=== PATIENT | male | born 1965 | race Hispanic/Latino ===

== ENCOUNTER 2021-05-07 22:29 | Inpatient (IN) | payer OTHER ==
[~2021-05-07] VITALS: Ht 165.1 cm; Wt 88.2 kg
[~2021-05-07 22:29] MED LIST: CELEXA40 MG PO; GEODON80 MG PO; PRAZOSIN HCL2 MG PO; PROMETHAZINE HC25 M1 PO; TRAZODONE HCL150 MG PO
--- NOTE | 2021-05-08 04:30 | NUR ---
PT ARRIVED TO ROOM 129 AT 0400 VIA STRETCHER. PT AMBULATED TO BATHROOM, VOIDED 350ML DILUTE YELLOW URINE AND THEN AMBULATED TO BED. PT IS ALERT/ORIENTED, DENIES PAIN. LUNGS DIM THROUGHOUT, APPEARS DYSPNEIC WITH ACTIVITY, DENIES CHEST PAIN. HR IRREGULAR, A.FIB RATE IN 100-120'S. BOWEL TONES ACTIVE, DENIES NAUSEA. SKIN GROSSLY INTACT WITHOUT EDEMA. IV INTACT, PATENT AND SALINE LOCKED. PT DENIES NEEDS AT THIS TIME, CALL LIGHT WITHIN REACH.
--- NOTE | 2021-05-08 05:37 | NUR ---
PT UP TO SIDE OF BED WITH SBA TO VOID. NOW BACK IN BED. SANDWICH BOX PROVIDED PER REQUEST.
--- NOTE | 2021-05-08 06:56 | NUR ---
PT UP TO SIDE OF BED WITH SBA, VOIDED 475ML YELLOW URINE. HR UP TO 140'S WITH ACTIVITY. PT BACK IN BED, DENIES FURTHER NEEDS.
--- NOTE | 2021-05-08 08:45 | NUR ---
PT ASSESSMENT COMPLETED AT THIS TIME. PT SHORT OF BREATH AT REST. HEART RATE 120S WITH EATING BREAKFAST. CRACKLES AUSCULTATED IN BILATERAL LUNG BASES. SPO2 = 96% ON 2 L NC. PT STATES HE FEELS DIAPHORETIC AND SHAKY. DISCUSSED PLAN OF CARE FOR THE DAY. ALL QUESTIONS ANSWERED. CALL LIGHT WITHIN REACH. WILL CONTINUE TO MONITOR.
--- NOTE | 2021-05-08 09:47 | NUR ---
1PA UP TO BR FOR BM AND ORAL CARE. PATIENT TOLERATED WELL. LINEN CHANGED. CALL LIGHT AND PERSONAL ITEMS IN EASY REACH
--- NOTE | 2021-05-08 10:53 | NUR ---
MED REC COMPLETED BY PHARMACY
--- NOTE | 2021-05-08 11:27 | EKG ---
[facility] [address] [facility] [place] [address] Signed Atrial fibrillation with rapid ventricular response Anterior infarct , age undetermined Abnormal ECG When compared with ECG of 28-JAN-2016 17:31, Atrial fibrillation has replaced Sinus rhythm Vent. rate has increased BY 68 BPM Anterior infarct is now present Nonspecific T wave abnormality now evident in Anterolateral leads Confirmed by ASHLEY BOTELLO MD ([id number]) on 05/08/2021 11:27:30 AM Electronically Signed By: ASHLEY BOTELLO MD 05/08/21 1127 PATIENT NAME: DAVID SANTORO Electrocardiogram DATE OF : 65 PHYSICIAN: ASHLEY BOTELLO MD REPORT #: [id number] REPORT IS CONFIDENTIAL AND NOT TO BE RELEASED WITHOUT AUTHORIZATION
--- NOTE | 2021-05-08 13:22 | NUR ---
PATIENT STATES HE STOOD TO USE URINAL, BECAME LIGHT HEADED AND SAT BACK DOWN IN BED "I THINK I'M GETTING TOO MUCH OXYGEN OR SOMETHING". RN NOTIFIED.
--- NOTE | 2021-05-08 14:45 | NUR ---
Update from Cecy MONSON. Pt in for exacerbation of CHF, new onset Afib. hr remains uncomtrolled in 130s. Pt positive for meth. Pt denies meth use. Will see pt tomorrow and check if he is interested in assist from [facility] for meth use.
--- NOTE | 2021-05-08 14:46 | NUR ---
Certified Heart Failure Nurse Notes: Diagnosis:heart failure and atrial fibrillation Ticket Collector-NA PCP:does not currently have one Echocardiogram results pending. Admit Pro-BNP: [id number] Social support system:lives with Weight monitoring: No scale present in home.States he can obtain one. Education given on how to weigh daily/ when to notify PCP Patient did recognize that his abdomen has been unusually swollen. Symptom management: Addressed monitoring and reporting changes in weight or symptoms utilizing Zones form Diet: Usual meals - Dines out most days per week. Eats ramen and cup of soup at home. He, nor his spouse, cooks at home. Usual physical activity: Not discussed at this initial visit Medication routine: Has been counseled on minimizing/avoiding use of NSAIDs Tobacco: No Advanced directive: Not discussed at this initial visit Recommendations prior to discharge: Establish an appointment with a PCP within 7-10 days of discharge. Document ambulation oxygen saturations prior to discharge Absence of orthostatic hypotension. Discharge weight less than admit weight. Discharge BNP less than admit (as per [facility] Heart Failure DC Bundle) Barriers to self-care include: New diagnosis knowledge deficit. Fatigue. Imbalanced current home nutrition. Follow-up plans: Patient agrees to receive a follow up call from this service. Patient would be welcome for complimentary outpatient heart failure education. Teaching materials given today: [facility] Heart Failure bundle folder-[facility] My Action Plan Living Well with Heart Failure book, Daily weight and symptom monitoring log, Zones magnet, [facility] contact information Low Sodium Shopping list. Lower sodium dining list. Use of psices. Given 7 day pill reminder box for home use.
--- NOTE | 2021-05-08 15:15 | NUR ---
PT DIAPHORETIC AGAIN, DENIES PAIN AND SHORTNESS OF BREATH AT THIS TIME. PROVIDED PT EDUCATION ABOUT FLUID RESTRICTION, ALL QUESTIONS ANSWERED. CALL LIGHT WITHIN REACH. WILL CONTINUE TO MONITOR.
--- NOTE | 2021-05-08 16:41 | NUR ---
RT IN ROOM GIVING BREATHING TX
--- NOTE | 2021-05-08 18:26 | NUR ---
Report received from CCU IONA Sam, pt tatyana will transfer to [facility] floor via bed.
--- NOTE | 2021-05-08 18:43 | NUR ---
Pt arrives to [facility] floor via bed from CCU, VSS on RA, pt denies any needs at this time, resting safely in bed w/ call light in reach.
--- NOTE | 2021-05-08 19:50 | NUR ---
PT RESTING IN BED SLEEPING, ALERT TO STAFF IN ROOM. HE HAS NO REQUESTS AT THIS TIME, NO DISTRESS NOTED WHILE ROUNDING IN ROOM.
--- NOTE | 2021-05-08 21:07 | NUR ---
PT JUST BACK TO BED AFTER UP TO BATHROOM, HEART RATE UP TO 121 BPM, PER TELEMETRY UNIT. V/S STABLE, PT WITHIN RANGE OF FLUID RESTRICTION. HE IS ALERT ADN ORIENTED. HE REPORT NO PAIN OR NAUSEA, NOTED TO HAVE INCREASE RESPIRATORY DEMAND, TO 25 BPM, RECOVER WITH REST QUICKLY.
--- NOTE | 2021-05-08 22:48 | NUR ---
BED ALARM SOUNDED. PT SAT UP IN BED TO USE URINAL. HE DENIES FURTHER NEEDS AT THIS TIME. CALL LIGHT IS CLOSE.
--- NOTE | 2021-05-08 23:28 | NUR ---
CALLED THE NURSES STATION TO REQUEST AN UPDATE ON PT HEART RATE. UPDATE GIVEN.
--- NOTE | 2021-05-08 23:45 | NUR ---
PT SLEEPING, ALERT TO RN IN PT ROOM. HE ASKED ABOUT A LUNCH BOX NOTED TO BE ON BEDSIDE TABLE. PT SAT UP TO EAT. NO OTHER CONCERNS OR REQUESTS AT THIS TIME. PT PROVIDED WATER FOR HIS MEAL. HE 150ML REMAINING UNTIL 0600 PER HIS FLUID RESTRICTION ORDER.
--- NOTE | 2021-05-09 05:18 | NUR ---
PT HAS SLEPT INTERMITTENLY, HE HAS CONTINUOUSLY REQUESTED FOOD/SNACKS AND MORE WATER, HE IS NOW MAXED OUT UNTIL BREAKFAST, THIS HAS BEEN EXPLAINED, EDUCATION PROVIDED. HE HAS REPORTED NO PAIN OVER SHIFT, NO NAUSEA. HIS HEART RATE HAS REMAINED UNDER 100 BPM AT REST, UP TO 120'S BPM WHEN ACTIVE. HE IS STANDBY ASSIST TO USE URINAL. V/S STABLE ON ROOM AIR, REMAINS IN AFIB PER TELEMETRY.
--- NOTE | 2021-05-09 06:18 | NUR ---
PT UP TO BATHROOM, STANDYBY ASSIST, AMBUALTES WELL WITH STEADY GAIT. PT HAVING BM.
--- NOTE | 2021-05-09 07:30 | NUR ---
Shift report recieved from IONA Ascencio, pt resting safely in bed w/ call light in reach, no needs at this time.
--- NOTE | 2021-05-09 08:42 | NUR ---
UPDATED WHITE BOARD. IONA GREEN IN ROOM. PROVIDED PT WITH WARM WASHCLOTH. PT WAS AGREEABLE TO CHAIR. PREPARED PT'S CHAIR. PT SBA TO CHAIR. CALL LIGHT WITHIN REACH, NO FURTHER NEEDS AT THIS TIME.
--- NOTE | 2021-05-09 10:00 | NUR ---
Pt sitting up in chair w/ call light in reach, eating breakfast. Morning assesment complete and scheduled meds given per provider order. Pt asking for decaf coffee instead as he does not drink caffine, cup of decaf coffee and ice water given pt notified that was his fluids for the morning until lunch time due to fluid restriction. Pt denies any other needs at this time
--- NOTE | 2021-05-09 11:20 | NUR ---
Spoke with pt and he lives in [place] with his in an apartment. 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 He does not use any DME. He does admit to Meth use, but states he is stop- ing for good as he believes this is what is causing his heart issues. He does agree to speak with [facility] and I notified them. Pt is [employer] but does not have benefits from [employer]. He will need a pcp. He has been going to [facility] urgent care. He denies other needs.
--- NOTE | 2021-05-09 12:30 | NUR ---
PT ALERT, ORIENTED AND WATCHING TV. PT SEEMS WELL VERSED IN THAI, HAD LIVELY DISCUSSION. PT DEALING APPROPRIATELY WITH CHANGE IN HEALTH, STRUGGLING WITH [facility]. GAVE BLESSING, WILL FOLLOW
--- NOTE | 2021-05-09 13:29 | NUR ---
UPON ENTERING THE ROOM, THIS WIRE PULLER FOUND PT LEANING OVER ROOM SINK WITH CUP IF THEY WERE GOING TO FILL IT. SOON PT SAW THIS WIRE PULLER, THEY HASTILY SET THIER CUP DOWN AND JUMPED BACK IN BED. IONA BREWSTER AND IONA GREEN NOTIFIED, CALL LIGHT WITHIN REACH NO FURTHER NEEDS AT THIS TIME.
--- NOTE | 2021-05-09 14:30 | NUR ---
Pt ambulated hallway ind, 2 full laps, pt resting in bed safely now w/ call light in reach, no needs at this time
--- NOTE | 2021-05-09 15:43 | NUR ---
PREPPED PT'S SHOWER. PT SBA TO SHOWER. PLACED TELE IN PLASTIC BAG. PT INDEPENDENT IN SHOWER. LINENS CHANGED, MARYBETHWHICH BROUGHT PER PT REQUEST. BR TIDIED AND CLEANED. CALL LIGHT WITHIN REACH, NO FURTHER NEEDS AT THIS POINT
--- NOTE | 2021-05-09 18:00 | NUR ---
PT SITTING UP IN BED W/ CALL LIGHT IN REACH, PT GIVEN ICE WATER UPON REQUEST, PT DENIES ANY FURTHER NEEDS AT THIS TIME
--- NOTE | 2021-05-09 20:04 | NUR ---
BEDSIDE REPORT.. PT HAS BEEN UP AND AMBULATORY, HE HAS BEEN WITNESSED FILLING CUP AT SINK TODAY BY STAFF. EDUCATION HAS BEEN GIVEN THROUGHOUT SHIFT FOR CHF, PT CONTINUES TO NEED REINFORCEMENT, ON ASSESSMENT NORMA MONSON SAID HE RESPONDED THOUGH HE HAD NOT BEEN EDUCATED PRIOR, HIGH RISK FOR CARE PLAN FOLLOW THROUGH AT DISCHARGE, CHF MANAGEMENT AT HOME.
--- NOTE | 2021-05-09 20:15 | NUR ---
FIXED TELE LEADS AND PT REQUESTED SORBET. HE DENIES FURTHER NEEDS AT THIS TIME. CALL LIGHT IS CLOSE.
--- NOTE | 2021-05-09 21:45 | NUR ---
PT SLEEPING, ALERT TO STAFF IN ROOM TO COMPLETE ASSESSMENT AND HS MED PASS, V/S STABLE. PT REQUESTS ANOTHER ICE CREAM CUP, EDUCATIONS PROVIDED IN REGARDS TO FLUID RESTRICTION AND CHF
--- NOTE | 2021-05-09 22:41 | NUR ---
NOTIFIED BY CCU RN OF PATIENT HAVING 7 BEATS OF VTACH PER TELEMETRY. VINCENT RN INTO PT ROOM, HE SAID HE FELT FINE, HE SAID HE HAD BEEN MOVING AROUND IN BED
--- NOTE | 2021-05-09 23:35 | NUR ---
PT RESTING IN BED, TALKING ON CELL PHONE, NO DISTRESS NOTED. HEART RATE 89 BPM PER TELEMETRY.
--- NOTE | 2021-05-10 00:50 | NUR ---
PT CALLED NURSES STATION TO REQUEST A LUNCH BOX, THIS RN CALLED AND REQUESTED FROM [employer] FOR LUNCH BOX.
--- NOTE | 2021-05-10 03:33 | NUR ---
PT UP TO USE URINAL, HR 105 BPM PER TELEMETRY AT THIS TIME.
--- NOTE | 2021-05-10 04:27 | NUR ---
PT REQUEST MORE SNACKS, HE HAS HAD LUNCH BOX TONIGHT, HE IS NOW MAXED OUT ON HIS FLUID RESTRICTION. EDUCATION PROVIDED.
--- NOTE | 2021-05-10 05:41 | NUR ---
PT HAS NOT SLEPT OVER MOST OF SHIFT, HE HAS MAXED OUT HIS FLUID RESTRICTION, HE HAS REQUESTED FOOD FREQUENTLY HAS BEEN GIVEN LUNCH BOX WELL SNACKS FROM NUTRITION ROOM. HE HAS BEEN COOPERATIVE WITH CARE. EDUCATION ON CHF AND FLUID RESTRICITON WELL MANAGING CHF AT HOME GIVEN OVER SHIFT. PT IS NOT ABLE TO TEACH BACK, HE MAY NOT BE RETAINING OR EXCEPTING THE SEVERITY OF HIS CONDITION. CONTINUE TO RE-ENFORCE, HIGH RISK FOR POOR MANAGEMENT OF CHF AT HOME. CASE MANAGEMENT SET UP PCP WITH [facility] TO FOLLOW UP.
--- NOTE | 2021-05-10 07:30 | NUR ---
Shift report received from IONA Ascencio, pt resting in bed safely w/ call light in reach, pt denies any needs at this time
--- NOTE | 2021-05-10 10:00 | NUR ---
Pt sitting up on side of bed w/ call light in reach, pt walked a total of 7 laps ind in hallway, HR 110-120 per Tele, provider notified, additional medication ordered. Morning assesment complete and scheduled meds given per provider order. Pt denies any other needs at this time, eager to discharge home
--- NOTE | 2021-05-10 12:22 | NUR ---
BLOOD PRESSURE TAKEN AND THEN PATIENT UP TO AMBULATE IN HALLWAY. PATIENT AMBULATED 2 LAPS UPON RN REQUEST TO WATCH HEART RATE. PATIENT NOW BACK TO SITTING UP IN BED. CALL LIGHT IN REACH. NO FURTHER NEEDS AT THIS TIME.
--- NOTE | 2021-05-10 12:22 | NUR ---
Pt ambulated in hallway again 2 full laps, HR 90-115, provider notified, no new orders at this time. Pt denies and SOB, CP, or needs at this time
[2021-05-10] MEDS ORDERED: ASPIRIN EC325 MG PO (13:39)
[2021-05-10] MEDS ORDERED: SPIRONOLACTONE25 MG PO (13:39)
[2021-05-10] MEDS ORDERED: TORSEMIDE10 MG PO (13:39)
[2021-05-10] MEDS ORDERED: METOPROLOL SUCC50 MG PO (13:39)
[2021-05-10] MEDS ORDERED: LISINOPRIL2.5 MG PO (13:39)
--- NOTE | 2021-05-10 14:45 | NUR ---
WRITTEN AND VERBAL DISCHARGE INSTRUCTIONS/EDUCATION GIVEN TO PT, ALL QUESTIONS AND CONCERNS ANSWERED. PT TAKEN VIA W/C BY JODY CHIANG TO FRONT LOBBY, WHERE PT'S WAS WAITING W/ CAR TO TRANSPORT PT HOME. VSS ON RA
== END 2021-05-10 15:05 | disposition home or self-care (01) | DRG 291 ==
LOC: ED 22:29 → CCU 05-08 04:24 → MS 05-08 10:59
PROVIDERS: ADMIT Internal Medicine; ATTEND Internal Medicine
DX: I11.0 Hypertensive heart disease with heart failure (principal); I50.23 Acute on chronic systolic (congestive) heart failure; J96.01 Acute respiratory failure with hypoxia; I47.2 Ventricular tachycardia; Z20.822 Contact with and (suspected) exposure to COVID-19; I42.8 Other cardiomyopathies; F15.10 Other stimulant abuse, uncomplicated; I48.0 Paroxysmal atrial fibrillation; I34.0 Nonrheumatic mitral (valve) insufficiency; K76.81 Hepatopulmonary syndrome; F20.9 Schizophrenia, unspecified; F32.A Depression, unspecified; F17.210 Nicotine dependence, cigarettes, uncomplicated; Z88.0 Allergy status to penicillin; Z88.8 Allergy status to other drugs, medicaments and biological substances
CPT/HCPCS: 71045; 76705; 80053; 83690; 83735; 83880; 84484; 85025; 93306; 94760; 96374; 96375; 99285-25; C9803; G0378; J1650; J1940; U0003

== ENCOUNTER 2021-07-05 06:54 | Emergency (ER) | payer OTHER ==
[~2021-07-05] VITALS: Ht 165.1 cm; Wt 88.0 kg
[~2021-07-05 06:54] MED LIST changes: +ASPIRIN EC325 MG PO; +LISINOPRIL2.5 MG PO; +METOPROLOL SUCC50 MG PO; +SPIRONOLACTONE25 MG PO; +TORSEMIDE10 MG PO
--- OUTSIDE RECORDS SUMMARY | 2021-07-05 07:04 | XMS ---
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 E.D. VISIT COUNT (12 MO.) 2 [facility] [place] TOTAL 2 NOTE: Visits indicate total known visits. ED/UCC VISIT TRACKING (12 MO.) 07/05/2021 06:54 [facility] [place] TYPE: Emergency COMPLAINT: - PAINFUL FEET 05/07/2021 22:29 [facility] [place] TYPE: Emergency COMPLAINT: - SOB, COUGH INPATIENT VISIT TRACKING (12 MO.) 05/08/2021 10:59 [facility] [place] TYPE: Medical Surgical COMPLAINT: - CHF EXAC DIAGNOSES: - Paroxysmal atrial fibrillation - Hypertensive heart disease with heart failure - Acute on chronic systolic (congestive) heart failure - Hepatopulmonary syndrome - Paroxysmal atrial fibrillation - Other cardiomyopathies - Acute respiratory failure with hypoxia - Allergy status to penicillin - Ventricular tachycardia - Acute respiratory failure with hypoxia - Other stimulant abuse, uncomplicated - Allergy status to penicillin - Nicotine dependence, cigarettes, uncomplicated - Other stimulant abuse, uncomplicated - Allergy status to other drugs, medicaments and biological substances - Acute on chronic systolic (congestive) heart failure - Schizophrenia, unspecified - Hypertensive heart disease with heart failure - Ventricular tachycardia - DEPRESSION, UNSPECIFIED - Allergy status to other drugs, medicaments and biological substances - Nicotine dependence, cigarettes, uncomplicated - Nonrheumatic mitral (valve) insufficiency - Other cardiomyopathies - Schizophrenia, unspecified - Heart failure, unspecified - DEPRESSION, UNSPECIFIED - Hepatopulmonary syndrome - Nonrheumatic mitral (valve) insufficiency [email or web address]
[2021-07-05] MEDS ORDERED: ATORVASTATIN CA20 MG PO (07:09)
[2021-07-05] MEDS ORDERED: METOPROLOL SUCC25 MG PO (07:10)
== END 2021-07-05 09:24 | disposition home or self-care (01) ==
LOC: ED 06:54
DX: M19.072 Primary osteoarthritis, left ankle and foot (principal); M19.071 Primary osteoarthritis, right ankle and foot; F17.200 Nicotine dependence, unspecified, uncomplicated; Z88.0 Allergy status to penicillin; Z88.8 Allergy status to other drugs, medicaments and biological substances; Z88.6 Allergy status to analgesic agent; Z79.899 Other long term (current) drug therapy; Z79.82 Long term (current) use of aspirin
CPT/HCPCS: 73630; 99283-25; A9270

== ENCOUNTER 2021-09-18 17:04 | Emergency (ER) | payer OTHER ==
[~2021-09-18] VITALS: Ht 165.1 cm; Wt 95.6 kg
[~2021-09-18 17:04] MED LIST changes: +ATORVASTATIN CA20 MG PO; +METOPROLOL SUCC25 MG PO
== END 2021-09-18 19:54 | disposition home or self-care (01) ==
LOC: ED 17:04
DX: M54.6 Pain in thoracic spine (principal); M54.50 Low back pain, unspecified; F19.10 Other psychoactive substance abuse, uncomplicated; F17.200 Nicotine dependence, unspecified, uncomplicated; Z88.0 Allergy status to penicillin; Z91.09 Other allergy status, other than to drugs and biological substances; Z79.899 Other long term (current) drug therapy; Z79.82 Long term (current) use of aspirin; Z88.8 Allergy status to other drugs, medicaments and biological substances
CPT/HCPCS: 36415; 80048; 85025; 85651; 86140; 96374; 99283-25; A9270; J1885

== ENCOUNTER 2021-10-27 10:22 | Emergency (ER) | payer OTHER ==
[~2021-10-27] VITALS: Ht 165.1 cm; Wt 95.6 kg
[2021-10-27] MEDS ORDERED: DOXYCYCLINE HY100 MG PO (13:21)
== END 2021-10-27 14:40 | disposition home or self-care (01) ==
LOC: ED 10:22
DX: L03.316 Cellulitis of umbilicus (principal); F15.10 Other stimulant abuse, uncomplicated; I50.9 Heart failure, unspecified; F17.200 Nicotine dependence, unspecified, uncomplicated; Z88.0 Allergy status to penicillin; Z88.6 Allergy status to analgesic agent; Z91.048 Other nonmedicinal substance allergy status; Z79.899 Other long term (current) drug therapy
CPT/HCPCS: 36415; 74177; 80053; 81001; 83605; 85025; 87040; 87070; 96375; 99284-25; J0696; J2405; Q9967

== ENCOUNTER 2022-03-10 13:23 | Emergency (ER) | payer OTHER ==
[~2022-03-10] VITALS: Ht 165.1 cm; Wt 86.0 kg
[~2022-03-10 13:23] MED LIST changes: +DOXYCYCLINE HY100 MG PO
[2022-03-10] MEDS ORDERED: K-TAB ER20 MEQ PO (17:13)
[2022-03-10] MEDS ORDERED: TORSEMIDE10 MG PO (17:13)
--- NOTE | 2022-03-10 21:32 | EKG ---
[facility] [address] [facility] [place] [address] Signed Atrial fibrillation with rapid ventricular response with premature ventricular or aberrantly conducted complexes Left axis deviation Anterior infarct (cited on or before 07-MAY-2021) Prolonged QT Abnormal ECG When compared with ECG of 07-MAY-2021 22:54, T wave amplitude has increased in Anterior leads Confirmed by Mona Hoffman MD () on 03/10/2022 9:32:30 PM Electronically Signed By: MNOA HOFFMAN MD 03/10/222131 PATIENT NAME: DAVID SANTORO Electrocardiogram DATE OF : 65 PHYSICIAN: MONA HOFFMAN MD REPORT #: [id number] REPORT IS CONFIDENTIAL AND NOT TO BE RELEASED WITHOUT AUTHORIZATION
--- NOTE | 2022-03-10 21:35 | EKG ---
[facility] [address] [facility] [place] [address] Signed Atrial fibrillation with rapid ventricular response with premature ventricular or aberrantly conducted complexes Left axis deviation Incomplete right bundle branch block Anterior infarct (cited on or before 07-MAY-2021) Abnormal ECG When compared with ECG of 10-MAR-2022 13:48, (Unconfirmed) No significant change was found Confirmed by Mona Hoffman MD () on 03/10/2022 9:35:07 PM Electronically Signed By: MONA HOFFMAN MD 03/10/222134 PATIENT NAME: DAVID SANTORO Electrocardiogram DATE OF : 65 PHYSICIAN: MONA HOFFMAN MD REPORT #: [id number] REPORT IS CONFIDENTIAL AND NOT TO BE RELEASED WITHOUT AUTHORIZATION
== END 2022-03-10 17:54 | disposition home or self-care (01) ==
LOC: ED 13:23
DX: I50.9 Heart failure, unspecified (principal); F17.200 Nicotine dependence, unspecified, uncomplicated; Z88.0 Allergy status to penicillin; Z88.6 Allergy status to analgesic agent; Z91.041 Radiographic dye allergy status; Z79.899 Other long term (current) drug therapy; Z79.82 Long term (current) use of aspirin
CPT/HCPCS: 36415; 74022; 80053; 82375; 82803; 83880; 84484; 85025; 93005; 93010; 96374; 96375; 99285-25; J1940

== ENCOUNTER 2022-04-04 17:27 | Emergency (ER) | payer OTHER ==
[~2022-04-04] VITALS: Ht 165.1 cm; Wt 86.0 kg
[~2022-04-04 17:27] MED LIST changes: +K-TAB ER20 MEQ PO
--- OUTSIDE RECORDS SUMMARY | 2022-04-04 17:34 | XMS ---
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 Security E Commerce Director Events No recent Security Events currently on file CRITERIA MET - [facility] - 2 Visits in 30 Days [facility] PHONE: [phone] CECI URIOSTEGUI Nurse Practitioner: Family Current PHONE: [phone] Bella has no Care Guidelines for this patient. EKatelynn VISIT COUNT (12 MO.) [address] [place] [address] TOTAL 6 NOTE: Visits indicate total known visits. ED/UCC VISIT TRACKING (12 MO.) 04/04/2022 17:[address] [facility] [place] TYPE: Emergency COMPLAINT: - LEG AND FEET SWELLING 03/10/2022 13:[address] [facility] [place] TYPE: Emergency COMPLAINT: - POISONING DIAGNOSES: - Shortness of breath - Allergy status to analgesic agent - Heart failure, unspecified - Other chcf (current) drug therapy - Nicotine dependence, unspecified, uncomplicated - Radiographic dye allergy status - exterminator termite (current) use of aspirin - Allergy status to penicillin 10/27/2021 10:23 [facility] [place] TYPE: Emergency COMPLAINT: - ABD PAIN DIAGNOSES: - Other extermination inspector (current) drug therapy - Cellulitis of umbilicus - Heart failure, unspecified - Allergy status to analgesic agent - Other nonmedicinal substance allergy status - Nicotine dependence, unspecified, uncomplicated - Other stimulant abuse, uncomplicated - Allergy status to penicillin 09/18/2021 17:04 [facility] [place] TYPE: Emergency COMPLAINT: - NECK PAIN DIAGNOSES: - Allergy status to penicillin - Other psychoactive substance abuse, uncomplicated - Other allergy status, other than to drugs and biological substances - Other chcf (current) drug therapy - Low back pain, unspecified - exterminator termite (current) use of aspirin - Allergy status to other drugs, medicaments and biological substances - Nicotine dependence, unspecified, uncomplicated - Allergy status to narcotic agent - Pain in thoracic spine 07/05/2021 06:54 [facility] [place] TYPE: Emergency COMPLAINT: - PAINFUL FEET DIAGNOSES: - Allergy status to analgesic agent - Primary osteoarthritis, right ankle and foot - Other extermination inspector (current) drug therapy - Pain in right foot - Allergy status to other drugs, medicaments and biological substances - Nicotine dependence, unspecified, uncomplicated - Primary osteoarthritis, left ankle and foot - Allergy status to penicillin - assisted (current) use of aspirin 05/07/2021 22:29 [facility] [place] TYPE: Emergency COMPLAINT: - SOB, COUGH INPATIENT VISIT TRACKING (12 MO.) 05/08/2021 10:59 [facility] [place] TYPE: Medical Surgical COMPLAINT: - CHF EXAC DIAGNOSES: - Ventricular tachycardia - Acute on chronic systolic (congestive) heart failure - Contact with and (suspected) exposure to COVID-19 - Allergy status to penicillin - Allergy status to other drugs, medicaments and biological substances - Paroxysmal atrial fibrillation - Hepatopulmonary syndrome - Other stimulant abuse, uncomplicated - Nicotine dependence, cigarettes, uncomplicated - Acute respiratory failure with hypoxia - Acute on chronic systolic (congestive) heart failure - Paroxysmal atrial fibrillation - Other cardiomyopathies - Ventricular tachycardia - Hypertensive heart disease with heart failure - Hypertensive heart disease with heart failure - Heart failure, unspecified - Other stimulant abuse, uncomplicated - DEPRESSION, UNSPECIFIED - Hepatopulmonary syndrome - DEPRESSION, UNSPECIFIED - Nicotine dependence, cigarettes, uncomplicated - Depression, unspecified - Other cardiomyopathies - Nonrheumatic mitral (valve) insufficiency - Allergy status to other drugs, medicaments and biological substances - Nonrheumatic mitral (valve) insufficiency - Allergy status to penicillin - Schizophrenia, unspecified - Schizophrenia, unspecified - Acute respiratory failure with hypoxia [id number]
[2022-04-04] MEDS ORDERED: ELIQUIS5 MG PO (17:46)
[2022-04-05] MEDS ORDERED: COLCHICINE0.6 M1 PO (05:45)
[2022-04-05] MEDS ORDERED: BACTRIM DS TAB1 EACH PO (05:45)
--- NOTE | 2022-04-06 21:51 | EKG ---
[facility] [address] [facility] [place] [address] Signed Atrial fibrillation with rapid ventricular response Nonspecific ST and T wave abnormality Abnormal ECG When compared with ECG of 10-MAR-2022 14:21, Incomplete right bundle branch block is no longer present Confirmed by Mona Hoffman MD () on 04/06/2022 9:51:19 PM Electronically Signed By: MONA HOFFMAN MD 04/06/222150 PATIENT NAME: SANTORODAVID ALICIA Electrocardiogram DATE OF : 65 PHYSICIAN: MONA HOFFMAN MD REPORT #: [id number] REPORT IS CONFIDENTIAL AND NOT TO BE RELEASED WITHOUT AUTHORIZATION
== END 2022-04-05 06:08 | disposition home or self-care (01) ==
LOC: ED 17:27
PROC: 0S9D3ZZ Drainage of Left Knee Joint, Percutaneous Approach (ICD-10-PCS; principal; 2022-04-04)
DX: I50.9 Heart failure, unspecified (principal); N39.0 Urinary tract infection, site not specified; E79.0 Hyperuricemia without signs of inflammatory arthritis and tophaceous disease; M25.462 Effusion, left knee; F17.200 Nicotine dependence, unspecified, uncomplicated; Z20.822 Contact with and (suspected) exposure to COVID-19; Z88.0 Allergy status to penicillin; Z88.6 Allergy status to analgesic agent; Z91.02 Food additives allergy status; Z79.899 Other long term (current) drug therapy; Z79.01 Long term (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
CPT/HCPCS: 20610; 36415; 71045; 73560; 80053; 81001; 83735; 83880; 84484; 84550; 85025; 85379; 85610; 86140; 87502; 89051; 89060; 99284-25; A9270; J1940; J2270; U0003

== ENCOUNTER 2022-07-19 21:25 | Emergency (ER) | payer OTHER ==
[~2022-07-19] VITALS: Ht 165.1 cm; Wt 86.0 kg
[~2022-07-19 21:25] MED LIST changes: +BACTRIM DS TAB1 EACH PO; +COLCHICINE0.6 M1 PO; +ELIQUIS5 MG PO
[2022-07-19] MEDS ORDERED: TORSEMIDE10 MG PO (22:52)
[2022-07-19] MEDS ORDERED: SPIRONOLACTONE25 MG PO (22:52)
--- NOTE | 2022-07-21 14:02 | EKG ---
[facility] [address] [facility] [place] [address] Signed Atrial fibrillation with rapid ventricular response Left axis deviation Incomplete right bundle branch block Possible Anterior infarct , age undetermined Abnormal ECG When compared with ECG of 04-APR-2022 20:25, No significant change was found Confirmed by ASHLEY BOTELLO MD ([id number]) on 07/21/2022 2:02:34 PM Electronically Signed By: ASHLEY BOTELLO MD 07/21/22 1402 PATIENT NAME: DAVID SANTORO Electrocardiogram DATE OF : 65 PHYSICIAN: ASHLEY BOTELLO MD REPORT #: [id number] REPORT IS CONFIDENTIAL AND NOT TO BE RELEASED WITHOUT AUTHORIZATION
== END 2022-07-19 23:12 | disposition home or self-care (01) ==
LOC: ED 21:25
DX: I50.9 Heart failure, unspecified (principal); Z91.199 Patient's noncompliance with other medical treatment and regimen due to unspecified reason; F20.9 Schizophrenia, unspecified; F17.200 Nicotine dependence, unspecified, uncomplicated; Z88.0 Allergy status to penicillin; Z88.8 Allergy status to other drugs, medicaments and biological substances; Z91.02 Food additives allergy status; Z79.899 Other long term (current) drug therapy
CPT/HCPCS: 36415; 71045; 80053; 83735; 83880; 84484; 85025; 93005; 93010; 99285-25

== ENCOUNTER 2022-10-30 12:50 | Emergency (ER) | payer OTHER ==
[~2022-10-30] VITALS: Ht 165.1 cm; Wt 96.3 kg
--- OUTSIDE RECORDS SUMMARY | ~2022-10-30 | XMS | Continuity of Care Document ---
Demographics + + + | Address | [address] | | | [place] [address] | + + + | Preferred Language | Unknown | + + + | Marital Status | Polygamous | + + + | Jew Affiliation | Unknown | + + + | Race | Unknown | + + + | Ethnic Group | or | + + + Author + + + | Author | [facility] | + + + | Organization | [facility] | + + + | Address | [address] | | | [place] [address] | + + + | Phone | | + + + Care Team Providers + + + + | Care Treasury Manager Name | Role | Phone | + [...] + | (no date) | Mild | [place] [facility] | (no reaction) | (no severity) [...] + | (no date) | PEN[place]ILLINS | [place] | (no reaction) | (no severity) [...] | (no date) | Other (See | [facility] | (no reaction) | [...] + | (no date) | Ibuprofen | [facility] | (no reaction) | (no severity) [...] + + + | 2015-10-03 00:00 | [id number] 200 actuat | [facility] | | [...] + + + | 2015-10-03 00:00 | [id number] 200 actuat | [facility] | | [...] the Insane | + + + + Procedures No information. Results/Labs +--------+--------+ +---------+--------+---------+ | test | date | facility | value | unit | notes | +--------+--------+ +---------+--------+---------+ + + | Result panel 1 | + + + + + +------+ + + | | 2021-05-07 | [facility] | 56 | (missing) | (missing) | | (unavailable | 22:55 [facility] | | | | + + + +------+ + + + + | Result panel 2 | + + + + + +-------+---------+ + | | 2021-05-07 | [facility] | 2.0 | mg/dL | (missing) | | (unavailable | 22:55 | [facility] | | | | + + + +-------+---------+ + + + | Result panel 3 [...] (missing) | | (unavailable | 13:48 | [facility] | | | | | [...] | | 2022-04-04 | [facility] | 12- | (missing) | (missing) | | (unavailable | 20:10:08 | [facility] | | | | | ) | [...] | | 2022-04-05 | [facility] | [address].25 | (missing) | (missing) | | (unavailable [...] 200 | + + + + + +--------+ + + | | 2022-07-19 | [facility] | 10.9 | (missing) | (missing) | | (unavailable | 21:52:07 | [facility] | | | | + + + +--------+ + + + + | Result panel 201 | + + + + + +--------+ + + | | 2022-07-19 | [facility] | 71.1 | (missing) | (missing) | | (unavailable | 21:52:07 | [facility] | | | | + + + +--------+ + + + + | Result panel 202 | + + + + + +--------+ + + | | 2022-07-19 | [facility] | 16.0 | (missing) | (missing) | | (unavailable | 21:52:07 | [facility] | | | | + + + +--------+ + + + + | Result panel 203 | + + + + + +--------+ + + | | 2022-07-19 | [facility] | 11.6 | (missing) | (missing) | | (unavailable | 21:52:07 [facility] | | | | + + + +--------+ + + + + | Result panel 204 | + + + + + +-------+ + + | | 2022-07-19 | [facility] | 0.3 | (missing) | (missing) | | (unavailable | 21:52:07 | [facility] | | | | + + + +-------+ + + + + | Result panel 205 | + + + + + +-------+ + + | | 2022-07-19 | [facility] | 1.0 | (missing) | (missing) | | (unavailable | 21:52:07 | [facility] | | | | + + + +-------+ + + + + | Result panel 206 [...] 207 | + + + + + +------+---------+ + | | 2022-07-19 | [facility] | 25 | mg/dL | (missing) | | (unavailable | 21:52:07 | [facility] | | | | + + + +------+---------+ + + + | Result panel 208 | + + + + + +--------+---------+ + | | 2022-07-19 | [facility] | 1.19 | mg/dL | (missing) | | (unavailable | 21:52:07 | [facility] | | | | + + + +--------+---------+ + + + | Result panel 209 | + + + + + +------+ + + | | 2022-07-19 | [facility] | 71 | (missing) | (missing) | | (unavailable | 21:52:07 | [facility] | | | | + + + +------+ + + + + | Result panel 210 | + + + + + +---------+ + + | | 2022-07-19 | [facility] | 21.00 | (missing) | (missing) | | (unavailable | 21:52:07 [facility] | | | | + + + +---------+ + + + + | Result panel 211 | + + + + + +--------+ [...] 214 | + + + + + +------+ + + | | 2022-07-19 | [facility] | 99 | (missing) | (missing) | | (unavailable | 21:52:07 | [facility] | | | | + + + +------+ + + + + | Result panel 215 | + + + + + +------+ [...] 217 | + + + + + +-------+---------+ + | | 2022-07-19 | [facility] | 8.7 | mg/dL | (missing) | | (unavailable | 21:52:07 | [facility] | | | | + + + +-------+---------+ + + + | Result panel 218 | + + + + + +-------+---------+ + | | 2022-07-19 | [facility] | 1.6 | mg/dL | (missing) | | (unavailable | :52:07 | [facility] | | | | + + + +-------+---------+ + + + | Result panel 219 | + + + + + +-------+ + + | | 2022-07-19 | [facility] | 7.6 | (missing) | (missing) | | (unavailable | 21:52:07 | [facility] | | | | + + + +-------+ + + + + | Result panel 220 | + + + + + +-------+ + + | | 2022-07-19 | [facility] | 3.2 | (missing) | (missing) | | (unavailable | 21:52:07 | [facility] | | | | + + + +-------+ + + + + | Result panel 221 | + + + + + +-------+ [...] 225 | + + + + + +-------+ + + | | 2022-07-19 | [facility] | 330 | (missing) | (missing) | | (unavailable | 21:52:07 | [facility] | | | | + + + +-------+ + + + + | Result panel 226 | + + + + + +-------+ + + | | 2022-07-19 | [facility] | 263 | (missing) | (missing) | | (unavailable | 21:52:07 [facility] | | | | + + + +-------+ + + + + | Result panel 227 | + + + + + +-------+ + + | | 2022-07-19 | [facility] | 207 | (missing) | (missing) | | (unavailable | 21:52:07 [facility] | | | | + + + +-------+ + + + + | Result panel 228 | + + + + + +--------+ + + | | 2022-07-19 | [facility] | 19.8 | (missing) | (missing) | | (unavailable | 21:52:07 [facility] | | | | + + + +--------+ + + + + | Result panel 229 | + + + + + +--------+ + + | | 2022-07-19 | [facility] | 42.6 | (missing) | (missing) | | (unavailable | 21:52:07 [facility] | | | | + + + +--------+ + + + + | Result panel 230 | + + + + + +--------+ + + | | 2022-07-19 | [facility] | 94.7 | (missing) | (missing) | | (unavailable | 21:52:07 [facility] | | | | + + + +--------+ + + + + | Result panel 231 | + + + + + +--------+ + + | | 2022-07-19 | [facility] | 31.3 | (missing) | (missing) | | (unavailable | 21:52:07 [facility] | | | | + + + +--------+ + + + + | Result panel 232 | + + + + + +--------+ + + | | 2022-07-19 | [facility] | 33.1 | (missing) | (missing) | | (unavailable | 21:52:07 [facility] | | | | + + + +--------+ + + + + | Result panel 233 | + + + + + +--------+ + + | | 2022-07-19 | [facility] | 15.8 | (missing) | (missing) | | (unavailable | 21:52:07 [facility] | | | | + + + +--------+ + + + + | Result panel 234 | + + + + + +-------+ [...] + | 2019-11-09 00:00 | Ex-smoker | [facility] | | | | [facility] | + + + + | 2021-09-26 00:00 | Current smoker | [facility] | | | | [...] 189.56 | lb | + + + +---------+"
--- OUTSIDE RECORDS SUMMARY | ~2022-10-30 | XMS | Continuity of Care Document ---
Demographics + + + | Address | [address] | | | [place] [address] | + + + | Preferred Language | Unknown | + + + | Marital Status | Polygamous | + + + | Buddhism Affiliation | Unknown | + + + | Race | Unknown | + + + | Ethnic Group | or | + + + Author + + + | Author | [facility] | + + + | Organization | [facility] | + + + | Address | [address] | | | [place] [address] | + + + | Phone | | + + + Care Team Providers + + + + | Care Player Development Manager Name | Role | Phone | [...] + | (no date) | Mild | [place] | (no reaction) | (no severity) [...] + | (no date) | [place] | [place] | (no reaction) | (no severity) [...] + | (no date) | Ibuprofen | [facility] | (no reaction) | (no severity) | | | | [facility] | | | + + + + + + Encounters No information. Functional Status No information. Immunizations No information. Medications + + + + | date | description | facility | + + + + | 2022-04-05 00:00 | APIXABAN | [facility] | + + + + | 2022-07-19 00:00 | APIXABAN | [facility] | + + + + | 2022-03-10 00:00 | POTASSIUM CHLORIDE | [facility] | + + + + | 2022-03-10 00:00 | POTASSIUM CHLORIDE | [facility] | + + + + | 2022-04-05 00:00 | COLCHICINE | [facility] | + + + + | 2021-10-27 00:00 | DOXYCYCLINE HYCLATE | [facility] | + + + + | 2021-05-10 00:00 | TORSEMIDE | [facility] | + + + + | 2021-05-10 00:00 | TORSEMIDE | [facility] | + + + + | 2022-03-10 00:00 | TORSEMIDE | [facility] | + + + + | 2022-03-10 00:00 | TORSEMIDE | [facility] | + + + + | 2022-07-19 00:00 | TORSEMIDE | [facility] | + + + + | 2021-05-10 00:00 | ASPIRIN | [facility] | + + + + | 2021-05-10 00:00 | ASPIRIN | [facility] | + + + + | 2015-10-03 00:00 | [id number] 200 actuat | [facility] | | | albuterol 0.09 mg/actuat | [facility] | | | metered dose inhaler | | + + + + | 2021-10-30 00:00 | CITALOPRAM HYDROBROMIDE | [facility] | + + + + | 2022-03-10 00:00 | CITALOPRAM HYDROBROMIDE | [facility] | + + + + | 2022-04-05 00:00 | CITALOPRAM HYDROBROMIDE | [facility] | + + + + | 2022-07-19 00:00 | CITALOPRAM HYDROBROMIDE | [facility] | + + + + | 2021-10-30 00:00 | ZIPRASIDONE HCL | [facility] | + + + + | 2022-03-10 00:00 | ZIPRASIDONE HCL | [facility] | + + + + | 2022-04-05 00:00 | ZIPRASIDONE HCL | [facility] | + + + + | 2022-07-19 00:00 | ZIPRASIDONE HCL | [facility] | + + + + | 2019-11-09 00:00 | azithromycin 250 mg oral | [facility] | | | tablet | [facility] | + + + + | 2021-05-10 00:00 | LISINOPRIL | [facility] | + + + + | 2021-05-10 00:00 | LISINOPRIL | [facility] | + + + + | 2021-05-10 00:00 | LISINOPRIL | [facility] | + + + + | 2021-10-30 00:00 | PRAZOSIN HCL | [facility] | + + + + | 2022-03-10 00:00 | PRAZOSIN HCL | [facility] | + + + + | 2022-04-05 00:00 | PRAZOSIN HCL | [facility] | + + + + | 2022-07-19 00:00 | PRAZOSIN HCL | [facility] | + + + + | 2021-05-10 00:00 | SPIRONOLACTONE | [facility] | + + + + | 2021-05-10 00:00 | SPIRONOLACTONE | [facility] | + + + + | 2021-05-10 00:00 | SPIRONOLACTONE | [facility] | + + + + | 2022-07-19 00:00 | SPIRONOLACTONE | [facility] | + + + + | 2021-10-30 00:00 | ATORVASTATIN CALCIUM | [facility] | + + + + | 2022-03-10 00:00 | ATORVASTATIN CALCIUM | [facility] | + + + + | 2022-04-05 00:00 | ATORVASTATIN CALCIUM | [facility] | + + + + | 2022-07-19 00:00 | ATORVASTATIN CALCIUM | [facility] | + + + + | 2015-10-03 00:00 | [id number] 200 actuat | [facility] | | | albuterol 0.09 mg/actuat | [facility] | | | metered dose inhaler | | | | [proventil] | | + + + + | 2022-04-05 00:00 | | [facility] | | | SULFAMETHOXAZOLE/TRIMETHOPR | | | | IM DS | | + + + + | 2021-10-30 00:00 | TRAZODONE HCL | [facility] | + + + + | 2022-03-10 00:00 | TRAZODONE HCL | [facility] | + + + + | 2022-04-05 00:00 | TRAZODONE HCL | [facility] | + + + + | 2022-07-19 00:00 | TRAZODONE HCL | [facility] | + + + + | 2021-10-30 00:00 | METOPROLOL SUCCINATE | [facility] | + + + + | 2022-03-10 00:00 | METOPROLOL SUCCINATE | [facility] | + + + + | 2022-04-05 00:00 | METOPROLOL SUCCINATE | [facility] | + + + + | 2022-07-19 00:00 | METOPROLOL SUCCINATE | [facility] | + + + + | [...] 00:00 | Delirium due to general | [facility] | | | medical condition | | + + + + | 2014-10-28 00:00 | Delirium due to general | [facility] | | | medical condition | | + + + + | 2014-10-28 00:00 | Delirium due to general | [facility] | | | medical condition | | + + + + | 2014-10-28 00:00 | Altered level of | [facility] | | | consciousness | | + + + + | 2014-10-28 00:00 | Altered level of | [facility] | | | consciousness | | + + + + | 2014-10-28 00:00 | Altered level of | [facility] | | | consciousness | | + + + + | 2018-06-26 00:00 | Encounter for medical | [facility] | | | screening examination | | + + + + | 2018-06-26 00:00 | Encounter for medical | [facility] | | | screening examination | | + + + + | 2018-06-26 00:00 | Encounter for medical | [facility] | | | screening examination | | + + + + | 2021-05-08 00:00 | Atrial fibrillation with | [facility] | | | rapid ventricular response | | + + + + | 2021-05-08 00:00 | Atrial fibrillation with | [facility] | | | rapid ventricular response | | + + + + | 2021-05-08 00:00 | Atrial fibrillation with | [facility] | | | rapid ventricular response | | + + + + | 2021-05-08 00:00 | Acute on chronic | [facility] | | | congestive heart failure | | + + + + | 2021-05-08 00:00 | Acute on chronic | [facility] | | | congestive heart failure | | + + + + | 2021-05-08 00:00 | Acute on chronic | [facility] | | | congestive heart failure [...] + | 2021-07-05 00:00 | Arthritis | [facility] | + + + + | 2021-07-05 00:00 | Arthritis | [facility] | + + + + | 2021-07-05 00:00 | Arthritis | [facility] | + + + + | 2021-09-18 00:00 | Intravenous drug user | [facility] | + + + + | 2021-09-18 00:00 | Intravenous drug user | [facility] | + + + + | 2021-09-18 00:00 | Intravenous drug user | [facility] | + + + + | 2021-09-18 00:00 | Back pain | [facility] | + + + + | 2021-09-18 00:00 | Back pain | [facility] | + + + + | 2021-09-18 00:00 | Back pain | [facility] | + + + + | [...] | 2021-10-27 00:00 | Methamphetamine abuse | [facility] | + + + + | 2021-10-27 00:00 | Methamphetamine abuse | [facility] | + + + + | 2021-10-27 00:00 | Methamphetamine abuse | [facility] | + + + + | 2021-10-27 00:00 | Cellulitis of | [facility] | | | periumbilical region | | + + + + | 2021-10-27 00:00 | Cellulitis of | [facility] | | | periumbilical region | | + + + + | 2021-10-27 00:00 | Cellulitis of | [facility] | | | periumbilical region | | + + + + | 2022-03-10 00:00 | Congestive heart failure | [facility] | + + + + | 2022-03-10 00:00 | Congestive heart failure | [facility] | + + + + | 2022-04-05 00:00 | Hyperuricemia | [facility] | + + + + | 2022-04-05 00:00 | Urinary tract infection | [facility] | + + + + Procedures No [...] | | 2022-04-05 | [facility] | [address] | (missing) | (missing) | | (unavailable [...]
--- OUTSIDE RECORDS SUMMARY | 2022-10-30 12:58 | XMS ---
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 Care History Medical/Surgical 08/03/2022 [facility] This patient has no showed/cancelled all 5 appointments with PCP this year, 2022. E.D. VISIT COUNT (12 MO.) [address] [facility] TOTAL 4 NOTE: Visits indicate total known visits. ED/UCC VISIT TRACKING (12 MO.) 10/30/2022 12:51 [facility] [place] TYPE: Emergency COMPLAINT: - TURNING YELLOW IN COLOR 07/19/2022 21:26 [facility] [place] TYPE: Emergency COMPLAINT: - CP DIAGNOSES: - Allergy status to other drugs, medicaments and biological substances - Allergy status to penicillin - Chest pain, unspecified - Food additives allergy status - Heart failure, unspecified - Nicotine dependence, unspecified, uncomplicated - Other detention (current) drug therapy - Patient's noncompliance with other medical treatment and regimen due to unspecified reason - Schizophrenia, unspecified 04/04/2022 17:28 [facility] [place] TYPE: Emergency COMPLAINT: - LEG AND FEET SWELLING DIAGNOSES: - Allergy status to analgesic agent - Allergy status to penicillin - Contact with and (suspected) exposure to COVID-19 - Effusion, left knee - Food additives allergy status - Heart failure, unspecified - Hyperuricemia without signs of inflammatory arthritis and tophaceous disease - FPC (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 - Nicotine dependence, unspecified, uncomplicated - Other extermination supervisor (current) drug therapy - Shortness of breath - Urinary tract infection, site not specified 03/10/2022 13:25 [facility] [place] TYPE: Emergency COMPLAINT: - POISONING DIAGNOSES: - Allergy status to analgesic agent - Allergy status to penicillin - Heart failure, unspecified - FPC (current) use of aspirin - Nicotine dependence, unspecified, uncomplicated - Other extermination supervisor (current) drug therapy - Radiographic dye allergy status - Shortness of breath INPATIENT VISIT TRACKING (12 MO.) No inpatient visits to display in this time frame [id number]
[2022-10-30] MEDS ORDERED: ALDACTONE25 MG PO (15:48)
[2022-10-30] MEDS ORDERED: METOPROLOL SUCC25 MG PO (15:48)
[2022-10-30] MEDS ORDERED: ELIQUIS5 MG PO (15:48)
[2022-10-30] MEDS ORDERED: TORSEMIDE10 MG PO (15:48)
[2022-10-30 16:07] VITALS: BP 131/75
== END 2022-10-30 16:08 | disposition home or self-care (01) ==
LOC: ED 12:50
DX: I48.91 Unspecified atrial fibrillation (principal); I50.9 Heart failure, unspecified; R17 Unspecified jaundice; K40.90 Unilateral inguinal hernia, without obstruction or gangrene, not specified as recurrent; F17.200 Nicotine dependence, unspecified, uncomplicated; Z79.899 Other long term (current) drug therapy; Z79.01 Long term (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; Z88.0 Allergy status to penicillin; Z88.6 Allergy status to analgesic agent; Z91.048 Other nonmedicinal substance allergy status
CPT/HCPCS: 36415; 71045; 80053; 83880; 85025; 85060; J1940

== ENCOUNTER 2022-11-08 21:10 | Inpatient (IN) | payer OTHER ==
[~2022-11-08] VITALS: Ht 165.1 cm; Wt 93.1 kg
--- OUTSIDE RECORDS SUMMARY | ~2022-11-08 | XMS | Continuity of Care Document ---
Demographics + + + | Address | [address] | | | [place] [address] | + + + | Preferred Language | Unknown | + + + | Marital Status | Polygamous | + + + | Sikhism Affiliation | Unknown | + + + | Race | Unknown | + + + | Ethnic Group | or | + + + Author + + + | Author | [facility] | + + + | Organization | [facility] | + + + | Address | [address] | | | [place] [address] | + + + | Phone | | + + + Care Team Providers + + + + | Care Tank Tender Name | Role | Phone | + + + + Unavailable | Unavailable | + + + + Unavailable | Unavailable | + + + + Unavailable | Unavailable | + + + + Unavailable | Unavailable | + + + + Unavailable | Unavailable | + + + + Unavailable | Unavailable | + + + + Allergies and Intolerances + + + + + + | date | description | facility | reaction | severity | + + + + + + | (no date) | Mild | [facility] | (no reaction) | (no severity) | | | [facility] | | | + + + + + + | (no date) | Mild | [facility] | (no reaction) | (no severity) | | | | [facility] | | [facility] | | | + + + + + + | (no date) | Rash | [facility] | (no reaction) | (no severity) | | | | [facility] | | | + + + + + + | (no date) | PENICILLINS | [facility] | (no reaction) | (no severity) | | | | [facility] | | [facility] | | | + + + + + + | (no date) | Ibuprofen | [facility] | (no reaction) | (no severity) | | | | [facility] | | | + + + + + + | (no date) | Ibuprofen | [facility] | (no reaction) | (no severity) | | | | [facility] | | | + + + + + + | (no date) | ibuprofen | [facility] | (no reaction) | (no severity) | | | | [facility] | | | + + + + + + | (no date) | Red dye | [facility] | (no reaction) | (no severity) | | | | [facility] | | | + + + + + + | (no date) | Penicillin | [facility] | (no reaction) | (no severity) | | | | [facility] | | | + + + + + + | (no date) | Penicillin | [facility] | (no reaction) | (no severity) | | | | [facility] | | | + + + + + + | (no date) | Penicillins | [facility] | (no reaction) | (no severity) | + + + + + + | (no date) | ibuprofen | [facility] | (no reaction) | (no severity) | + + + + + + | (no date) | red dye | [facility] | (no reaction) | (no severity) | + + + + + + | (no date) | Red dye | [facility] | (no reaction) | (no severity) | | | | [facility] | | | + + + + + + | (no date) | Penicillin | [facility] | (no reaction) | (no severity) | | | | [facility] | | | + + + + + + | (no date) | Other (See | [facility] | (no reaction) | (no severity) | | | Comments) | [facility] | [facility] | | | + + + + + + | (no date) | Penicillin | [facility] | (no reaction) | (no severity) | | | | [facility] | | | + + + + + + | (no date) | Ibuprofen | [facility] | (no reaction) | (no severity) | | | | [facility] | | | + + + + + + Encounters No information. Functional Status No information. Immunizations No information. Medications + + + + | date | description | facility | + + + + | 2022-04-05 00:00 | APIXABAN | [facility] | + + + + | 2022-07-19 00:00 | APIXABAN | [facility] | + + + + | 2022-10-30 00:00 | APIXABAN | [facility] | + + + + | 2022-11-07 00:00 | APIXABAN | [facility] | + + + + | 2022-03-10 00:00 | POTASSIUM CHLORIDE | [facility] | + + + + | 2022-03-10 00:00 | POTASSIUM CHLORIDE | [facility] | + + + + | 2022-03-10 00:00 | POTASSIUM CHLORIDE | [facility] | + + + + | 2022-04-05 00:00 | COLCHICINE | [facility] | + + + + | 2022-04-05 00:00 | COLCHICINE | [facility] | + + + + | 2021-10-27 00:00 | DOXYCYCLINE HYCLATE | [facility] | + + + + | 2021-05-10 00:00 | TORSEMIDE | [facility] | + + + + | 2021-05-10 00:00 | TORSEMIDE | [facility] | + + + + | 2022-03-10 00:00 | TORSEMIDE | [facility] | + + + + | 2022-03-10 00:00 | TORSEMIDE | [facility] | + + + + | 2022-03-10 00:00 | TORSEMIDE | [facility] | + + + + | 2022-07-19 00:00 | TORSEMIDE | [facility] | + + + + | 2022-07-19 00:00 | TORSEMIDE | [facility] | + + + + | 2022-10-30 00:00 | TORSEMIDE | [facility] | + + + + | 2021-05-10 00:00 | ASPIRIN | [facility] | + + + + | 2021-05-10 00:00 | ASPIRIN | [facility] | + + + + | 2022-11-07 00:00 | FUROSEMIDE | [facility] | + + + + | 2022-10-30 00:00 | SPIRONOLACTONE | [facility] | + + + + | 2015-10-03 00:00 | [id number] 200 actuat | [facility] | | | albuterol 0.09 mg/actuat | [facility] | | | metered dose inhaler | | + + + + | 2021-10-30 00:00 | CITALOPRAM HYDROBROMIDE | [facility] | + + + + | 2022-03-10 00:00 | CITALOPRAM HYDROBROMIDE | [facility] | + + + + | 2022-04-05 00:00 | CITALOPRAM HYDROBROMIDE | [facility] | + + + + | 2022-07-19 00:00 | CITALOPRAM HYDROBROMIDE | [facility] | + + + + | 2022-10-30 00:00 | CITALOPRAM HYDROBROMIDE | [facility] | + + + + | 2022-11-07 00:00 | CITALOPRAM HYDROBROMIDE | [facility] | + + + + | 2021-10-30 00:00 | ZIPRASIDONE HCL | [facility] | + + + + | 2022-03-10 00:00 | ZIPRASIDONE HCL | [facility] | + + + + | 2022-04-05 00:00 | ZIPRASIDONE HCL | [facility] | + + + + | 2022-07-19 00:00 | ZIPRASIDONE HCL | [facility] | + + + + | 2022-10-30 00:00 | ZIPRASIDONE HCL | [facility] | + + + + | 2022-11-07 00:00 | ZIPRASIDONE HCL | [facility] | + + + + | 2019-11-09 00:00 | azithromycin 250 mg oral | [facility] | | | tablet | [facility] | + + + + | 2021-05-10 00:00 | LISINOPRIL | [facility] | + + + + | 2021-05-10 00:00 | LISINOPRIL | [facility] | + + + + | 2021-05-10 00:00 | LISINOPRIL | [facility] | + + + + | 2021-05-10 00:00 | LISINOPRIL | [facility] | + + + + | 2021-10-30 00:00 | PRAZOSIN HCL | [facility] | + + + + | 2022-03-10 00:00 | PRAZOSIN HCL | [facility] | + + + + | 2022-04-05 00:00 | PRAZOSIN HCL | [facility] | + + + + | 2022-07-19 00:00 | PRAZOSIN HCL | [facility] | + + + + | 2022-10-30 00:00 | PRAZOSIN HCL | [facility] | + + + + | 2022-11-07 00:00 | PRAZOSIN HCL | [facility] | + + + + | 2021-05-10 00:00 | SPIRONOLACTONE | [facility] | + + + + | 2021-05-10 00:00 | SPIRONOLACTONE | [facility] | + + + + | 2021-05-10 00:00 | SPIRONOLACTONE | [facility] | + + + + | 2021-05-10 00:00 | SPIRONOLACTONE | [facility] | + + + + | 2022-07-19 00:00 | SPIRONOLACTONE | [facility] | + + + + | 2022-07-19 00:00 | SPIRONOLACTONE | [facility] | + + + + | 2021-10-30 00:00 | ATORVASTATIN CALCIUM | [facility] | + + + + | 2022-03-10 00:00 | ATORVASTATIN CALCIUM | [facility] | + + + + | 2022-04-05 00:00 | ATORVASTATIN CALCIUM | [facility] | + + + + | 2022-07-19 00:00 | ATORVASTATIN CALCIUM | [facility] | + + + + | 2022-10-30 00:00 | ATORVASTATIN CALCIUM | [facility] | + + + + | 2022-11-07 00:00 | ATORVASTATIN CALCIUM | [facility] | + + + + | 2015-10-03 00:00 | [id number] 200 actuat | [facility] | | | albuterol 0.09 mg/actuat | [facility] | | | metered dose inhaler | | | | [proventil] | | + + + + | 2022-04-05 00:00 | | [facility] | | | SULFAMETHOXAZOLE/TRIMETHOPR | | | | IM DS | | + + + + | 2022-04-05 00:00 | | [facility] | | | SULFAMETHOXAZOLE/TRIMETHOPR | | | | IM DS | | + + + + | 2021-10-30 00:00 | TRAZODONE HCL | [facility] | + + + + | 2022-03-10 00:00 | TRAZODONE HCL | [facility] | + + + + | 2022-04-05 00:00 | TRAZODONE HCL | [facility] | + + + + | 2022-07-19 00:00 | TRAZODONE HCL | [facility] | + + + + | 2022-10-30 00:00 | TRAZODONE HCL | [facility] | + + + + | 2022-11-07 00:00 | TRAZODONE HCL | [facility] | + + + + | 2021-10-30 00:00 | METOPROLOL SUCCINATE | [facility] | + + + + | 2022-03-10 00:00 | METOPROLOL SUCCINATE | [facility] | + + + + | 2022-04-05 00:00 | METOPROLOL SUCCINATE | [facility] | + + + + | 2022-07-19 00:00 | METOPROLOL SUCCINATE | [facility] | + + + + | 2022-10-30 00:00 | METOPROLOL SUCCINATE | [facility] | + + + + | 2022-11-07 00:00 | METOPROLOL SUCCINATE | [facility] | + + + + | 2015-10-03 00:00 | codeine phosphate 10 mg / | [facility] | | | guaifenesin 100 mg in 5 ml | [facility] | | | oral solution | | + + + + Problems + + + + | date | description | facility | + + + + | 2014-10-28 00:00 | Delirium due to general | [facility] | | | medical condition | | + + + + | 2014-10-28 00:00 | Delirium due to general | [facility] | | | medical condition | | + + + + | 2014-10-28 00:00 | Delirium due to general | [facility] | | | medical condition | | + + + + | 2014-10-28 00:00 | Delirium due to general | [facility] | | | medical condition | | + + + + | 2014-10-28 00:00 | Altered level of | [facility] | | | consciousness | | + + + + | 2014-10-28 00:00 | Altered level of | [facility] | | | consciousness | | + + + + | 2014-10-28 00:00 | Altered level of | [facility] | | | consciousness | | + + + + | 2014-10-28 00:00 | Altered level of | [facility] | | | consciousness | | + + + + | 2018-06-26 00:00 | Encounter for medical | [facility] | | | screening examination | | + + + + | 2018-06-26 00:00 | Encounter for medical | [facility] | | | screening examination | | + + + + | 2018-06-26 00:00 | Encounter for medical | [facility] | | | screening examination | | + + + + | 2018-06-26 00:00 | Encounter for medical | [facility] | | | screening examination | | + + + + | 2021-05-08 00:00 | Atrial fibrillation with | [facility] | | | rapid ventricular response | | + + + + | 2021-05-08 00:00 | Atrial fibrillation with | [facility] | | | rapid ventricular response | | + + + + | 2021-05-08 00:00 | Atrial fibrillation with | [facility] | | | rapid ventricular response | | + + + + | 2021-05-08 00:00 | Atrial fibrillation with | [facility] | | | rapid ventricular response | | + + + + | 2021-05-08 00:00 | Acute on chronic | [facility] | | | congestive heart failure | | + + + + | 2021-05-08 00:00 | Acute on chronic | [facility] | | | congestive heart failure | | + + + + | 2021-05-08 00:00 | Acute on chronic | [facility] | | | congestive heart failure | | + + + + | 2021-05-08 00:00 | Acute on chronic | [facility] | | | congestive heart failure | | + + + + | 2021-07-01 00:00 | patient encounter status | [facility] | | | (finding) | [facility] | + + + + | 2021-07-01 00:00 | Encounter for screening | [facility] | | | for malignant neoplasm of | [facility] | | | colon | | + + + + | 2021-07-05 00:00 | Arthritis | [facility] | + + + + | 2021-07-05 00:00 | Arthritis | [facility] | + + + + | 2021-07-05 00:00 | Arthritis | [facility] | + + + + | 2021-07-05 00:00 | Arthritis | [facility] | + + + + | 2021-08-27 13:55 | GENERALIZED ABDOMINAL PAIN | [facility] | | | | | + + + + | 2021-08-27 13:55 | ABNORMAL FINDINGS ON DX | [facility] | | | IMAGING OF LIVER AND BILIA | | + + + + | 2021-09-18 00:00 | Intravenous drug user | [facility] | + + + + | 2021-09-18 00:00 | Intravenous drug user | [facility] | + + + + | 2021-09-18 00:00 | Intravenous drug user | [facility] | + + + + | 2021-09-18 00:00 | Intravenous drug user | [facility] | + + + + | 2021-09-18 00:00 | Back pain | [facility] | + + + + | 2021-09-18 00:00 | Back pain | [facility] | + + + + | 2021-09-18 00:00 | Back pain | [facility] | + + + + | 2021-09-18 00:00 | Back pain | [facility] | + + + + | 2021-09-18 17:04 | Nicotine dependence, | [facility] | | | unspecified, uncomplicated [facility] | + + + + | 2021-09-18 17:04 | Other psychoactive | [facility] | | | substance abuse, | [facility] | | | uncomplicated | | + + + + | 2021-09-18 17:04 | Low back pain, unspecified | [facility] | | | [facility] | + + + + | 2021-09-18 17:04 | Pain in thoracic spine | [facility] | | | [facility] | + + + + | 2021-09-18 17:04 | Allergy status to | [facility] | | | penicillin | [facility] | + + + + | 2021-09-18 17:04 | Allergy status to narcotic | [facility] | | | agent | [facility] | + + + + | 2021-09-18 17:04 | Other allergy status, | [facility] | | | other than to drugs and | [facility] | | | biological substances | | + + + + | 2021-10-27 00:00 | Methamphetamine abuse | [facility] | + + + + | 2021-10-27 00:00 | Methamphetamine abuse | [facility] | + + + + | 2021-10-27 00:00 | Methamphetamine abuse | [facility] | + + + + | 2021-10-27 00:00 | Methamphetamine abuse | [facility] | + + + + | 2021-10-27 00:00 | Cellulitis of | [facility] | | | periumbilical region | | + + + + | 2021-10-27 00:00 | Cellulitis of | [facility] | | | periumbilical region | | + + + + | 2021-10-27 00:00 | Cellulitis of | [facility] | | | periumbilical region | | + + + + | 2021-10-27 00:00 | Cellulitis of | [facility] | | | periumbilical region | | + + + + | 2022-03-10 00:00 | Congestive heart failure | [facility] | + + + + | 2022-03-10 00:00 | Congestive heart failure | [facility] | + + + + | 2022-03-10 00:00 | Congestive heart failure | [facility] | + + + + | 2022-04-05 00:00 | Hyperuricemia | [facility] | + + + + | 2022-04-05 00:00 | Hyperuricemia | [facility] | + + + + | 2022-04-05 00:00 | Urinary tract infection | [facility] | + + + + | 2022-04-05 00:00 | Urinary tract infection | [facility] | + + + + | 2022-07-19 21:26 | NICOTINE DEPENDENCE, | [facility] | | | UNSPECIFIED, UNCOMPLICATED | | + + + + | 2022-07-19 21:26 | SCHIZOPHRENIA, UNSPECIFIED | [facility] | | | | | + + + + | 2022-07-19 21:26 | HEART FAILURE, UNSPECIFIED | [facility] | | | | | + + + + | 2022-07-19 21:26 | CHEST PAIN, UNSPECIFIED | [facility] | + + + + | 2022-07-19 21:26 | OTHER REPORTING SPECIALIST (CURRENT) | [facility] | | | DRUG THERAPY | | + + + + | 2022-07-19 21:26 | ALLERGY STATUS TO | [facility] | | | [facility] | | + + + + | 2022-07-19 21:26 | ALLERGY STATUS TO OTH | [facility] | | | DRUG/MEDS/BIOL SUBST STATUS | | | | | | + + + + | 2022-07-19 21:26 | FOOD ADDITIVES ALLERGY | [facility] | | | STATUS | | + + + + | 2022-07-19 21:26 | PT NONCOMPL WITH OTHER MED | [facility] | | | TRTMT AND REGIMEN D/T U | | + + + + | 2022-09-10 08:00 | HEART FAILURE, UNSPECIFIED | [facility] | | | | | + + + + | 2022-10-30 00:00 | Inguinal hernia | [facility] | + + + + | 2022-10-30 00:00 | Jaundice | [facility] | + + + + | 2022-10-30 12:51 | NICOTINE DEPENDENCE, | [facility] | | | UNSPECIFIED, UNCOMPLICATED | | + + + + | 2022-10-30 12:51 | UNSPECIFIED ATRIAL | [facility] | | | FIBRILLATION | | + + + + | 2022-10-30 12:51 | HEART FAILURE, UNSPECIFIED | [facility] | | | | | + + + + | 2022-10-30 12:51 | UNIL INGUINAL HERNIA, W/O | [facility] | | | OBST OR GANGR, NOT SPCF | | + + + + | 2022-10-30 12:51 | Unspecified jaundice | [facility] | + + + + | 2022-10-30 12:51 | REPORTING SPECIALIST (CURRENT) USE OF | [facility] | | | ANTICOAGULANTS | | + + + + | 2022-10-30 12:51 | OTHER REPORTING SPECIALIST (CURRENT) | [facility] | | | DRUG THERAPY | | + + + + | 2022-10-30 12:51 | ALLERGY STATUS TO | [facility] | | | [facility]ILL[facility] | | + + + + | 2022-10-30 12:51 | ALLERGY STATUS TO | [facility] | | | ANALGESIC AGENT STATUS | | + + + + | 2022-10-30 12:51 | OTHER NONMEDICINAL | [facility] | | | SUBSTANCE ALLERGY STATUS | | + + + + Procedures No information. Results/Labs +--------+--------+ +---------+--------+---------+ | test | date | facility | value | unit | notes | +--------+--------+ +---------+--------+---------+ + + | Result panel 1 | + + + + + +-------+---------+ + | | 2021-05-07 | [facility] | 2.0 | mg/dL | (missing) | | (unavailable | 22:55 | [facility] | | | | + + + +-------+---------+ + + + | Result panel 2 | + + + + + +------+ + + | | 2021-05-07 | [facility] | 56 | (missing) | (missing) | | (unavailable | 22:55 | [facility] | | | | + + + +------+ + + + + | Result panel 3 | + + + + + + + + + | | 2021-05-07 | [facility] | NEGATIVE | (missing) | (missing) | | (unavailable | 23:30 | [facility] | | | | + + + + + + + + + | Result panel 4 | + + + + + + + + + | | 2021-05-07 | [facility] | NEGATIVE | (missing) | (missing) | | (unavailable | 23:30 | [facility] | | | | + + + + + + + + + | Result panel 5 | + + + + + + + + + | | 2021-05-07 | [facility] | NEGATIVE | (missing) | (missing) | | (unavailable | 23:30 | [facility] | | | | + + + + + + + + + | Result panel 6 | + + + + + +--------+ + + | | 2021-05-08 | [facility] | 22.4 | (missing) | (missing) | | (unavailable | 01:13 | [facility] | | | | + + + +--------+ + + + + | Result panel 7 | + + + + + +------+ + + | | 2021-09-18 | [facility] | 21 | (missing) | (missing) | | (unavailable | 18:00 | [facility] | | | | + + + +------+ + + + + | Result panel 8 | + + + + + +-------+---------+ + | | 2021-09-18 | [facility] | 2.5 | mg/dL | (missing) | | (unavailable | 18:00 | [facility] | | | | + + + +-------+---------+ + + + | Result panel 9 | + + + + + + + + + | | 2021-10-08 | [facility] | NEGATIVE | (missing) | (missing) | | (unavailable | 08:25 | [facility] | | | | + + + + + + + + + | Result panel 10 | + + + + + +-------+ + + | | 2021-10-27 | [facility] | 7.5 | (missing) | (missing) | | (unavailable | 11:16 | [facility] | | | | + + + +-------+ + + + + | Result panel 11 | + + + + + +--------+ + + | | 2021-10-27 | [facility] | 4.66 | (missing) | (missing) | | (unavailable | 11:16 | [facility] | | | | + + + +--------+ + + + + | Result panel 12 | + + + + + +--------+ + + | | 2021-10-27 | [facility] | 13.8 | (missing) | (missing) | | (unavailable | 11:16 | [facility] | | | | + + + +--------+ + + + + | Result panel 13 | + + + + + +--------+ + + | | 2021-10-27 | [facility] | 42.3 | (missing) | (missing) | | (unavailable | 11:16 | [facility] | | | | + + + +--------+ + + + + | Result panel 14 | + + + + + +--------+ + + | | 2021-10-27 | [facility] | 90.8 | (missing) | (missing) | | (unavailable | 11:16 | [facility] | | | | + + + +--------+ + + + + | Result panel 15 | + + + + + +--------+ + + | | 2021-10-27 | [facility] | 29.6 | (missing) | (missing) | | (unavailable | 11:16 | [facility] | | | | + + + +--------+ + + + + | Result panel 16 | + + + + + +--------+ + + | | 2021-10-27 | [facility] | 32.6 | (missing) | (missing) | | (unavailable | 11:16 | [facility] | | | | + + + +--------+ + + + + | Result panel 17 | + + + + + +--------+ + + | | 2021-10-27 | [facility] | 15.8 | (missing) | (missing) | | (unavailable | 11:16 | [facility] | | | | + + + +--------+ + + + + | Result panel 18 | + + + + + +-------+ + + | | 2021-10-27 | [facility] | 257 | (missing) | (missing) | | (unavailable | 11:16 | [facility] | | | | + + + +-------+ + + + + | Result panel 19 | + + + + + +--------+ + + | | 2021-10-27 | [facility] | 59.6 | (missing) | (missing) | | (unavailable | 11:16 | [facility] | | | | + + + +--------+ + + + + | Result panel 20 | + + + + + +--------+ + + | | 2021-10-27 | [facility] | 21.0 | (missing) | (missing) | | (unavailable | 11:16 | [facility] | | | | + + + +--------+ + + + + | Result panel 21 | + + + + + +--------+ + + | | 2021-10-27 | [facility] | 16.6 | (missing) | (missing) | | (unavailable | 11:16 | [facility] | | | | + + + +--------+ + + + + | Result panel 22 | + + + + + +-------+ + + | | 2021-10-27 | [facility] | 1.6 | (missing) | (missing) | | (unavailable | 11:16 | [facility] | | | | + + + +-------+ + + + + | Result panel 23 | + + + + + +-------+ + + | | 2021-10-27 | [facility] | 1.2 | (missing) | (missing) | | (unavailable | 11:16 | [facility] | | | | + + + +-------+ + + + + | Result panel 24 | + + + + + +------+---------+ + | | 2021-10-27 | [facility] | 98 | mg/dL | (missing) | | (unavailable | 11:16 | [facility] | | | | + + + +------+---------+ + + + | Result panel 25 | + + + + + +------+---------+ + | | 2021-10-27 | [facility] | 33 | mg/dL | (missing) | | (unavailable | 11:16 | [facility] | | | | + + + +------+---------+ + + + | Result panel 26 | + + + + + +--------+---------+ + | | 2021-10-27 | [facility] | 1.42 | mg/dL | (missing) | | (unavailable | 11:16 | [facility] | | | | + + + +--------+---------+ + + + | Result panel 27 | + + + + + +------+ + + | | 2021-10-27 | [facility] | 58 | (missing) | (missing) | | (unavailable | 11:16 | [facility] | | | | + + + +------+ + + + + | Result panel 28 | + + + + + +---------+ + + | | 2021-10-27 | [facility] | 23.23 | (missing) | (missing) | | (unavailable | 11:16 | [facility] | | | | + + + +---------+ + + + + | Result panel 29 | + + + + + +-------+ + + | | 2021-10-27 | [facility] | 135 | (missing) | (missing) | | (unavailable | 11:16 | [facility] | | | | + + + +-------+ + + + + | Result panel 30 | + + + + + +-------+ + + | | 2021-10-27 | [facility] | 4.7 | (missing) | (missing) | | (unavailable | 11:16 | [facility] | | | | + + + +-------+ + + + + | Result panel 31 | + + + + + +-------+ + + | | 2021-10-27 | [facility] | 100 | (missing) | (missing) | | (unavailable | 11:16 | [facility] | | | | + + + +-------+ + + + + | Result panel 32 | + + + + + +------+ + + | | 2021-10-27 | [facility] | 28 | (missing) | (missing) | | (unavailable | 11:16 | [facility] | | | | + + + +------+ + + + + | Result panel 33 | + + + + + +--------+ + + | | 2021-10-27 | [facility] | 11.7 | (missing) | (missing) | | (unavailable | 11:16 | [facility] | | | | + + + +--------+ + + + + | Result panel 34 | + + + + + +-------+---------+ + | | 2021-10-27 | [facility] | 8.2 | mg/dL | (missing) | | (unavailable | 11:16 | [facility] | | | | + + + +-------+---------+ + + + | Result panel 35 | + + + + + +-------+ + + | | 2021-10-27 | [facility] | 7.4 | (missing) | (missing) | | (unavailable | 11:16 | [facility] | | | | + + + +-------+ + + + + | Result panel 36 | + + + + + +-------+ + + | | 2021-10-27 | [facility] | 2.9 | (missing) | (missing) | | (unavailable | 11:16 | [facility] | | | | + + + +-------+ + + + + | Result panel 37 | + + + + + +-------+ + + | | 2021-10-27 | [facility] | 4.5 | (missing) | (missing) | | (unavailable | 11:16 | [facility] | | | | + + + +-------+ + + + + | Result panel 38 | + + + + + +--------+ + + | | 2021-10-27 | [facility] | 0.64 | (missing) | (missing) | | (unavailable | 11:16 | [facility] | | | | + + + +--------+ + + + + | Result panel 39 | + + + + + +-------+ + + | | 2021-10-27 | [facility] | 1.7 | (missing) | (missing) | | (unavailable | 11:16 | [facility] | | | | + + + +-------+ + + + + | Result panel 40 | + + + + + +------+ + + | | 2021-10-27 | [facility] | 58 | (missing) | (missing) | | (unavailable | 11:16 | [facility] | | | | + + + +------+ + + + + | Result panel 41 | + + + + + +------+ + + | | 2021-10-27 | [facility] | 60 | (missing) | (missing) | | (unavailable | 11:16 | [facility] | | | | + + + +------+ + + + + | Result panel 42 | + + + + + +-------+ + + | | 2021-10-27 | [facility] | 194 | (missing) | (missing) | | (unavailable | 11:16 | [facility] | | | | + + + +-------+ + + + + | Result panel 43 | + + + + + + + + + | | 2021-10-27 | [facility] | YELLOW | (missing) | (missing) | | (unavailable | 11:31 | [facility] | | | | + + + + + + + + + | Result panel 44 | + + + + + +---------+ + + | | 2021-10-27 | [facility] | CLEAR | (missing) | (missing) | | (unavailable | 11:31 | [facility] | | | | + + + +---------+ + + + + | Result panel 45 | + + + + + + + + + | | 2021-10-27 | [facility] | NEGATIVE | (missing) | (missing) | | (unavailable | 11:31 | [facility] | | | | + + + + + + + + + | Result panel 46 | + + + + + + + + + | | 2021-10-27 | [facility] | NEGATIVE | (missing) | (missing) | | (unavailable | 11:31 | [facility] | | | | + + + + + + + + + | Result panel 47 | + + + + + + + + + | | 2021-10-27 | [facility] | NEGATIVE | (missing) | (missing) | | (unavailable | 11:31 | [facility] | | | | + + + + + + + + + | Result panel 48 | + + + + + +---------+ + + | | 2021-10-27 | [facility] | 1.015 | (missing) | (missing) | | (unavailable | 11:31 | [facility] | | | | + + + +---------+ + + + + | Result panel 49 | + + + + + + + + + | | 2021-10-27 | [facility] | NEGATIVE | (missing) | (missing) | | (unavailable | 11:31 | [facility] | | | | + + + + + + + + + | Result panel 50 | + + + + + +-------+ + + | | 2021-10-27 | [facility] | 6.0 | (missing) | (missing) | | (unavailable | 11:31 | [facility] | | | | + + + +-------+ + + + + | Result panel 51 | + + + + + + + + + | | 2021-10-27 | [facility] | NEGATIVE | (missing) | (missing) | | (unavailable | 11:31 | [facility] | | | | + + + + + + + + + | Result panel 52 | + + + + + +-------+ + + | | 2021-10-27 | [facility] | 2.0 | (missing) | (missing) | | (unavailable | 11:31 | [facility] | | | | + + + +-------+ + + + + | Result panel 53 | + + + + + + + + + | | 2021-10-27 | [facility] | NEGATIVE | (missing) | (missing) | | (unavailable | 11:31 | [facility] | | | | + + + + + + + + + | Result panel 54 | + + + + + + + + + | | 2021-10-27 | [facility] | NEGATIVE | (missing) | (missing) | | (unavailable | 11:31 | [facility] | | | | + + + + + + + + + | Result panel 55 | + + + + + + + + + | | 2021-10-27 | [facility] | NEGATIVE | (missing) | (missing) | | (unavailable | 11:31 | [facility] | | | | + + + + + + + + + | Result panel 56 | + + + + + + + + + | | 2021-10-27 | [facility] | POSITIVE | (missing) | (missing) | | (unavailable | 11:31 | [facility] | | | | + + + + + + + + + | Result panel 57 | + + + + + + + + + | | 2021-10-27 | [facility] | NEGATIVE | (missing) | (missing) | | (unavailable | 11:31 | [facility] | | | | + + + + + + + + + | Result panel 58 | + + + + + + + + + | | 2021-10-27 | [facility] | NEGATIVE | (missing) | (missing) | | (unavailable | 11:31 | [facility] | | | | + + + + + + + + + | Result panel 59 | + + + + + + + + + | | 2021-10-27 | [facility] | NEGATIVE | (missing) | (missing) | | (unavailable | 11:31 | [facility] | | | | + + + + + + + + + | Result panel 60 | + + + + + + + + + | | 2021-10-27 | [facility] | NEGATIVE | (missing) | (missing) | | (unavailable | 11:31 | [facility] | | | | + + + + + + + + + | Result panel 61 | + + + + + + + + + | | 2021-10-27 | [facility] | NEGATIVE | (missing) | (missing) | | (unavailable | 11:31 | [facility] | | | | + + + + + + + + + | Result panel 62 | + + + + + + + + + | | 2021-10-27 | [facility] | NEGATIVE | (missing) | (missing) | | (unavailable | 11:31 | [facility] | | | | + + + + + + + + + | Result panel 63 | + + + + + + + + + | | 2021-10-27 | [facility] | NEGATIVE | (missing) | (missing) | | (unavailable | 11:31 | [facility] | | | | + + + + + + + + + | Result panel 64 | + + + + + + + + + | | 2021-10-27 | [facility] | POSITIVE | (missing) | (missing) | | (unavailable | 11:31 | [facility] | | | | + + + + + + + + + | Result panel 65 | + + + + + + + + + | | 2021-10-27 | [facility] | NEGATIVE | (missing) | (missing) | | (unavailable | 11:31 | [facility] | | | | + + + + + + + + + | Result panel 66 | + + + + + + + + + | | 2021-10-27 | [facility] | NEGATIVE | (missing) | (missing) | | (unavailable | 11:31 | [facility] | | | | + + + + + + + + + | Result panel 67 | + + + + + + + + + | | 2021-10-27 | [facility] | NEGATIVE | (missing) | (missing) | | (unavailable | 11:31 | [facility] | | | | + + + + + + + + + | Result panel 68 | + + + + + +-------+ + + | | 2021-10-27 | [facility] | 1.0 | (missing) | (missing) | | (unavailable | 11:40 | [facility] | | | | + + + +-------+ + + + + | Result panel 69 | + + + + + +---------+ + + | | 2022-03-10 | [facility] | 7.336 | (missing) | (missing) | | (unavailable | 13:40 | [facility] | | | | + + + +---------+ + + + + | Result panel 70 | + + + + + +---------+ + + | | 2022-03-10 | [facility] | 7.336 | (missing) | (missing) | | (unavailable | 13:40:08 | [facility] | | | | + + + +---------+ + + + + | Result panel 71 | + + + + + +-------+ + + | | 2022-03-10 | [facility] | 7.4 | (missing) | (missing) | | (unavailable | 13:48 | [facility] | | | | + + + +-------+ + + + + | Result panel 72 | + + + + + +--------+ + + | | 2022-03-10 | [facility] | 5.10 | (missing) | (missing) | | (unavailable | 13:48 | [facility] | | | | + + + +--------+ + + + + | Result panel 73 | + + + + + +--------+ + + | | 2022-03-10 | [facility] | 14.7 | (missing) | (missing) | | (unavailable | 13:48 | [facility] | | | | + + + +--------+ + + + + | Result panel 74 | + + + + + +--------+ + + | | 2022-03-10 | [facility] | 46.3 | (missing) | (missing) | | (unavailable | 13:48 | [facility] | | | | + + + +--------+ + + + + | Result panel 75 | + + + + + +--------+ + + | | 2022-03-10 | [facility] | 90.8 | (missing) | (missing) | | (unavailable | 13:48 | [facility] | | | | + + + +--------+ + + + + | Result panel 76 | + + + + + +--------+ + + | | 2022-03-10 | [facility] | 28.8 | (missing) | (missing) | | (unavailable | 13:48 | [facility] | | | | + + + +--------+ + + + + | Result panel 77 | + + + + + +--------+ + + | | 2022-03-10 | [facility] | 31.7 | (missing) | (missing) | | (unavailable | 13:48 | [facility] | | | | + + + +--------+ + + + + | Result panel 78 | + + + + + +--------+ + + | | 2022-03-10 | [facility] | 18.6 | (missing) | (missing) | | (unavailable | 13:48 | [facility] | | | | + + + +--------+ + + + + | Result panel 79 | + + + + + +-------+ + + | | 2022-03-10 | [facility] | 288 | (missing) | (missing) | | (unavailable | 13:48 | [facility] | | | | + + + +-------+ + + + + | Result panel 80 | + + + + + +--------+ + + | | 2022-03-10 | [facility] | 65.2 | (missing) | (missing) | | (unavailable | 13:48 | [facility] | | | | + + + +--------+ + + + + | Result panel 81 | + + + + + +--------+ + + | | 2022-03-10 | [facility] | 17.9 | (missing) | (missing) | | (unavailable | 13:48 | [facility] | | | | + + + +--------+ + + + + | Result panel 82 | + + + + + +--------+ + + | | 2022-03-10 | [facility] | 14.6 | (missing) | (missing) | | (unavailable | 13:48 | [facility] | | | | + + + +--------+ + + + + | Result panel 83 | + + + + + +-------+ + + | | 2022-03-10 | [facility] | 0.4 | (missing) | (missing) | | (unavailable | 13:48 | [facility] | | | | + + + +-------+ + + + + | Result panel 84 | + + + + + +-------+ + + | | 2022-03-10 | [facility] | 1.9 | (missing) | (missing) | | (unavailable | 13:48 | [facility] | | | | + + + +-------+ + + + + | Result panel 85 | + + + + + +-------+---------+ + | | 2022-03-10 | [facility] | 130 | mg/dL | (missing) | | (unavailable | 13:48 | [facility] | | | | + + + +-------+---------+ + + + | Result panel 86 | + + + + + +------+---------+ + | | 2022-03-10 | [facility] | 30 | mg/dL | (missing) | | (unavailable | 13:48 | [facility] | | | | + + + +------+---------+ + + + | Result panel 87 | + + + + + +--------+---------+ + | | 2022-03-10 | [facility] | 1.13 | mg/dL | (missing) | | (unavailable | 13:48 | [facility] | | | | + + + +--------+---------+ + + + | Result panel 88 | + + + + + +------+ + + | | 2022-03-10 | [facility] | 76 | (missing) | (missing) | | (unavailable | 13:48 | [facility] | | | | + + + +------+ + + + + | Result panel 89 | + + + + + +---------+ + + | | 2022-03-10 | [facility] | 26.54 | (missing) | (missing) | | (unavailable | 13:48 | [facility] | | | | + + + +---------+ + + + + | Result panel 90 | + + + + + +-------+ + + | | 2022-03-10 | [facility] | 130 | (missing) | (missing) | | (unavailable | 13:48 | [facility] | | | | + + + +-------+ + + + + | Result panel 91 | + + + + + +-------+ + + | | 2022-03-10 | [facility] | 5.0 | (missing) | (missing) | | (unavailable | 13:48 | [facility] | | | | + + + +-------+ + + + + | Result panel 92 | + + + + + +------+ + + | | 2022-03-10 | [facility] | 97 | (missing) | (missing) | | (unavailable | 13:48 | [facility] | | | | + + + +------+ + + + + | Result panel 93 | + + + + + +------+ + + | | 2022-03-10 | [facility] | 26 | (missing) | (missing) | | (unavailable | 13:48 | [facility] | | | | + + + +------+ + + + + | Result panel 94 | + + + + + +--------+ + + | | 2022-03-10 | [facility] | 12.0 | (missing) | (missing) | | (unavailable | 13:48 | [facility] | | | | + + + +--------+ + + + + | Result panel 95 | + + + + + +-------+---------+ + | | 2022-03-10 | [facility] | 8.9 | mg/dL | (missing) | | (unavailable | 13:48 | [facility] | | | | + + + +-------+---------+ + + + | Result panel 96 | + + + + + +-------+ + + | | 2022-03-10 | [facility] | 7.7 | (missing) | (missing) | | (unavailable | 13:48 | [facility] | | | | + + + +-------+ + + + + | Result panel 97 | + + + + + +-------+ + + | | 2022-03-10 | [facility] | 3.0 | (missing) | (missing) | | (unavailable | 13:48 | [facility] | | | | + + + +-------+ + + + + | Result panel 98 | + + + + + +-------+ + + | | 2022-03-10 | [facility] | 4.7 | (missing) | (missing) | | (unavailable | 13:48 | [facility] | | | | + + + +-------+ + + + + | Result panel 99 | + + + + + +--------+ + + | | 2022-03-10 | [facility] | 0.64 | (missing) | (missing) | | (unavailable | 13:48 | [facility] | | | | + + + +--------+ + + + + | Result panel 100 | + + + + + +-------+ + + | | 2022-03-10 | [facility] | 3.7 | (missing) | (missing) | | (unavailable | 13:48 | [facility] | | | | + + + +-------+ + + + + | Result panel 101 | + + + + + +------+ + + | | 2022-03-10 | [facility] | 55 | (missing) | (missing) | | (unavailable | 13:48 | [facility] | | | | + + + +------+ + + + + | Result panel 102 | + + + + + +------+ + + | | 2022-03-10 | [facility] | 60 | (missing) | (missing) | | (unavailable | 13:48 | [facility] | | | | + + + +------+ + + + + | Result panel 103 | + + + + + +-------+ + + | | 2022-03-10 | [facility] | 187 | (missing) | (missing) | | (unavailable | 13:48 | [facility] | | | | + + + +-------+ + + + + | Result panel 104 | + + + + + +--------+ + + | | 2022-03-10 | [facility] | 21.4 | (missing) | (missing) | | (unavailable | 13:48 | [facility] | | | | + + + +--------+ + + + + | Result panel 105 | + + + + + + + + + | | 2022-03-10 | [facility] | NEGATIVE | (missing) | (missing) | | (unavailable | 15:05 | [facility] | | | | + + + + + + + + + | Result panel 106 | + + + + + + + + + | | 2022-03-10 | [facility] | NEGATIVE | (missing) | (missing) | | (unavailable | 15:05 | [facility] | | | | + + + + + + + + + | Result panel 107 | + + + + + + + + + | | 2022-03-10 | [facility] | NEGATIVE | (missing) | (missing) | | (unavailable | 15:05 | [facility] | | | | + + + + + + + + + | Result panel 108 | + + + + + + + + + | | 2022-03-10 | [facility] | NEGATIVE | (missing) | (missing) | | (unavailable | 15:05 | [facility] | | | | + + + + + + + + + | Result panel 109 | + + + + + + + + + | | 2022-03-10 | [facility] | NEGATIVE | (missing) | (missing) | | (unavailable | 15:05 | [facility] | | | | + + + + + + + + + | Result panel 110 | + + + + + + + + + | | 2022-03-10 | [facility] | NEGATIVE | (missing) | (missing) | | (unavailable | 15:05 | [facility] | | | | + + + + + + + + + | Result panel 111 | + + + + + + + + + | | 2022-03-10 | [facility] | NEGATIVE | (missing) | (missing) | | (unavailable | 15:05 | [facility] | | | | + + + + + + + + + | Result panel 112 | + + + + + + + + + | | 2022-03-10 | [facility] | NEGATIVE | (missing) | (missing) | | (unavailable | 15:05 | [facility] | | | | + + + + + + + + + | Result panel 113 | + + + + + + + + + | | 2022-03-10 | [facility] | NEGATIVE | (missing) | (missing) | | (unavailable | 15:05 | [facility] | | | | + + + + + + + + + | Result panel 114 | + + + + + + + + + | | 2022-03-10 | [facility] | NEGATIVE | (missing) | (missing) | | (unavailable | 15:05 | [facility] | | | | + + + + + + + + + | Result panel 115 | + + + + + + + + + | | 2022-03-10 | [facility] | NEGATIVE | (missing) | (missing) | | (unavailable | 15:05 | [facility] | | | | + + + + + + + + + | Result panel 116 | + + + + + + + + + | | 2022-03-10 | [facility] | NEGATIVE | (missing) | (missing) | | (unavailable | 15:05 | [facility] | | | | + + + + + + + + + | Result panel 117 | + + + + + + + + + | | 2022-03-10 | [facility] | NEGATIVE | (missing) | (missing) | | (unavailable | 15:05 | [facility] | | | | + + + + + + + + + | Result panel 118 | + + + + + + + + + | | 2022-04-04 | [facility] | YELLOW | (missing) | (missing) | | (unavailable | 20:10:08 | [facility] | | | | + + + + + + + + + | Result panel 119 | + + + + + +---------+ + + | | 2022-04-04 | [facility] | CLEAR | (missing) | (missing) | | (unavailable | 20:10:08 | [facility] | | | | + + + +---------+ + + + + | Result panel 120 | + + + + + + + + + | | 2022-04-04 | [facility] | NEGATIVE | (missing) | (missing) | | (unavailable | 20:10:08 | [facility] | | | | + + + + + + + + + | Result panel 121 | + + + + + + + + + | | 2022-04-04 | [facility] | NEGATIVE | (missing) | (missing) | | (unavailable | 20:10:08 | [facility] | | | | + + + + + + + + + | Result panel 122 | + + + + + + + + + | | 2022-04-04 | [facility] | NEGATIVE | (missing) | (missing) | | (unavailable | 20:10:08 | [facility] | | | | + + + + + + + + + | Result panel 123 | + + + + + +---------+ + + | | 2022-04-04 | [facility] | 1.010 | (missing) | (missing) | | (unavailable | 20:10:08 | [facility] | | | | + + + +---------+ + + + + | Result panel 124 | + + + + + + + + + | | 2022-04-04 | [facility] | NEGATIVE | (missing) | (missing) | | (unavailable | 20:10:08 | [facility] | | | | + + + + + + + + + | Result panel 125 | + + + + + +-------+ + + | | 2022-04-04 | [facility] | 6.0 | (missing) | (missing) | | (unavailable | 20:10:08 | [facility] | | | | + + + +-------+ + + + + | Result panel 126 | + + + + + + + + + | | 2022-04-04 | [facility] | NEGATIVE | (missing) | (missing) | | (unavailable | 20:10:08 | [facility] | | | | + + + + + + + + + | Result panel 127 | + + + + + +-------+ + + | | 2022-04-04 | [facility] | 1.0 | (missing) | (missing) | | (unavailable | 20:10:08 | [facility] | | | | + + + +-------+ + + + + | Result panel 128 | + + + + + + + + + | | 2022-04-04 | [facility] | POSITIVE | (missing) | (missing) | | (unavailable | 20:10:08 | [facility] | | | | + + + + + + + + + | Result panel 129 | + + + + + + + + + | | 2022-04-04 | [facility] | NEGATIVE | (missing) | (missing) | | (unavailable | 20:10:08 | [facility] | | | | + + + + + + + + + | Result panel 130 | + + + + + +-------+ + + | | 2022-04-04 | [facility] | 0-1 | (missing) | (missing) | | (unavailable | 20:10:08 | [facility] | | | | + + + +-------+ + + + + | Result panel 131 | + + + + + +---------+ + + | | 2022-04-04 | [facility] | 12 | (missing) | (missing) | | (unavailable | 20:10:08 | [facility] | | | | + + + +---------+ + + + + | Result panel 132 | + + + + + +-----+ + + | | 2022-04-04 | [facility] | 0 | (missing) | (missing) | | (unavailable | 20:10:08 | [facility] | | | | + + + +-----+ + + + + | Result panel 133 | + + + + + +------+ + + | | 2022-04-04 | [facility] | 2+ | (missing) | (missing) | | (unavailable | 20:10:08 | [facility] | | | | + + + +------+ + + + + | Result panel 134 | + + + + + +-------+ + + | | 2022-04-04 | [facility] | Yes | (missing) | (missing) | | (unavailable | 20:10:08 | [facility] | | | | + + + +-------+ + + + + | Result panel 135 | + + + + + + + + + | | 2022-04-04 | [facility] | CLEAN CATCH | (missing) | (missing) | | (unavailable | 20:10:08 | [facility] | | | | + + + + + + + + + | Result panel 136 | + + + + + + + + + | | 2022-04-04 | [facility] | NEGATIVE | (missing) | (missing) | | (unavailable | 20:10:08 | [facility] | | | | + + + + + + + + + | Result panel 137 | + + + + + + + + + | | 2022-04-04 | [facility] | NEGATIVE | (missing) | (missing) | | (unavailable | 20:10:08 | [facility] | | | | + + + + + + + + + | Result panel 138 | + + + + + + + + + | | 2022-04-04 | [facility] | NEGATIVE | (missing) | (missing) | | (unavailable | 20:10:08 | [facility] | | | | + + + + + + + + + | Result panel 139 | + + + + + + + + + | | 2022-04-04 | [facility] | NEGATIVE | (missing) | (missing) | | (unavailable | 20:10:08 | [facility] | | | | + + + + + + + + + | Result panel 140 | + + + + + + + + + | | 2022-04-04 | [facility] | NEGATIVE | (missing) | (missing) | | (unavailable | 20:10:08 | [facility] | | | | + + + + + + + + + | Result panel 141 | + + + + + + + + + | | 2022-04-04 | [facility] | NEGATIVE | (missing) | (missing) | | (unavailable | 20:10:08 | [facility] | | | | + + + + + + + + + | Result panel 142 | + + + + + + + + + | | 2022-04-04 | [facility] | NEGATIVE | (missing) | (missing) | | (unavailable | 20:10:08 | [facility] | | | | + + + + + + + + + | Result panel 143 | + + + + + + + + + | | 2022-04-04 | [facility] | NEGATIVE | (missing) | (missing) | | (unavailable | 20:10:08 | [facility] | | | | + + + + + + + + + | Result panel 144 | + + + + + + + + + | | 2022-04-04 | [facility] | NEGATIVE | (missing) | (missing) | | (unavailable | 20:10:08 | [facility] | | | | + + + + + + + + + | Result panel 145 | + + + + + + + + + | | 2022-04-04 | [facility] | NEGATIVE | (missing) | (missing) | | (unavailable | 20:10:08 | [facility] | | | | + + + + + + + + + | Result panel 146 | + + + + + + + + + | | 2022-04-04 | [facility] | NEGATIVE | (missing) | (missing) | | (unavailable | 20:10:08 | [facility] | | | | + + + + + + + + + | Result panel 147 | + + + + + + + + + | | 2022-04-04 | [facility] | NEGATIVE | (missing) | (missing) | | (unavailable | 20:10:08 | [facility] | | | | + + + + + + + + + | Result panel 148 | + + + + + + + + + | | 2022-04-04 | [facility] | NEGATIVE | (missing) | (missing) | | (unavailable | 20:10:08 | [facility] | | | | + + + + + + + + + | Result panel 149 | + + + + + + + + + | | 2022-04-04 | [facility] | NEGATIVE | (missing) | (missing) | | (unavailable | 20:14:08 | [facility] | | | | + + + + + + + + + | Result panel 150 | + + + + + + + + + | | 2022-04-04 | [facility] | NEGATIVE | (missing) | (missing) | | (unavailable | 20:14:08 | [facility] | | | | + + + + + + + + + | Result panel 151 | + + + + + + + + + | | 2022-04-04 | [facility] | NEGATIVE | (missing) | (missing) | | (unavailable | 20:14:08 | [facility] | | | | + + + + + + + + + | Result panel 152 | + + + + + + + + + | | 2022-04-04 | [facility] | NEGATIVE | (missing) | (missing) | | (unavailable | 20:14:08 | [facility] | | | | + + + + + + + + + | Result panel 153 | + + + + + +--------+ + + | | 2022-04-04 | [facility] | 14.4 | (missing) | (missing) | | (unavailable | 20:16:08 | [facility] | | | | + + + +--------+ + + + + | Result panel 154 | + + + + + +--------+ + + | | 2022-04-04 | [facility] | 1.18 | (missing) | (missing) | | (unavailable | 20:16:08 | [facility] | | | | + + + +--------+ + + + + | Result panel 155 | + + + + + +--------+ + + | | 2022-04-04 | [facility] | 0.58 | (missing) | (missing) | | (unavailable | 20:16:08 | [facility] | | | | + + + +--------+ + + + + | Result panel 156 | + + + + + +-------+---------+ + | | 2022-04-04 | [facility] | 1.4 | mg/dL | (missing) | | (unavailable | 20:16:08 | [facility] | | | | + + + +-------+---------+ + + + | Result panel 157 | + + + + + +--------+ + + | | 2022-04-04 | [facility] | 16.6 | (missing) | (missing) | | (unavailable | 20:16:08 | [facility] | | | | + + + +--------+ + + + + | Result panel 158 | + + + + + + + + + | | 2022-04-05 | [facility] | | (missing) | (missing) | | (unavailable | 00:10:08 | [facility] | YELLOW/CLOUD | | | | ) | | [facility] | Y | | | + + + + + + + + + | Result panel 159 | + + + + + + + + + | | 2022-04-05 | [facility] | NORMAL | (missing) | (missing) | | (unavailable | 00:10:08 | [facility] | | | | + + + + + + + + + | Result panel 160 | + + + + + + + + + | | 2022-04-05 | [facility] | NONE SEEN | (missing) | (missing) | | (unavailable | 00:10:08 | [facility] | | | | + + + + + + + + + | Result panel 161 | + + + + + + + + + | | 2022-04-05 | [facility] | 66030.25 | (missing) | (missing) | | (unavailable | 00:10:08 | [facility] | | | | + + + + + + + + + | Result panel 162 | + + + + + + + + + | | 2022-04-05 | [facility] | 1248.75 | (missing) | (missing) | | (unavailable | 00:10:08 | [facility] | | | | + + + + + + + + + | Result panel 163 | + + + + + +------+ + + | | 2022-04-05 | [facility] | 89 | (missing) | (missing) | | (unavailable | 00:10:08 | [facility] | | | | + + + +------+ + + + + | Result panel 164 | + + + + + +------+ + + | | 2022-04-05 | [facility] | 11 | (missing) | (missing) | | (unavailable | 00:10:08 | [facility] | | | | + + + +------+ + + + + | Result panel 165 | + + + + + +--------+ + + | | 2022-04-05 | [facility] | 10.3 | (missing) | (missing) | | (unavailable | 05:05:08 | [facility] | | | | + + + +--------+ + + + + | Result panel 166 | + + + + + +--------+ + + | | 2022-04-05 | [facility] | 4.99 | (missing) | (missing) | | (unavailable | 05:05:08 | [facility] | | | | + + + +--------+ + + + + | Result panel 167 | + + + + + +--------+ + + | | 2022-04-05 | [facility] | 14.7 | (missing) | (missing) | | (unavailable | 05:05:08 | [facility] | | | | + + + +--------+ + + + + | Result panel 168 | + + + + + +--------+ + + | | 2022-04-05 | [facility] | 43.1 | (missing) | (missing) | | (unavailable | 05:05:08 | [facility] | | | | + + + +--------+ + + + + | Result panel 169 | + + + + + +--------+ + + | | 2022-04-05 | [facility] | 86.5 | (missing) | (missing) | | (unavailable | 05:05:08 | [facility] | | | | + + + +--------+ + + + + | Result panel 170 | + + + + + +--------+ + + | | 2022-04-05 | [facility] | 29.5 | (missing) | (missing) | | (unavailable | 05:05:08 | [facility] | | | | + + + +--------+ + + + + | Result panel 171 | + + + + + +--------+ + + | | 2022-04-05 | [facility] | 34.1 | (missing) | (missing) | | (unavailable | 05:05:08 | [facility] | | | | + + + +--------+ + + + + | Result panel 172 | + + + + + +--------+ + + | | 2022-04-05 | [facility] | 17.0 | (missing) | (missing) | | (unavailable | 05:05:08 | [facility] | | | | + + + +--------+ + + + + | Result panel 173 | + + + + + +-------+ + + | | 2022-04-05 | [facility] | 287 | (missing) | (missing) | | (unavailable | 05:05:08 | [facility] | | | | + + + +-------+ + + + + | Result panel 174 | + + + + + +--------+ + + | | 2022-04-05 | [facility] | 68.5 | (missing) | (missing) | | (unavailable | 05:05:08 | [facility] | | | | + + + +--------+ + + + + | Result panel 175 | + + + + + +--------+ + + | | 2022-04-05 | [facility] | 12.8 | (missing) | (missing) | | (unavailable | 05:05:08 | [facility] | | | | + + + +--------+ + + + + | Result panel 176 | + + + + + +--------+ + + | | 2022-04-05 | [facility] | 17.7 | (missing) | (missing) | | (unavailable | 05:05:08 | [facility] | | | | + + + +--------+ + + + + | Result panel 177 | + + + + + +-------+ + + | | 2022-04-05 | [facility] | 0.3 | (missing) | (missing) | | (unavailable | 05:05:08 | [facility] | | | | + + + +-------+ + + + + | Result panel 178 | + + + + + +-------+ + + | | 2022-04-05 | [facility] | 0.7 | (missing) | (missing) | | (unavailable | 05:05:08 | [facility] | | | | + + + +-------+ + + + + | Result panel 179 | + + + + + +-------+---------+ + | | 2022-04-05 | [facility] | 124 | mg/dL | (missing) | | (unavailable | 05:05:08 | [facility] | | | | + + + +-------+---------+ + + + | Result panel 180 | + + + + + +------+---------+ + | | 2022-04-05 | [facility] | 24 | mg/dL | (missing) | | (unavailable | 05:05:08 | [facility] | | | | + + + +------+---------+ + + + | Result panel 181 | + + + + + +--------+---------+ + | | 2022-04-05 | [facility] | 0.87 | mg/dL | (missing) | | (unavailable | 05:05:08 | [facility] | | | | + + + +--------+---------+ + + + | Result panel 182 | + + + + + +-------+ + + | | 2022-04-05 | [facility] | 101 | (missing) | (missing) | | (unavailable | 05:05:08 | [facility] | | | | + + + +-------+ + + + + | Result panel 183 | + + + + + +---------+ + + | | 2022-04-05 | [facility] | 27.58 | (missing) | (missing) | | (unavailable | 05:05:08 | [facility] | | | | + + + +---------+ + + + + | Result panel 184 | + + + + + +-------+ + + | | 2022-04-05 | [facility] | 127 | (missing) | (missing) | | (unavailable | 05:05:08 | [facility] | | | | + + + +-------+ + + + + | Result panel 185 | + + + + + +-------+ + + | | 2022-04-05 | [facility] | 4.1 | (missing) | (missing) | | (unavailable | 05:05:08 | [facility] | | | | + + + +-------+ + + + + | Result panel 186 | + + + + + +------+ + + | | 2022-04-05 | [facility] | 90 | (missing) | (missing) | | (unavailable | 05:05:08 | [facility] | | | | + + + +------+ + + + + | Result panel 187 | + + + + + +------+ + + | | 2022-04-05 | [facility] | 29 | (missing) | (missing) | | (unavailable | 05:05:08 | [facility] | | | | + + + +------+ + + + + | Result panel 188 | + + + + + +--------+ + + | | 2022-04-05 | [facility] | 12.1 | (missing) | (missing) | | (unavailable | 05:05:08 | [facility] | | | | + + + +--------+ + + + + | Result panel 189 | + + + + + +-------+---------+ + | | 2022-04-05 | [facility] | 9.8 | mg/dL | (missing) | | (unavailable | 05:05:08 | [facility] | | | | + + + +-------+---------+ + + + | Result panel 190 | + + + + + +-------+---------+ + | | 2022-04-05 | [facility] | 9.3 | mg/dL | (missing) | | (unavailable | 05:05:08 | [facility] | | | | + + + +-------+---------+ + + + | Result panel 191 | + + + + + +-------+ + + | | 2022-04-05 | [facility] | 8.0 | (missing) | (missing) | | (unavailable | 05:05:08 | [facility] | | | | + + + +-------+ + + + + | Result panel 192 | + + + + + +-------+ + + | | 2022-04-05 | [facility] | 2.8 | (missing) | (missing) | | (unavailable | 05:05:08 | [facility] | | | | + + + +-------+ + + + + | Result panel 193 | + + + + + +-------+ + + | | 2022-04-05 | [facility] | 5.2 | (missing) | (missing) | | (unavailable | 05:05:08 | [facility] | | | | + + + +-------+ + + + + | Result panel 194 | + + + + + +--------+ + + | | 2022-04-05 | [facility] | 0.54 | (missing) | (missing) | | (unavailable | 05:05:08 | [facility] | | | | + + + +--------+ + + + + | Result panel 195 | + + + + + +-------+ + + | | 2022-04-05 | [facility] | 4.0 | (missing) | (missing) | | (unavailable | 05:05:08 | [facility] | | | | + + + +-------+ + + + + | Result panel 196 | + + + + + +------+ + + | | 2022-04-05 | [facility] | 39 | (missing) | (missing) | | (unavailable | 05:05:08 | [facility] | | | | + + + +------+ + + + + | Result panel 197 | + + + + + +------+ + + | | 2022-04-05 | [facility] | 34 | (missing) | (missing) | | (unavailable | 05:05:08 | [facility] | | | | + + + +------+ + + + + | Result panel 198 | + + + + + +-------+ + + | | 2022-04-05 | [facility] | 206 | (missing) | (missing) | | (unavailable | 05:05:08 | [facility] | | | | + + + +-------+ + + + + | Result panel 199 | + + + + + +--------+---------+ + | | 2022-04-05 | [facility] | 11.8 | mg/dL | (missing) | | (unavailable | 05:05:08 | [facility] | | | | + + + +--------+---------+ + + + | Result panel 200 | + + + + + +-------+ + + | | 2022-07-19 | [facility] | 134 | (missing) | (missing) | | (unavailable | 21:52:07 | [facility] | | | | + + + +-------+ + + + + | Result panel 201 | + + + + + +-------+ + + | | 2022-07-19 | [facility] | 3.9 | (missing) | (missing) | | (unavailable | 21:52:07 | [facility] | | | | + + + +-------+ + + + + | Result panel 202 | + + + + + +------+ + + | | 2022-07-19 | [facility] | 99 | (missing) | (missing) | | (unavailable | 21:52:07 | [facility] | | | | + + + +------+ + + + + | Result panel 203 | + + + + + +------+ + + | | 2022-07-19 | [facility] | 24 | (missing) | (missing) | | (unavailable | 21:52:07 | [facility] | | | | + + + +------+ + + + + | Result panel 204 | + + + + + +--------+ + + | | 2022-07-19 | [facility] | 14.9 | (missing) | (missing) | | (unavailable | 21:52:07 | [facility] | | | | + + + +--------+ + + + + | Result panel 205 | + + + + + +-------+---------+ + | | 2022-07-19 | [facility] | 8.7 | mg/dL | (missing) | | (unavailable | 21:52:07 | [facility] | | | | + + + +-------+---------+ + + + | Result panel 206 | + + + + + +-------+---------+ + | | 2022-07-19 | [facility] | 1.6 | mg/dL | (missing) | | (unavailable | 21:52:07 | [facility] | | | | + + + +-------+---------+ + + + | Result panel 207 | + + + + + +-------+ + + | | 2022-07-19 | [facility] | 7.6 | (missing) | (missing) | | (unavailable | :52:07 | [facility] | | | | + + + +-------+ + + + + | Result panel 208 | + + + + + +-------+ + + | | 2022-07-19 | [facility] | 3.2 | (missing) | (missing) | | (unavailable | 21:52:07 | [facility] | | | | + + + +-------+ + + + + | Result panel 209 | + + + + + +-------+ + + | | 2022-07-19 | [facility] | 4.4 | (missing) | (missing) | | (unavailable | 21:52:07 | [facility] | | | | + + + +-------+ + + + + | Result panel 210 | + + + + + +--------+ + + | | 2022-07-19 | [facility] | 0.73 | (missing) | (missing) | | (unavailable | 21:52:07 | [facility] | | | | + + + +--------+ + + + + | Result panel 211 | + + + + + +-------+ + + | | 2022-07-19 | [facility] | 2.8 | (missing) | (missing) | | (unavailable | 21:52:07 | [facility] | | | | + + + +-------+ + + + + | Result panel 212 | + + + + + +-------+ + + | | 2022-07-19 | [facility] | 330 | (missing) | (missing) | | (unavailable | 21:52:07 | [facility] | | | | + + + +-------+ + + + + | Result panel 213 | + + + + + +-------+ + + | | 2022-07-19 | [facility] | 263 | (missing) | (missing) | | (unavailable | 21:52:07 | [facility] | | | | + + + +-------+ + + + + | Result panel 214 | + + + + + +-------+ + + | | 2022-07-19 | [facility] | 207 | (missing) | (missing) | | (unavailable | 21:52:07 | [facility] | | | | + + + +-------+ + + + + | Result panel 215 | + + + + + +--------+ + + | | 2022-07-19 | [facility] | 19.8 | (missing) | (missing) | | (unavailable | 21:52:07 | [facility] | | | | + + + +--------+ + + + + | Result panel 216 | + + + + + +--------+ + + | | 2022-07-19 | [facility] | 10.9 | (missing) | (missing) | | (unavailable | 21:52:07 | [facility] | | | | + + + +--------+ + + + + | Result panel 217 | + + + + + +--------+ + + | | 2022-07-19 | [facility] | 4.50 | (missing) | (missing) | | (unavailable | 21:52:07 | [facility] | | | | + + + +--------+ + + + + | Result panel 218 | + + + + + +--------+ + + | | 2022-07-19 | [facility] | 14.1 | (missing) | (missing) | | (unavailable | 21:52:07 | [facility] | | | | + + + +--------+ + + + + | Result panel 219 | + + + + + +--------+ + + | | 2022-07-19 | [facility] | 42.6 | (missing) | (missing) | | (unavailable | 21:52:07 | [facility] | | | | + + + +--------+ + + + + | Result panel 220 | + + + + + +--------+ + + | | 2022-07-19 | [facility] | 94.7 | (missing) | (missing) | | (unavailable | 21:52:07 | [facility] | | | | + + + +--------+ + + + + | Result panel 221 | + + + + + +--------+ + + | | 2022-07-19 | [facility] | 31.3 | (missing) | (missing) | | (unavailable | 21:52:07 | [facility] | | | | + + + +--------+ + + + + | Result panel 222 | + + + + + +--------+ + + | | 2022-07-19 | [facility] | 33.1 | (missing) | (missing) | | (unavailable | 21:52:07 | [facility] | | | | + + + +--------+ + + + + | Result panel 223 | + + + + + +--------+ + + | | 2022-07-19 | [facility] | 15.8 | (missing) | (missing) | | (unavailable | 21:52:07 | [facility] | | | | + + + +--------+ + + + + | Result panel 224 | + + + + + +-------+ + + | | 2022-07-19 | [facility] | 300 | (missing) | (missing) | | (unavailable | 21:52:07 | [facility] | | | | + + + +-------+ + + + + | Result panel 225 | + + + + + +--------+ + + | | 2022-07-19 | [facility] | 71.1 | (missing) | (missing) | | (unavailable | 21:52:07 | [facility] | | | | + + + +--------+ + + + + | Result panel 226 | + + + + + +--------+ + + | | 2022-07-19 | [facility] | 16.0 | (missing) | (missing) | | (unavailable | 21:52:07 | [facility] | | | | + + + +--------+ + + + + | Result panel 227 | + + + + + +--------+ + + | | 2022-07-19 | [facility] | 11.6 | (missing) | (missing) | | (unavailable | 21:52:07 | [facility] | | | | + + + +--------+ + + + + | Result panel 228 | + + + + + +-------+ + + | | 2022-07-19 | [facility] | 0.3 | (missing) | (missing) | | (unavailable | 21:52:07 | [facility] | | | | + + + +-------+ + + + + | Result panel 229 | + + + + + +-------+ + + | | 2022-07-19 | [facility] | 1.0 | (missing) | (missing) | | (unavailable | 21:52:07 | [facility] | | | | + + + +-------+ + + + + | Result panel 230 | + + + + + +-------+---------+ + | | 2022-07-19 | [facility] | 136 | mg/dL | (missing) | | (unavailable | 21:52:07 | [facility] | | | | + + + +-------+---------+ + + + | Result panel 231 | + + + + + +------+---------+ + | | 2022-07-19 | [facility] | 25 | mg/dL | (missing) | | (unavailable | 21:52:07 | [facility] | | | | + + + +------+---------+ + + + | Result panel 232 | + + + + + +--------+---------+ + | | 2022-07-19 | [facility] | 1.19 | mg/dL | (missing) | | (unavailable | 21:52:07 | [facility] | | | | + + + +--------+---------+ + + + | Result panel 233 | + + + + + +------+ + + | | 2022-07-19 | [facility] | 71 | (missing) | (missing) | | (unavailable | 21:52:07 | [facility] | | | | + + + +------+ + + + + | Result panel 234 | + + + + + +---------+ + + | | 2022-07-19 | [facility] | 21.00 | (missing) | (missing) | | (unavailable | 21:52:07 | [facility] | | | | + + + +---------+ + + + + | Result panel 235 | + + + + + +-------+ + + | | 2022-10-30 | [facility] | 6.3 | (missing) | (missing) | | (unavailable | 14:: | [facility] | | | | + + + +-------+ + + + + | Result panel 236 | + + + + + + + + + | | 2022-10-30 | [facility] | SEE COMMENT | (missing) | (missing) | | (unavailable | 14::07 | [facility] | | | | + + + + + + + + + | Result panel 237 | + + + + + +--------+ + + | | 2022-10-30 | [facility] | 4.27 | (missing) | (missing) | | (unavailable | 14::07 | [facility] | | | | + + + +--------+ + + + + | Result panel 238 | + + + + + +--------+ + + | | 2022-10-30 | [facility] | 13.3 | (missing) | (missing) | | (unavailable | 14:03:07 | [facility] | | | | + + + +--------+ + + + + | Result panel 239 | + + + + + +--------+ + + | | 2022-10-30 | [facility] | 40.0 | (missing) | (missing) | | (unavailable | 14::07 | [facility] | | | | + + + +--------+ + + + + | Result panel 240 | + + + + + +--------+ + + | | 2022-10-30 | [facility] | 93.7 | (missing) | (missing) | | (unavailable | 14:03:07 | [facility] | | | | + + + +--------+ + + + + | Result panel 241 | + + + + + +--------+ + + | | 2022-10-30 | [facility] | 31.1 | (missing) | (missing) | | (unavailable | 14::07 | [facility] | | | | + + + +--------+ + + + + | Result panel 242 | + + + + + +--------+ + + | | 2022-10-30 | [facility] | 33.1 | (missing) | (missing) | | (unavailable | 14:03:07 | [facility] | | | | + + + +--------+ + + + + | Result panel 243 | + + + + + +--------+ + + | | 2022-10-30 | [facility] | 19.3 | (missing) | (missing) | | (unavailable | 14:03:07 | [facility] | | | | + + + +--------+ + + + + | Result panel 244 | + + + + + +-------+ + + | | 2022-10-30 | [facility] | 232 | (missing) | (missing) | | (unavailable | 14:03:07 | [facility] | | | | + + + +-------+ + + + + | Result panel 245 | + + + + + +--------+ + + | | 2022-10-30 | [facility] | 61.5 | (missing) | (missing) | | (unavailable | 14:03:07 | [facility] | | | | + + + +--------+ + + + + | Result panel 246 | + + + + + +--------+ + + | | 2022-10-30 | [facility] | 17.2 | (missing) | (missing) | | (unavailable | 14:03:07 | [facility] | | | | + + + +--------+ + + + + | Result panel 247 | + + + + + +--------+ + + | | 2022-10-30 | [facility] | 18.5 | (missing) | (missing) | | (unavailable | 14:03:07 | [facility] | | | | + + + +--------+ + + + + | Result panel 248 | + + + + + +-------+ + + | | 2022-10-30 | [facility] | 1.6 | (missing) | (missing) | | (unavailable | 14:03:07 | [facility] | | | | + + + +-------+ + + + + | Result panel 249 | + + + + + +-------+ + + | | 2022-10-30 | [facility] | 1.2 | (missing) | (missing) | | (unavailable | | [facility] | | | | + + + +-------+ + + + + | Result panel 250 | + + + + + +-------+---------+ + | | 2022-10-30 | [facility] | 109 | mg/dL | (missing) | | (unavailable | 14:: | [facility] | | | | + + + +-------+---------+ + + + | Result panel 251 | + + + + + +------+---------+ + | | 2022-10-30 | [facility] | 23 | mg/dL | (missing) | | (unavailable | | [facility] | | | | + + + +------+---------+ + + + | Result panel 252 | + + + + + +--------+---------+ + | | 2022-10-30 | [facility] | 1.17 | mg/dL | (missing) | | (unavailable | :: | [facility] | | | | + + + +--------+---------+ + + + | Result panel 253 | + + + + + +------+ + + | | 2022-10-30 | [facility] | 73 | (missing) | (missing) | | (unavailable | 14:03:07 | [facility] | | | | + + + +------+ + + + + | Result panel 254 | + + + + + +---------+ + + | | 2022-10-30 | [facility] | 19.65 | (missing) | (missing) | | (unavailable | 14:03:07 | [facility] | | | | + + + +---------+ + + + + | Result panel 255 | + + + + + +-------+ + + | | 2022-10-30 | [facility] | 135 | (missing) | (missing) | | (unavailable | 14:03:07 | [facility] | | | | + + + +-------+ + + + + | Result panel 256 | + + + + + +-------+ + + | | 2022-10-30 | [facility] | 3.3 | (missing) | (missing) | | (unavailable | 14:03:07 | [facility] | | | | + + + +-------+ + + + + | Result panel 257 | + + + + + +-------+ + + | | 2022-10-30 | [facility] | 101 | (missing) | (missing) | | (unavailable | 14:03:07 | [facility] | | | | + + + +-------+ + + + + | Result panel 258 | + + + + + +------+ + + | | 2022-10-30 | [facility] | 25 | (missing) | (missing) | | (unavailable | 14:03:07 | [facility] | | | | + + + +------+ + + + + | Result panel 259 | + + + + + +--------+ + + | | 2022-10-30 | [facility] | 12.3 | (missing) | (missing) | | (unavailable | 14:03:07 | [facility] | | | | + + + +--------+ + + + + | Result panel 260 | + + + + + +-------+---------+ + | | 2022-10-30 | [facility] | 7.9 | mg/dL | (missing) | | (unavailable | 14:03:07 | [facility] | | | | + + + +-------+---------+ + + + | Result panel 261 | + + + + + +-------+ + + | | 2022-10-30 | [facility] | 6.7 | (missing) | (missing) | | (unavailable | 14:03:07 | [facility] | | | | + + + +-------+ + + + + | Result panel 262 | + + + + + +-------+ + + | | 2022-10-30 | [facility] | 2.6 | (missing) | (missing) | | (unavailable | 14:03:07 | [facility] | | | | + + + +-------+ + + + + | Result panel 263 | + + + + + +-------+ + + | | 2022-10-30 | [facility] | 4.1 | (missing) | (missing) | | (unavailable | 14:03:07 | [facility] | | | | + + + +-------+ + + + + | Result panel 264 | + + + + + +--------+ + + | | 2022-10-30 | [facility] | 0.63 | (missing) | (missing) | | (unavailable | 14:03:07 | [facility] | | | | + + + +--------+ + + + + | Result panel 265 | + + + + + +-------+ + + | | 2022-10-30 | [facility] | 7.1 | (missing) | (missing) | | (unavailable | 14:03:07 | [facility] | | | | + + + +-------+ + + + + | Result panel 266 | + + + + + +------+ + + | | 2022-10-30 | [facility] | 53 | (missing) | (missing) | | (unavailable | 14:03:07 | [facility] | | | | + + + +------+ + + + + | Result panel 267 | + + + + + +------+ + + | | 2022-10-30 | [facility] | 32 | (missing) | (missing) | | (unavailable | 14:03:07 | [facility] | | | | + + + +------+ + + + + | Result panel 268 | + + + + + +-------+ + + | | 2022-10-30 | [facility] | 210 | (missing) | (missing) | | (unavailable | 14:03:07 | [facility] | | | | + + + +-------+ + + + + | Result panel 269 | + + + + + +-------+ + + | | 2022-10-30 | [facility] | 6.3 | (missing) | (missing) | | (unavailable | 14:03:07 | [facility] | | | | + + + +-------+ + + + + | Result panel 270 | + + + + + + + + + | | 2022-10-30 | [facility] | SEE COMMENT | (missing) | (missing) | | (unavailable | | [facility] | | | | + + + + + + + + + | Result panel 271 | + + + + + +--------+ + + | | 2022-10-30 | [facility] | 4.27 | (missing) | (missing) | | (unavailable | | [facility] | | | | + + + +--------+ + + + + | Result panel 272 | + + + + + +--------+ + + | | 2022-10-30 | [facility] | 13.3 | (missing) | (missing) | | (unavailable | | [facility] | | | | + + + +--------+ + + + + | Result panel 273 | + + + + + +--------+ + + | | 2022-10-30 | [facility] | 40.0 | (missing) | (missing) | | (unavailable | | [facility] | | | | + + + +--------+ + + + + | Result panel 274 | + + + + + +--------+ + + | | 2022-10-30 | [facility] | 93.7 | (missing) | (missing) | | (unavailable | 14::07 | [facility] | | | | + + + +--------+ + + + + | Result panel 275 | + + + + + +--------+ + + | | 2022-10-30 | [facility] | 31.1 | (missing) | (missing) | | (unavailable | 14:03:07 | [facility] | | | | + + + +--------+ + + + + | Result panel 276 | + + + + + +--------+ + + | | 2022-10-30 | [facility] | 33.1 | (missing) | (missing) | | (unavailable | 14:03:07 | [facility] | | | | + + + +--------+ + + + + | Result panel 277 | + + + + + +--------+ + + | | 2022-10-30 | [facility] | 19.3 | (missing) | (missing) | | (unavailable | 14:03:07 | [facility] | | | | + + + +--------+ + + + + | Result panel 278 | + + + + + +-------+ + + | | 2022-10-30 | [facility] | 232 | (missing) | (missing) | | (unavailable | 14::07 | [facility] | | | | + + + +-------+ + + + + | Result panel 279 | + + + + + +--------+ + + | | 2022-10-30 | [facility] | 61.5 | (missing) | (missing) | | (unavailable | 14::07 | [facility] | | | | + + + +--------+ + + + + | Result panel 280 | + + + + + +--------+ + + | | 2022-10-30 | [facility] | 17.2 | (missing) | (missing) | | (unavailable | 14:03:07 | [facility] | | | | + + + +--------+ + + + + | Result panel 281 | + + + + + +--------+ + + | | 2022-10-30 | [facility] | 18.5 | (missing) | (missing) | | (unavailable | 14:03:07 | [facility] | | | | + + + +--------+ + + + + | Result panel 282 | + + + + + +-------+ + + | | 2022-10-30 | [facility] | 1.6 | (missing) | (missing) | | (unavailable | 14:03:07 | [facility] | | | | + + + +-------+ + + + + | Result panel 283 | + + + + + +-------+ + + | | 2022-10-30 | [facility] | 1.2 | (missing) | (missing) | | (unavailable | 14:03:07 | [facility] | | | | + + + +-------+ + + + + | Result panel 284 | + + + + + +-------+---------+ + | | 2022-10-30 | [facility] | 109 | mg/dL | (missing) | | (unavailable | 14:03:07 | [facility] | | | | + + + +-------+---------+ + + + | Result panel 285 | + + + + + +------+---------+ + | | 2022-10-30 | [facility] | 23 | mg/dL | (missing) | | (unavailable | 14:03:07 | [facility] | | | | + + + +------+---------+ + + + | Result panel 286 | + + + + + +--------+---------+ + | | 2022-10-30 | [facility] | 1.17 | mg/dL | (missing) | | (unavailable | 14:03:07 | [facility] | | | | + + + +--------+---------+ + + + | Result panel 287 | + + + + + +------+ + + | | 2022-10-30 | [facility] | 73 | (missing) | (missing) | | (unavailable | 14:03:07 | [facility] | | | | + + + +------+ + + + + | Result panel 288 | + + + + + +---------+ + + | | 2022-10-30 | [facility] | 19.65 | (missing) | (missing) | | (unavailable | 14:03:07 | [facility] | | | | + + + +---------+ + + + + | Result panel 289 | + + + + + +-------+ + + | | 2022-10-30 | [facility] | 135 | (missing) | (missing) | | (unavailable | 14:03:07 | [facility] | | | | + + + +-------+ + + + + | Result panel 290 | + + + + + +-------+ + + | | 2022-10-30 | [facility] | 3.3 | (missing) | (missing) | | (unavailable | 14:03:07 | [facility] | | | | + + + +-------+ + + + + | Result panel 291 | + + + + + +-------+ + + | | 2022-10-30 | [facility] | 101 | (missing) | (missing) | | (unavailable | 14:03:07 | [facility] | | | | + + + +-------+ + + + + | Result panel 292 | + + + + + +------+ + + | | 2022-10-30 | [facility] | 25 | (missing) | (missing) | | (unavailable | 14::07 | [facility] | | | | + + + +------+ + + + + | Result panel 293 | + + + + + +--------+ + + | | 2022-10-30 | [facility] | 12.3 | (missing) | (missing) | | (unavailable | 14:03:07 | [facility] | | | | + + + +--------+ + + + + | Result panel 294 | + + + + + +-------+---------+ + | | 2022-10-30 | [facility] | 7.9 | mg/dL | (missing) | | (unavailable | 14:03:07 | [facility] | | | | + + + +-------+---------+ + + + | Result panel 295 | + + + + + +-------+ + + | | 2022-10-30 | [facility] | 6.7 | (missing) | (missing) | | (unavailable | 14:03:07 | [facility] | | | | + + + +-------+ + + + + | Result panel 296 | + + + + + +-------+ + + | | 2022-10-30 | [facility] | 2.6 | (missing) | (missing) | | (unavailable | 14:03:07 | [facility] | | | | + + + +-------+ + + + + | Result panel 297 | + + + + + +-------+ + + | | 2022-10-30 | [facility] | 4.1 | (missing) | (missing) | | (unavailable | 14:03:07 | [facility] | | | | + + + +-------+ + + + + | Result panel 298 | + + + + + +--------+ + + | | 2022-10-30 | [facility] | 0.63 | (missing) | (missing) | | (unavailable | 14:03:07 | [facility] | | | | + + + +--------+ + + + + | Result panel 299 | + + + + + +-------+ + + | | 2022-10-30 | [facility] | 7.1 | (missing) | (missing) | | (unavailable | 14:03:07 | [facility] | | | | + + + +-------+ + + + + | Result panel 300 | + + + + + +------+ + + | | 2022-10-30 | [facility] | 53 | (missing) | (missing) | | (unavailable | 14:03:07 | [facility] | | | | + + + +------+ + + + + | Result panel 301 | + + + + + +------+ + + | | 2022-10-30 | [facility] | 32 | (missing) | (missing) | | (unavailable | 14:03:07 | [facility] | | | | + + + +------+ + + + + | Result panel 302 | + + + + + +-------+ + + | | 2022-10-30 | [facility] | 210 | (missing) | (missing) | | (unavailable | 14:03:07 | [facility] | | | | + + + +-------+ + + + + | Result panel 303 | + + + + + + + + + | | 2022-11-07 | [facility] | YELLOW | (missing) | (missing) | | (unavailable | 05:30:07 | [facility] | | | | + + + + + + + + + | Result panel 304 | + + + + + +-------+ + + | | 2022-11-07 | [facility] | 2.0 | (missing) | (missing) | | (unavailable | 05:30:07 | [facility] | | | | + + + +-------+ + + + + | Result panel 305 | + + + + + + + + + | | 2022-11-07 | [facility] | NEGATIVE | (missing) | (missing) | | (unavailable | 05:30:07 | [facility] | | | | + + + + + + + + + | Result panel 306 | + + + + + + + + + | | 2022-11-07 | [facility] | NEGATIVE | (missing) | (missing) | | (unavailable | 05:30:07 | [facility] | | | | + + + + + + + + + | Result panel 307 | + + + + + +---------+ + + | | 2022-11-07 | [facility] | CLEAR | (missing) | (missing) | | (unavailable | 05:30:07 | [facility] | | | | + + + +---------+ + + + + | Result panel 308 | + + + + + + + + + | | 2022-11-07 | [facility] | NEGATIVE | (missing) | (missing) | | (unavailable | 05:30:07 | [facility] | | | | + + + + + + + + + | Result panel 309 | + + + + + + + + + | | 2022-11-07 | [facility] | POSITIVE | (missing) | (missing) | | (unavailable | 05:30:07 | [facility] | | | | + + + + + + + + + | Result panel 310 | + + + + + + + + + | | 2022-11-07 | [facility] | NEGATIVE | (missing) | (missing) | | (unavailable | 05:30:07 | [facility] | | | | + + + + + + + + + | Result panel 311 | + + + + + +---------+ + + | | 2022-11-07 | [facility] | 1.025 | (missing) | (missing) | | (unavailable | 05:30:07 | [facility] | | | | + + + +---------+ + + + + | Result panel 312 | + + + + + + + + + | | 2022-11-07 | [facility] | NEGATIVE | (missing) | (missing) | | (unavailable | 05:30:07 | [facility] | | | | + + + + + + + + + | Result panel 313 | + + + + + +-------+ + + | | 2022-11-07 | [facility] | 6.0 | (missing) | (missing) | | (unavailable | 05:30:07 | [facility] | | | | + + + +-------+ + + + + | Result panel 314 | + + + + + +-------+ + + | | 2022-11-07 | [facility] | 100 | (missing) | (missing) | | (unavailable | 05:30:07 | [facility] | | | | + + + +-------+ + + Social History + + + + | date | description | facility | + + + + | 2019-11-09 00:00 | Ex-smoker | [facility] | + + + + | 2021-09-26 00:00 | Current smoker | [facility] | | | | [facility] | + + + + | 2021-09-26 00:00 | Smoker | [facility] | | | | [facility] | + + + + Vital Signs + + + +---------+ | date | measurement | value | units | + + + +---------+ | 2021-05-10 00:00 | BMI | 32.4 | kg/m2 | + + + +---------+ | 2021-05-10 00:00 | BP_diastolic | 71 | mmHg | + + + +---------+ | 2021-05-10 00:00 | BP_systolic | 91 | mmHg | + + + +---------+ | 2021-05-10 00:00 | heart_rate | 61 | /min | + + + +---------+ | 2021-05-10 00:00 | height_metric | 165.1 | cm | + + + +---------+ | 2021-05-10 00:00 | height_standard | 65 | in | + + + +---------+ | 2021-05-10 00:00 | o2_saturation | 98 | % | + + + +---------+ | 2021-05-10 00:00 | respiration_rate | 20 | /min | + + + +---------+ | 2021-05-10 00:00 | temperature_metric | 36.33 | C | | | | | | + + + +---------+ | 2021-05-10 00:00 | | 97.4 | F | | | temperature_standar | | | | | d | | | + + + +---------+ | 2021-05-10 00:00 | weight_metric | 88.2 | kg | + + + +---------+ | 2021-05-10 00:00 | weight_standard | 194.45 | lb | + + + +---------+ | 2021-07-05 00:00 | BMI | 32.3 | kg/m2 | + + + +---------+ | 2021-07-05 00:00 | BP_diastolic | 71 | mmHg | + + + +---------+ | 2021-07-05 00:00 | BP_systolic | 100 | mmHg | + + + +---------+ | 2021-07-05 00:00 | heart_rate | 52 | /min | + + + +---------+ | 2021-07-05 00:00 | height_metric | 165.1 | cm | + + + +---------+ | 2021-07-05 00:00 | height_standard | 65 | in | + + + +---------+ | 2021-07-05 00:00 | o2_saturation | 96 | % | + + + +---------+ | 2021-07-05 00:00 | respiration_rate | 16 | /min | + + + +---------+ | 2021-07-05 00:00 | temperature_metric | 37 | C | | | | | | + + + +---------+ | 2021-07-05 00:00 | | 98.6 | F | | | temperature_standar | | | | | d | | | + + + +---------+ | 2021-07-05 00:00 | weight_metric | 88 | kg | + + + +---------+ | 2021-07-05 00:00 | weight_standard | 194 | lb | + + + +---------+ | 2021-07-05 00:00 | weight_standard | 194.01 | lb | + + + +---------+ | 2021-09-18 00:00 | BMI | 35.1 | kg/m2 | + + + +---------+ | 2021-09-18 00:00 | BP_diastolic | 69 | mmHg | + + + +---------+ | 2021-09-18 00:00 | BP_systolic | 96 | mmHg | + + + +---------+ | 2021-09-18 00:00 | heart_rate | 88 | /min | + + + +---------+ | 2021-09-18 00:00 | height_metric | 165.1 | cm | + + + +---------+ | 2021-09-18 00:00 | height_standard | 65 | in | + + + +---------+ | 2021-09-18 00:00 | o2_saturation | 98. | % | + + + +---------+ | 2021-09-18 00:00 | respiration_rate | 16 | /min | + + + +---------+ | 2021-09-18 00:00 | temperature_metric | 36.72 | C | | | | | | + + + +---------+ | 2021-09-18 00:00 | | 98.1 | F | | | temperature_standar | | | | | d | | | + + + +---------+ | 2021-09-18 00:00 | weight_metric | 95.62 | kg | + + + +---------+ | 2021-09-18 00:00 | weight_standard | 210.81 | lb | + + + +---------+ | 2021-10-27 00:00 | BMI | 35.1 | kg/m2 | + + + +---------+ | 2021-10-27 00:00 | BP_diastolic | 92 | mmHg | + + + +---------+ | 2021-10-27 00:00 | BP_systolic | 106 | mmHg | + + + +---------+ | 2021-10-27 00:00 | heart_rate | 95 | /min | + + + +---------+ | 2021-10-27 00:00 | height_metric | 165.1 | cm | + + + +---------+ | 2021-10-27 00:00 | height_standard | 65 | in | + + + +---------+ | 2021-10-27 00:00 | o2_saturation | 98 | % | + + + +---------+ | 2021-10-27 00:00 | respiration_rate | 16 | /min | + + + +---------+ | 2021-10-27 00:00 | temperature_metric | 36.17 | C | | | | | | + + + +---------+ | 2021-10-27 00:00 | | 97.1 | F | | | temperature_standar | | | | | d | | | + + + +---------+ | 2021-10-27 00:00 | weight_metric | 95.62 | kg | + + + +---------+ | 2021-10-27 00:00 | weight_standard | 210.81 | lb | + + + +---------+ | 2022-03-10 00:00 | BMI | 31.6 | kg/m2 | + + + +---------+ | 2022-03-10 00:00 | BP_diastolic | 75 | mmHg | + + + +---------+ | 2022-03-10 00:00 | BP_systolic | 112 | mmHg | + + + +---------+ | 2022-03-10 00:00 | heart_rate | 99 | /min | + + + +---------+ | 2022-03-10 00:00 | height_metric | 165.1 | cm | + + + +---------+ | 2022-03-10 00:00 | height_standard | 65 | in | + + + +---------+ | 2022-03-10 00:00 | o2_saturation | 97 | % | + + + +---------+ | 2022-03-10 00:00 | respiration_rate | 20 | /min | + + + +---------+ | 2022-03-10 00:00 | temperature_metric | 36.56 | C | | | | | | + + + +---------+ | 2022-03-10 00:00 | | 97.8 | F | | | temperature_standar | | | | | d | | | + + + +---------+ | 2022-03-10 00:00 | weight_metric | 86 | kg | + + + +---------+ | 2022-03-10 00:00 | weight_standard | 189.6 | lb | + + + +---------+ | 2022-04-04 00:00 | BMI | 31.5 | kg/m2 | + + + +---------+ | 2022-04-04 00:00 | height_metric | 165.1 | cm | + + + +---------+ | 2022-04-04 00:00 | height_standard | 65 | in | + + + +---------+ | 2022-04-04 00:00 | weight_metric | 85.98 | kg | + + + +---------+ | 2022-04-04 00:00 | weight_standard | 189.55 | lb | + + + +---------+ | 2022-04-04 00:00 | weight_standard | 189.56 | lb | + + + +---------+ | 2022-04-05 00:00 | BP_diastolic | 77 | mmHg | + + + +---------+ | 2022-04-05 00:00 | BP_systolic | 99 | mmHg | + + + +---------+ | 2022-04-05 00:00 | heart_rate | 130 | /min | + + + +---------+ | 2022-04-05 00:00 | o2_saturation | 93 | % | + + + +---------+ | 2022-04-05 00:00 | respiration_rate | 20 | /min | + + + +---------+ | 2022-04-05 00:00 | temperature_metric | 37.28 | C | | | | | | + + + +---------+ | 2022-04-05 00:00 | | 99.1 | F | | | temperature_standar | | | | | d | | | + + + +---------+ | 2022-07-19 00:00 | BMI | 31.5 | kg/m2 | + + + +---------+ | 2022-07-19 00:00 | BP_diastolic | 89 | mmHg | + + + +---------+ | 2022-07-19 00:00 | BP_systolic | 115 | mmHg | + + + +---------+ | 2022-07-19 00:00 | heart_rate | 111 | /min | + + + +---------+ | 2022-07-19 00:00 | height_metric | 165.1 | cm | + + + +---------+ | 2022-07-19 00:00 | height_standard | 65 | in | + + + +---------+ | 2022-07-19 00:00 | o2_saturation | 96 | % | + + + +---------+ | 2022-07-19 00:00 | respiration_rate | 26 | /min | + + + +---------+ | 2022-07-19 00:00 | temperature_metric | 36.5 | C | | | | | | + + + +---------+ | 2022-07-19 00:00 | | 97.7 | F | | | temperature_standar | | | | | d | | | + + + +---------+ | 2022-07-19 00:00 | weight_metric | 85.98 | kg | + + + +---------+ | 2022-07-19 00:00 | weight_standard | 189.55 | lb | + + + +---------+ | 2022-07-19 00:00 | weight_standard | 189.56 | lb | + + + +---------+ | 2022-10-30 00:00 | BMI | 35.3 | kg/m2 | + + + +---------+ | 2022-10-30 00:00 | BP_diastolic | 75 | mmHg | + + + +---------+ | 2022-10-30 00:00 | BP_diastolic | 90 | mmHg | + + + +---------+ | 2022-10-30 00:00 | BP_systolic | 121 | mmHg | + + + +---------+ | 2022-10-30 00:00 | BP_systolic | 131 | mmHg | + + + +---------+ | 2022-10-30 00:00 | heart_rate | 66 | /min | + + + +---------+ | 2022-10-30 00:00 | heart_rate | 95 | /min | + + + +---------+ | 2022-10-30 00:00 | height_metric | 165.1 | cm | + + + +---------+ | 2022-10-30 00:00 | height_standard | 65 | in | + + + +---------+ | 2022-10-30 00:00 | o2_saturation | 98 | % | + + + +---------+ | 2022-10-30 00:00 | respiration_rate | 18 | /min | + + + +---------+ | 2022-10-30 00:00 | temperature_metric | 36.78 | C | | | | | | + + + +---------+ | 2022-10-30 00:00 | | 98.2 | F | | | temperature_standar | | | | | d | | | + + + +---------+ | 2022-10-30 00:00 | weight_metric | 96.27 | kg | + + + +---------+ | 2022-10-30 00:00 | weight_standard | 212.24 | lb | + + + +---------+ | 2022-10-30 00:00 | weight_standard | 212.25 | lb | + + + +---------+ | 2022-11-07 00:00 | BMI | 31.6 | kg/m2 | + + + +---------+ | 2022-11-07 00:00 | BP_diastolic | 82 | mmHg | + + + +---------+ | 2022-11-07 00:00 | BP_systolic | 109 | mmHg | + + + +---------+ | 2022-11-07 00:00 | heart_rate | 78 | /min | + + + +---------+ | 2022-11-07 00:00 | height_metric | 165.1 | cm | + + + +---------+ | 2022-11-07 00:00 | height_standard | 65 | in | + + + +---------+ | 2022-11-07 00:00 | o2_saturation | 98 | % | + + + +---------+ | 2022-11-07 00:00 | respiration_rate | 18 | /min | + + + +---------+ | 2022-11-07 00:00 | temperature_metric | 36.44 | C | | | | | | + + + +---------+ | 2022-11-07 00:00 | | 97.6 | F | | | temperature_standar | | | | | d | | | + + + +---------+ | 2022-11-07 00:00 | weight_metric | 86.18 | kg | + + + +---------+ | 2022-11-07 00:00 | weight_standard | 190 | lb | + + + +---------+"
--- OUTSIDE RECORDS SUMMARY | ~2022-11-08 | XMS | Continuity of Care Document ---
Demographics + + + | Address | [address] [facility] [address] | | | [place] [address] | + + + | Preferred Language | Unknown | + + + | Marital Status | Polygamous | + + + | Temple Affiliation | Unknown | + + + | Race | Unknown | + + + | Ethnic Group | or | + + + Author + + + | Author | [facility] | + + + | Organization | [facility] | + + + | Address | [address] | | | [place] [address] | + + + | Phone | | + + + Care Team Providers + + + + | Care Women'S Activities Adviser Name | Role | Phone | + [...] + | (no date) | Mild | [place] [facility] | (no reaction) | (no severity) [...] | (no date) | Other (See | [place] [facility] | (no reaction) | (no severity) [...] + | 2022-04-05 00:00 | APIXABAN | [facility] | + + + + | 2022-07-19 00:00 | APIXABAN | [facility] | + + + + | 2022-10-30 00:00 | APIXABAN | [facility] | + + + + | 2022-11-07 00:00 | APIXABAN | [facility] | + + + + | 2022-03-10 00:00 | POTASSIUM CHLORIDE | [facility] | + + + + | 2022-03-10 00:00 | POTASSIUM CHLORIDE | [facility] | + + + + | 2022-03-10 00:00 | POTASSIUM CHLORIDE | [facility] | + + + + | 2022-04-05 00:00 | COLCHICINE | [facility] | + + + + | 2022-04-05 00:00 | COLCHICINE | [facility] | + + + + | 2021-10-27 00:00 | DOXYCYCLINE HYCLATE | [facility] | + + + + | 2021-05-10 00:00 | TORSEMIDE | [facility] | + + + + | 2021-05-10 00:00 | TORSEMIDE | [facility] | + + + + | 2022-03-10 00:00 | TORSEMIDE | [facility] | + + + + | 2022-03-10 00:00 | TORSEMIDE | [facility] | + + + + | 2022-03-10 00:00 | TORSEMIDE | [facility] | + + + + | 2022-07-19 00:00 | TORSEMIDE | [facility] | + + + + | 2022-07-19 00:00 | TORSEMIDE | [facility] | + + + + | 2022-10-30 00:00 | TORSEMIDE | [facility] | + + + + | 2021-05-10 00:00 | ASPIRIN | [facility] | + + + + | 2021-05-10 00:00 | ASPIRIN | [facility] | + + + + | 2022-11-07 00:00 | FUROSEMIDE | [facility] | + + + + | 2022-10-30 00:00 | SPIRONOLACTONE | [facility] | + + + + | 2015-10-03 00:00 | [id number] 200 actuat | [facility] | | | albuterol 0.09 mg/actuat | [facility] | | | metered dose inhaler | | + + + + | 2021-10-30 00:00 | CITALOPRAM HYDROBROMIDE | [facility] | + + + + | 2022-03-10 00:00 | CITALOPRAM HYDROBROMIDE | [facility] | + + + + | 2022-04-05 00:00 | CITALOPRAM HYDROBROMIDE | [facility] | + + + + | 2022-07-19 00:00 | CITALOPRAM HYDROBROMIDE | [facility] | + + + + | 2022-10-30 00:00 | CITALOPRAM HYDROBROMIDE | [facility] | + + + + | 2022-11-07 00:00 | CITALOPRAM HYDROBROMIDE | [facility] | + + + + | 2021-10-30 00:00 | ZIPRASIDONE HCL | [facility] | + + + + | 2022-03-10 00:00 | ZIPRASIDONE HCL | [facility] | + + + + | 2022-04-05 00:00 | ZIPRASIDONE HCL | [facility] | + + + + | 2022-07-19 00:00 | ZIPRASIDONE HCL | [facility] | + + + + | 2022-10-30 00:00 | ZIPRASIDONE HCL | [facility] | + + + + | 2022-11-07 00:00 | ZIPRASIDONE HCL | [facility] | + + + + | 2019-11-09 00:00 | azithromycin 250 mg oral | [facility] | | | tablet | [facility] | + + + + | 2021-05-10 00:00 | LISINOPRIL | [facility] | + + + + | 2021-05-10 00:00 | LISINOPRIL | [facility] | + + + + | 2021-05-10 00:00 | LISINOPRIL | [facility] | + + + + | 2021-05-10 00:00 | LISINOPRIL | [facility] | + + + + | 2021-10-30 00:00 | PRAZOSIN HCL | [facility] | + + + + | 2022-03-10 00:00 | PRAZOSIN HCL | [facility] | + + + + | 2022-04-05 00:00 | PRAZOSIN HCL | [facility] | + + + + | 2022-07-19 00:00 | PRAZOSIN HCL | [facility] | + + + + | 2022-10-30 00:00 | PRAZOSIN HCL | [facility] | + + + + | 2022-11-07 00:00 | PRAZOSIN HCL | [facility] | + + + + | 2021-05-10 00:00 | SPIRONOLACTONE | [facility] | + + + + | 2021-05-10 00:00 | SPIRONOLACTONE | [facility] | + + + + | 2021-05-10 00:00 | SPIRONOLACTONE | [facility] | + + + + | 2021-05-10 00:00 | SPIRONOLACTONE | [facility] | + + + + | 2022-07-19 00:00 | SPIRONOLACTONE | [facility] | + + + + | 2022-07-19 00:00 | SPIRONOLACTONE | [facility] | + + + + | 2021-10-30 00:00 | ATORVASTATIN CALCIUM | [facility] | + + + + | 2022-03-10 00:00 | ATORVASTATIN CALCIUM | [facility] | + + + + | 2022-04-05 00:00 | ATORVASTATIN CALCIUM | [facility] | + + + + | 2022-07-19 00:00 | ATORVASTATIN CALCIUM | [facility] | + + + + | 2022-10-30 00:00 | ATORVASTATIN CALCIUM | [facility] | + + + + | 2022-11-07 00:00 | ATORVASTATIN CALCIUM | [facility] | + + + + | 2015-10-03 00:00 | [id number] 200 actuat | [facility] | | | albuterol 0.09 mg/actuat | [facility] | | | metered dose inhaler | | | | [proventil] | | + + + + | 2022-04-05 00:00 | | [facility] | | | SULFAMETHOXAZOLE/TRIMETHOPR | | | | IM DS | | + + + + | 2022-04-05 00:00 | | [facility] | | | SULFAMETHOXAZOLE/TRIMETHOPR | | | | IM DS | | + + + + | 2021-10-30 00:00 | TRAZODONE HCL | [facility] | + + + + | 2022-03-10 00:00 | TRAZODONE HCL | [facility] | + + + + | 2022-04-05 00:00 | TRAZODONE HCL | [facility] | + + + + | 2022-07-19 00:00 | TRAZODONE HCL | [facility] | + + + + | 2022-10-30 00:00 | TRAZODONE HCL | [facility] | + + + + | 2022-11-07 00:00 | TRAZODONE HCL | [facility] | + + + + | 2021-10-30 00:00 | METOPROLOL SUCCINATE | [facility] | + + + + | 2022-03-10 00:00 | METOPROLOL SUCCINATE | [facility] | + + + + | 2022-04-05 00:00 | METOPROLOL SUCCINATE | [facility] | + + + + | 2022-07-19 00:00 | METOPROLOL SUCCINATE | [facility] | + + + + | 2022-10-30 00:00 | METOPROLOL SUCCINATE | [facility] | + + + + | 2022-11-07 00:00 | METOPROLOL SUCCINATE | [facility] | + + + + | 2015-10-03 [...] 00:00 | Delirium due to general | [facility] | | | medical condition | | + + + + | 2014-10-28 00:00 | Delirium due to general | [facility] | | | medical condition | | + + + + | 2014-10-28 00:00 | Delirium due to general | [facility] | | | medical condition | | + + + + | 2014-10-28 00:00 | Delirium due to general | [facility] | | | medical condition | | + + + + | 2014-10-28 00:00 | Altered level of | [facility] | | | consciousness | | + + + + | 2014-10-28 00:00 | Altered level of | [facility] | | | consciousness | | + + + + | 2014-10-28 00:00 | Altered level of | [facility] | | | consciousness | | + + + + | 2014-10-28 00:00 | Altered level of | [facility] | | | consciousness | | + + + + | 2018-06-26 00:00 | Encounter for medical | [facility] | | | screening examination | | + + + + | 2018-06-26 00:00 | Encounter for medical | [facility] | | | screening examination | | + + + + | 2018-06-26 00:00 | Encounter for medical | [facility] | | | screening examination | | + + + + | 2018-06-26 00:00 | Encounter for medical | [facility] | | | screening examination | | + + + + | 2021-05-08 00:00 | Atrial fibrillation with | [facility] | | | rapid ventricular response | | + + + + | 2021-05-08 00:00 | Atrial fibrillation with | [facility] | | | rapid ventricular response | | + + + + | 2021-05-08 00:00 | Atrial fibrillation with | [facility] | | | rapid ventricular response | | + + + + | 2021-05-08 00:00 | Atrial fibrillation with | [facility] | | | rapid ventricular response | | + + + + | 2021-05-08 00:00 | Acute on chronic | [facility] | | | congestive heart failure | | + + + + | 2021-05-08 00:00 | Acute on chronic | [facility] | | | congestive heart failure | | + + + + | 2021-05-08 00:00 | Acute on chronic | [facility] | | | congestive heart failure | | + + + + | 2021-05-08 00:00 | Acute on chronic | [facility] | | | congestive heart failure | [...] + | 2021-07-05 00:00 | Arthritis | [facility] | + + + + | 2021-07-05 00:00 | Arthritis | [facility] | + + + + | 2021-07-05 00:00 | Arthritis | [facility] | + + + + | 2021-07-05 00:00 | Arthritis | [facility] | + + + + | 2021-08-27 13:55 | GENERALIZED ABDOMINAL PAIN | [facility] | | | | | + + + + | 2021-08-27 13:55 | ABNORMAL FINDINGS ON DX | [facility] | | | IMAGING OF LIVER AND BILIA | | + + + + | 2021-09-18 00:00 | Intravenous drug user | [facility] | + + + + | 2021-09-18 00:00 | Intravenous drug user | [facility] | + + + + | 2021-09-18 00:00 | Intravenous drug user | [facility] | + + + + | 2021-09-18 00:00 | Intravenous drug user | [facility] | + + + + | 2021-09-18 00:00 | Back pain | [facility] | + + + + | 2021-09-18 00:00 | Back pain | [facility] | + + + + | 2021-09-18 00:00 | Back pain | [facility] | + + + + | 2021-09-18 00:00 | Back pain | [facility] | + + + + | 2021-09-18 [...] | 2021-10-27 00:00 | Methamphetamine abuse | [facility] | + + + + | 2021-10-27 00:00 | Methamphetamine abuse | [facility] | + + + + | 2021-10-27 00:00 | Methamphetamine abuse | [facility] | + + + + | 2021-10-27 00:00 | Methamphetamine abuse | [facility] | + + + + | 2021-10-27 00:00 | Cellulitis of | [facility] | | | periumbilical region | | + + + + | 2021-10-27 00:00 | Cellulitis of | [facility] | | | periumbilical region | | + + + + | 2021-10-27 00:00 | Cellulitis of | [facility] | | | periumbilical region | | + + + + | 2021-10-27 00:00 | Cellulitis of | [facility] | | | periumbilical region | | + + + + | 2022-03-10 00:00 | Congestive heart failure | [facility] | + + + + | 2022-03-10 00:00 | Congestive heart failure | [facility] | + + + + | 2022-03-10 00:00 | Congestive heart failure | [facility] | + + + + | 2022-04-05 00:00 | Hyperuricemia | [facility] | + + + + | 2022-04-05 00:00 | Hyperuricemia | [facility] | + + + + | 2022-04-05 00:00 | Urinary tract infection | [facility] | + + + + | 2022-04-05 00:00 | Urinary tract infection | [facility] | + + + + | 2022-07-19 [...] + + | 2022-07-19 21:26 | OTHER MOBILE SOLUTIONS ARCHITECT (CURRENT) | [facility] | | | DRUG [...] | 2022-10-30 00:00 | Inguinal hernia | [facility] | + + + + | 2022-10-30 00:00 | Jaundice | [facility] | + + + + | [...] + + + | 2022-10-30 12:51 | MOBILE SOLUTIONS ARCHITECT (CURRENT) USE OF | [facility] | | | ANTICOAGULANTS | | + + + + | 2022-10-30 12:51 | OTHER MOBILE SOLUTIONS ARCHITECT (CURRENT) | [facility] | | | DRUG [...] (missing) | | (unavailable | 11:16 | [facility] | | | | | [...] | | 2022-04-05 | [facility] | [id number] | (missing) | (missing) | | (unavailable [...] (missing) | | (unavailable | 14:03:07 | [facility] | | | | | ) | [...] + | 2019-11-09 00:00 | Ex-smoker | [place] | | | | [facility] [...]
--- OUTSIDE RECORDS SUMMARY | ~2022-11-08 | XMS | Continuity of Care Document ---
Demographics + + + | Address | [address] [address] | | | [place] [address] | + + + | Preferred Language | Unknown | + + + | Marital Status | Polygamous | + + + | Confucianist Affiliation | Unknown | + + + | Race | Unknown | + + + | Ethnic Group | or | + + + Author + + + | Author | [facility] | + + + | Organization | [facility] | + + + | Address | [address] | | | [place] [address] | + + + | Phone | | + + + Care Team Providers + + + + | Care Rn Pediatric Name | Role | Phone | + [...] + | (no date) | Mild | [place] | (no reaction) | (no severity) [...] | (no date) | Other (See | [place] | (no reaction) | (no severity) [...] + | 2022-04-05 00:00 | APIXABAN | [facility] | + + + + | 2022-07-19 00:00 | APIXABAN | [facility] | + + + + | 2022-10-30 00:00 | APIXABAN | [facility] | + + + + | 2022-11-07 00:00 | APIXABAN | [facility] | + + + + | 2022-03-10 00:00 | POTASSIUM CHLORIDE | [facility] | + + + + | 2022-03-10 00:00 | POTASSIUM CHLORIDE | [facility] | + + + + | 2022-03-10 00:00 | POTASSIUM CHLORIDE | [facility] | + + + + | 2022-04-05 00:00 | COLCHICINE | [facility] | + + + + | 2022-04-05 00:00 | COLCHICINE | [facility] | + + + + | 2021-10-27 00:00 | DOXYCYCLINE HYCLATE | [facility] | + + + + | 2021-05-10 00:00 | TORSEMIDE | [facility] | + + + + | 2021-05-10 00:00 | TORSEMIDE | [facility] | + + + + | 2022-03-10 00:00 | TORSEMIDE | [facility] | + + + + | 2022-03-10 00:00 | TORSEMIDE | [facility] | + + + + | 2022-03-10 00:00 | TORSEMIDE | [facility] | + + + + | 2022-07-19 00:00 | TORSEMIDE | [facility] | + + + + | 2022-07-19 00:00 | TORSEMIDE | [facility] | + + + + | 2022-10-30 00:00 | TORSEMIDE | [facility] | + + + + | 2021-05-10 00:00 | ASPIRIN | [facility] | + + + + | 2021-05-10 00:00 | ASPIRIN | [facility] | + + + + | 2022-11-07 00:00 | FUROSEMIDE | [facility] | + + + + | 2022-10-30 00:00 | SPIRONOLACTONE | [facility] | + + + + | 2015-10-03 00:00 | [id number] 200 actuat | [facility] | | | albuterol 0.09 mg/actuat | [facility] | | | metered dose inhaler | | + + + + | 2021-10-30 00:00 | CITALOPRAM HYDROBROMIDE | [facility] | + + + + | 2022-03-10 00:00 | CITALOPRAM HYDROBROMIDE | [facility] | + + + + | 2022-04-05 00:00 | CITALOPRAM HYDROBROMIDE | [facility] | + + + + | 2022-07-19 00:00 | CITALOPRAM HYDROBROMIDE | [facility] | + + + + | 2022-10-30 00:00 | CITALOPRAM HYDROBROMIDE | [facility] | + + + + | 2022-11-07 00:00 | CITALOPRAM HYDROBROMIDE | [facility] | + + + + | 2021-10-30 00:00 | ZIPRASIDONE HCL | [facility] | + + + + | 2022-03-10 00:00 | ZIPRASIDONE HCL | [facility] | + + + + | 2022-04-05 00:00 | ZIPRASIDONE HCL | [facility] | + + + + | 2022-07-19 00:00 | ZIPRASIDONE HCL | [facility] | + + + + | 2022-10-30 00:00 | ZIPRASIDONE HCL | [facility] | + + + + | 2022-11-07 00:00 | ZIPRASIDONE HCL | [facility] | + + + + | 2019-11-09 00:00 | azithromycin 250 mg oral | [facility] | | | tablet | [facility] | + + + + | 2021-05-10 00:00 | LISINOPRIL | [facility] | + + + + | 2021-05-10 00:00 | LISINOPRIL | [facility] | + + + + | 2021-05-10 00:00 | LISINOPRIL | [facility] | + + + + | 2021-05-10 00:00 | LISINOPRIL | [facility] | + + + + | 2021-10-30 00:00 | PRAZOSIN HCL | [facility] | + + + + | 2022-03-10 00:00 | PRAZOSIN HCL | [facility] | + + + + | 2022-04-05 00:00 | PRAZOSIN HCL | [facility] | + + + + | 2022-07-19 00:00 | PRAZOSIN HCL | [facility] | + + + + | 2022-10-30 00:00 | PRAZOSIN HCL | [facility] | + + + + | 2022-11-07 00:00 | PRAZOSIN HCL | [facility] | + + + + | 2021-05-10 00:00 | SPIRONOLACTONE | [facility] | + + + + | 2021-05-10 00:00 | SPIRONOLACTONE | [facility] | + + + + | 2021-05-10 00:00 | SPIRONOLACTONE | [facility] | + + + + | 2021-05-10 00:00 | SPIRONOLACTONE | [facility] | + + + + | 2022-07-19 00:00 | SPIRONOLACTONE | [facility] | + + + + | 2022-07-19 00:00 | SPIRONOLACTONE | [facility] | + + + + | 2021-10-30 00:00 | ATORVASTATIN CALCIUM | [facility] | + + + + | 2022-03-10 00:00 | ATORVASTATIN CALCIUM | [facility] | + + + + | 2022-04-05 00:00 | ATORVASTATIN CALCIUM | [facility] | + + + + | 2022-07-19 00:00 | ATORVASTATIN CALCIUM | [facility] | + + + + | 2022-10-30 00:00 | ATORVASTATIN CALCIUM | [facility] | + + + + | 2022-11-07 00:00 | ATORVASTATIN CALCIUM | [facility] | + + + + | 2015-10-03 00:00 | [id number] 200 actuat | [facility] | | | albuterol 0.09 mg/actuat | [facility] | | | metered dose inhaler | | | | [proventil] | | + + + + | 2022-04-05 00:00 | | [facility] | | | SULFAMETHOXAZOLE/TRIMETHOPR | | | | IM DS | | + + + + | 2022-04-05 00:00 | | [facility] | | | SULFAMETHOXAZOLE/TRIMETHOPR | | | | IM DS | | + + + + | 2021-10-30 00:00 | TRAZODONE HCL | [facility] | + + + + | 2022-03-10 00:00 | TRAZODONE HCL | [facility] | + + + + | 2022-04-05 00:00 | TRAZODONE HCL | [facility] | + + + + | 2022-07-19 00:00 | TRAZODONE HCL | [facility] | + + + + | 2022-10-30 00:00 | TRAZODONE HCL | [facility] | + + + + | 2022-11-07 00:00 | TRAZODONE HCL | [facility] | + + + + | 2021-10-30 00:00 | METOPROLOL SUCCINATE | [facility] | + + + + | 2022-03-10 00:00 | METOPROLOL SUCCINATE | [facility] | + + + + | 2022-04-05 00:00 | METOPROLOL SUCCINATE | [facility] | + + + + | 2022-07-19 00:00 | METOPROLOL SUCCINATE | [facility] | + + + + | 2022-10-30 00:00 | METOPROLOL SUCCINATE | [facility] | + + + + | 2022-11-07 00:00 | METOPROLOL SUCCINATE | [facility] | + + + + | [...] 00:00 | Delirium due to general | [facility] | | | medical condition | | + + + + | 2014-10-28 00:00 | Delirium due to general | [facility] | | | medical condition | | + + + + | 2014-10-28 00:00 | Delirium due to general | [facility] | | | medical condition | | + + + + | 2014-10-28 00:00 | Delirium due to general | [facility] | | | medical condition | | + + + + | 2014-10-28 00:00 | Altered level of | [facility] | | | consciousness | | + + + + | 2014-10-28 00:00 | Altered level of | [facility] | | | consciousness | | + + + + | 2014-10-28 00:00 | Altered level of | [facility] | | | consciousness | | + + + + | 2014-10-28 00:00 | Altered level of | [facility] | | | consciousness | | + + + + | 2018-06-26 00:00 | Encounter for medical | [facility] | | | screening examination | | + + + + | 2018-06-26 00:00 | Encounter for medical | [facility] | | | screening examination | | + + + + | 2018-06-26 00:00 | Encounter for medical | [facility] | | | screening examination | | + + + + | 2018-06-26 00:00 | Encounter for medical | [facility] | | | screening examination | | + + + + | 2021-05-08 00:00 | Atrial fibrillation with | [facility] | | | rapid ventricular response | | + + + + | 2021-05-08 00:00 | Atrial fibrillation with | [facility] | | | rapid ventricular response | | + + + + | 2021-05-08 00:00 | Atrial fibrillation with | [facility] | | | rapid ventricular response | | + + + + | 2021-05-08 00:00 | Atrial fibrillation with | [facility] | | | rapid ventricular response | | + + + + | 2021-05-08 00:00 | Acute on chronic | [facility] | | | congestive heart failure | | + + + + | 2021-05-08 00:00 | Acute on chronic | [facility] | | | congestive heart failure | | + + + + | 2021-05-08 00:00 | Acute on chronic | [facility] | | | congestive heart failure | | + + + + | 2021-05-08 00:00 | Acute on chronic | [facility] | | | congestive heart failure [...] + | 2021-07-05 00:00 | Arthritis | [facility] | + + + + | 2021-07-05 00:00 | Arthritis | [facility] | + + + + | 2021-07-05 00:00 | Arthritis | [facility] | + + + + | 2021-07-05 00:00 | Arthritis | [facility] | + + + + | 2021-08-27 13:55 | GENERALIZED ABDOMINAL PAIN | [facility] | | | | | + + + + | 2021-08-27 13:55 | ABNORMAL FINDINGS ON DX | [facility] | | | IMAGING OF LIVER AND BILIA | | + + + + | 2021-09-18 00:00 | Intravenous drug user | [facility] | + + + + | 2021-09-18 00:00 | Intravenous drug user | [facility] | + + + + | 2021-09-18 00:00 | Intravenous drug user | [facility] | + + + + | 2021-09-18 00:00 | Intravenous drug user | [facility] | + + + + | 2021-09-18 00:00 | Back pain | [facility] | + + + + | 2021-09-18 00:00 | Back pain | [facility] | + + + + | 2021-09-18 00:00 | Back pain | [facility] | + + + + | 2021-09-18 00:00 | Back pain | [facility] | + + + + | [...] | 2021-10-27 00:00 | Methamphetamine abuse | [facility] | + + + + | 2021-10-27 00:00 | Methamphetamine abuse | [facility] | + + + + | 2021-10-27 00:00 | Methamphetamine abuse | [facility] | + + + + | 2021-10-27 00:00 | Methamphetamine abuse | [facility] | + + + + | 2021-10-27 00:00 | Cellulitis of | [facility] | | | periumbilical region | | + + + + | 2021-10-27 00:00 | Cellulitis of | [facility] | | | periumbilical region | | + + + + | 2021-10-27 00:00 | Cellulitis of | [facility] | | | periumbilical region | | + + + + | 2021-10-27 00:00 | Cellulitis of | [facility] | | | periumbilical region | | + + + + | 2022-03-10 00:00 | Congestive heart failure | [facility] | + + + + | 2022-03-10 00:00 | Congestive heart failure | [facility] | + + + + | 2022-03-10 00:00 | Congestive heart failure | [facility] | + + + + | 2022-04-05 00:00 | Hyperuricemia | [facility] | + + + + | 2022-04-05 00:00 | Hyperuricemia | [facility] | + + + + | 2022-04-05 00:00 | Urinary tract infection | [facility] | + + + + | 2022-04-05 00:00 | Urinary tract infection | [facility] | + + + + | [...] + + | 2022-07-19 21:26 | OTHER ACUTE CARE NURSE (CURRENT) | [facility] | | | DRUG [...] | 2022-10-30 00:00 | Inguinal hernia | [facility] | + + + + | 2022-10-30 00:00 | Jaundice | [facility] | + + + + [...] + + + | 2022-10-30 12:51 | ACUTE CARE NURSE (CURRENT) USE OF | [facility] | | | ANTICOAGULANTS | | + + + + | 2022-10-30 12:51 | OTHER ACUTE CARE NURSE (CURRENT) | [facility] | | | DRUG [...] (missing) | | (unavailable | 11:16 | [facility] | | | | | ) | [...] | | 2022-04-05 | [facility] | [id number] | (missing) | (missing) | | (unavailable [...] (missing) | | (unavailable | 21:52:07 | [facility] | | | | | ) | [...] (missing) | | (unavailable | 14:03:07 | [facility] | | | | | ) | [...] + | 2019-11-09 00:00 | Ex-smoker | [place] | | | | [facility] [...]
[~2022-11-08 21:10] MED LIST changes: +ALDACTONE25 MG PO; +LASIX20 MG PO
--- OUTSIDE RECORDS SUMMARY | 2022-11-08 21:19 | XMS ---
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 Care History Medical/Surgical 08/03/2022 [facility] This patient has no showed/cancelled all 5 appointments with PCP this year, 2022. [place] VISIT COUNT (12 MO.) 6 [facility] [place] TOTAL 6 NOTE: Visits indicate total known visits. ED/UCC VISIT TRACKING (12 MO.) 11/08/2022 21:10 [facility] [place] Emergency COMPLAINT: - ABD PAIN 11/07/2022 04:34 [facility] [place] COMPLAINT: - EAR PAIN 10/30/2022 12:51 [facility] COMPLAINT: - TURNING YELLOW IN COLOR DIAGNOSES: - Allergy status to analgesic agent - Allergy status to penicillin - Heart failure, unspecified - intermediate (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 - Nicotine dependence, unspecified, uncomplicated - Other shelter (current) drug therapy - Other nonmedicinal substance allergy status - Unilateral inguinal hernia, without obstruction or gangrene, not specified as recurrent - Unspecified atrial fibrillation - Unspecified jaundice 07/19/2022 21:26 [facility] [place] TYPE: Emergency COMPLAINT: - CP DIAGNOSES: - Allergy status to other drugs, medicaments and biological substances - Allergy status to penicillin - Chest pain, unspecified - Food additives allergy status - Heart failure, unspecified - Nicotine dependence, unspecified, uncomplicated - Other shelter (current) drug therapy - Patient's noncompliance with [...] of inflammatory arthritis and tophaceous disease - intermediate (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 - Nicotine dependence, unspecified, uncomplicated - Other meterman (current) drug therapy - Shortness of breath - Urinary tract infection, site not specified 03/10/2022 13:25 [facility] [place] TYPE: Emergency COMPLAINT: - POISONING DIAGNOSES: - Allergy status to analgesic agent - Allergy status to penicillin - Heart failure, unspecified - intermediate (current) use of aspirin - Nicotine dependence, unspecified, uncomplicated - Other meterman (current) drug therapy - Radiographic dye allergy status - Shortness of breath INPATIENT VISIT TRACKING (12 MO.) No inpatient visits to display in this time frame [email or web address]
[2022-11-09] VITALS (18 sets, daily range): BP systolic 88–120; BP diastolic 65–102
--- NOTE | 2022-11-09 02:46 | NUR ---
PT ADMINISTERED TYLENOL PRN AT THIS TIME FOR TEMP 101.8F, PT SITTING UP IN BED DRINKING WATER AND EATING APPLESAUCE.
--- NOTE | 2022-11-09 03:43 | NUR ---
PATIENT IS FEBRILE 101.8 GAVE TYLENOL NIO
--- NOTE | 2022-11-09 05:24 | NUR ---
PATIENT IS COMPLAINING THAT HIS TONGUE IS CUT. ASSESSED THE TONGUE AND THERE IS NO BLOOD. ALTHOUGH, THERE IS A VERY PROMINANT INDENTATION IN THE MIDDLE. WILL PASS ALONG IN SHIFT REPORT.
--- NOTE | 2022-11-09 08:00 | NUR ---
Spoke with Clark. He states he is homeless and living in his truck. He stays in his friend [place] trailer . He stays with him when it's hot. He denies other needs. He states he does drink 3 or more Tallboys per day. He is attempting to cut back to two. He is also a current meth user. He is in agreement to speak with [facility] for addiction. I called and they will contact pt and set up an appt to visit him in the hospital.
--- NOTE | 2022-11-09 08:49 | NUR ---
TRANSFER ORDER PLACED FOR PATIENT TO BE CCU LEVEL OF CARE AFTER DISCUSSING WITH DR. WONG THIS MORNING.
--- NOTE | 2022-11-09 09:09 | NUR ---
PT STATES HE TOOK HIS OWN MEDICATIONS THIS MORNING AT 0700. PT INFORMS HE TOOK 10 MG TORESEMIDE AND 5 MG ELIQUIS PO. PT ADVISES HE HAS ALL OF HIS MEDICATIONS WTIH HIM IN HIS PERSONAL BELONGINGS. PT'S PERSONAL BELONGINGS REVIEWED WITH PT AT BEDSIDE. PT PERSONAL MEDICATION INCLUDE: TWO BOTTLES OF ELIQUIS, ONE BOTTLE TORSEMISE, ONE BOTTLE SPIRONOLACTONE, ONE BOTTLE LASIX, ONE EMPTY BOTTLE OF LIPITOR, AND TWO BOTTLES OF METOPROLOL. OTHER PERSONAL ITEMS INCLUDE A PAIR OF SHOES, SHORTS, A POWER CONVERTER, POWER CHARGING CORDS, A WRENCH, POKER CARDS, PENS AND TRASH. PT STATES HIS WALLET AND KEYS SHOULD BE IN THERE, HOWEVER, NO WALLET AND KEYS NOTED. PT MADE AWARE. DR. WONG INFORMED OF USE OF PERSONAL MEDICATION AND REQUEST TO CONTINUE ADMINISTRATION OF LASIX IN ALBUMIN. V/S ASSESSED AND MEDICATION INFUSION STARTED. CM AT BEDSIDE.
[2022-11-09] MEDS ORDERED: SPIRONOLACTONE25 MG PO (09:15)
[2022-11-09] MEDS ORDERED: TORSEMIDE10 MG PO (09:15)
[2022-11-09] MEDS ORDERED: TOPROL XL50 MG (09:22)
[2022-11-09] MEDS ORDERED: TOPROL XL50 MG PO (09:23)
--- NOTE | 2022-11-09 10:35 | NUR ---
Attempted initial heart failure education/ needs assessment visit. Patient appears restless and kept eyes closed. Left HF book , Zones magnet, and CHFN contact card at bedside.
--- NOTE | 2022-11-09 10:42 | NUR ---
PT ASSESSED AND FOUND TO BE IN HOSPITAL BED RESTLESS, AWAKE, ALERT AND ORIENTED X 4 WITH A GCS OF 15. PT SLOW TO RESPOND, WITH MUMBLED SPEECH. PT STATES THIS IS NORMAL FOR HIM. V/S ASSESSED, AND ALARM PERAMETERS SET. BED ALARM TURNED ON. PT PROVIDED WITH NURSE CALL LIGHT AND INSTRUCTED ON USE. EDUCATION PROVIDED REGARDING CURRENT ILLNESS AND NEED FOR REST. PT ABLE TO TRANSFER SELF FROM SIDE TO SIDE. GONZALEZ CARE PERFORMED WITH HENNA WIPE.
--- NOTE | 2022-11-09 11:28 | NUR ---
BED BATH PERFORMED. PT TRANSFERRED TO CHAIR WITH ONE PERSON ASSIST. NEW [place]EN[place] PLACED ON BED AND PT PLACED INTO NEW HOSPITAL GOWN. NURSE CALL LIGHT IN PTS HAND.
--- NOTE | 2022-11-09 13:05 | NUR ---
PT NOT REALLY CONVERSENT. APPEARED TO BE IN SOME DISCOMFORT. PRAYED AND LET IONA HERNANDEZ KNOW.
--- NOTE | 2022-11-09 18:28 | NUR ---
PT REMAINS AWAKE, ALERT AND ORIENTED X 4 WITH A GCS OF 15. PT CONTINUES TO HAVE SLURRED SPEACH AND SLOW TO RESPOND AT TIMES. PT FOLLOWS ALL COMMANDS APPROPRIATLEY AND IS ABLE TO MOVE UPPER AND LOWER EXTREMITIES WITHOUT PROBLEM. CIWA NOTED TO BE ELEVATED AT 8 X 2 THROUGHOUT THE SHIFT. PRN LORAZEPAM ADMINISTERED FOR A TOTAL OF 4 MG WITH NOTED IMPROVEMENT. PT TRANSFERRED BACK INTO BED WITHOUT PROBLEM AND PLACED IN POSITION OF COMFORT WITH HOB ELEVATED TO 30 DEGREES. PT HAS BEEN IN A-FIB WITH SBP IN THE 90S AND MAPS ALL GREATER THAN 65. PT HAS BEEN A-FEBRILE. RESPIRATIONS REMAIN NON-LABORED, AND LS CLEAR. ABD REMAINS TENDER ON L. SIDE, BS ACTIVE. PT ABLE TO EAT AND DRINK FLUIDS APPROPRIATELY. LAST BM NOTED ON 11/08. PT WITH ADEQUATE UO OF 2660 NOTED THROUGHOUT THE SHIFT. PT IS NOW AT A NET NEGATIVE OF -1860 FOR HOSPITAL ADMISSION. LOWER EXTREMITY EDEMA MUCH IMPROVED. PT CONTINUES TO HAVE SEVERE PENILE AND SCROTAL EDEMA. PT CONTINUES TO EXPERIENCE SCLERAL ICTERUS. ISP PERFORMED - PT NOTED TO HAVE VT OF 1250.
--- NOTE | 2022-11-09 18:30 | EKG ---
[facility] [address] [place], [place] [address] Signed Atrial fibrillation Abnormal ECG No previous ECGs available Confirmed by MAGALI WONG MD ([id number]) on 11/09/2022 6:30:22 PM Electronically Signed By: MAGALI WONG 11/09/22 1830 PATIENT NAME: DAVID SANTORO Electrocardiogram DATE OF : 65 PHYSICIAN: MAGALI WONG REPORT #: [id number] REPORT IS CONFIDENTIAL AND NOT TO BE RELEASED WITHOUT AUTHORIZATION
--- NOTE | 2022-11-09 19:46 | NUR ---
NEW ORDERS FOR ABX TELEPHONE FROM ., PLACED ORDERS AND TALKED WITH TELEPHARMACY TO DISCUSS ABX ORDERS AND TIMES
--- NOTE | 2022-11-09 19:50 | NUR ---
PT RESTING QUIETLY IN BED EYES CLOSED RESPIRATIONS REGULAR 23/MIN. NO DSITRESS NOTED.
--- NOTE | 2022-11-09 21:05 | NUR ---
PT ALERT, HE ASKED IF THE "URINE TUBE" IS WORKING, PT ASSURED IT IS PATENT AND URINE IS DRAINING, PT ASKED "WHAT DO I DO NOW" PT REORIENTED TO TIME, THIS RN SAID YOU CAN TRY TO SLEEP OR WATCH SOME TV.
--- NOTE | 2022-11-09 22:36 | NUR ---
PT ASSISTED TO REPOSITION FOR COMFORT. HE IS NOW RESTING IN BED EYES CLOSED NO DISTRESS NOTED CIWA 0, AT THIS TIME
--- NOTE | 2022-11-09 22:58 | NUR ---
PT RESTING IN BED EYES CLOSED, RESPIRATIONS 23/MIN, NO DISTRESS NOTED, SNORING AT THIS TIME.
--- NOTE | 2022-11-09 23:34 | NUR ---
PT SITTING UP IN BED EATING A SNACK AND JUICE, PT ALERT AND ORIENTED. NO NEW CONCERNS, CIWA 0.
--- NOTE | 2022-11-09 23:58 | NUR ---
PT FINISHED SNACK AND IS RESTING IN BED EYES CLOSED, PT REPOSITIONED AND BUSTED UP IN BED, LEGS ELEVATED. PT ALERT FOR BOOST THEN BACK TO SLEEP, RESPIRATIONS 22/MIN.
[2022-11-10] VITALS (17 sets, daily range): BP systolic 90–117; BP diastolic 52–99
--- NOTE | 2022-11-10 00:42 | NUR ---
PT RESTING QUIELTY IN BED EYES CLOSED, NO DISTRESS NOTED, V/S STABLE ON MONITOR. CIWA 0
--- NOTE | 2022-11-10 03:08 | NUR ---
PT RESTING IN BED, ALERT TO RN AT BEDSIDE TO ADJUST B/P CUFF AND PLACE OXIMETRY BACK TO THUMB. NO REQUESTS, NO NEW CONCERNS AT THIS TIME
--- NOTE | 2022-11-10 05:15 | NUR ---
PT ALERT FOR LAB DRAW, ORIENTED X4, HE ASKED FOR A COCA-COLA, THIS IS NOT AVAILABLE ON THIS UNIT, FRESH ICE WATER PROVIDED.
--- NOTE | 2022-11-10 07:30 | NUR ---
REPORT RECEIVED FROM IONA MITCHELL. PT RESTING IN BED. REPORTS HE WOULD LIKE TO GET UP TO RESTROOM. 1 PERSON ASSIST UP TO BEDSIDE COMODE. PT HAS SMALL SOFT BROWN BOWEL MOVEMENT. PT CONTINUES TO REPORT HE "NEED TO PEE." EDUCATION DONE WITH PT REGARDIN GONZALEZ CATHETER. PT REPORTS "MY PENIS" DISCOMFORT AT 3/10. PT ALSO REPORTS LEFT SIDE/FLANK PAIN AT 3/10. SEE MAR FOR MEDICATION GIVEN. DR. WONG TO BEDSIDE, NEW VERBAL ORDERS GIVEN. ORDERS ENTERED, REPEAT BACK PERFORMED. PT UP TO CHAIR FOR BRAKFAST. NO ADDITIONAL NEEDS AT THIS TIME. CALL LIGHT WITHIN REACH. PT WATCHING TV.
--- NOTE | 2022-11-10 08:29 | NUR ---
MORNING ASSESSMENT AND MEDICATION DUE. PT REMAINS UP TO CHAIR. PT REQUESTS FOOD. BREAKFAST DELIVERED. PT CONTINUES TO REPORTS 3/10 PAIN IN LEFT SIDE, REPORTS PENIAL PAIN IS "BETTER." IVs PRESENT IN BILATERAL AC SITES. BOTH LINES FLUSHED, WNL, NO S/S OF PHLEBITIS PRESENT. RIGHT AC IV SITE INFUSING ABX. PT ALERT AND OREINTED TO ALL. PT AWAKEN AND HOLDING CONVERSATION NORMALLY. CIWA SCORE OF 0 AT THIS TIME. SPEACH REMAINS SLURRED BUT CAN BE UNDERSTOOD. PT ABLE TO MAKE SPEACH MORE CLEAR WHEN ASKED. BMAT LEVEL 3, FWW, 1 PERSON ASSIST. PT IMPULSIVE AND UNAWARE OF SAFETY HAZARDS. LUNG SOUNDS CLEAR IN UPPER LOBES. CRACKS HEARD IN LOWER LOBES WHEN LISENING FROM THE BACK. UPPER AIRWAY CONGESTION CLEARS WITH COUGH. PT TOELRATING ROOM AIR WITH OXGYEN SATUATIONS IN THE 90'S. PT DEMONSTRATES USE OF I.S. REACHING 1300ML X8. IT INITIATES I.S. USE WITHOUT PROMTING FROM NURSING STAFF. AFIB RYTHEM CONTINUES ON MONITOR WITH HEART RATES 90'S AT REST AND 100-120'S WITH ACTIVITY OF GETTING UP TO CHAIR AND COMODE. IRREGULAR HEAT TONES WITH GALLOP HEARD BY ASCULTATION. POOR CAPPLILARRY REFILL CONTINUES. +3 PITTING EDEMA CONTINUES IN BLD AND FEET. +4 SCROTAL EDEMA ALSO PRESENT. SCROTUM ELEVATED ON MIKA. LEGS ELVATED IN CHAIR. +2 PITTING DEPENDANT EDMA ALSO SEEN, ON LEFT SIDE AND BACK AT THIS TIME. ANASARCA CONTINUES WITH ABDOMEN DISTENDED AND IMPRESSION OF STETHOSCOPE LEFT ON ABDOMEN AFTER ASCULATATION. BOWEL TONES ACTIVE. PT DENIES NAUSEA. URINE CONCENTRATED AND ARK YELLOW, QUANTITY SUFFICENT. MEDICAITON GIVEN. PT EATING BREAKFAST, NO ADDITIONAL REQUESTS OR COMPLAINTS. CALL LIGHT WITHIN REACH.
--- NOTE | 2022-11-10 09:04 | NUR ---
HOURLY ROUNDING: PT REMAINS UP TO CHAIR, FINISHED WITH BREAKFAST AND RESTING WITH EYES CLOSED. RESPIRATIONS EVEN AND UNLABORED. PT TOELRATING ROOM AIR, VITAL SIGNS STABLE. PT ALLOWED TO REST. CALL LIGHT WITHIN REACH.
--- NOTE | 2022-11-10 09:12 | NUR ---
PUMP ALARMING, INFUSION AND FLUSH COMPLETE. IV FLUSHED AND SALINE LOCKED. ALOCHOL CAP APPLIED. PT CONTINUES RESTING WITH EYES CLOSED. RESPIRATIONS EVEN AND UNLABORED. CALL LIGHT WITHIN REACH.
--- NOTE | 2022-11-10 09:19 | NUR ---
DR. WONG TO BEDSIDE, UP DATED ON PT STATUS AND ASSESSMENT. PT AWAKENS BY VOICE TO TALK WITH THE DOCTOR. PT DENIES SEEING A INSTRUCTIONAL TECHNOLOGY COORDINATOR STATING "I'M SUPOSTED TO BUT I HAVEN'T. i HAVEN'T DONE ANYTHING I'M SUPOSED TO DO." PT UPDATED ON PLAN OF CARE AND STATES HIS QEUSTIONS HAVE BEEN ANSWERED. NO ADDITIONAL REQUESTS OR COMPLAINTS. CALL LIGHT WITHIN REACH. PT REMAINS UP TO CHAIR.
--- NOTE | 2022-11-10 09:43 | NUR ---
MEDICATION ARRIVED FROM PHARAMCY, GIVEN ORDERED. PT HAS RETURNED TO RESTING WITH EYES CLOSED. RR OF 21, OXYGEN SATURATION 98% ON ROOM AIR. PT ALLOWED TO REST. CALL LIGHT WITHIN REACH.
--- NOTE | 2022-11-10 10:43 | NUR ---
THIS RN TO TO ROOM TO CHECK ON PT. PT REMAINS UP TO CHAIR. PT REPORTS HE COMPLETED PHYSICAL THERAPY AND WAS NIDIA TO "WALK AROUND THE ROOM A LITTLE." MONITORS REATTACHED. BLOOD PRESSURE MILDLY LOW, MONITORING, PT DENIES CHEST PAIN OR DIZZINESS. PT DEMONSTRATES USE OF I.S. REACHING 1300ML X5. OXGYEN SATURATION [id number] ON ROOM AIR. PT TAKLING WITH FRIENDS ON THE PHONE. PT REPORTS 3/10 SIDE/FLANK AND "NEED TO PEE" PAIN. PT DENIES NEED FOR ADDITONAL MEDICATIONS. PT REQUESTS ADDITONAL SNACKS (JUST FINSIEHD YOGURT), PROVIDED. NO ADDITIONAL REQUESTS OR COMPLAINTS. CALL LIGHT WITHIN REACH.
--- NOTE | 2022-11-10 10:59 | NUR ---
SPOKE TO PATIENT ABOUT THE DISCHARGE PLAN. GAVE PATIENT A [facility] CARD AND ENCOUARED PATIENT TO SPEAK TO A DERMATOLOGY PHYSICIAN TODAY. PATIENT TOOK THE CARD AND AND STATED HE WOULD CALL TODAY.PATIENT STATES HE WILL APPLY FOR DISABILITY AND HE HAS THE PAPER WORK AT HOME. WHEN MEDICALLY STABLE PATIENT PLANS TO STAY WITH FRIENDS OR SLEEP IN HIS CAR.
--- NOTE | 2022-11-10 11:15 | NUR ---
PT SEEN GETTING UP FROM CHAIR ON HIS OWN. PT UNSTAEDY ON FEET, WRAPEDIN LEADS/MONITORS AND HAS CATHETER TANGLED. EDUCATION DONE WITH PT. PT VERBALIZES UNDERSTANDING. STAND BY ASSIST WITH FWW UP TO COMODE. PT HAS SMALL FORMED BROWN BOWEL MOVEMENT. PT ASSISTED WITH PER CARE. STAND BY ASSIST WITH FWW BACK TO CHAIR. PT REPORTS HE IS FEELING CONSTIPATED, NIO ORDERS PLACED FOR BOWEL ROUTIEN. PT DENIES DIZZINESS OR LIGHTHEADEDNESS WITH ACTIVITY. HEART RATE REMAINS 90-110 WITH ACTIVITY, REMAINS IN AFIB RYTHM. NO ADDITIONAL NEEDS AT THIS TIME. CHAIR ALARM ON. CALL LIGHT WITHIN REACH.
--- NOTE | 2022-11-10 11:33 | NUR ---
PT IN CHAIR. APPEARED TO BE ASLEEP. DID NOT DISTURB. PRAYED FROM LEE FOR HEALING AND PEACE.
--- NOTE | 2022-11-10 12:04 | NUR ---
NOON ASSESSMENT AND MEDICATION DUE. PT REMAINS UP TO CHAIR. AGITATED REGARDING GONZALEZ CATHETER AND SWELLING IN SCROTAL AREA. PT ASSISTED WITH REPOSITIONING AND REPORTS "THATS BETTER." PT ALERT AND ORIENTED TO ALL ALTHOUGH IMPULSIVE AND FORGETFUL AT TIMES. PT REPORTS 3/10 PAIN, ON LEFT SIDE OF ABDOMEN. SPEACH REMAINS SLURRED. CIWA REMAINS 0/10 AT THIS TIME. PT HAS CALLED MAIKEL AND PEER MENTOR, CAREN, AT BEDSIDE TO TALK WITH PT WHILE HE IS EAT LUNCH. PT REPORTS HE HAVE BEEN DRINKING MOST OF HIS LIFE AND DECIDED TO COME TO THE HOSPITAL BECAUSE "IT STARTED HURTING RIGHT HERE" (POINTS TO [place], LEFT SIDE) "AND I COULDN'T FINISH THAT TALL BOY I HAD." CRACKELS HEARD IN LOWER LOBES OF LUNGS. COURSE SOUNDS IN LEFT UPPER LOBE, CLEAR WITH COUGH. CLEAR RIGHT UPPER LOBE. PT TOLERATING ROOM AIR WITH OXGYEN SATURATIONS ABOVE 94%. I.S. USE DEMONSTRATED. PT REACHES 1300ML X 5. HEART TONES REMAIN IRREGULAR WITH GALLOP HEARD. AFIB RYTHEM CONTINUES ON CARDIAC MONITORING. RATE 80-90'S WHILE AT REST. 90-110'S WITH ACTIVITY. BLOOD PRESSURE IMPROVED. PT DENIES LIGHTHEADEDNESS OR DIZZINESS. EDEMA UNCHANGED. SCROTUM AND LEGS REMAIN ELEVATED. 575ML DARK YELLOW URINE REMOVED FROM GONZALEZ CATHETER. ACITITES CONTINUES WITH +2 PITTING EDEMA TO ABDOMEN AND FLANKS. BOWEL TONES ACTIVE. DR WONG UPDATED ON PT STAUTS. NEW ORDERS GIVE FOR MILK OF MAG AND TO DC'D GONZALEZ CATHETER, CATHETER DC'D PER PROTOCOL. PT TOLEARTED AND REPORTS IMMIDATE NEED TO PEE. EDUCATION DONE. PT ATTEMPTS TO VOID, NO VOID SEEN AT THIS TIME. PT CONTINUES TALKING WITH MAIKEL MENTOR AND EATING LUNCH. NO ADDITIOANL REQUESTS OR COMPLAINTS. CALL LIGHT WITHIN REACH.
--- NOTE | 2022-11-10 12:47 | NUR ---
REPORT GIVEN TO IONA PERSAUD WHO IS ASSUMING CARE OF PT. PT FINISHED WITH LUNCH. REMAINS UP TO CHAIR. PT WATCHING VIDEOS ON PHONE. CHAIR ALARM ON. PT DENIES ADDITIONAL REQUESTS OR COMPLAINTS. CALL LIGHT WITHIN REACH.
--- NOTE | 2022-11-10 12:59 | NUR ---
CHAIR ALARM SOUNDING. PT GETTING UP TO VOID. PT UNSTEADY ON FEET AND TANGLED IN LEADS. PT ASSISTED WITH UNTANGLING AND USING URINAL. PT VOIDS 225ML DARK YELLOW URINE. PT ASSISTED WITH ARIANNA CARE. 1 PERSON ASSIST BACK TO CHAIR. PT CONTINUES WATCHING VIDEOS ON PHONE. NO ADDITIONAL REQUESTS OR COMPLAINTS. CALL LIGHT WITHIN REACH. CHAIR ALARM ON.
--- NOTE | 2022-11-10 13:28 | NUR ---
HOULRY ROUNDING: PT RESTING IN CHAIR WITH EYES CLOSED. RESPIRATIONS EVEN AND UNLABORED. VITAL SIGNS STABLE. CHAIR ALARM ON. CALL LIGHT WITHIN REACH.
--- NOTE | 2022-11-10 13:45 | NUR ---
UPDATED THIS RN REGARDING PTS EJECTIONS FRACTION AND NEED FOR TRANSFER. PT REMAINS UP TO CHAIR. PT TRANSFERED BACK TO BED WITH 1 PERSON ASSIST PIVOT TRANSFER BACK TO BED TO ALLOW FOR CARDIAC REST. PT UPDATED ON PLAN OF CARE AND TEARFUL STATING "JUST GIVE ME A NEW HEART THEN." PT ADVISED TO CONTINUE TO WORK WITH DOCTORS AND FOLLOW THEIR INSTRUCTIONS AND RECCOMENDATIONS. PT STATES HE WILL "DO WHAT THEY SAY" AND STATES HE WOULD LIKE TO CONTNUE WORKING WITH [facility] "IF THAT WILL GET ME A NEW HEART." PT VOIDS IN URINAL WITH 1 PERSON ASSIST. PT REQUESTS SNACKS AND MORE FLUID. PT REMINDED THAT A FLUID RESTICTIONS IS RECCOMENDED FOR HIM AT THIS TIME. PT AGREES TO STAY WITHIN FLUID RESTRICTIONS. LOW SODIUM CRACKERS PROVIDED. WARM BLANKETS PROVIDED. HEAD OF BED ELEVATED TO 30 DEGREES. BED RAILS UP. BED ALARM ON. PT DENIES ADDITIONAL REQUESTS OR COMPLAINTS AT THIS TIME. PT STATES HE WILL UPDATE HIS FRIENDS AND FAMILY AND DENIES NEED FOR MOTORIZED SQUAD CAPTAIN TO CALL SOMEONE.
--- NOTE | 2022-11-10 14:14 | NUR ---
IN ROOM TO ANSWER BED ALARM. PT REPOSITIONED TO EDGE OF BED REPORTS PREVIOUS POSITION WAS CAUSING INCREASE IN ABDOMINAL DISCOMFORT. REPORTS NEED TO VOID AND URINAL PROVIDED AT BEDSIDE. NO ACUTE DISTRESS NOTED. PT VOIDS 110ML HUSSAIN URINE. DENIES CHEST PAIN OR SOB. RETURNS TO BED STATING "I'M GOING TO TRY AND TAKE A NAP." UPDATED ON CARE PLAN AND DENIES FURTHER NEEDS. SIDE RAILS UP X 3, BED ALARM ON, CALL LIGHT IN REACH. PRIMARY RN UPDATED.
--- NOTE | 2022-11-10 14:52 | NUR ---
1341 - PER MD REQUEST, CALLS BEING MADE TO INTIATE TRANSFER DUE TO CARDIAC FINDINGS ON ECHO. MULTIPLE CALLS MADE. 1404 - CALL BACK FROM [facility] FOR DOC TO DOC. 1427 - PT HAS BEEN ACCEPTED BY DR GUALBERTO WONG AT [facility]. WILL HAVE A BED AVAILABLE IN "A COUPLE HOURS". TRANSFER PACKET STARTED AND GIVEN TO BERTA CROCODILE FARMER TO COMPLETE.
--- NOTE | 2022-11-10 16:02 | EKG ---
[facility] [address] [place] [address] Signed Atrial fibrillation Low voltage QRS Left posterior fascicular block Cannot rule out Anterior infarct (cited on or before 10-NOV-2022) Abnormal ECG When compared with ECG of 08-NOV-2022 22:39, Left posterior fascicular block is now present Nonspecific T wave abnormality now evident in Inferior leads Confirmed by MAGALI WONG MD ([id number]) on 11/10/2022 4:02:12 PM Electronically Signed By: MAGALI WONG 11/10/22 1602 PATIENT NAME: DAVID SANTORO Electrocardiogram DATE OF : 65 PHYSICIAN: MAGALI WONG REPORT #: [id number] REPORT IS CONFIDENTIAL AND NOT TO BE RELEASED WITHOUT AUTHORIZATION
--- NOTE | 2022-11-10 16:15 | NUR ---
PATIENT UP TO THE BEDSIDE TO USE URNAL. PATIENT VOIDED AND RETURNED TO BED WITH MINIMAL ASSIST. PATIENT VS STABLE. CALL LIGHT IN REACH.
--- NOTE | 2022-11-10 17:30 | NUR ---
PATIENT REPOSITIONED IN BED. DINNER PROVIDED. PATIENT ATE 100% OF DINNER. PO FLUIDS PER FLUID RESTRICTION. PATIENT AAOX4. ON PHONE WITH SIGNIFICANT OTHER.
--- NOTE | 2022-11-10 18:43 | NUR ---
patient up to the bedside to void. bed linen changed. patient returned to bed to watch TV on his phone. call light in reach.
--- NOTE | 2022-11-10 18:54 | NUR ---
CALL TO PFD FOR PT TRANSFER TO [facility]. REPORTS IT WILL BE APPROX 30 MINUTES BEFORE A CREW CAN BE HERE.
--- NOTE | 2022-11-10 19:20 | NUR ---
REPORT CALLED TO MAXIMO AT [facility], MAXIMO STATES HER QUESTIONS HAVE BEEN ANSWERED.
--- NOTE | 2022-11-10 19:37 | NUR ---
PT ASSESSED AND FOUND TO BE RESTING IN HOSPITAL BED. PT IS DIFFICULT TO ARROUSE BUT AWAKENS AND FOLLOWS ALL COMMANDS. PT IS A&O X 3 WITH A GCS OF 14. PT IS CONFUSED TO DATE AND TIME. BASELINE V/S OBTAINED FOR TRANSFERS. PT'S PERSONAL BELONGING PULLED FROM LOCKED SECURITY BOX AND PLACED IN PERSONAL BLONGINGS BAG. EMS CONTACTED AND CONFIRMED AND ALS UNIT WILL BE AT BEDSIDE SHORTLY FOR TRANSFER. PT WITH NO QUESTIONS OR CONCERNS AT THIS TIME. TRANSFER PAPERWORK REVIEWED WITH INVENTORY CONTROL CLERK GURMEET.
== END 2022-11-10 20:04 | disposition short-term general hospital (02) | DRG 292 ==
LOC: ED 21:10 → CCU 11-09 01:19
PROVIDERS: ADMIT Internal Medicine; ATTEND Internal Medicine
DX: I50.43 Acute on chronic combined systolic (congestive) and diastolic (congestive) heart failure (principal); E87.1 Hypo-osmolality and hyponatremia; I42.0 Dilated cardiomyopathy; I42.6 Alcoholic cardiomyopathy; N49.2 Inflammatory disorders of scrotum; I48.91 Unspecified atrial fibrillation; N50.89 Other specified disorders of the male genital organs; F17.210 Nicotine dependence, cigarettes, uncomplicated; F20.9 Schizophrenia, unspecified; F31.9 Bipolar disorder, unspecified; R60.1 Generalized edema; I95.9 Hypotension, unspecified; R10.9 Unspecified abdominal pain; F10.10 Alcohol abuse, uncomplicated; K40.20 Bilateral inguinal hernia, without obstruction or gangrene, not specified as recurrent; E83.42 Hypomagnesemia; Z79.899 Other long term (current) drug therapy; Z88.0 Allergy status to penicillin; Z88.8 Allergy status to other drugs, medicaments and biological substances; Z91.041 Radiographic dye allergy status; Z79.01 Long term (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; Z98.890 Other specified postprocedural states; Y90.9 Presence of alcohol in blood, level not specified; Z79.02 Long term (current) use of antithrombotics/antiplatelets
CPT/HCPCS: 36415; 51702; 71045; 74177; 80048; 80053; 81003; 83605; 83690; 83735; 83880; 84443; 84484; 85025; 85060; 87040; 93005; 93010; 93306; 97161; 99285-25; A9270; J0696; J0878; J1160; J1170; J1940; J2060; J3370; J3411; J3475; J7060; P9047

== ENCOUNTER 2022-12-10 13:26 | Emergency (ER) | payer OTHER ==
[~2022-12-10] VITALS: Ht 165.1 cm; Wt 79.0 kg
--- OUTSIDE RECORDS SUMMARY | ~2022-12-10 | XMS | Continuity of Care Document ---
Demographics + + + | Address | [address] | | | [place] [address] | + + + | Preferred Language | Unknown | + + + | Marital Status | Polygamous | + + + | Mandaen Affiliation | Unknown | + + + | Race | Unknown | + + + | Ethnic Group | or | + + + Author + + + | Author | [facility] | + + + | Organization | [facility] | + + + | Address | [address] | | | [place] [address] | + + + | Phone | | + + + Care Team Providers + + + + | Care Estate Planning Paralegal Name | Role | Phone | + [...] + | (no date) | Mild | [place] | (no reaction) | (no severity) [...] + | (no date) | PENICILLINS | [place] | (no reaction) | (no severity) [...] Hospital | + + + + | 2022-11-10 00:00 | APIXABAN | [facility] [...] Hospital | + + + + | 2022-11-10 00:00 | TORSEMIDE | [facility] [...] + + + | 2015-10-03 00:00 | [id number] 200 actuat | [place] | | | albuterol 0.09 mg/actuat [...] Hospital | + + + + | 2022-11-10 00:00 | CITALOPRAM HYDROBROMIDE | [facility] [...] | 2022-11-07 00:00 | ZIPRASIDONE HCL | [facility] | + + + + | 2022-11-10 00:00 | ZIPRASIDONE HCL | [facility] | + + + + | 2022-11-10 00:00 | PRAZOSIN HCL | [facility] | + + + + | 2022-11-10 00:00 | SPIRONOLACTONE | [facility] [...] Hospital | + + + + | 2022-11-10 00:00 | ATORVASTATIN CALCIUM | [facility] | + + + + | 2015-10-03 00:00 | [id number] 200 actuat | [place] | | [...] Hospital | + + + + | 2022-11-10 00:00 | TRAZODONE HCL | [facility] | + + + + | 2022-11-10 00:00 | METOPROLOL SUCCINATE | [facility] | + + + + | 2022-11-10 00:00 | METOPROLOL SUCCINATE | [facility] [...] + + | 2022-07-19 21:26 | OTHER PIPELINES SUPERINTENDENT (CURRENT) | [facility] | | | DRUG [...] + | 2022-10-30 00:00 | Jaundice | [facility] | + + + + | 2022-10-30 00:00 | Jaundice | [facility] | + + [...] + + + | 2022-10-30 12:51 | PIPELINES SUPERINTENDENT (CURRENT) USE OF | [facility] | | | ANTICOAGULANTS | | + + + + | 2022-10-30 12:51 | OTHER PIPELINES SUPERINTENDENT (CURRENT) | [facility] | | | DRUG [...] + + + | 2022-11-07 04:34 | PIPELINES SUPERINTENDENT (CURRENT) USE OF | [facility] | | | ANTICOAGULANTS | | + + + + | 2022-11-07 04:34 | OTHER SNF (CURRENT) | [facility] | | | DRUG THERAPY | | + + + + | 2022-11-07 04:34 | ALLERGY STATUS TO | [facility] | | | PENICILLIN | | + + + + | 2022-11-09 00:00 | Cellulitis of scrotum | [facility] | + + + + | 2022-11-09 00:00 | Generalized edema | [facility] | + + + + | 2022-11-09 [...] + + + | 2022-11-09 01:19 | SNF (CURRENT) USE OF | [facility] | | | ANTICOAGULANTS | | + + + + | 2022-11-09 01:19 | PIPELINES SUPERINTENDENT (CURRENT) USE OF | [facility] | | | ANTITHROMBOTICS/ANTIPLA | | + + + + | 2022-11-09 01:19 | OTHER SNF (CURRENT) | [facility] | | | DRUG [...] STATES | | + + + + Procedures [...] (missing) | | (unavailable | 11:16 | [facility] | | | | | [...] (missing) | | (unavailable | 11:31 | [facility] | | | | | [...] (missing) | | (unavailable | 13:48 | [facility] | | | | | [...] | | 2022-04-05 | [facility] | [address].25 | (missing) | (missing) | | (unavailable [...] 235 | + + + + + +--------+ + + | | 2022-10-30 | [facility] | 4.27 | (missing) | (missing) | | (unavailable | 14:03:07 | [facility] | | | | + + + +--------+ + + + + | Result panel 236 | + + + + + +--------+ [...] 242 | + + + + + +-------+ [...] 244 | + + + + + +--------+ [...] 246 | + + + + + +-------+ + + | | 2022-10-30 | [facility] | 1.6 | (missing) | (missing) | | (unavailable | 14:03:07 | [facility] | | | | + + + +-------+ + + + + | Result panel 247 | + + + + + +-------+ + + | | 2022-10-30 | [facility] | 1.2 | (missing) | (missing) | | (unavailable | 14:: | [facility] | | | | + + + +-------+ + + + + | Result panel 248 | + + + + + +-------+---------+ + | | 2022-10-30 | [facility] | 109 | mg/dL | (missing) | | (unavailable | 14:03:07 | [facility] | | | | + + + +-------+---------+ + + + | Result panel 249 | + + + + + +------+---------+ + | | 2022-10-30 | [facility] | 23 | mg/dL | (missing) | | (unavailable | 14: | [facility] | | | | + + + +------+---------+ + + + | Result panel 250 | + + + + + +--------+---------+ + | | 2022-10-30 | [facility] | 1.17 | mg/dL | (missing) | | (unavailable | :03:07 | [facility] | | | | + + + +--------+---------+ + + + | Result panel 251 | + + + + + +------+ + + | | 2022-10-30 | [facility] | 73 | (missing) | (missing) | | (unavailable | 14: | [facility] | | | | + + + +------+ + + + + | Result panel 252 | + + + + + +---------+ + + | | 2022-10-30 | [facility] | 19.65 | (missing) | (missing) | | (unavailable | 14:: | [facility] | | | | + + + +---------+ + + + + | Result panel 253 | + + + + + +-------+ + + | | 2022-10-30 | [facility] | 135 | (missing) | (missing) | | (unavailable | 14:: | [facility] | | | | + + + +-------+ + + + + | Result panel 254 | + + + + + +-------+ [...] 256 | + + + + + +------+ + + | | 2022-10-30 | [facility] | 25 | (missing) | (missing) | | (unavailable | 14:03:07 | [facility] | | | | + + + +------+ + + + + | Result panel 257 | + + + + + +--------+ + + | | 2022-10-30 | [facility] | 12.3 | (missing) | (missing) | | (unavailable | 14::07 | [facility] | | | | + + + +--------+ + + + + | Result panel 258 | + + + + + +-------+---------+ + | | 2022-10-30 | [facility] | 7.9 | mg/dL | (missing) | | (unavailable | 14::07 | [facility] | | | | + + + +-------+---------+ + + + | Result panel 259 | + + + + + +-------+ + + | | 2022-10-30 | [facility] | 6.7 | (missing) | (missing) | | (unavailable | 14::07 | [facility] | | | | + + + +-------+ + + + + | Result panel 260 | + + + + + +-------+ + + | | 2022-10-30 | [facility] | 2.6 | (missing) | (missing) | | (unavailable | 14:03:07 | [facility] | | | | + + + +-------+ + + + + | Result panel 261 [...] 262 | + + + + + +--------+ [...] 264 | + + + + + +------+ + + | | 2022-10-30 | [facility] | 53 | (missing) | (missing) | | (unavailable | 14::07 | [facility] | | | | + + + +------+ + + + + | Result panel 265 | + + + + + +------+ + + | | 2022-10-30 | [facility] | 32 | (missing) | (missing) | | (unavailable | 14::07 | [facility] | | | | + + + +------+ + + + + | Result panel 266 | + + + + + +-------+ + + | | 2022-10-30 | [facility] | 210 | (missing) | (missing) | | (unavailable | 14:03:07 | [facility] | | | | + + + +-------+ + + + + | Result panel 267 | + + + + + +-------+ + + | | 2022-10-30 | [facility] | 6.3 | (missing) | (missing) | | (unavailable | 14:03:07 | [facility] | | | | + + + +-------+ + + + + | Result panel 268 | + + + + + + + + + | | 2022-10-30 | [facility] | SEE COMMENT | (missing) | (missing) | | (unavailable | 14:03:07 | [facility] | | | | + + + + + + + + + | Result panel 269 | + + + + + +--------+ + + | | 2022-10-30 | [facility] | 4.27 | (missing) | (missing) | | (unavailable | 14:03:07 | [facility] | | | | + + + +--------+ + + + + | Result panel 270 | + + + + + +--------+ [...] 276 | + + + + + +-------+ [...] 278 | + + + + + +--------+ [...] 280 | + + + + + +-------+ + + | | 2022-10-30 | [facility] | 1.6 | (missing) | (missing) | | (unavailable | 14:03:07 | [facility] | | | | + + + +-------+ + + + + | Result panel 281 | + + + + + +-------+ + + | | 2022-10-30 | [facility] | 1.2 | (missing) | (missing) | | (unavailable | 14:03:07 | [facility] | | | | + + + +-------+ + + + + | Result panel 282 | + + + + + +-------+---------+ + | | 2022-10-30 | [facility] | 109 | mg/dL | (missing) | | (unavailable | 14:03:07 | [facility] | | | | + + + +-------+---------+ + + + | Result panel 283 | + + + + + +------+---------+ + | | 2022-10-30 | [facility] | 23 | mg/dL | (missing) | | (unavailable | 14:03:07 | [facility] | | | | + + + +------+---------+ + + + | Result panel 284 | + + + + + +--------+---------+ + | | 2022-10-30 | [facility] | 1.17 | mg/dL | (missing) | | (unavailable | 14:03:07 | [facility] | | | | + + + +--------+---------+ + + + | Result panel 285 | + + + + + +------+ + + | | 2022-10-30 | [facility] | 73 | (missing) | (missing) | | (unavailable | 14:03:07 | [facility] | | | | + + + +------+ + + + + | Result panel 286 | + + + + + +---------+ + + | | 2022-10-30 | [facility] | 19.65 | (missing) | (missing) | | (unavailable | 14:03:07 | [facility] | | | | + + + +---------+ + + + + | Result panel 287 | + + + + + +-------+ + + | | 2022-10-30 | [facility] | 135 | (missing) | (missing) | | (unavailable | 14:03:07 | [facility] | | | | + + + +-------+ + + + + | Result panel 288 | + + + + + +-------+ [...] (missing) | | (unavailable | 14:03:07 | [facility] | | | | + + + +-------+ + + + + | Result panel 290 | + + + + + +------+ + + | | 2022-10-30 | [facility] | 25 | (missing) | (missing) | | (unavailable | 14:: | [facility] | | | | + + + +------+ + + + + | Result panel 291 | + + + + + +--------+ + + | | 2022-10-30 | [facility] | 12.3 | (missing) | (missing) | | (unavailable | 14:03:07 | [facility] | | | | + + + +--------+ + + + + | Result panel 292 | + + + + + +-------+---------+ + | | 2022-10-30 | [facility] | 7.9 | mg/dL | (missing) | | (unavailable | 14:: | [facility] | | | | + + + +-------+---------+ + + + | Result panel 293 | + + + + + +-------+ + + | | 2022-10-30 | [facility] | 6.7 | (missing) | (missing) | | (unavailable | : | [facility] | | | | + + + +-------+ + + + + | Result panel 294 | + + + + + +-------+ + + | | 2022-10-30 | [facility] | 2.6 | (missing) | (missing) | | (unavailable | | [facility] | | | | + + + +-------+ + + + + | Result panel 295 [...] 296 | + + + + + +--------+ [...] 298 | + + + + + +------+ + + | | 2022-10-30 | [facility] | 53 | (missing) | (missing) | | (unavailable | 14:03:07 | [facility] | | | | + + + +------+ + + + + | Result panel 299 | + + + + + +------+ + + | | 2022-10-30 | [facility] | 32 | (missing) | (missing) | | (unavailable | 14:03:07 | [facility] | | | | + + + +------+ + + + + | Result panel 300 | + + + + + +-------+ + + | | 2022-10-30 | [facility] | 210 | (missing) | (missing) | | (unavailable | 14:03:07 | [facility] | | | | + + + +-------+ + + + + | Result panel 301 | + + + + + +-------+ + + | | 2022-10-30 | [facility] | 6.3 | (missing) | (missing) | | (unavailable | 14:03:07 | [facility] | | | | + + + +-------+ + + + + | Result panel 302 | + + + + + + [...] 329 | + + + + + +-------+ + + | | 2022-11-09 | [facility] | 1.7 | (missing) | (missing) | | (unavailable | 03:47:07 | [facility] | | | | + + + +-------+ + + + + | Result panel 330 | + + + + + +---------+ + + | | 2022-11-09 | [facility] | 1.754 | (missing) | (missing) | | (unavailable | 10:00:07 | [facility] | | | | + + + +---------+ + + + + | Result panel 331 | + + + + + +--------+ + + | | 2022-11-10 | [facility] | 12.9 | (missing) | (missing) | | (unavailable | 05:12:07 | [facility] | | | | + + + +--------+ + + + + | Result panel 332 | + + + + + +-------+ + + | | 2022-11-10 | [facility] | 221 | (missing) | (missing) | | (unavailable | 05:12:07 | [facility] | | | | + + + +-------+ + + + + | Result panel 333 | + + + + + +--------+ [...] 337 | + + + + + +-------+ + + | | 2022-11-10 | [facility] | 0.5 | (missing) | (missing) | | (unavailable | 05:12:07 | [facility] | | | | + + + +-------+ + + + + | Result panel 338 | + + + + + +-------+---------+ + | | 2022-11-10 | [facility] | 127 | mg/dL | (missing) | | (unavailable | 05:12:07 | [facility] | | | | + + + +-------+---------+ + + + | Result panel 339 | + + + + + +------+---------+ + | | 2022-11-10 | [facility] | 21 | mg/dL | (missing) | | (unavailable | 05: | [facility] | | | | + + + +------+---------+ + + + | Result panel 340 | + + + + + +--------+---------+ + | | 2022-11-10 | [facility] | 1.16 | mg/dL | (missing) | | (unavailable | 05:12:07 | [facility] | | | | + + + +--------+---------+ + + + | Result panel 341 | + + + + + +------+ [...] 343 | + + + + + +---------+ + + | | 2022-11-10 | [facility] | 18.10 | (missing) | (missing) | | (unavailable | 05:12:07 | [facility] | | | | + + + +---------+ + + + + | Result panel 344 | + + + + + +-------+ + + | | 2022-11-10 | [facility] | 128 | (missing) | (missing) | | (unavailable | 05:12:07 | [facility] | | | | + + + +-------+ + + + + | Result panel 345 | + + + + + +-------+ + + | | 2022-11-10 | [facility] | 3.9 | (missing) | (missing) | | (unavailable | 05:12:07 | [facility] | | | | + + + +-------+ + + + + | Result panel 346 | + + + + + +------+ + + | | 2022-11-10 | [facility] | 92 | (missing) | (missing) | | (unavailable | 05:12:07 | [facility] | | | | + + + +------+ + + + + | Result panel 347 | + + + + + +------+ [...] 349 | + + + + + +-------+---------+ + | | 2022-11-10 | [facility] | 8.3 | mg/dL | (missing) | | (unavailable | 05:12: | [facility] | | | | + + + +-------+---------+ + + + | Result panel 350 | + + + + + +-------+---------+ + | | 2022-11-10 | [facility] | 1.9 | mg/dL | (missing) | | (unavailable | 05: | [facility] | | | | + + + +-------+---------+ + + + | Result panel 351 | + + + + + +-------+ + + | | 2022-11-10 | [facility] | 6.6 | (missing) | (missing) | | (unavailable | 05: | [facility] | | | | + + + +-------+ + + + + | Result panel 352 | + + + + + +-------+ + + | | 2022-11-10 | [facility] | 2.5 | (missing) | (missing) | | (unavailable | 05: | [facility] | | | | + + + +-------+ + + + + | Result panel 353 | + + + + + +--------+ + + | | 2022-11-10 | [facility] | 4.04 | (missing) | (missing) | | (unavailable | 05:12: | [facility] | | | | + + + +--------+ + + + + | Result panel 354 | + + + + + +-------+ + + | | 2022-11-10 | [facility] | 4.1 | (missing) | (missing) | | (unavailable | 05:12:07 | [facility] | | | | + + + +-------+ + + + + | Result panel 355 | + + + + + +--------+ [...] 357 | + + + + + +------+ + + | | 2022-11-10 | [facility] | 32 | (missing) | (missing) | | (unavailable | 05:12:07 | [facility] | | | | + + + +------+ + + + + | Result panel 358 | + + + + + +------+ + + | | 2022-11-10 | [facility] | 14 | (missing) | (missing) | | (unavailable | 05:12:07 | [facility] | | | | + + + +------+ + + + + | Result panel 359 | + + + + + +-------+ + + | | 2022-11-10 | [facility] | 152 | (missing) | (missing) | | (unavailable | 05:12:07 | [facility] | | | | + + + +-------+ + + + + | Result panel 360 | + + + + + +--------+ + + | | 2022-11-10 | [facility] | 12.4 | (missing) | (missing) | | (unavailable | 05:12:07 | [facility] | | | | + + + +--------+ + + + + | Result panel 361 | + + + + + +--------+ + + | | 2022-11-10 | [facility] | 38.5 | (missing) | (missing) | | (unavailable | 05:12:07 | [facility] | | | | + + + +--------+ + + + + | Result panel 362 | + + + + + +--------+ + + | | 2022-11-10 | [facility] | 95.3 | (missing) | (missing) | | (unavailable | 05:12:07 | [facility] | | | | + + + +--------+ + + + + | Result panel 363 | + + + + + +--------+ + + | | 2022-11-10 | [facility] | 30.7 | (missing) | (missing) | | (unavailable | 05:12:07 | [facility] | | | | + + + +--------+ + + + + | Result panel 364 | + + + + + +--------+ + + | | 2022-11-10 | [facility] | 32.2 | (missing) | (missing) | | (unavailable | 05:12:07 | [facility] | | | | + + + +--------+ + + + + | Result panel 365 | + + + + + +--------+ + + | | 2022-11-10 | [facility] | 20.9 | (missing) | (missing) | | (unavailable | 05:12:07 | [facility] | | | | + + + +--------+ + + Social History + + + [...] + | 2021-09-26 00:00 | Smoker | [place] | | | | [facility] [...] 205.25 | lb | + + + +---------+"
--- OUTSIDE RECORDS SUMMARY | ~2022-12-10 | XMS | Continuity of Care Document ---
Demographics + + + | Address | [address] [facility] [address] | | | [place] [address] | + + + | Preferred Language | Unknown | + + + | Marital Status | Polygamous | + + + | Zoroastrianism Affiliation | Unknown | + + + | Race | Unknown | + + + | Ethnic Group | or | + + + Author + + + | Author | [facility] | + + + | Organization | [facility] | + + + | Address | [address] | | | [place] [address] | + + + | Phone | | + + + Care Team Providers + + + + | Care Project Manager/Team Coach Name | Role | Phone | + [...] + | (no date) | Mild | [place] | (no reaction) | (no severity) [...] + | (no date) | PENICILLINS | [place] | (no reaction) | (no severity) [...] + | 2022-04-05 00:00 | APIXABAN | [facility] | + + + + | 2022-07-19 00:00 | APIXABAN | [facility] | + + + + | 2022-10-30 00:00 | APIXABAN | [facility] | + + + + | 2022-10-30 00:00 | APIXABAN | [facility] | + + + + | 2022-11-07 00:00 | APIXABAN | [facility] | + + + + | 2022-11-10 00:00 | APIXABAN | [facility] | + + + + | 2022-03-10 00:00 | POTASSIUM CHLORIDE | [facility] | + + + + | 2022-03-10 00:00 | POTASSIUM CHLORIDE | [facility] | + + + + | 2022-03-10 00:00 | POTASSIUM CHLORIDE | [facility] | + + + + | 2022-03-10 00:00 | POTASSIUM CHLORIDE | [facility] | + + + + | 2022-04-05 00:00 | COLCHICINE | [facility] | + + + + | 2022-04-05 00:00 | COLCHICINE | [facility] | + + + + | 2022-04-05 00:00 | COLCHICINE | [facility] | + + + + | 2021-10-27 00:00 | DOXYCYCLINE HYCLATE | [facility] | + + + + | 2021-05-10 00:00 | TORSEMIDE | [facility] | + + + + | 2021-05-10 00:00 | TORSEMIDE | [facility] | + + + + | 2022-03-10 00:00 | TORSEMIDE | [facility] | + + + + | 2022-03-10 00:00 | TORSEMIDE | [facility] | + + + + | 2022-03-10 00:00 | TORSEMIDE | [facility] | + + + + | 2022-03-10 00:00 | TORSEMIDE | [facility] | + + + + | 2022-07-19 00:00 | TORSEMIDE | [facility] | + + + + | 2022-07-19 00:00 | TORSEMIDE | [facility] | + + + + | 2022-07-19 00:00 | TORSEMIDE | [facility] | + + + + | 2022-10-30 00:00 | TORSEMIDE | [facility] | + + + + | 2022-11-10 00:00 | TORSEMIDE | [facility] | + + + + | 2021-05-10 00:00 | ASPIRIN | [facility] | + + + + | 2021-05-10 00:00 | ASPIRIN | [facility] | + + + + | 2022-11-07 00:00 | FUROSEMIDE | [facility] | + + + + | 2022-10-30 00:00 | SPIRONOLACTONE | [facility] | + + + + | 2015-10-03 00:00 | [id number] 200 actuat | [place] | | | albuterol 0.09 mg/actuat | [facility] | | | metered dose inhaler | | + + + + | 2021-10-30 00:00 | CITALOPRAM HYDROBROMIDE | [facility] | + + + + | 2022-03-10 00:00 | CITALOPRAM HYDROBROMIDE | [facility] | + + + + | 2022-04-05 00:00 | CITALOPRAM HYDROBROMIDE | [facility] | + + + + | 2022-07-19 00:00 | CITALOPRAM HYDROBROMIDE | [facility] | + + + + | 2022-10-30 00:00 | CITALOPRAM HYDROBROMIDE | [facility] | + + + + | 2022-11-07 00:00 | CITALOPRAM HYDROBROMIDE | [facility] | + + + + | 2022-11-10 00:00 | CITALOPRAM HYDROBROMIDE | [facility] | + + + + | 2021-10-30 00:00 | ZIPRASIDONE HCL | [facility] | + + + + | 2022-03-10 00:00 | ZIPRASIDONE HCL | [facility] | + + + + | 2022-04-05 00:00 | ZIPRASIDONE HCL | [facility] | + + + + | 2022-07-19 00:00 | ZIPRASIDONE HCL | [facility] | + + + + | 2022-10-30 00:00 | ZIPRASIDONE HCL | [facility] | + + + + | 2022-11-07 00:00 | ZIPRASIDONE HCL | [facility] | + + + + | 2022-11-10 00:00 | ZIPRASIDONE HCL | [facility] | + + + + | 2019-11-09 00:00 | azithromycin 250 mg oral | [place] | | | tablet | [facility] | + + + + | 2021-05-10 00:00 | LISINOPRIL | [facility] | + + + + | 2021-05-10 00:00 | LISINOPRIL | [facility] | + + + + | 2021-05-10 00:00 | LISINOPRIL | [facility] | + + + + | 2021-05-10 00:00 | LISINOPRIL | [facility] | + + + + | 2021-05-10 00:00 | LISINOPRIL | [facility] | + + + + | 2021-10-30 00:00 | PRAZOSIN HCL | [facility] | + + + + | 2022-03-10 00:00 | PRAZOSIN HCL | [facility] | + + + + | 2022-04-05 00:00 | PRAZOSIN HCL | [facility] | + + + + | 2022-07-19 00:00 | PRAZOSIN HCL | [facility] | + + + + | 2022-10-30 00:00 | PRAZOSIN HCL | [facility] | + + + + | 2022-11-07 00:00 | PRAZOSIN HCL | [facility] | + + + + | 2022-11-10 00:00 | PRAZOSIN HCL | [facility] | + + + + | 2021-05-10 00:00 | SPIRONOLACTONE | [facility] | + + + + | 2021-05-10 00:00 | SPIRONOLACTONE | [facility] | + + + + | 2021-05-10 00:00 | SPIRONOLACTONE | [facility] | + + + + | 2021-05-10 00:00 | SPIRONOLACTONE | [facility] | + + + + | 2021-05-10 00:00 | SPIRONOLACTONE | [facility] | + + + + | 2022-07-19 00:00 | SPIRONOLACTONE | [facility] | + + + + | 2022-07-19 00:00 | SPIRONOLACTONE | [facility] | + + + + | 2022-07-19 00:00 | SPIRONOLACTONE | [facility] | + + + + | 2022-11-10 00:00 | SPIRONOLACTONE | [facility] | + + + + | 2021-10-30 00:00 | ATORVASTATIN CALCIUM | [facility] | + + + + | 2022-03-10 00:00 | ATORVASTATIN CALCIUM | [facility] | + + + + | 2022-04-05 00:00 | ATORVASTATIN CALCIUM | [facility] | + + + + | 2022-07-19 00:00 | ATORVASTATIN CALCIUM | [facility] | + + + + | 2022-10-30 00:00 | ATORVASTATIN CALCIUM | [facility] | + + + + | 2022-11-07 00:00 | ATORVASTATIN CALCIUM | [facility] | + + + + | 2022-11-10 00:00 | ATORVASTATIN CALCIUM | [facility] | + + + + | 2015-10-03 00:00 | [id number] 200 actuat | [place] | | | albuterol 0.09 mg/actuat | [facility] | | | metered dose inhaler | | | | [proventil] | | + + + + | 2022-04-05 00:00 | | [facility] | | | SULFAMETHOXAZOLE/TRIMETHOPR | | | | IM DS | | + + + + | 2022-04-05 00:00 | | [facility] | | | SULFAMETHOXAZOLE/TRIMETHOPR | | | | IM DS | | + + + + | 2022-04-05 00:00 | | [facility] | | | SULFAMETHOXAZOLE/TRIMETHOPR | | | | IM DS | | + + + + | 2021-10-30 00:00 | TRAZODONE HCL | [facility] | + + + + | 2022-03-10 00:00 | TRAZODONE HCL | [facility] | + + + + | 2022-04-05 00:00 | TRAZODONE HCL | [facility] | + + + + | 2022-07-19 00:00 | TRAZODONE HCL | [facility] | + + + + | 2022-10-30 00:00 | TRAZODONE HCL | [facility] | + + + + | 2022-11-07 00:00 | TRAZODONE HCL | [facility] | + + + + | 2022-11-10 00:00 | TRAZODONE HCL | [facility] | + + + + | 2021-10-30 00:00 | METOPROLOL SUCCINATE | [facility] | + + + + | 2022-03-10 00:00 | METOPROLOL SUCCINATE | [facility] | + + + + | 2022-04-05 00:00 | METOPROLOL SUCCINATE | [facility] | + + + + | 2022-07-19 00:00 | METOPROLOL SUCCINATE | [facility] | + + + + | 2022-10-30 00:00 | METOPROLOL SUCCINATE | [facility] | + + + + | 2022-11-07 00:00 | METOPROLOL SUCCINATE | [facility] | + + + + | 2022-11-10 00:00 | METOPROLOL SUCCINATE | [facility] | + + + + | 2022-11-10 00:00 | METOPROLOL SUCCINATE | [facility] | + + + + | [...] 00:00 | Delirium due to general | [facility] | | | medical condition | | + + + + | 2014-10-28 00:00 | Delirium due to general | [facility] | | | medical condition | | + + + + | 2014-10-28 00:00 | Delirium due to general | [facility] | | | medical condition | | + + + + | 2014-10-28 00:00 | Delirium due to general | [facility] | | | medical condition | | + + + + | 2014-10-28 00:00 | Delirium due to general | [facility] | | | medical condition | | + + + + | 2014-10-28 00:00 | Altered level of | [facility] | | | consciousness | | + + + + | 2014-10-28 00:00 | Altered level of | [facility] | | | consciousness | | + + + + | 2014-10-28 00:00 | Altered level of | [facility] | | | consciousness | | + + + + | 2014-10-28 00:00 | Altered level of | [facility] | | | consciousness | | + + + + | 2014-10-28 00:00 | Altered level of | [facility] | | | consciousness | | + + + + | 2018-06-26 00:00 | Encounter for medical | [facility] | | | screening examination | | + + + + | 2018-06-26 00:00 | Encounter for medical | [facility] | | | screening examination | | + + + + | 2018-06-26 00:00 | Encounter for medical | [facility] | | | screening examination | | + + + + | 2018-06-26 00:00 | Encounter for medical | [facility] | | | screening examination | | + + + + | 2018-06-26 00:00 | Encounter for medical | [facility] | | | screening examination | | + + + + | 2021-05-08 00:00 | Atrial fibrillation with | [facility] | | | rapid ventricular response | | + + + + | 2021-05-08 00:00 | Atrial fibrillation with | [facility] | | | rapid ventricular response | | + + + + | 2021-05-08 00:00 | Atrial fibrillation with | [facility] | | | rapid ventricular response | | + + + + | 2021-05-08 00:00 | Atrial fibrillation with | [facility] | | | rapid ventricular response | | + + + + | 2021-05-08 00:00 | Atrial fibrillation with | [facility] | | | rapid ventricular response | | + + + + | 2021-05-08 00:00 | Acute on chronic | [facility] | | | congestive heart failure | | + + + + | 2021-05-08 00:00 | Acute on chronic | [facility] | | | congestive heart failure | | + + + + | 2021-05-08 00:00 | Acute on chronic | [facility] | | | congestive heart failure | | + + + + | 2021-05-08 00:00 | Acute on chronic | [facility] | | | congestive heart failure | | + + + + | 2021-05-08 00:00 | Acute on chronic | [facility] | | | congestive heart failure [...] + | 2021-07-05 00:00 | Arthritis | [facility] | + + + + | 2021-07-05 00:00 | Arthritis | [facility] | + + + + | 2021-07-05 00:00 | Arthritis | [facility] | + + + + | 2021-07-05 00:00 | Arthritis | [facility] | + + + + | 2021-07-05 00:00 | Arthritis | [facility] | + + + + | 2021-08-27 13:55 | GENERALIZED ABDOMINAL PAIN | [facility] | | | | | + + + + | 2021-08-27 13:55 | ABNORMAL FINDINGS ON DX | [facility] | | | IMAGING OF LIVER AND BILIA | | + + + + | 2021-09-18 00:00 | Intravenous drug user | [facility] | + + + + | 2021-09-18 00:00 | Intravenous drug user | [facility] | + + + + | 2021-09-18 00:00 | Intravenous drug user | [facility] | + + + + | 2021-09-18 00:00 | Intravenous drug user | [facility] | + + + + | 2021-09-18 00:00 | Intravenous drug user | [facility] | + + + + | 2021-09-18 00:00 | Back pain | [facility] | + + + + | 2021-09-18 00:00 | Back pain | [facility] | + + + + | 2021-09-18 00:00 | Back pain | [facility] | + + + + | 2021-09-18 00:00 | Back pain | [facility] | + + + + | 2021-09-18 00:00 | Back pain | [facility] | + + + + | [...] | 2021-10-27 00:00 | Methamphetamine abuse | [facility] | + + + + | 2021-10-27 00:00 | Methamphetamine abuse | [facility] | + + + + | 2021-10-27 00:00 | Methamphetamine abuse | [facility] | + + + + | 2021-10-27 00:00 | Methamphetamine abuse | [facility] | + + + + | 2021-10-27 00:00 | Methamphetamine abuse | [facility] | + + + + | 2021-10-27 00:00 | Cellulitis of | [facility] | | | periumbilical region | | + + + + | 2021-10-27 00:00 | Cellulitis of | [facility] | | | periumbilical region | | + + + + | 2021-10-27 00:00 | Cellulitis of | [facility] | | | periumbilical region | | + + + + | 2021-10-27 00:00 | Cellulitis of | [facility] | | | periumbilical region | | + + + + | 2021-10-27 00:00 | Cellulitis of | [facility] | | | periumbilical region | | + + + + | 2022-03-10 00:00 | Congestive heart failure | [facility] | + + + + | 2022-03-10 00:00 | Congestive heart failure | [facility] | + + + + | 2022-03-10 00:00 | Congestive heart failure | [facility] | + + + + | 2022-03-10 00:00 | Congestive heart failure | [facility] | + + + + | 2022-04-05 00:00 | Hyperuricemia | [facility] | + + + + | 2022-04-05 00:00 | Hyperuricemia | [facility] | + + + + | 2022-04-05 00:00 | Hyperuricemia | [facility] | + + + + | 2022-04-05 00:00 | Urinary tract infection | [facility] | + + + + | 2022-04-05 00:00 | Urinary tract infection | [facility] | + + + + | 2022-04-05 00:00 | Urinary tract infection | [facility] | + + + + | [...] + + | 2022-07-19 21:26 | OTHER CARDIAC CATH RN (CURRENT) | [facility] | | | DRUG [...] | 2022-10-30 00:00 | Inguinal hernia | [facility] | + + + + | 2022-10-30 00:00 | Inguinal hernia | [facility] | + + + + | 2022-10-30 00:00 | Jaundice | [facility] | + + + + | 2022-10-30 00:00 | Jaundice | [facility] | + + + + | [...] + + + | 2022-10-30 12:51 | CARDIAC CATH RN (CURRENT) USE OF | [facility] | | | ANTICOAGULANTS | | + + + + | 2022-10-30 12:51 | OTHER CARDIAC CATH RN (CURRENT) | [facility] | | | DRUG [...] + + + | 2022-11-07 04:34 | CARDIAC CATH RN (CURRENT) USE OF | [facility] | | | ANTICOAGULANTS | | + + + + | 2022-11-07 04:34 | OTHER ALF (CURRENT) | [facility] | | | DRUG THERAPY | | + + + + | 2022-11-07 04:34 | ALLERGY STATUS TO | [facility] | | | [facility]ILL[facility] | | + + + + | 2022-11-09 00:00 | Cellulitis of scrotum | [facility] | + + + + | 2022-11-09 00:00 | Generalized edema | [facility] | + + + + | [...] + + + | 2022-11-09 01:19 | ALF (CURRENT) USE OF | [facility] | | | ANTICOAGULANTS | | + + + + | 2022-11-09 01:19 | CARDIAC CATH RN (CURRENT) USE OF | [facility] | | | ANTITHROMBOTICS/ANTIPLA | | + + + + | 2022-11-09 01:19 | OTHER ALF (CURRENT) | [facility] | | | DRUG [...] (missing) | | (unavailable | 11:40 | [facility] | | | | | [...] | | 2022-04-05 | [facility] | [id number] | (missing) | (missing) | | (unavailable [...] (missing) | | (unavailable | 05:12:07 | [facility] | | | | | [...] + | 2021-09-26 00:00 | Smoker | [facility] [place] | | | | [facility] [...]
[~2022-12-10 13:26] MED LIST changes: +TOPROL XL50 MG; +TOPROL XL50 MG PO
--- OUTSIDE RECORDS SUMMARY | 2022-12-10 13:34 | XMS ---
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 Care History Medical/Surgical 08/03/2022 [facility] [place] This patient has no showed/cancelled all 5 appointments with PCP this year, 2022. E.D. VISIT COUNT ([address] [facility] TOTAL 7 NOTE: Visits indicate total known visits. 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 10/30/2022 12:51 [facility] [place] TYPE: Emergency COMPLAINT: - TURNING YELLOW IN COLOR DIAGNOSES: - Allergy status to analgesic agent - Allergy status to penicillin - Heart failure, unspecified - [facility] (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 - Nicotine dependence, unspecified, uncomplicated - 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 - Other nonmedicinal substance [...] - Nicotine dependence, unspecified, uncomplicated - Other skilled nursing (current) drug therapy - Patient's noncompliance with [...] of inflammatory arthritis and tophaceous disease - terminologist (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 - Nicotine dependence, unspecified, uncomplicated - Other skilled nursing (current) drug therapy - Shortness of breath - Urinary tract infection, site not specified 03/10/2022 13:25 [facility] [place] TYPE: Emergency COMPLAINT: - POISONING DIAGNOSES: - Allergy status to analgesic agent - Allergy status to penicillin - Heart failure, unspecified - terminologist (current) use of aspirin - Nicotine dependence, unspecified, uncomplicated - 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 Heart failure, unspecified 1. Acute on chronic systolic (congestive) heart failure 2. Other cardiomyopathies 3. Other ascites 4. Unspecified jaundice 5. Chronic atrial fibrillation, unspecified 6. Inflammatory disorders of scrotum 7. Unspecified abdominal pain 8. Constipation, unspecified 9. Nonrheumatic mitral (valve) insufficiency 10. Bilateral inguinal hernia, without obstruction or gangrene, not specified as recurrent 11. Generalized edema 12. Hyperlipidemia, unspecified 13. Gout, unspecified 14. Obesity, unspecified 15. Other disorders of bilirubin metabolism 16. Other stimulant abuse, uncomplicated 17. Bipolar disorder, unspecified 18. Depression, unspecified 19. Schizophrenia, unspecified 20. Alcohol abuse, uncomplicated 21. Body mass index [BMI] 35.0-35.9, adult 22. Allergy status to analgesic agent 23. Other nonmedicinal substance allergy status 24. Blood alcohol level of less than 20 mg/100 ml 11/09/2022 01:19 [facility] [place] TYPE: Critical Care COMPLAINT: - CELLULITS/CHF/ANASARCA DIAGNOSES: - Acute combined systolic (congestive) and diastolic (congestive) heart failure - Acute on chronic combined systolic (congestive) and diastolic (congestive) heart failure - Acute on chronic combined systolic (congestive) and diastolic (congestive) heart failure - Alcohol abuse, uncomplicated - Alcohol abuse, uncomplicated - Alcoholic cardiomyopathy - Alcoholic cardiomyopathy - Allergy status to other drugs, medicaments and biological substances - Allergy status to other drugs, medicaments and biological substances - Allergy status to penicillin - Allergy status to penicillin - Bilateral inguinal hernia, without obstruction or gangrene, not specified as recurrent - Bilateral inguinal hernia, without obstruction or gangrene, not specified as recurrent - Bipolar disorder, unspecified - Bipolar disorder, unspecified - Chronic combined systolic (congestive) and diastolic (congestive) heart failure - Dilated cardiomyopathy - Dilated cardiomyopathy - Generalized edema - Generalized edema - Heart failure, unspecified - Hypo-osmolality and hyponatremia - Hypo-osmolality and hyponatremia - Hypomagnesemia - Hypomagnesemia - Hypotension, unspecified - Hypotension, unspecified - Inflammatory disorders of scrotum - Inflammatory disorders of scrotum - terminologist (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 - terminologist (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 - [facility] (current) use of antithrombotics/antiplatelets - terminologist (current) use of antithrombotics/antiplatelets - Nicotine dependence, cigarettes, uncomplicated - Nicotine dependence, cigarettes, uncomplicated - Other inflammatory disorders of penis - 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 - 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 - Other specified disorders of the male genital organs - Other specified disorders of the male genital organs - Other specified postprocedural states - Other specified postprocedural states - Presence of alcohol in blood, level not specified - Presence of alcohol in blood, level not specified - Radiographic dye allergy status - Radiographic dye allergy status - Schizophrenia, unspecified - Schizophrenia, unspecified - Unspecified abdominal pain - Unspecified atrial fibrillation - Unspecified atrial fibrillation [email or web address]
[2022-12-10 14:06] LABS: BASOPHILS 1.5 % (0-2); EOSINOPHILS 0.9 % (0-6); HEMATOCRIT 39.2 % (35.0-50.0); HEMOGLOBIN 13.1 g/dL (12.0-18.0); LYMPHOCYTES 15.5 % (24-44); MCH 31.4 (27-36); MCHC 33.5 g/dl (30-36); MCV 93.7 fl (81-99); MONOCYTES 20.4 % (0-12); NEUTROPHILS 61.7 % (39-80); PLATELET COUNT 269 K/uL (140-440); RBC 4.19 M/ul (4.3-5.7); RDW 17.8 (10.5-15.0)
[2022-12-10 14:15] LABS: BILIRUBIN, URINE NEGATIVE (negative); BLOOD/HGB, URINE NEGATIVE (Negative); KETONE, URINE NEGATIVE (Negative); LEUK ESTERASE, URINE NEGATIVE (negative); NITRITE, URINE NEGATIVE (negative)
[2022-12-10 14:17] LABS: ALBUMIN 3.4 g/dL (3.4-5.0); ALBUMIN/GLOBULIN RATIO 0.67 (1.1-2.4); ANION GAP 11.5 (7-21); BILIRUBIN, TOTAL 2.6 ng/dL (0.2-1.0); BUN/CREATININE RATIO 29.64 (6.0-28.6); CALCIUM 9.3 mg/dL (8.5-10.1); CREATININE, SERUM 1.99 mg/dL (0.70-1.30); POTASSIUM 4.5 mmol/L (3.5-5.1); PROTEIN, TOTAL 8.5 g/dL (6.4-8.2)
[2022-12-10 14:19] LABS: AMPHETAMINES, UR NEGATIVE (NEGATIVE); BARBITURATES, UR NEGATIVE (NEGATIVE); BENZODIAZEPINES, UR NEGATIVE (NEGATIVE); BUPRENORPHINE,UR NEGATIVE (NEGATIVE); COCAINE, UR NEGATIVE (NEGATIVE); MARIJUANA (THC), UR NEGATIVE (NEGATIVE); MDMA, UR NEGATIVE (NEGATIVE); METHADONE, UR NEGATIVE (NEGATIVE); METHAMPHETAMINE, UR NEGATIVE (NEGATIVE); OPIATES, UR NEGATIVE (NEGATIVE); OXYCODONE, UR NEGATIVE (NEGATIVE); PHENCYCLIDINE, UR NEGATIVE (NEGATIVE); TRICYCLIC ANTIDEPRESSANT, UR NEGATIVE (NEGATIVE)
[2022-12-10 14:22] LABS: BACTERIA, URINE NONE SEEN /hpf (negative); CASTS, URINE NONE SEEN \\lpf; COLLECTION TYPE, URINE CLEAN CATCH; CRYSTALS, URINE NONE SEEN (0-1+); EPITHELIAL CELLS, URINE NONE SEEN /lpf (0-1+); RED BLOOD CELLS, URINE 0-1 /hpf (0-5); REFLEX CULTURE, URINE No (No)
[2022-12-10] MEDS ORDERED: BACTRIM DS TAB1 EACH PO (14:29)
[2022-12-10] MEDS ORDERED: HYDROCODON-ACE1 EA10 PO (16:14)
[2022-12-10] MEDS ORDERED: DOXYCYCLINE HY100 MG PO (16:14)
[2022-12-10 16:31] VITALS: BP 111/82
== END 2022-12-10 16:20 | disposition home or self-care (01) ==
LOC: ED 13:26
PROVIDERS: Emergency Medicine
DX: L02.215 Cutaneous abscess of perineum (principal); Z88.0 Allergy status to penicillin; Z91.041 Radiographic dye allergy status; F17.200 Nicotine dependence, unspecified, uncomplicated; Z88.6 Allergy status to analgesic agent
CPT/HCPCS: 36415; 46040; 76870; 80053; 81001; 83605; 83880; 85025; 87070; 87205; 99283-25; J0878; J7040

== ENCOUNTER 2022-12-12 07:11 | Emergency (ER) | payer OTHER ==
[~2022-12-12] VITALS: Ht 165.1 cm; Wt 78.9 kg
--- OUTSIDE RECORDS SUMMARY | ~2022-12-12 | XMS | Continuity of Care Document ---
Demographics + + + | Address | [address] | | | [place] [address] | + + + | Preferred Language | Unknown | + + + | Marital Status | Domestic partner | + + + | Sabianism Affiliation | Unknown | + + + | Race | Unknown | + + + | Ethnic Group | or | + + + Author + + + | Author | [facility] | + + + | Organization | [facility] | + + + | Address | [address] | | | [place] [address] | + + + | Phone | | + + + Care Team Providers + + + + | Care Test Architect Name | Role | Phone | + [...] + | (no date) | Mild | Montandon Good | (no reaction) | (no severity) [...] + | (no date) | PENICILLINS | Montandon Good | (no reaction) | (no severity) [...] | (no severity) | | | | [facility] | | | | | | [facility] [...] | (no date) | Other (See | Montandon Good | (no reaction) | (no severity) [...] + | 2022-04-05 00:00 | APIXABAN | [facility] | + + + + | 2022-07-19 00:00 | APIXABAN | [facility] | + + + + | 2022-10-30 00:00 | APIXABAN | [facility] | + + + + | 2022-10-30 00:00 | APIXABAN | [facility] | + + + + | 2022-11-07 00:00 | APIXABAN | [facility] | + + + + | 2022-11-10 00:00 | APIXABAN | [facility] | + + + + | 2022-12-10 00:00 | APIXABAN | [facility] | + + + + | 2022-03-10 00:00 | POTASSIUM CHLORIDE | [facility] | + + + + | 2022-03-10 00:00 | POTASSIUM CHLORIDE | [facility] | + + + + | 2022-03-10 00:00 | POTASSIUM CHLORIDE | [facility] | + + + + | 2022-03-10 00:00 | POTASSIUM CHLORIDE | [facility] | + + + + | 2022-04-05 00:00 | COLCHICINE | [facility] | + + + + | 2022-04-05 00:00 | COLCHICINE | [facility] | + + + + | 2022-04-05 00:00 | COLCHICINE | [facility] | + + + + | 2021-10-27 00:00 | DOXYCYCLINE HYCLATE | [facility] | + + + + | 2022-12-10 00:00 | DOXYCYCLINE HYCLATE | [facility] | + + + + | 2021-05-10 00:00 | TORSEMIDE | [facility] | + + + + | 2021-05-10 00:00 | TORSEMIDE | [facility] | + + + + | 2022-03-10 00:00 | TORSEMIDE | [facility] | + + + + | 2022-03-10 00:00 | TORSEMIDE | [facility] | + + + + | 2022-03-10 00:00 | TORSEMIDE | [facility] | + + + + | 2022-03-10 00:00 | TORSEMIDE | [facility] | + + + + | 2022-07-19 00:00 | TORSEMIDE | [facility] | + + + + | 2022-07-19 00:00 | TORSEMIDE | [facility] | + + + + | 2022-07-19 00:00 | TORSEMIDE | [facility] | + + + + | 2022-10-30 00:00 | TORSEMIDE | [facility] | + + + + | 2022-11-10 00:00 | TORSEMIDE | [facility] | + + + + | 2022-12-10 00:00 | TORSEMIDE | [facility] | + + + + | 2021-05-10 00:00 | ASPIRIN | [facility] | + + + + | 2021-05-10 00:00 | ASPIRIN | [facility] | + + + + | 2022-11-07 00:00 | FUROSEMIDE | [facility] | + + + + | 2022-10-30 00:00 | SPIRONOLACTONE | [facility] | + + + + | 2015-10-03 00:00 | [id number] 200 actuat | [facility] | | | albuterol 0.09 mg/actuat | [facility] | | | metered dose inhaler | | + + + + | 2021-10-30 00:00 | CITALOPRAM HYDROBROMIDE | [facility] | + + + + | 2022-03-10 00:00 | CITALOPRAM HYDROBROMIDE | [facility] | + + + + | 2022-04-05 00:00 | CITALOPRAM HYDROBROMIDE | [facility] | + + + + | 2022-07-19 00:00 | CITALOPRAM HYDROBROMIDE | [facility] | + + + + | 2022-10-30 00:00 | CITALOPRAM HYDROBROMIDE | [facility] | + + + + | 2022-11-07 00:00 | CITALOPRAM HYDROBROMIDE | [facility] | + + + + | 2022-11-10 00:00 | CITALOPRAM HYDROBROMIDE | [facility] | + + + + | 2022-12-10 00:00 | CITALOPRAM HYDROBROMIDE | [facility] | + + + + | 2021-10-30 00:00 | ZIPRASIDONE HCL | [facility] | + + + + | 2022-03-10 00:00 | ZIPRASIDONE HCL | [facility] | + + + + | 2022-04-05 00:00 | ZIPRASIDONE HCL | [facility] | + + + + | 2022-07-19 00:00 | ZIPRASIDONE HCL | [facility] | + + + + | 2022-10-30 00:00 | ZIPRASIDONE HCL | [facility] | + + + + | 2022-11-07 00:00 | ZIPRASIDONE HCL | [facility] | + + + + | 2022-11-10 00:00 | ZIPRASIDONE HCL | [facility] | + + + + | 2022-12-10 00:00 | ZIPRASIDONE HCL | [facility] | + + + + | 2019-11-09 00:00 | azithromycin 250 mg oral | [facility] | | | tablet | [facility] | + + + + | 2021-05-10 00:00 | LISINOPRIL | [facility] | + + + + | 2021-05-10 00:00 | LISINOPRIL | [facility] | + + + + | 2021-05-10 00:00 | LISINOPRIL | [facility] | + + + + | 2021-05-10 00:00 | LISINOPRIL | [facility] | + + + + | 2021-05-10 00:00 | LISINOPRIL | [facility] | + + + + | 2021-10-30 00:00 | PRAZOSIN HCL | [facility] | + + + + | 2022-03-10 00:00 | PRAZOSIN HCL | [facility] | + + + + | 2022-04-05 00:00 | PRAZOSIN HCL | [facility] | + + + + | 2022-07-19 00:00 | PRAZOSIN HCL | [facility] | + + + + | 2022-10-30 00:00 | PRAZOSIN HCL | [facility] | + + + + | 2022-11-07 00:00 | PRAZOSIN HCL | [facility] | + + + + | 2022-11-10 00:00 | PRAZOSIN HCL | [facility] | + + + + | 2022-12-10 00:00 | PRAZOSIN HCL | [facility] | + + + + | 2021-05-10 00:00 | SPIRONOLACTONE | [facility] | + + + + | 2021-05-10 00:00 | SPIRONOLACTONE | [facility] | + + + + | 2021-05-10 00:00 | SPIRONOLACTONE | [facility] | + + + + | 2021-05-10 00:00 | SPIRONOLACTONE | [facility] | + + + + | 2021-05-10 00:00 | SPIRONOLACTONE | [facility] | + + + + | 2022-07-19 00:00 | SPIRONOLACTONE | [facility] | + + + + | 2022-07-19 00:00 | SPIRONOLACTONE | [facility] | + + + + | 2022-07-19 00:00 | SPIRONOLACTONE | [facility] | + + + + | 2022-11-10 00:00 | SPIRONOLACTONE | [facility] | + + + + | 2022-12-10 00:00 | SPIRONOLACTONE | [facility] | + + + + | 2021-10-30 00:00 | ATORVASTATIN CALCIUM | [facility] | + + + + | 2022-03-10 00:00 | ATORVASTATIN CALCIUM | [facility] | + + + + | 2022-04-05 00:00 | ATORVASTATIN CALCIUM | [facility] | + + + + | 2022-07-19 00:00 | ATORVASTATIN CALCIUM | [facility] | + + + + | 2022-10-30 00:00 | ATORVASTATIN CALCIUM | [facility] | + + + + | 2022-11-07 00:00 | ATORVASTATIN CALCIUM | [facility] | + + + + | 2022-11-10 00:00 | ATORVASTATIN CALCIUM | [facility] | + + + + | 2022-12-10 00:00 | ATORVASTATIN CALCIUM | [facility] | + + + + | 2015-10-03 00:00 | [id number] 200 actuat | [facility] | | | albuterol 0.09 mg/actuat | [facility] | | | metered dose inhaler | | | | [proventil] | | + + + + | 2022-04-05 00:00 | | [facility] | | | SULFAMETHOXAZOLE/TRIMETHOPR | | | | IM DS | | + + + + | 2022-04-05 00:00 | | [facility] | | | SULFAMETHOXAZOLE/TRIMETHOPR | | | | IM DS | | + + + + | 2022-04-05 00:00 | | [facility] | | | SULFAMETHOXAZOLE/TRIMETHOPR | | | | IM DS | | + + + + | 2022-12-10 00:00 | | [facility] | | | SULFAMETHOXAZOLE/TRIMETHOPR | | | | IM DS | | + + + + | 2021-10-30 00:00 | TRAZODONE HCL | [facility] | + + + + | 2022-03-10 00:00 | TRAZODONE HCL | [facility] | + + + + | 2022-04-05 00:00 | TRAZODONE HCL | [facility] | + + + + | 2022-07-19 00:00 | TRAZODONE HCL | [facility] | + + + + | 2022-10-30 00:00 | TRAZODONE HCL | [facility] | + + + + | 2022-11-07 00:00 | TRAZODONE HCL | [facility] | + + + + | 2022-11-10 00:00 | TRAZODONE HCL | [facility] | + + + + | 2022-12-10 00:00 | TRAZODONE HCL | [facility] | + + + + | 2022-12-10 00:00 | HYDROCODONE | [facility] | | | BIT/ACETAMINOPHEN | | + + + + | 2021-10-30 00:00 | METOPROLOL SUCCINATE | [facility] | + + + + | 2022-03-10 00:00 | METOPROLOL SUCCINATE | [facility] | + + + + | 2022-04-05 00:00 | METOPROLOL SUCCINATE | [facility] | + + + + | 2022-07-19 00:00 | METOPROLOL SUCCINATE | [facility] | + + + + | 2022-10-30 00:00 | METOPROLOL SUCCINATE | [facility] | + + + + | 2022-11-07 00:00 | METOPROLOL SUCCINATE | [facility] | + + + + | 2022-11-10 00:00 | METOPROLOL SUCCINATE | [facility] | + + + + | 2022-12-10 00:00 | METOPROLOL SUCCINATE | [facility] | + + + + | 2022-11-10 00:00 | METOPROLOL SUCCINATE | [facility] | + + + + | 2022-12-10 00:00 | METOPROLOL SUCCINATE | [facility] | + + + + | 2015-10-03 [...] 00:00 | Delirium due to general | [facility] | | | medical condition | | + + + + | 2014-10-28 00:00 | Delirium due to general | [facility] | | | medical condition | | + + + + | 2014-10-28 00:00 | Delirium due to general | [facility] | | | medical condition | | + + + + | 2014-10-28 00:00 | Delirium due to general | [facility] | | | medical condition | | + + + + | 2014-10-28 00:00 | Delirium due to general | [facility] | | | medical condition | | + + + + | 2014-10-28 00:00 | Altered level of | [facility] | | | consciousness | | + + + + | 2014-10-28 00:00 | Altered level of | [facility] | | | consciousness | | + + + + | 2014-10-28 00:00 | Altered level of | [facility] | | | consciousness | | + + + + | 2014-10-28 00:00 | Altered level of | [facility] | | | consciousness | | + + + + | 2014-10-28 00:00 | Altered level of | [facility] | | | consciousness | | + + + + | 2018-06-26 00:00 | Encounter for medical | [facility] | | | screening examination | | + + + + | 2018-06-26 00:00 | Encounter for medical | [facility] | | | screening examination | | + + + + | 2018-06-26 00:00 | Encounter for medical | [facility] | | | screening examination | | + + + + | 2018-06-26 00:00 | Encounter for medical | [facility] | | | screening examination | | + + + + | 2018-06-26 00:00 | Encounter for medical | [facility] | | | screening examination | | + + + + | 2021-05-08 00:00 | Atrial fibrillation with | [facility] | | | rapid ventricular response | | + + + + | 2021-05-08 00:00 | Atrial fibrillation with | [facility] | | | rapid ventricular response | | + + + + | 2021-05-08 00:00 | Atrial fibrillation with | [facility] | | | rapid ventricular response | | + + + + | 2021-05-08 00:00 | Atrial fibrillation with | [facility] | | | rapid ventricular response | | + + + + | 2021-05-08 00:00 | Atrial fibrillation with | [facility] | | | rapid ventricular response | | + + + + | 2021-05-08 00:00 | Acute on chronic | [facility] | | | congestive heart failure | | + + + + | 2021-05-08 00:00 | Acute on chronic | [facility] | | | congestive heart failure | | + + + + | 2021-05-08 00:00 | Acute on chronic | [facility] | | | congestive heart failure | | + + + + | 2021-05-08 00:00 | Acute on chronic | [facility] | | | congestive heart failure | | + + + + | 2021-05-08 00:00 | Acute on chronic | [facility] | | | congestive heart failure | [...] + | 2021-07-05 00:00 | Arthritis | [facility] | + + + + | 2021-07-05 00:00 | Arthritis | [facility] | + + + + | 2021-07-05 00:00 | Arthritis | [facility] | + + + + | 2021-07-05 00:00 | Arthritis | [facility] | + + + + | 2021-07-05 00:00 | Arthritis | [facility] | + + + + | 2021-08-27 13:55 | GENERALIZED ABDOMINAL PAIN | [facility] | | | | | + + + + | 2021-08-27 13:55 | ABNORMAL FINDINGS ON DX | [facility] | | | IMAGING OF LIVER AND BILIA | | + + + + | 2021-09-18 00:00 | Intravenous drug user | [facility] | + + + + | 2021-09-18 00:00 | Intravenous drug user | [facility] | + + + + | 2021-09-18 00:00 | Intravenous drug user | [facility] | + + + + | 2021-09-18 00:00 | Intravenous drug user | [facility] | + + + + | 2021-09-18 00:00 | Intravenous drug user | [facility] | + + + + | 2021-09-18 00:00 | Back pain | [facility] | + + + + | 2021-09-18 00:00 | Back pain | [facility] | + + + + | 2021-09-18 00:00 | Back pain | [facility] | + + + + | 2021-09-18 00:00 | Back pain | [facility] | + + + + | 2021-09-18 00:00 | Back pain | [facility] | + + + + | 2021-09-18 [...] | 2021-10-27 00:00 | Methamphetamine abuse | [facility] | + + + + | 2021-10-27 00:00 | Methamphetamine abuse | [facility] | + + + + | 2021-10-27 00:00 | Methamphetamine abuse | [facility] | + + + + | 2021-10-27 00:00 | Methamphetamine abuse | [facility] | + + + + | 2021-10-27 00:00 | Methamphetamine abuse | [facility] | + + + + | 2021-10-27 00:00 | Cellulitis of | [facility] | | | periumbilical region | | + + + + | 2021-10-27 00:00 | Cellulitis of | [facility] | | | periumbilical region | | + + + + | 2021-10-27 00:00 | Cellulitis of | [facility] | | | periumbilical region | | + + + + | 2021-10-27 00:00 | Cellulitis of | [facility] | | | periumbilical region | | + + + + | 2021-10-27 00:00 | Cellulitis of | [facility] | | | periumbilical region | | + + + + | 2022-03-10 00:00 | Congestive heart failure | [facility] | + + + + | 2022-03-10 00:00 | Congestive heart failure | [facility] | + + + + | 2022-03-10 00:00 | Congestive heart failure | [facility] | + + + + | 2022-03-10 00:00 | Congestive heart failure | [facility] | + + + + | 2022-04-05 00:00 | Hyperuricemia | [facility] | + + + + | 2022-04-05 00:00 | Hyperuricemia | [facility] | + + + + | 2022-04-05 00:00 | Hyperuricemia | [facility] | + + + + | 2022-04-05 00:00 | Urinary tract infection | [facility] | + + + + | 2022-04-05 00:00 | Urinary tract infection | [facility] | + + + + | 2022-04-05 00:00 | Urinary tract infection | [facility] | + + + + | 2022-07-19 [...] + + | 2022-07-19 21:26 | 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) | [facility] | | | 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 [...] | 2022-10-30 00:00 | Inguinal hernia | [facility] | + + + + | 2022-10-30 00:00 | Inguinal hernia | [facility] | + + + + | 2022-10-30 00:00 | Jaundice | [facility] | + + + + | 2022-10-30 00:00 | Jaundice | [facility] | + + + + | 2022-10-30 [...] | [facility] | | | OBST OR TAYLOR, NOT SPCF | | + + + + | 2022-10-30 12:51 | Unspecified jaundice | [facility] | + + + + | 2022-10-30 12:51 | 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 | [facility] | | | ANTICOAGULANTS | | + + + + | 2022-10-30 12:51 | 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) | [facility] | | | 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 [...] | | + + + + | 2022-11-07 04:34 | NICOTINE DEPENDENCE, | [facility] | | | UNSPECIFIED, UNCOMPLICATED | | + + + + | 2022-11-07 04:34 | OTALGIA, UNSPECIFIED EAR | [facility] | + + + + | 2022-11-07 04:34 | HEART FAILURE, UNSPECIFIED | [facility] | | | | | + + + + | 2022-11-07 04:34 | [facility] (CURRENT) USE OF | [facility] | | | ANTICOAGULANTS | | + + + + | 2022-11-07 04:34 | OTHER [facility] (CURRENT) | [facility] | | | DRUG THERAPY | | + + + + | 2022-11-07 04:34 | ALLERGY STATUS TO | [facility] | | | [facility]IN | | + + + + | 2022-11-09 00:00 | Cellulitis of scrotum | [facility] | + + + + | 2022-11-09 00:00 | Cellulitis of scrotum | [facility] | + + + + | 2022-11-09 00:00 | Generalized edema | [facility] | + + + + | 2022-11-09 00:00 | Generalized edema | [facility] | + + + + | 2022-11-09 01:19 | HYPOMAGNESEMIA | [facility] | + + + + | 2022-11-09 01:19 | HYPO-OSMOLALITY AND | [facility] | | | HYPONATREMIA | | + + + + | 2022-11-09 01:19 | ALCOHOL ABUSE, | [facility] | | | UNCOMPLICATED | | + + + + | 2022-11-09 01:19 | NICOTINE DEPENDENCE, | [facility] | | | CIGARETTES, UNCOMPLICATED | | + + + + | 2022-11-09 01:19 | SCHIZOPHRENIA, UNSPECIFIED | [facility] | | | | | + + + + | 2022-11-09 01:19 | BIPOLAR DISORDER, | [facility] | | | UNSPECIFIED | | + + + + | 2022-11-09 01:19 | DILATED CARDIOMYOPATHY | [facility] | + + + + | 2022-11-09 01:19 | ALCOHOLIC CARDIOMYOPATHY | [facility] | + + + + | 2022-11-09 01:19 | UNSPECIFIED ATRIAL | [facility] | | | FIBRILLATION | | + + + + | 2022-11-09 01:19 | ACUTE COMBINED SYSTOLIC | [facility] | | | AND DIASTOLIC (CONGESTIVE) | | + + + + | 2022-11-09 01:19 | 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 | | + + + + | 2022-11-09 01:19 | ACUTE ON CHRONIC COMBINED | [facility] | | | SYSTOLIC AND DIASTOLIC H | | + + + + | 2022-11-09 01:19 | HEART FAILURE, UNSPECIFIED | [facility] | | | | | + + + + | 2022-11-09 01:19 | HYPOTENSION, UNSPECIFIED | [facility] | + + + + | 2022-11-09 01:19 | BI INGUINAL HERNIA, W/O | [facility] | | | OBST OR GANGRENE, NOT SPCF | | + + + + | 2022-11-09 01:19 | OTHER INFLAMMATORY | [facility] | | | DISORDERS OF PENIS | | + + + + | 2022-11-09 01:19 | INFLAMMATORY DISORDERS OF | [facility] | | | SCROTUM | | + + + + | 2022-11-09 01:19 | OTHER SPECIFIED DISORDERS | [facility] | | | OF THE MALE GENITAL ORGA | | + + + + | 2022-11-09 01:19 | UNSPECIFIED ABDOMINAL PAIN | [facility] | | | | | + + + + | 2022-11-09 01:19 | GENERALIZED EDEMA | [facility] | + + + + | 2022-11-09 01:19 | PRESENCE OF ALCOHOL IN | [facility] | | | BLOOD, LEVEL NOT SPECIFIED | | + + + + | 2022-11-09 01:19 | [facility] (CURRENT) USE OF | [facility] | | | ANTICOAGULANTS | | + + + + | 2022-11-09 01:19 | [facility] (CURRENT) USE OF | [facility] | | | ANTITHROMBOTICS/ANTIPLA | | + + + + | 2022-11-09 01:19 | 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 | | + + + + | 2022-11-09 01:19 | ALLERGY STATUS TO | [facility] | | | [facility]IN | | + + + + | 2022-11-09 01:19 | ALLERGY STATUS TO OTH | [facility] | | | DRUG/MEDS/BIOL SUBST STATUS | | | | | | + + + + | 2022-11-09 01:19 | RADIOGRAPHIC DYE ALLERGY | [facility] | | | STATUS | | + + + + | 2022-11-09 01:19 | OTHER SPECIFIED | [facility] | | | POSTPROCEDURAL STATES | | + + + + | 2022-12-10 00:00 | Chronic atrial | [facility] | | | fibrillation | | + + + + | 2022-12-10 00:00 | Chronic asymptomatic | [facility] | | | hypotension | | + + + + | 2022-12-10 00:00 | Abscess of perineum | [facility] | + + + + | 2022-12-10 13:26 | NICOTINE DEPENDENCE, | [facility] | | | UNSPECIFIED, UNCOMPLICATED | | + + + + | 2022-12-10 13:26 | CUTANEOUS ABSCESS OF | [facility] | | | PERINEUM | | + + + + | 2022-12-10 13:26 | LOCAL INFECTION OF THE | [facility] | | | SKIN AND SUBCUTANEOUS | | | | TISSUE, UNSP | | + + + + | 2022-12-10 13:26 | ALLERGY STATUS TO | [facility] | | | PENICILLIN | | + + + + | 2022-12-10 13:26 | ALLERGY STATUS TO | [facility] | | | ANALGESIC AGENT STATUS | | + + + + | 2022-12-10 13:26 | RADIOGRAPHIC DYE ALLERGY | [facility] | | | STATUS [...] | | 2022-04-04 | [facility] | 04-07 | (missing) | (missing) | | (unavailable [...] | | 2022-04-05 | [facility] | 02176.25 | (missing) | (missing) | | (unavailable [...] 205 | + + + + + +--------+ + + | | 2022-07-19 | [facility] | 31.3 | (missing) | (missing) | | (unavailable | 21:52:07 | [facility] | | | | + + + +--------+ + + + + | Result panel 206 | + + + + + +--------+ + + | | 2022-07-19 | [facility] | 33.1 | (missing) | (missing) | | (unavailable | 21:52:07 | [facility] | | | | + + + +--------+ + + + + | Result panel 207 | + + + + + +--------+ [...] 209 | + + + + + +--------+ [...] 214 | + + + + + +-------+---------+ + | | 2022-07-19 | [facility] | 136 | mg/dL | (missing) | | (unavailable | 21:52:07 | [facility] | | | | + + + +-------+---------+ + + + | Result panel 215 | + + + + + +------+---------+ + | | 2022-07-19 | [facility] | 25 | mg/dL | (missing) | | (unavailable | 21:52:07 | [facility] | | | | + + + +------+---------+ + + + | Result panel 216 | + + + + + +--------+---------+ + | | 2022-07-19 | [facility] | 1.19 | mg/dL | (missing) | | (unavailable | 21:52:07 | [facility] | | | | + + + +--------+---------+ + + + | Result panel 217 | + + + + + +------+ + + | | 2022-07-19 | [facility] | 71 | (missing) | (missing) | | (unavailable | 21:52:07 | [facility] | | | | + + + +------+ + + + + | Result panel 218 | + + + + + +---------+ [...] 221 | + + + + + +------+ + + | | 2022-07-19 | [facility] | 99 | (missing) | (missing) | | (unavailable | 21:52:07 | [facility] | | | | + + + +------+ + + + + | Result panel 222 | + + + + + +------+ [...] 224 | + + + + + +-------+---------+ + | | 2022-07-19 | [facility] | 8.7 | mg/dL | (missing) | | (unavailable | 21:52:07 | [facility] | | | | + + + +-------+---------+ + + + | Result panel 225 | + + + + + +-------+---------+ + | | 2022-07-19 | [facility] | 1.6 | mg/dL | (missing) | | (unavailable | 21:52:07 | [facility] | | | | + + + +-------+---------+ + + + | Result panel 226 [...] 230 | + + + + + +-------+ + + | | 2022-07-19 | [facility] | 2.8 | (missing) | (missing) | | (unavailable | 21:52:07 | [facility] | | | | + + + +-------+ + + + + | Result panel 231 | + + + + + +-------+ + + | | 2022-07-19 | [facility] | 330 | (missing) | (missing) | | (unavailable | 21:52:07 | [facility] | | | | + + + +-------+ + + + + | Result panel 232 | + + + + + +-------+ + + | | 2022-07-19 | [facility] | 263 | (missing) | (missing) | | (unavailable | :52:07 | [facility] | | | | + + + +-------+ + + + + | Result panel 233 | + + + + + +-------+ + + | | 2022-07-19 | [facility] | 207 | (missing) | (missing) | | (unavailable | :52:07 | [facility] | | | | + + + +-------+ + + + + | Result panel 234 | + + + + + +--------+ [...] (missing) | (missing) | | (unavailable | 14: | [facility] | | | | + + + +--------+ + + + + | Result panel 260 | + + + + + +-------+---------+ + | | 2022-10-30 | [facility] | 7.9 | mg/dL | (missing) | | (unavailable | 14::07 [...] (missing) | (missing) | | (unavailable | 14: | [facility] | | | | + + + +-------+ + + + + | Result panel 283 | + + + + + +-------+ + + | | 2022-10-30 | [facility] | 1.2 | (missing) | (missing) | | (unavailable | : | [facility] | | | | + + + +-------+ + + + + | Result panel 284 | + + + + + +-------+---------+ + | | 2022-10-30 | [facility] | 109 | mg/dL | (missing) | | (unavailable | 14 | [facility] | | | | | [...] (missing) | (missing) | | (unavailable | : | [facility] | | | | | [...] 304 | + + + + + +---------+ [...] 307 | + + + + + + + + + | | 2022-11-07 | [facility] | NEGATIVE | (missing) | (missing) | | (unavailable | 05:30:07 | [facility] | | | | + + + + + + + + + | Result panel 308 | + + + + + +---------+ [...] 310 | + + + + + +-------+ + + | | 2022-11-07 | [facility] | 6.0 | (missing) | (missing) | | (unavailable | 05:30:07 | [facility] | | | | + + + +-------+ + + + + | Result panel 311 | + + + + + +-------+ + + | | 2022-11-07 | [facility] | 100 | (missing) | (missing) | | (unavailable | 05:30:07 | [facility] | | | | + + + +-------+ + + + + | Result panel 312 | + + + + + +-------+ + + | | 2022-11-07 | [facility] | 2.0 | (missing) | (missing) | | (unavailable | 05:30:07 | [facility] | | | | + + + +-------+ + + + + | Result panel 313 | + + + + + + + + + | | 2022-11-07 | [facility] | NEGATIVE | (missing) | (missing) | | (unavailable | 05:30:07 | [facility] | | | | + + + + + + + + + | Result panel 314 | + + + + + + + + + | | 2022-11-07 | [facility] | NEGATIVE | (missing) | (missing) | | (unavailable | 05:30:07 | [facility] | | | | + + + + + + + + + | Result panel 315 | + + + + + + + + + | | 2022-11-08 | [facility] | YELLOW | (missing) | (missing) | | (unavailable | :: | [facility] | | | | + + + + + + + + + | Result panel 316 | + + + + + +---------+ + + | | 2022-11-08 | [facility] | CLEAR | (missing) | (missing) | | (unavailable | 22:00:07 | [facility] | | | | + + + +---------+ + + + + | Result panel 317 | + + + + + + + + + | | 2022-11-08 | [facility] | NEGATIVE | (missing) | (missing) | | (unavailable | 22:: | [facility] | | | | + + + + + + + + + | Result panel 318 | + + + + + + + + + | | 2022-11-08 | [facility] | NEGATIVE | (missing) | (missing) | | (unavailable | 22::07 | [facility] | | | | + + + + + + + + + | Result panel 319 | + + + + + + + + + | | 2022-11-08 | [facility] | NEGATIVE | (missing) | (missing) | | (unavailable | :: | [facility] | | | | + + + + + + + + + | Result panel 320 | + + + + + +---------+ + + | | 2022-11-08 | [facility] | 1.015 | (missing) | (missing) | | (unavailable | :: | [facility] | | | | + + + +---------+ + + + + | Result panel 321 | + + + + + + + + + | | 2022-11-08 | [facility] | NEGATIVE | (missing) | (missing) | | (unavailable | 22:00:07 | [facility] | | | | + + + + + + + + + | Result panel 322 | + + + + + +-------+ + + | | 2022-11-08 | [facility] | 5.5 | (missing) | (missing) | | (unavailable | :00:07 | [facility] | | | | + + + +-------+ + + + + | Result panel 323 | + + + + + + + + + | | 2022-11-08 | [facility] | NEGATIVE | (missing) | (missing) | | (unavailable | 22:00:07 | [facility] | | | | + + + + + + + + + | Result panel 324 | + + + + + + + + + | | 2022-11-08 | [facility] | NORMAL | (missing) | (missing) | | (unavailable | 22:00:07 | [facility] | | | | + + + + + + + + + | Result panel 325 | + + + + + + + + + | | 2022-11-08 | [facility] | NEGATIVE | (missing) | (missing) | | (unavailable | ::07 | [facility] | | | | + + + + + + + + + | Result panel 326 | + + + + + + + + + | | 2022-11-08 | [facility] | NEGATIVE | (missing) | (missing) | | (unavailable | 22:00:07 | [facility] | | | | + + + + + + + + + | Result panel 327 | + + + + + +------+ + + | | 2022-11-08 | [facility] | 31 | (missing) | (missing) | | (unavailable | ::07 | [facility] | | | | + + + +------+ + + + + | Result panel 328 | + + + + + +--------+ + + | | 2022-11-08 | [facility] | 17.7 | (missing) | (missing) | | (unavailable | :30:07 | [facility] | | | | + + + +--------+ + + + + | Result panel 329 | + + + + + +------+ + + | | 2022-11-08 | [facility] | 31 | (missing) | (missing) | | (unavailable | 22:30:07 | [facility] | | | | + + + +------+ + + + + | Result panel 330 | + + + + + +--------+ + + | | 2022-11-08 | [facility] | 17.7 | (missing) | (missing) | | (unavailable | 22:30:07 | [facility] | | | | + + + +--------+ + + + + | Result panel 331 | + + + + + +-------+ + + | | 2022-11-09 | [facility] | 1.7 | (missing) | (missing) | | (unavailable | 03:47:07 | [facility] | | | | + + + +-------+ + + + + | Result panel 332 | + + + + + +---------+ + + | | 2022-11-09 | [facility] | 1.754 | (missing) | (missing) | | (unavailable | 10:00:07 | [facility] | | | | + + + +---------+ + + + + | Result panel 333 | + + + + + +---------+ + + | | 2022-11-09 | [facility] | 1.754 | (missing) | (missing) | | (unavailable | 10:00:07 | [facility] | | | | + + + +---------+ + + + + | Result panel 334 | + + + + + +-------+ + + | | 2022-11-10 | [facility] | 6.6 | (missing) | (missing) | | (unavailable | 05:12:07 | [facility] | | | | + + + +-------+ + + + + | Result panel 335 | + + + + + +-------+ + + | | 2022-11-10 | [facility] | 2.5 | (missing) | (missing) | | (unavailable | 05:12:07 | [facility] | | | | + + + +-------+ + + + + | Result panel 336 | + + + + + +-------+ + + | | 2022-11-10 | [facility] | 4.1 | (missing) | (missing) | | (unavailable | 05:12:07 | [facility] | | | | + + + +-------+ + + + + | Result panel 337 | + + + + + +--------+ + + | | 2022-11-10 | [facility] | 0.61 | (missing) | (missing) | | (unavailable | 05:12:07 | [facility] | | | | + + + +--------+ + + + + | Result panel 338 | + + + + + +-------+ + + | | 2022-11-10 | [facility] | 7.5 | (missing) | (missing) | | (unavailable | 05:12:07 | [facility] | | | + + + +-------+ + + + + | Result panel 339 | + + + + + +------+ + + | | 2022-11-10 | [facility] | 32 | (missing) | (missing) | | (unavailable | 05:12:07 | [facility] | | | | + + + +------+ + + + + | Result panel 340 | + + + + + +------+ + + | | 2022-11-10 | [facility] | 14 | (missing) | (missing) | | (unavailable | 05:12:07 | [facility] | | | | + + + +------+ + + + + | Result panel 341 | + + + + + +-------+ + + | | 2022-11-10 | [facility] | 152 | (missing) | (missing) | | (unavailable | 05:12:07 | [facility] | | | | + + + +-------+ + + + + | Result panel 342 | + + + + + + + + + | | 2022-11-10 | [facility] | (missing) | (missing) | (missing) | | (unavailable | 05: | [facility] | | | | + + + + + + + + + | Result panel 343 | + + + + + +-------+---------+ + | | 2022-11-10 | [facility] | 1.9 | mg/dL | (missing) | | (unavailable | 05: | [facility] | | | | + + + +-------+---------+ + + + | Result panel 344 | + + + + + +--------+ + + | | 2022-11-10 | [facility] | 12.9 | (missing) | (missing) | | (unavailable | 05: | [facility] | | | + + + +--------+ + + + + | Result panel 345 | + + + + + + + + + | | 2022-11-10 | [facility] | (missing) | (missing) | (missing) | | (unavailable | 05:: | [facility] | | | | + + + + + + + + + | Result panel 346 | + + + + + +--------+ + + | | 2022-11-10 | [facility] | 4.04 | (missing) | (missing) | | (unavailable | 05:12:07 | [facility] | | | | + + + +--------+ + + + + | Result panel 347 | + + + + + +--------+ + + | | 2022-11-10 | [facility] | 12.4 | (missing) | (missing) | | (unavailable | 05:12:07 | [facility] | | | + + + +--------+ + + + + | Result panel 348 | + + + + + +--------+ + + | | 2022-11-10 | [facility] | 38.5 | (missing) | (missing) | | (unavailable | 05:12:07 | [facility] | | | + + + +--------+ + + + + | Result panel 349 | + + + + + +--------+ + + | | 2022-11-10 | [facility] | 95.3 | (missing) | (missing) | | (unavailable | 05:12:07 | [facility] | | | + + + +--------+ + + + + | Result panel 350 | + + + + + +--------+ + + | | 2022-11-10 | [facility] | 30.7 | (missing) | (missing) | | (unavailable | 05:12: | [facility] | | | | + + + +--------+ + + + + | Result panel 351 | + + + + + +--------+ + + | | 2022-11-10 | [facility] | 32.2 | (missing) | (missing) | | (unavailable | 05:12:07 | [facility] | | | + + + +--------+ + + + + | Result panel 352 | + + + + + +--------+ + + | | 2022-11-10 | [facility] | 20.9 | (missing) | (missing) | | (unavailable | 05:12:07 | [facility] | | | + + + +--------+ + + + + | Result panel 353 | + + + + + +-------+ + + | | 2022-11-10 | [facility] | 221 | (missing) | (missing) | | (unavailable | 05:12:07 | [facility] | | | | + + + +-------+ + + + + | Result panel 354 | + + + + + +--------+ + + | | 2022-11-10 | [facility] | 82.8 | (missing) | (missing) | | (unavailable | 05:12:07 | [facility] | | | + + + +--------+ + + + + | Result panel 355 | + + + + + +-------+ + + | | 2022-11-10 | [facility] | 6.5 | (missing) | (missing) | | (unavailable | 05:12:07 | [facility] | | | | + + + +-------+ + + + + | Result panel 356 | + + + + + +-------+ + + | | 2022-11-10 | [facility] | 9.5 | (missing) | (missing) | | (unavailable | 05:12:07 | [facility] | | | | + + + +-------+ + + + + | Result panel 357 | + + + + + +-------+ + + | | 2022-11-10 | [facility] | 0.7 | (missing) | (missing) | | (unavailable | 05:12:07 | [facility] | | | | + + + +-------+ + + + + | Result panel 358 | + + + + + +-------+ + + | | 2022-11-10 | [facility] | 0.5 | (missing) | (missing) | | (unavailable | 05: | [facility] | | | + + + +-------+ + + + + | Result panel 359 | + + + + + +-------+---------+ + | | 2022-11-10 | [facility] | 127 | mg/dL | (missing) | | (unavailable | 05:12: | [facility] | | | | + + + +-------+---------+ + + + | Result panel 360 | + + + + + +------+---------+ + | | 2022-11-10 | [facility] | 21 | mg/dL | (missing) | | (unavailable | 05: | [facility] | | | | + + + +------+---------+ + + + | Result panel 361 | + + + + + +--------+---------+ + | | 2022-11-10 | [facility] | 1.16 | mg/dL | (missing) | | (unavailable | 05:12:07 | [facility] | | | | + + + +--------+---------+ + + + | Result panel 362 | + + + + + +------+ + + | | 2022-11-10 | [facility] | 73 | (missing) | (missing) | | (unavailable | 05:12:07 | [facility] | | | | + + + +------+ + + + + | Result panel 363 | + + + + + +---------+ + + | | 2022-11-10 | [facility] | 18.10 | (missing) | (missing) | | (unavailable | 05:12:07 | [facility] | | | | + + + +---------+ + + + + | Result panel 364 | + + + + + +-------+ + + | | 2022-11-10 | [facility] | 128 | (missing) | (missing) | | (unavailable | 05:12:07 | [facility] | | | | + + + +-------+ + + + + | Result panel 365 | + + + + + +-------+ + + | | 2022-11-10 | [facility] | 3.9 | (missing) | (missing) | | (unavailable | 05:12:07 | [facility] | | | | + + + +-------+ + + + + | Result panel 366 | + + + + + +------+ + + | | 2022-11-10 | [facility] | 92 | (missing) | (missing) | | (unavailable | 05:12:07 | [facility] | | | | + + + +------+ + + + + | Result panel 367 | + + + + + +------+ + + | | 2022-11-10 | [facility] | 29 | (missing) | (missing) | | (unavailable | 05:12:07 | [facility] | | | | + + + +------+ + + + + | Result panel 368 | + + + + + +--------+ + + | | 2022-11-10 | [facility] | 10.9 | (missing) | (missing) | | (unavailable | 05:12:07 | [facility] | | | | + + + +--------+ + + + + | Result panel 369 | + + + + + +-------+---------+ + | | 2022-11-10 | [facility] | 8.3 | mg/dL | (missing) | | (unavailable | 05:12:07 | [facility] | | | | + + + +-------+---------+ + + + | Result panel 370 | + + + + + +-------+---------+ + | | 2022-11-10 | [facility] | 1.9 | mg/dL | (missing) | | (unavailable | 05:12:07 | [facility] | | | | + + + +-------+---------+ + + + | Result panel 371 | + + + + + +-------+ + + | | 2022-12-10 | [facility] | 7.2 | (missing) | (missing) | | (unavailable | 13:47:07 | [facility] | | | | + + + +-------+ + + + + | Result panel 372 | + + + + + +--------+ + + | | 2022-12-10 | [facility] | 61.7 | (missing) | (missing) | | (unavailable | 13:47:07 | [facility] | | | | + + + +--------+ + + + + | Result panel 373 | + + + + + +--------+ + + | | 2022-12-10 | [facility] | 15.5 | (missing) | (missing) | | (unavailable | 13:47:07 | [facility] | | | | + + + +--------+ + + + + | Result panel 374 | + + + + + +--------+ + + | | 2022-12-10 | [facility] | 20.4 | (missing) | (missing) | | (unavailable | 13:47:07 | [facility] | | | | + + + +--------+ + + + + | Result panel 375 | + + + + + +-------+ + + | | 2022-12-10 | [facility] | 0.9 | (missing) | (missing) | | (unavailable | 13:47:07 | [facility] | | | | + + + +-------+ + + + + | Result panel 376 | + + + + + +-------+ + + | | 2022-12-10 | [facility] | 1.5 | (missing) | (missing) | | (unavailable | 13:47:07 | [facility] | | | | + + + +-------+ + + + + | Result panel 377 | + + + + + +--------+ + + | | 2022-12-10 | [facility] | 4.19 | (missing) | (missing) | | (unavailable | 13:47:07 | [facility] | | | | + + + +--------+ + + + + | Result panel 378 | + + + + + +--------+ + + | | 2022-12-10 | [facility] | 13.1 | (missing) | (missing) | | (unavailable | 13:47:07 | [facility] | | | | + + + +--------+ + + + + | Result panel 379 | + + + + + +------+---------+ + | | 2022-12-10 | [facility] | 97 | mg/dL | (missing) | | (unavailable | 13:47:07 | [facility] | | | | + + + +------+---------+ + + + | Result panel 380 | + + + + + +------+---------+ + | | 2022-12-10 | [facility] | 59 | mg/dL | (missing) | | (unavailable | 13:47:07 | [facility] | | | | + + + +------+---------+ + + + | Result panel 381 | + + + + + +--------+---------+ + | | 2022-12-10 | [facility] | 1.99 | mg/dL | (missing) | | (unavailable | 13:47:07 | [facility] | | | | + + + +--------+---------+ + + + | Result panel 382 | + + + + + +------+ + + | | 2022-12-10 | [facility] | 38 | (missing) | (missing) | | (unavailable | 13:47:07 | [facility] | | | | + + + +------+ + + + + | Result panel 383 | + + + + + +---------+ + + | | 2022-12-10 | [facility] | 29.64 | (missing) | (missing) | | (unavailable | 13:47:07 | [facility] | | | | + + + +---------+ + + + + | Result panel 384 | + + + + + +--------+ + + | | 2022-12-10 | [facility] | 39.2 | (missing) | (missing) | | (unavailable | 13:47:07 | [facility] | | | | + + + +--------+ + + + + | Result panel 385 | + + + + + +-------+ + + | | 2022-12-10 | [facility] | 130 | (missing) | (missing) | | (unavailable | 13:47:07 | [facility] | | | | + + + +-------+ + + + + | Result panel 386 | + + + + + +-------+ + + | | 2022-12-10 | [facility] | 4.5 | (missing) | (missing) | | (unavailable | 13:47:07 | [facility] | | | | + + + +-------+ + + + + | Result panel 387 | + + + + + +------+ + + | | 2022-12-10 | [facility] | 95 | (missing) | (missing) | | (unavailable | 13:47:07 | [facility] | | | | + + + +------+ + + + + | Result panel 388 | + + + + + +------+ + + | | 2022-12-10 | [facility] | 28 | (missing) | (missing) | | (unavailable | 13:47:07 | [facility] | | | | + + + +------+ + + + + | Result panel 389 | + + + + + +--------+ + + | | 2022-12-10 | [facility] | 11.5 | (missing) | (missing) | | (unavailable | 13:47:07 | [facility] | | | | + + + +--------+ + + + + | Result panel 390 | + + + + + +-------+---------+ + | | 2022-12-10 | [facility] | 9.3 | mg/dL | (missing) | | (unavailable | 13:47:07 | [facility] | | | | + + + +-------+---------+ + + + | Result panel 391 | + + + + + +-------+ + + | | 2022-12-10 | [facility] | 8.5 | (missing) | (missing) | | (unavailable | 13:47:07 | [facility] | | | | + + + +-------+ + + + + | Result panel 392 | + + + + + +-------+ + + | | 2022-12-10 | [facility] | 3.4 | (missing) | (missing) | | (unavailable | 13:47:07 | [facility] | | | | + + + +-------+ + + + + | Result panel 393 | + + + + + +-------+ + + | | 2022-12-10 | [facility] | 5.1 | (missing) | (missing) | | (unavailable | 13:47:07 | [facility] | | | | + + + +-------+ + + + + | Result panel 394 | + + + + + +--------+ + + | | 2022-12-10 | [facility] | 0.67 | (missing) | (missing) | | (unavailable | 13:47:07 | [facility] | | | | + + + +--------+ + + + + | Result panel 395 | + + + + + +--------+ + + | | 2022-12-10 | [facility] | 93.7 | (missing) | (missing) | | (unavailable | 13:47:07 | [facility] | | | | + + + +--------+ + + + + | Result panel 396 | + + + + + +-------+ + + | | 2022-12-10 | [facility] | 2.6 | (missing) | (missing) | | (unavailable | 13:47:07 | [facility] | | | | + + + +-------+ + + + + | Result panel 397 | + + + + + +------+ + + | | 2022-12-10 | [facility] | 36 | (missing) | (missing) | | (unavailable | 13:47:07 | [facility] | | | | + + + +------+ + + + + | Result panel 398 | + + + + + +------+ + + | | 2022-12-10 | [facility] | 31 | (missing) | (missing) | | (unavailable | 13:47:07 | [facility] | | | | + + + +------+ + + + + | Result panel 399 | + + + + + +-------+ + + | | 2022-12-10 | [facility] | 242 | (missing) | (missing) | | (unavailable | 13:47:07 | [facility] | | | | + + + +-------+ + + + + | Result panel 400 | + + + + + +-------+ + + | | 2022-12-10 | [facility] | 1.0 | (missing) | (missing) | | (unavailable | 13:47:07 | [facility] | | | | + + + +-------+ + + + + | Result panel 401 | + + + + + +--------+ + + | | 2022-12-10 | [facility] | 31.4 | (missing) | (missing) | | (unavailable | 13:47:07 | [facility] | | | | + + + +--------+ + + + + | Result panel 402 | + + + + + +--------+ + + | | 2022-12-10 | [facility] | 33.5 | (missing) | (missing) | | (unavailable | 13:47:07 | [facility] | | | | + + + +--------+ + + + + | Result panel 403 | + + + + + +--------+ + + | | 2022-12-10 | [facility] | 17.8 | (missing) | (missing) | | (unavailable | 13:47:07 | [facility] | | | | + + + +--------+ + + + + | Result panel 404 | + + + + + +-------+ + + | | 2022-12-10 | [facility] | 269 | (missing) | (missing) | | (unavailable | 13:47:07 | [facility] | | | | + + + +-------+ + + + + | Result panel 405 | + + + + + + + + + | | 2022-12-10 | [facility] | YELLOW | (missing) | (missing) | | (unavailable | 14:10:07 | [facility] | | | | + + + + + + + + + | Result panel 406 | + + + + + +---------+ + + | | 2022-12-10 | [facility] | CLEAR | (missing) | (missing) | | (unavailable | 14:10:07 | [facility] | | | | + + + +---------+ + + + + | Result panel 407 | + + + + + + + + + | | 2022-12-10 | [facility] | NEGATIVE | (missing) | (missing) | | (unavailable | 14:10:07 | [facility] | | | | + + + + + + + + + | Result panel 408 | + + + + + + + + + | | 2022-12-10 | [facility] | NEGATIVE | (missing) | (missing) | | (unavailable | 14:10:07 | [facility] | | | | + + + + + + + + + | Result panel 409 | + + + + + + + + + | | 2022-12-10 | [facility] | NEGATIVE | (missing) | (missing) | | (unavailable | 14:10:07 | [facility] | | | | + + + + + + + + + | Result panel 410 | + + + + + +---------+ + + | | 2022-12-10 | [facility] | 1.015 | (missing) | (missing) | | (unavailable | 14:10:07 | [facility] | | | | + + + +---------+ + + + + | Result panel 411 | + + + + + + + + + | | 2022-12-10 | [facility] | NEGATIVE | (missing) | (missing) | | (unavailable | 14:10:07 | [facility] | | | | + + + + + + + + + | Result panel 412 | + + + + + +-------+ + + | | 2022-12-10 | [facility] | 6.0 | (missing) | (missing) | | (unavailable | 14:10:07 | [facility] | | | | + + + +-------+ + + + + | Result panel 413 | + + + + + + + + + | | 2022-12-10 | [facility] | NEGATIVE | (missing) | (missing) | | (unavailable | 14:10:07 | [facility] | | | | + + + + + + + + + | Result panel 414 | + + + + + +-------+ + + | | 2022-12-10 | [facility] | 1.0 | (missing) | (missing) | | (unavailable | 14:10:07 | [facility] | | | | + + + +-------+ + + + + | Result panel 415 | + + + + + + + + + | | 2022-12-10 | [facility] | NEGATIVE | (missing) | (missing) | | (unavailable | 14:10:07 | [facility] | | | | + + + + + + + + + | Result panel 416 | + + + + + + + + + | | 2022-12-10 | [facility] | NEGATIVE | (missing) | (missing) | | (unavailable | 14:10:07 | [facility] | | | | + + + + + + + + + | Result panel 417 | + + + + + +-------+ + + | | 2022-12-10 | [facility] | 0-1 | (missing) | (missing) | | (unavailable | 14:10:07 | [facility] | | | | + + + +-------+ + + + + | Result panel 418 | + + + + + +-------+ + + | | 2022-12-10 | [facility] | 2-3 | (missing) | (missing) | | (unavailable | 14:10:07 | [facility] | | | | + + + +-------+ + + + + | Result panel 419 | + + + + + + + + + | | 2022-12-10 | [facility] | NONE SEEN | (missing) | (missing) | | (unavailable | 14:10:07 | [facility] | | | | + + + + + + + + + | Result panel 420 | + + + + + + + + + | | 2022-12-10 | [facility] | NONE SEEN | (missing) | (missing) | | (unavailable | 14:10:07 | [facility] | | | | + + + + + + + + + | Result panel 421 | + + + + + + + + + | | 2022-12-10 | [facility] | NONE SEEN | (missing) | (missing) | | (unavailable | 14:10:07 | [facility] | | | | + + + + + + + + + | Result panel 422 | + + + + + + + + + | | 2022-12-10 | [facility] | NONE SEEN | (missing) | (missing) | | (unavailable | 14:10:07 | [facility] | | | | + + + + + + + + + | Result panel 423 | + + + + + +------+ + + | | 2022-12-10 | [facility] | No | (missing) | (missing) | | (unavailable | 14:10:07 | [facility] | | | | + + + +------+ + + + + | Result panel 424 | + + + + + + + + + | | 2022-12-10 | [facility] | CLEAN CATCH | (missing) | (missing) | | (unavailable | 14:10:07 | [facility] | | | | + + + + + + + + + | Result panel 425 | + + + + + + + + + | | 2022-12-10 | [facility] | NEGATIVE | (missing) | (missing) | | (unavailable | 14:10:07 | [facility] | | | | + + + + + + + + + | Result panel 426 | + + + + + + + + + | | 2022-12-10 | [facility] | NEGATIVE | (missing) | (missing) | | (unavailable | 14:10:07 | [facility] | | | | + + + + + + + + + | Result panel 427 | + + + + + + + + + | | 2022-12-10 | [facility] | NEGATIVE | (missing) | (missing) | | (unavailable | 14:10:07 | [facility] | | | | + + + + + + + + + | Result panel 428 | + + + + + + + + + | | 2022-12-10 | [facility] | NEGATIVE | (missing) | (missing) | | (unavailable | 14:10:07 | [facility] | | | | + + + + + + + + + | Result panel 429 | + + + + + + + + + | | 2022-12-10 | [facility] | NEGATIVE | (missing) | (missing) | | (unavailable | 14:10:07 | [facility] | | | | + + + + + + + + + | Result panel 430 | + + + + + + + + + | | 2022-12-10 | [facility] | NEGATIVE | (missing) | (missing) | | (unavailable | 14:10:07 | [facility] | | | | + + + + + + + + + | Result panel 431 | + + + + + + + + + | | 2022-12-10 | [facility] | NEGATIVE | (missing) | (missing) | | (unavailable | 14:10:07 | [facility] | | | | + + + + + + + + + | Result panel 432 | + + + + + + + + + | | 2022-12-10 | [facility] | NEGATIVE | (missing) | (missing) | | (unavailable | 14:10:07 | [facility] | | | | + + + + + + + + + | Result panel 433 | + + + + + + + + + | | 2022-12-10 | [facility] | NEGATIVE | (missing) | (missing) | | (unavailable | 14:10:07 | [facility] | | | | + + + + + + + + + | Result panel 434 | + + + + + + + + + | | 2022-12-10 | [facility] | NEGATIVE | (missing) | (missing) | | (unavailable | 14:10:07 | [facility] | | | | + + + + + + + + + | Result panel 435 | + + + + + + + + + | | 2022-12-10 | [facility] | NEGATIVE | (missing) | (missing) | | (unavailable | 14:10:07 | [facility] | | | | + + + + + + + + + | Result panel 436 | + + + + + + + + + | | 2022-12-10 | [facility] | NEGATIVE | (missing) | (missing) | | (unavailable | 14:10:07 | [facility] | | | | + + + + + + + + + | Result panel 437 | + + + + + + + + + | | 2022-12-10 | [facility] | NEGATIVE | (missing) | (missing) | | (unavailable | 14:10:07 | [facility] | | | | + + + + + + + Social History + + + + | date | description | facility | + + + + | 2019-11-09 00:00 | Ex-smoker | [facility] | [facility] | + + + + | 2021-09-26 00:00 | Current smoker | [facility] | | | | [facility] | + + + + | 2021-09-26 00:00 | Julien | [facility] | | | | [facility] | [...] 190 | lb | + + + +---------+ | 2022-11-10 00:00 | BMI | 34.2 | kg/m2 | + + + +---------+ | 2022-11-10 00:00 | BP_diastolic | 83 | mmHg | + + + +---------+ | 2022-11-10 00:00 | BP_systolic | 103 | mmHg | + + + +---------+ | 2022-11-10 00:00 | heart_rate | 107 | /min | + + + +---------+ | 2022-11-10 00:00 | height_metric | 165.1 | cm | + + + +---------+ | 2022-11-10 00:00 | height_standard | 65 | in | + + + +---------+ | 2022-11-10 00:00 | o2_saturation | 979 | % | + + + +---------+ | 2022-11-10 00:00 | respiration_rate | 19 | /min | + + + +---------+ | 2022-11-10 00:00 | temperature_metric | 36.94 | C | | | | | | + + + +---------+ | 2022-11-10 00:00 | | 98.5 | F | | | temperature_standar | | | | | d | | | + + + +---------+ | 2022-11-10 00:00 | weight_metric | 93.1 | kg | + + + +---------+ | 2022-11-10 00:00 | weight_standard | 205.25 | lb | + + + +---------+ | 2022-12-10 00:00 | BMI | 29.0 | kg/m2 | + + + +---------+ | 2022-12-10 00:00 | BP_diastolic | 82 | mmHg | + + + +---------+ | 2022-12-10 00:00 | BP_systolic | 111 | mmHg | + + + +---------+ | 2022-12-10 00:00 | heart_rate | 73 | /min | + + + +---------+ | 2022-12-10 00:00 | height_metric | 165.1 | cm | + + + +---------+ | 2022-12-10 00:00 | height_standard | 65 | in | + + + +---------+ | 2022-12-10 00:00 | o2_saturation | 99 | % | + + + +---------+ | 2022-12-10 00:00 | respiration_rate | 17 | /min | + + + +---------+ | 2022-12-10 00:00 | temperature_metric | 36.33 | C | | | | | | + + + +---------+ | 2022-12-10 00:00 | | 97.4 | F | | | temperature_standar | | | | | d | | | + + + +---------+ | 2022-12-10 00:00 | weight_metric | 79 | kg | + + + +---------+ | 2022-12-10 00:00 | weight_standard | 174.16 | lb | + + + +---------+ | 2022-12-10 00:00 | weight_standard | 174.17 | lb | + + + +---------+"
--- OUTSIDE RECORDS SUMMARY | ~2022-12-12 | XMS | Continuity of Care Document ---
Demographics + + + | Address | [address] | | | [place] [address] | + + + | Preferred Language | Unknown | + + + | Marital Status | Domestic partner | + + + | Anabaptism Affiliation | Unknown | + + + | Race | Unknown | + + + | Ethnic Group | or | + + + Author + + + | Author | [facility] | + + + | Organization | [facility] | + + + | Address | [address] | | | [place] [address] | + + + | Phone | | + + + Care Team Providers + + + + | Care Drafter Heating And Ventilating Name | Role | Phone | + [...] + | (no date) | Mild | [place] | (no reaction) | (no severity) [...] + | (no date) | [place] | [place] | (no reaction) | (no severity) [...] | (no date) | Other (See | [place] | (no reaction) | (no severity) [...] | 2022-04-05 00:00 | APIXABAN | [facility] | + + + + | 2022-07-19 00:00 | APIXABAN | [facility] | + + + + | 2022-10-30 00:00 | APIXABAN | [facility] | + + + + | 2022-10-30 00:00 | APIXABAN | [facility] | + + + + | 2022-11-07 00:00 | APIXABAN | [facility] | + + + + | 2022-11-10 00:00 | APIXABAN | [facility] | + + + + | 2022-12-10 00:00 | APIXABAN | [facility] | + + + + | 2022-03-10 00:00 | POTASSIUM CHLORIDE | [facility] | + + + + | 2022-03-10 00:00 | POTASSIUM CHLORIDE | [facility] | + + + + | 2022-03-10 00:00 | POTASSIUM CHLORIDE | [facility] | + + + + | 2022-03-10 00:00 | POTASSIUM CHLORIDE | [facility] | + + + + | 2022-04-05 00:00 | COLCHICINE | [facility] | + + + + | 2022-04-05 00:00 | COLCHICINE | [facility] | + + + + | 2022-04-05 00:00 | COLCHICINE | [facility] | + + + + | 2021-10-27 00:00 | DOXYCYCLINE HYCLATE | [facility] | + + + + | 2022-12-10 00:00 | DOXYCYCLINE HYCLATE | [facility] | + + + + | 2021-05-10 00:00 | TORSEMIDE | [facility] | + + + + | 2021-05-10 00:00 | TORSEMIDE | [facility] | + + + + | 2022-03-10 00:00 | TORSEMIDE | [facility] | + + + + | 2022-03-10 00:00 | TORSEMIDE | [facility] | + + + + | 2022-03-10 00:00 | TORSEMIDE | [facility] | + + + + | 2022-03-10 00:00 | TORSEMIDE | [facility] | + + + + | 2022-07-19 00:00 | TORSEMIDE | [facility] | + + + + | 2022-07-19 00:00 | TORSEMIDE | [facility] | + + + + | 2022-07-19 00:00 | TORSEMIDE | [facility] | + + + + | 2022-10-30 00:00 | TORSEMIDE | [facility] | + + + + | 2022-11-10 00:00 | TORSEMIDE | [facility] | + + + + | 2022-12-10 00:00 | TORSEMIDE | [facility] | + + + + | 2021-05-10 00:00 | ASPIRIN | [facility] | + + + + | 2021-05-10 00:00 | ASPIRIN | [facility] | + + + + | 2022-11-07 00:00 | FUROSEMIDE | [facility] | + + + + | 2022-10-30 00:00 | SPIRONOLACTONE | [facility] | + + + + | 2015-10-03 00:00 | [id number] 200 actuat | [facility] | | | albuterol 0.09 mg/actuat | [facility] | | | metered dose inhaler | | + + + + | 2021-10-30 00:00 | CITALOPRAM HYDROBROMIDE | [facility] | + + + + | 2022-03-10 00:00 | CITALOPRAM HYDROBROMIDE | [facility] | + + + + | 2022-04-05 00:00 | CITALOPRAM HYDROBROMIDE | [facility] | + + + + | 2022-07-19 00:00 | CITALOPRAM HYDROBROMIDE | [facility] | + + + + | 2022-10-30 00:00 | CITALOPRAM HYDROBROMIDE | [facility] | + + + + | 2022-11-07 00:00 | CITALOPRAM HYDROBROMIDE | [facility] | + + + + | 2022-11-10 00:00 | CITALOPRAM HYDROBROMIDE | [facility] | + + + + | 2022-12-10 00:00 | CITALOPRAM HYDROBROMIDE | [facility] | + + + + | 2021-10-30 00:00 | ZIPRASIDONE HCL | [facility] | + + + + | 2022-03-10 00:00 | ZIPRASIDONE HCL | [facility] | + + + + | 2022-04-05 00:00 | ZIPRASIDONE HCL | [facility] | + + + + | 2022-07-19 00:00 | ZIPRASIDONE HCL | [facility] | + + + + | 2022-10-30 00:00 | ZIPRASIDONE HCL | [facility] | + + + + | 2022-11-07 00:00 | ZIPRASIDONE HCL | [facility] | + + + + | 2022-11-10 00:00 | ZIPRASIDONE HCL | [facility] | + + + + | 2022-12-10 00:00 | ZIPRASIDONE HCL | [facility] | + + + + | 2019-11-09 00:00 | azithromycin 250 mg oral | [facility] | | | tablet | [facility] | + + + + | 2021-05-10 00:00 | LISINOPRIL | [facility] | + + + + | 2021-05-10 00:00 | LISINOPRIL | [facility] | + + + + | 2021-05-10 00:00 | LISINOPRIL | [facility] | + + + + | 2021-05-10 00:00 | LISINOPRIL | [facility] | + + + + | 2021-05-10 00:00 | LISINOPRIL | [facility] | + + + + | 2021-10-30 00:00 | PRAZOSIN HCL | [facility] | + + + + | 2022-03-10 00:00 | PRAZOSIN HCL | [facility] | + + + + | 2022-04-05 00:00 | PRAZOSIN HCL | [facility] | + + + + | 2022-07-19 00:00 | PRAZOSIN HCL | [facility] | + + + + | 2022-10-30 00:00 | PRAZOSIN HCL | [facility] | + + + + | 2022-11-07 00:00 | PRAZOSIN HCL | [facility] | + + + + | 2022-11-10 00:00 | PRAZOSIN HCL | [facility] | + + + + | 2022-12-10 00:00 | PRAZOSIN HCL | [facility] | + + + + | 2021-05-10 00:00 | SPIRONOLACTONE | [facility] | + + + + | 2021-05-10 00:00 | SPIRONOLACTONE | [facility] | + + + + | 2021-05-10 00:00 | SPIRONOLACTONE | [facility] | + + + + | 2021-05-10 00:00 | SPIRONOLACTONE | [facility] | + + + + | 2021-05-10 00:00 | SPIRONOLACTONE | [facility] | + + + + | 2022-07-19 00:00 | SPIRONOLACTONE | [facility] | + + + + | 2022-07-19 00:00 | SPIRONOLACTONE | [facility] | + + + + | 2022-07-19 00:00 | SPIRONOLACTONE | [facility] | + + + + | 2022-11-10 00:00 | SPIRONOLACTONE | [facility] | + + + + | 2022-12-10 00:00 | SPIRONOLACTONE | [facility] | + + + + | 2021-10-30 00:00 | ATORVASTATIN CALCIUM | [facility] | + + + + | 2022-03-10 00:00 | ATORVASTATIN CALCIUM | [facility] | + + + + | 2022-04-05 00:00 | ATORVASTATIN CALCIUM | [facility] | + + + + | 2022-07-19 00:00 | ATORVASTATIN CALCIUM | [facility] | + + + + | 2022-10-30 00:00 | ATORVASTATIN CALCIUM | [facility] | + + + + | 2022-11-07 00:00 | ATORVASTATIN CALCIUM | [facility] | + + + + | 2022-11-10 00:00 | ATORVASTATIN CALCIUM | [facility] | + + + + | 2022-12-10 00:00 | ATORVASTATIN CALCIUM | [facility] | + + + + | 2015-10-03 00:00 | [id number] 200 actuat | [facility] | | | albuterol 0.09 mg/actuat | [facility] | | | metered dose inhaler | | | | [proventil] | | + + + + | 2022-04-05 00:00 | | [facility] | | | SULFAMETHOXAZOLE/TRIMETHOPR | | | | IM DS | | + + + + | 2022-04-05 00:00 | | [facility] | | | SULFAMETHOXAZOLE/TRIMETHOPR | | | | IM DS | | + + + + | 2022-04-05 00:00 | | [facility] | | | SULFAMETHOXAZOLE/TRIMETHOPR | | | | IM DS | | + + + + | 2022-12-10 00:00 | | [facility] | | | SULFAMETHOXAZOLE/TRIMETHOPR | | | | IM DS | | + + + + | 2021-10-30 00:00 | TRAZODONE HCL | [facility] | + + + + | 2022-03-10 00:00 | TRAZODONE HCL | [facility] | + + + + | 2022-04-05 00:00 | TRAZODONE HCL | [facility] | + + + + | 2022-07-19 00:00 | TRAZODONE HCL | [facility] | + + + + | 2022-10-30 00:00 | TRAZODONE HCL | [facility] | + + + + | 2022-11-07 00:00 | TRAZODONE HCL | [facility] | + + + + | 2022-11-10 00:00 | TRAZODONE HCL | [facility] | + + + + | 2022-12-10 00:00 | TRAZODONE HCL | [facility] | + + + + | 2022-12-10 00:00 | HYDROCODONE | [facility] | | | BIT/ACETAMINOPHEN | | + + + + | 2021-10-30 00:00 | METOPROLOL SUCCINATE | [facility] | + + + + | 2022-03-10 00:00 | METOPROLOL SUCCINATE | [facility] | + + + + | 2022-04-05 00:00 | METOPROLOL SUCCINATE | [facility] | + + + + | 2022-07-19 00:00 | METOPROLOL SUCCINATE | [facility] | + + + + | 2022-10-30 00:00 | METOPROLOL SUCCINATE | [facility] | + + + + | 2022-11-07 00:00 | METOPROLOL SUCCINATE | [facility] | + + + + | 2022-11-10 00:00 | METOPROLOL SUCCINATE | [facility] | + + + + | 2022-12-10 00:00 | METOPROLOL SUCCINATE | [facility] | + + + + | 2022-11-10 00:00 | METOPROLOL SUCCINATE | [facility] | + + + + | 2022-12-10 00:00 | METOPROLOL SUCCINATE | [facility] | + + + + [...] | Delirium due to general | [facility] | | | medical condition | | + + + + | 2014-10-28 00:00 | Delirium due to general | [facility] | | | medical condition | | + + + + | 2014-10-28 00:00 | Delirium due to general | [facility] | | | medical condition | | + + + + | 2014-10-28 00:00 | Delirium due to general | [facility] | | | medical condition | | + + + + | 2014-10-28 00:00 | Delirium due to general | [facility] | | | medical condition | | + + + + | 2014-10-28 00:00 | Altered level of | [facility] | | | consciousness | | + + + + | 2014-10-28 00:00 | Altered level of | [facility] | | | consciousness | | + + + + | 2014-10-28 00:00 | Altered level of | [facility] | | | consciousness | | + + + + | 2014-10-28 00:00 | Altered level of | [facility] | | | consciousness | | + + + + | 2014-10-28 00:00 | Altered level of | [facility] | | | consciousness | | + + + + | 2018-06-26 00:00 | Encounter for medical | [facility] | | | screening examination | | + + + + | 2018-06-26 00:00 | Encounter for medical | [facility] | | | screening examination | | + + + + | 2018-06-26 00:00 | Encounter for medical | [facility] | | | screening examination | | + + + + | 2018-06-26 00:00 | Encounter for medical | [facility] | | | screening examination | | + + + + | 2018-06-26 00:00 | Encounter for medical | [facility] | | | screening examination | | + + + + | 2021-05-08 00:00 | Atrial fibrillation with | [facility] | | | rapid ventricular response | | + + + + | 2021-05-08 00:00 | Atrial fibrillation with | [facility] | | | rapid ventricular response | | + + + + | 2021-05-08 00:00 | Atrial fibrillation with | [facility] | | | rapid ventricular response | | + + + + | 2021-05-08 00:00 | Atrial fibrillation with | [facility] | | | rapid ventricular response | | + + + + | 2021-05-08 00:00 | Atrial fibrillation with | [facility] | | | rapid ventricular response | | + + + + | 2021-05-08 00:00 | Acute on chronic | [facility] | | | congestive heart failure | | + + + + | 2021-05-08 00:00 | Acute on chronic | [facility] | | | congestive heart failure | | + + + + | 2021-05-08 00:00 | Acute on chronic | [facility] | | | congestive heart failure | | + + + + | 2021-05-08 00:00 | Acute on chronic | [facility] | | | congestive heart failure | | + + + + | 2021-05-08 00:00 | Acute on chronic | [facility] | | | congestive heart [...] | 2021-07-05 00:00 | Arthritis | [facility] | + + + + | 2021-07-05 00:00 | Arthritis | [facility] | + + + + | 2021-07-05 00:00 | Arthritis | [facility] | + + + + | 2021-07-05 00:00 | Arthritis | [facility] | + + + + | 2021-07-05 00:00 | Arthritis | [facility] | + + + + | 2021-08-27 13:55 | GENERALIZED ABDOMINAL PAIN | [facility] | | | | | + + + + | 2021-08-27 13:55 | ABNORMAL FINDINGS ON DX | [facility] | | | IMAGING OF LIVER AND BILIA | | + + + + | 2021-09-18 00:00 | Intravenous drug user | [facility] | + + + + | 2021-09-18 00:00 | Intravenous drug user | [facility] | + + + + | 2021-09-18 00:00 | Intravenous drug user | [facility] | + + + + | 2021-09-18 00:00 | Intravenous drug user | [facility] | + + + + | 2021-09-18 00:00 | Intravenous drug user | [facility] | + + + + | 2021-09-18 00:00 | Back pain | [facility] | + + + + | 2021-09-18 00:00 | Back pain | [facility] | + + + + | 2021-09-18 00:00 | Back pain | [facility] | + + + + | 2021-09-18 00:00 | Back pain | [facility] | + + + + | 2021-09-18 00:00 | Back pain | [facility] | + + + + [...] 2021-10-27 00:00 | Methamphetamine abuse | [facility] | + + + + | 2021-10-27 00:00 | Methamphetamine abuse | [facility] | + + + + | 2021-10-27 00:00 | Methamphetamine abuse | [facility] | + + + + | 2021-10-27 00:00 | Methamphetamine abuse | [facility] | + + + + | 2021-10-27 00:00 | Methamphetamine abuse | [facility] | + + + + | 2021-10-27 00:00 | Cellulitis of | [facility] | | | periumbilical region | | + + + + | 2021-10-27 00:00 | Cellulitis of | [facility] | | | periumbilical region | | + + + + | 2021-10-27 00:00 | Cellulitis of | [facility] | | | periumbilical region | | + + + + | 2021-10-27 00:00 | Cellulitis of | [facility] | | | periumbilical region | | + + + + | 2021-10-27 00:00 | Cellulitis of | [facility] | | | periumbilical region | | + + + + | 2022-03-10 00:00 | Congestive heart failure | [facility] | + + + + | 2022-03-10 00:00 | Congestive heart failure | [facility] | + + + + | 2022-03-10 00:00 | Congestive heart failure | [facility] | + + + + | 2022-03-10 00:00 | Congestive heart failure | [facility] | + + + + | 2022-04-05 00:00 | Hyperuricemia | [facility] | + + + + | 2022-04-05 00:00 | Hyperuricemia | [facility] | + + + + | 2022-04-05 00:00 | Hyperuricemia | [facility] | + + + + | 2022-04-05 00:00 | Urinary tract infection | [facility] | + + + + | 2022-04-05 00:00 | Urinary tract infection | [facility] | + + + + | 2022-04-05 00:00 | Urinary tract infection | [facility] | + + + + [...] + + | 2022-07-19 21:26 | OTHER ELECTRIC REFRIGERATOR SERVICER (CURRENT) | [facility] | | | DRUG [...] 2022-10-30 00:00 | Inguinal hernia | [facility] | + + + + | 2022-10-30 00:00 | Inguinal hernia | [facility] | + + + + | 2022-10-30 00:00 | Jaundice | [facility] | + + + + | 2022-10-30 00:00 | Jaundice | [facility] | + + + + [...] + + + | 2022-10-30 12:51 | ELECTRIC REFRIGERATOR SERVICER (CURRENT) USE OF | [facility] | | | ANTICOAGULANTS | | + + + + | 2022-10-30 12:51 | OTHER ELECTRIC REFRIGERATOR SERVICER (CURRENT) | [facility] | | | DRUG [...] + + + | 2022-11-07 04:34 | [facility] (CURRENT) USE OF | [facility] | | | ANTICOAGULANTS | | + + + + | 2022-11-07 04:34 | OTHER [facility] (CURRENT) | [facility] | | | DRUG THERAPY | | + + + + | 2022-11-07 04:34 | ALLERGY STATUS TO | [facility] | | | [facility] | | + + + + | 2022-11-09 00:00 | Cellulitis of scrotum | [facility] | + + + + | 2022-11-09 00:00 | Cellulitis of scrotum | [facility] | + + + + | 2022-11-09 00:00 | Generalized edema | [facility] | + + + + | 2022-11-09 00:00 | Generalized edema | [facility] | + + + + [...] + + + | 2022-11-09 01:19 | [facility] (CURRENT) USE OF | [facility] | | | ANTICOAGULANTS | | + + + + | 2022-11-09 01:19 | [facility] (CURRENT) USE OF | [facility] | | | ANTITHROMBOTICS/ANTIPLA | | + + + + | 2022-11-09 01:19 | OTHER ELECTRIC REFRIGERATOR SERVICER (CURRENT) | [facility] | | | DRUG [...] 2022-12-10 00:00 | Chronic atrial | [facility] | | | fibrillation | | + + + + | 2022-12-10 00:00 | Chronic asymptomatic | [facility] | | | hypotension | | + + + + | 2022-12-10 00:00 | Abscess of perineum | [facility] | + + + + [...] | | 2022-04-05 | [facility] | [id number] | (missing) | (missing) | | (unavailable [...] | 2021-09-26 00:00 | Julien | [facility] | | | | [...]
[~2022-12-12 07:11] MED LIST changes: +HYDROCODON-ACE1 EA10 PO
--- OUTSIDE RECORDS SUMMARY | 2022-12-12 07:13 | XMS ---
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 Care History Medical/Surgical 08/03/2022 [facility] This patient has no showed/cancelled all 5 appointments with PCP this year, 2022. [place] VISIT COUNT (12 MO.) 8 [facility] TOTAL 8 NOTE: Visits indicate total known visits. ED/UCC VISIT TRACKING (12 MO.) 12/12/2022 07:11 [facility] TYPE: Emergency COMPLAINT: - WOUND CHECK 12/10/2022 13:26 [facility] TYPE: Emergency COMPLAINT: - SKIN PROBLEM, LOW B/P, HIGH HEART RATE DIAGNOSES: - Allergy status to analgesic agent - Allergy status to penicillin - Cutaneous abscess of perineum - Local infection of the skin and subcutaneous tissue, unspecified - Nicotine dependence, unspecified, uncomplicated - Radiographic dye allergy status 11/08/2022 21:10 [facility] TYPE: Emergency COMPLAINT: - ABD PAIN 11/07/2022 04:34 [facility] TYPE: Emergency COMPLAINT: - EAR PAIN DIAGNOSES: - Allergy status to penicillin - Heart failure, unspecified - USP (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 - Nicotine dependence, unspecified, uncomplicated - Otalgia, unspecified ear - Other assistant commissioner (current) drug therapy 10/30/2022 12:51 [facility] TYPE: Emergency COMPLAINT: - TURNING YELLOW IN COLOR DIAGNOSES: - Allergy status to analgesic agent - Allergy status to penicillin - Heart failure, unspecified - USP (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 - Nicotine dependence, unspecified, uncomplicated - Other assistant commissioner (current) drug therapy - Other nonmedicinal substance [...] - Nicotine dependence, unspecified, uncomplicated - Other alf (current) drug therapy - Patient's noncompliance with [...] of inflammatory arthritis and tophaceous disease - winder tender (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 - Nicotine dependence, unspecified, uncomplicated - Other assistant commissioner (current) drug therapy - Shortness of breath - Urinary tract infection, site not specified 03/10/2022 13:25 [facility] TYPE: Emergency COMPLAINT: - POISONING DIAGNOSES: - Allergy status to analgesic agent - Allergy status to penicillin - Heart failure, unspecified - USP (current) use of aspirin - Nicotine dependence, unspecified, uncomplicated - Other assistant commissioner (current) drug therapy - Radiographic dye allergy status - Shortness of breath INPATIENT VISIT TRACKING (12 MO.) [facility] COMPLAINT: - CHF, CELLULITIS [...] scrotum - Inflammatory disorders of scrotum - USP (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 - winder tender (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 - winder tender (current) use of antithrombotics/antiplatelets - USP (current) use of antithrombotics/antiplatelets - Nicotine dependence, cigarettes, uncomplicated - Nicotine dependence, cigarettes, uncomplicated - Other inflammatory disorders of penis - Other assistant commissioner (current) drug therapy - Other assistant commissioner (current) drug therapy - Other specified disorders [...] Unspecified atrial fibrillation - Unspecified atrial fibrillation [email or web address]
[2022-12-12 08:04] VITALS: BP 89/66
== END 2022-12-12 08:07 | disposition home or self-care (01) ==
LOC: ED 07:11
DX: L02.215 Cutaneous abscess of perineum (principal); F17.200 Nicotine dependence, unspecified, uncomplicated; Z88.0 Allergy status to penicillin; Z88.6 Allergy status to analgesic agent; Z91.048 Other nonmedicinal substance allergy status; Z79.899 Other long term (current) drug therapy
CPT/HCPCS: 10060; 99283-25

== ENCOUNTER 2023-07-25 14:08 | Emergency (ER) | payer OTHER ==
[~2023-07-25] VITALS: Ht 165.1 cm; Wt 113.0 kg
--- OUTSIDE RECORDS SUMMARY | 2023-07-25 14:10 | XMS ---
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 Security Rehabilitation Program Manager Events No recent Security Events currently on file [place] [facility] [place] -[place]- Dentist: Local Flatbed Driver [facility] PHONE: [phone] [facility]: [facility]UNITY PHONE: Unknown CECI URIOSTEGUI Nurse Practitioner: Family Current PHONE: [phone] DAVID BEVERLY [facility] Current PHONE: [phone] Bella has no Care Guidelines for this patient. Care History Medical/Surgical 08/03/2022 [facility] This patient has no showed/cancelled all 5 appointments with PCP this year, 2022. EKatelynn [facility] (12 MO.) [facility] NOTE: Visits indicate total known visits. ED/UCC VISIT TRACKING (12 MO.) 07[facility]23 14:[facility] [place] [facility] COMPLAINT: - CHEST PAIN 12/12/2022 07:11 [facility] [place] TYPE: Emergency COMPLAINT: - WOUND CHECK DIAGNOSES: - Allergy status to analgesic agent - Allergy status to penicillin - Cutaneous abscess of perineum - Encounter for change or removal of nonsurgical wound dressing - Nicotine dependence, unspecified, uncomplicated - Other longwall foreman (current) drug therapy - Other nonmedicinal substance allergy status 12/10/2022 13:26 [facility] [place] TYPE: Emergency [...] COMPLAINT: - ABD PAIN 11/07/2022 04:34 [facility] [place] TYPE: Emergency COMPLAINT: - EAR PAIN DIAGNOSES: - Allergy status to penicillin - Heart failure, unspecified - penitentiary (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 - Nicotine dependence, unspecified, uncomplicated - Otalgia, unspecified ear - Other longwall foreman (current) drug therapy 10/30/2022 12:51 [facility] [place] TYPE: Emergency COMPLAINT: - TURNING YELLOW IN COLOR DIAGNOSES: - Allergy status to analgesic agent - Allergy status to penicillin - Heart failure, unspecified - armature coil winder (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 - Nicotine dependence, unspecified, uncomplicated - Other senior living (current) drug therapy - Other nonmedicinal substance allergy status - Unilateral inguinal hernia, without obstruction or gangrene, not specified as recurrent - Unspecified atrial fibrillation - Unspecified jaundice INPATIENT VISIT TRACKING (12 MO.) 11/10/2022 21:37 Isabella PRABHAKAR TYPE: Medical Surgical COMPLAINT: - CHF, CELLULITIS [...] less than 20 mg/100 ml 11/09/2022 01:19 [facility] [place] TYPE: Critical Care COMPLAINT: - [...] scrotum - Inflammatory disorders of scrotum - armature coil winder (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 - armature coil winder (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 - armature coil winder (current) use of antithrombotics/antiplatelets - penitentiary (current) use of antithrombotics/antiplatelets - Nicotine dependence, cigarettes, uncomplicated - Nicotine dependence, cigarettes, uncomplicated - Other inflammatory disorders of penis - Other longwall foreman (current) drug therapy - Other senior living (current) drug therapy - Other specified disorders [...] Unspecified atrial fibrillation - Unspecified atrial fibrillation [email or web address]
[2023-07-25] MEDS ORDERED: ALBUTEROL SULFATE 0.083% 3 ML VIAL ONE (14:19)
[2023-07-25] MEDS ORDERED: ALBUTEROL SULFATE 0.5% 2.5 MG/0.5 ML VIAL INH ONE (14:30)
[2023-07-25 14:36] LABS: PH, VENOUS 7.345 (7.31-7.41)
[2023-07-25] MEDS ORDERED: FUROSEMIDE 20 MG/2 ML VIAL IV ONE (14:45)
[2023-07-25] MEDS ORDERED: LIDOCAINE 2% VISCOUS 6 ML SYR TOP ONE (14:45)
[2023-07-25] MEDS ORDERED: KETAMINE in NS 50 MG/5 ML SYR IV ONE (14:45)
[2023-07-25] MEDS ORDERED: METOPROLOL TARTRATE 5 MG/5 ML VIAL IV ONE (14:45)
[2023-07-25 14:50] LABS: HEMATOCRIT 38.2 % (35.0-50.0); HEMOGLOBIN 12.4 g/dL (12.0-18.0); LYMPHOCYTES 1.9 % (24-44); MCHC 32.5 g/dl (30-36); MCV 89.3 fl (81-99); MONOCYTES 1.8 % (0-12); NEUTROPHILS 95.3 % (39-80); PLATELET COUNT 291 K/uL (140-440); RBC 4.27 M/ul (4.3-5.7); RDW 21.5 (10.5-15.0)
[2023-07-25] MEDS ORDERED: ALBUTEROL SULFATE 0.083% 3 ML VIAL INH ONE (15:00)
[2023-07-25 15:16] LABS: ALBUMIN 2.8 g/dL (3.4-5.0); ALBUMIN/GLOBULIN RATIO 0.6 (1.1-2.4); ANION GAP 12.1 (7-21); BILIRUBIN, TOTAL 5.2 ng/dL (0.2-1.0); BUN/CREATININE RATIO 24.39 (6.0-28.6); CALCIUM 8.8 mg/dL (8.5-10.1); CREATININE, SERUM 2.05 mg/dL (0.70-1.30); POTASSIUM 4.1 mmol/L (3.5-5.1); PROTEIN, TOTAL 7.5 g/dL (6.4-8.2)
[2023-07-25] MEDS ORDERED: VANCOMYCIN PER PHARMACY PROTOCOL IV SCH (15:21)
[2023-07-25] MEDS ORDERED: CEFEPIME HCL/D5W 2 GM/100 ML PIGGYBACK IV ONE (15:30)
[2023-07-25] MEDS ORDERED: VANCOMYCIN HCL 1,000 MG in DEXTROSE 5% 250 ML IV ONE (16:00)
[2023-07-25 16:06] LABS: INFLUENZA B NAA NEGATIVE (NEGATIVE); RESPIRATORY SYNCYTIAL VIR NAA NEGATIVE (NEGATIVE)
[2023-07-25] MEDS ORDERED: VANCOMYCIN HCL 2,750 MG in DEXTROSE 5% 500 ML IV ONE (16:15)
[2023-07-25 19:25] VITALS: BP 98/71
--- NOTE | 2023-07-28 10:58 | EKG ---
[facility] [address] [facility] [place] [address] Signed Undetermined rhythm Incomplete right bundle branch block Possible Anterolateral infarct (cited on or before 10-NOV-2022) Abnormal ECG When compared with ECG of 10-NOV-2022 07:39, Current undetermined rhythm precludes rhythm comparison, needs review Left posterior fascicular block is no longer present Incomplete right bundle branch block is now present Nonspecific T wave abnormality no longer evident in Inferior leads Nonspecific T wave abnormality no longer evident in Lateral leads Confirmed by Arvin Adkins MD ([id number]) on 07/28/2023 10:57:58 AM Electronically Signed By: ARVIN ADKINS 07/28/23 1058 PATIENT NAME: DAVID SANTORO Electrocardiogram DATE OF : 65 PHYSICIAN: ARVIN ADKINS REPORT #: [id number] REPORT IS CONFIDENTIAL AND NOT TO BE RELEASED WITHOUT AUTHORIZATION
[2023-09-14] MEDS ORDERED: ATORVASTATIN CA20 MG PO (11:51)
[2023-09-14] MEDS ORDERED: METOPROLOL SUCC25 MG PO (11:52)
== END 2023-07-25 19:25 | disposition short-term general hospital (02) ==
LOC: ED 14:08
PROVIDERS: Emergency Medicine
DX: J18.9 Pneumonia, unspecified organism (principal); I50.9 Heart failure, unspecified; I48.91 Unspecified atrial fibrillation; I42.9 Cardiomyopathy, unspecified; R09.02 Hypoxemia; N18.9 Chronic kidney disease, unspecified; F17.200 Nicotine dependence, unspecified, uncomplicated; Z88.0 Allergy status to penicillin; Z88.6 Allergy status to analgesic agent; Z91.09 Other allergy status, other than to drugs and biological substances; Z79.899 Other long term (current) drug therapy; Z11.52 Encounter for screening for COVID-19
CPT/HCPCS: 36415; 51798; 71045; 74177; 80053; 80307; 81001; 82803; 83605; 83880; 84484; 85025; 87040; 87502; 93005; 93010; 94640; 96365; 96375; 99285-25; G0480; J0692; J1940; J3370; J3490; J7060; Q9967; U0002

== ENCOUNTER 2023-09-06 15:29 | Emergency (ER) | payer OTHER ==
[~2023-09-06] VITALS: Ht 165.1 cm; Wt 83.0 kg
--- OUTSIDE RECORDS SUMMARY | 2023-09-06 15:32 | XMS ---
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 Security Change Coordinator Events No recent Security Events currently on file CRITERIA MET - [facility] - 2 Visits in 30 Days - [facility] - Has Care Guidelines CARE PROVIDERS -, [facility]+ Dentist: Performance Improvement Manager Current [place] PHONE: [phone] -[place]- Dentist: Performance Improvement Manager [facility] PHONE: [phone] CUCA DURAN/[place]: [facility] PHONE: Unknown CECI URIOSTEGUI Nurse Practitioner: Family Current PHONE: [phone] DAVID BEVERLY [facility] Current PHONE: [phone] Bella has no Care Guidelines for this patient. Care History Medical/Surgical 08/03/2022 [facility] This patient has no showed/cancelled all 5 appointments with PCP this year, 2022. EKennedy. VISIT COUNT (12 MO.) 10 [facility] TOTAL 10 NOTE: Visits indicate total known visits. ED/UCC VISIT TRACKING (12 MO.) 09/06/2023 15:29 [facility] [place] TYPE: Emergency COMPLAINT: - POSS HERNIA 08/13/2023 23:58 [facility] [place] TYPE: Emergency COMPLAINT: - POSS OD DIAGNOSES: - Allergy status to analgesic agent - Allergy status to penicillin - Bipolar disorder, unspecified - Heart failure, unspecified - skilled nursing (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 - Nicotine dependence, unspecified, uncomplicated - Other parts counterman (current) drug therapy - Other nonmedicinal substance allergy status - Poisoning by fentanyl or fentanyl analogs, accidental (unintentional), initial encounter - Schizophrenia, unspecified 08/10/2023 03:41 [facility] [place] TYPE: Emergency COMPLAINT: - COUGHING BLOOD 08/09/2023 23:39 [facility] [place] TYPE: Emergency COMPLAINT: - FALL DIAGNOSES: - Allergy status to analgesic agent - Allergy status to penicillin - Bipolar disorder, unspecified - Fall from chair, initial encounter - Headache, unspecified - Heart failure, unspecified - Hypotension, unspecified - skilled nursing (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 - Nicotine dependence, unspecified, uncomplicated - Other parts counterman (current) drug therapy - Other nonmedicinal substance allergy status - Schizophrenia, unspecified - Unspecified injury of head, initial encounter 07/25/2023 14:09 [facility] [place] TYPE: Emergency COMPLAINT: - CHEST PAIN DIAGNOSES: - Allergy status to analgesic agent - Allergy status to penicillin - Cardiomyopathy, unspecified - Chest pain, unspecified - Chronic kidney disease, unspecified - Encounter for screening for COVID-19 - Heart failure, unspecified - Hypoxemia - Nicotine dependence, unspecified, uncomplicated - Other allergy status, other than to drugs and biological substances - Other parts counterman (current) drug therapy - Pneumonia, unspecified organism - Unspecified atrial fibrillation 12/12/2022 07:11 [facility] [place] TYPE: Emergency COMPLAINT: - WOUND CHECK DIAGNOSES: - Allergy status to analgesic agent - Allergy status to penicillin - Cutaneous abscess of perineum - Encounter for change or removal of nonsurgical wound dressing - Nicotine dependence, unspecified, uncomplicated - Other parts counterman (current) drug therapy - Other nonmedicinal substance [...] to penicillin - Heart failure, unspecified - parts counterman (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 - Nicotine dependence, unspecified, uncomplicated - Otalgia, unspecified ear - Other [facility] (current) drug therapy 10/30/2022 12:51 [facility] [place] TYPE: Emergency COMPLAINT: - TURNING YELLOW IN COLOR DIAGNOSES: - Allergy status to analgesic agent - Allergy status to penicillin - Heart failure, unspecified - parts counterman (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 - Nicotine dependence, unspecified, uncomplicated - Other parts counterman (current) drug therapy - Other nonmedicinal substance allergy status - Unilateral inguinal hernia, without obstruction or gangrene, not specified as recurrent - Unspecified atrial fibrillation - Unspecified jaundice INPATIENT VISIT TRACKING (12 MO.) [facility] TYPE: Medical Surgical DIAGNOSES: - Acute on chronic systolic (congestive) heart failure - Bilateral inguinal hernia, without obstruction or gangrene, not specified as recurrent - Cardiomyopathy, unspecified - Encounter for palliative care - Generalized edema - Other malaise - Other psychoactive substance use, unspecified, uncomplicated - Other specified counseling - Other specified disorders of the male genital organs - Other specified health status - Unspecified psychosis not due to a substance or known physiological condition - Respiratory Distress, PNA, CHF 11/10/2022 21:37 [facility] [place] TYPE: Medical Surgical COMPLAINT: - CHF, CELLULITIS [...] scrotum - Inflammatory disorders of scrotum - parts counterman (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 - parts counterman (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 - skilled nursing (current) use of antithrombotics/antiplatelets - skilled nursing (current) use of antithrombotics/antiplatelets - Nicotine dependence, cigarettes, uncomplicated - Nicotine dependence, cigarettes, uncomplicated - Other inflammatory disorders of penis - Other m[facility] (current) drug therapy - Other parts counterman (current) drug therapy - Other specified disorders [...] Unspecified atrial fibrillation - Unspecified atrial fibrillation [email or web address]
[2023-09-06 16:22] LABS: BASOPHILS 0.6 % (0-2); EOSINOPHILS 0.5 % (0-6); HEMATOCRIT 42.7 % (35.0-50.0); HEMOGLOBIN 14.6 g/dL (12.0-18.0); LYMPHOCYTES 18.2 % (24-44); MCH 29.8 (27-36); MCHC 34.2 g/dl (30-36); MCV 87.2 fl (81-99); MONOCYTES 17.3 % (0-12); NEUTROPHILS 63.4 % (39-80); PLATELET COUNT 201 K/uL (140-440); RBC 4.89 M/ul (4.3-5.7); RDW 17.6 (10.5-15.0)
[2023-09-06] MEDS ORDERED: SODIUM CHLORIDE 0.9% 1,000 ML IV ONE (16:30)
[2023-09-06 16:35] LABS: ALBUMIN 3.8 g/dL (3.4-5.0); ALCOHOL, MEDICAL <3 ng/dL (<3); ALKALINE PHOSPHATASE 236 U/L (46-116); ALT (SGPT) 174 U/L (14-59); ANION GAP 26.3 (7-21); AST (SGOT) 160 U/L (15-37); BILIRUBIN, TOTAL 2.2 ng/dL (0.2-1.0); BUN/CREATININE RATIO 34.26 (6.0-28.6); CALCIUM 8.2 mg/dL (8.5-10.1); CARBON DIOXIDE 19 mmol/L (21-32); CHLORIDE 86 mmol/L (98-107); CREATININE, SERUM 6.07 mg/dL (0.70-1.30); GLOMERULAR FILTRATION RATE,EST 10 mL/min (>60); POTASSIUM 5.3 mmol/L (3.5-5.1); PROTEIN, TOTAL 9.2 g/dL (6.4-8.2); UREA NITROGEN 208 mg/dL (7-18)
[2023-09-06] MEDS ORDERED: SODIUM CHLORIDE 0.9% 1,000 ML IV PRN (16:45)
[2023-09-06] MEDS ORDERED: LIDOCAINE 2% VISCOUS 6 ML SYR TOP ONE (17:30)
[2023-09-06 17:53] LABS: BILIRUBIN, URINE NEGATIVE (negative); BLOOD/HGB, URINE TRACE-I (Negative); KETONE, URINE NEGATIVE (Negative); LEUK ESTERASE, URINE NEGATIVE (negative); NITRITE, URINE NEGATIVE (negative)
[2023-09-06 18:02] LABS: CRYSTALS, URINE CALCIUM OXALATE 1+ (0-1+); EPITHELIAL CELLS, URINE SQUAMOUS 1+ /lpf (0-1+); RED BLOOD CELLS, URINE 0-1 /hpf (0-5)
[2023-09-06 18:03] LABS: BACTERIA, URINE RARE /hpf (negative); CASTS, URINE GRANULAR 1+ \\lpf; COLLECTION TYPE, URINE CLEAN CATCH; REFLEX CULTURE, URINE No (No)
[2023-09-06 18:12] LABS: AMPHETAMINES, URINE NEGATIVE (NEGATIVE); BARBITURATES, URINE NEGATIVE (NEGATIVE); BENZODIAZEPINE, URINE NEGATIVE (NEGATIVE); BUPRENORPHINE, URINE NEGATIVE (NEGATIVE); CANNABINOID, URINE NEGATIVE (NEGATIVE); COCAINE, URINE NEGATIVE (NEGATIVE); ECSTASY, URINE NEGATIVE (NEGATIVE); FENTANYL, URINE POSITIVE (NEGATIVE); METHADONE, URINE POSITIVE (NEGATIVE); OPIATES, URINE NEGATIVE (NEGATIVE); OXYCODONE, URINE NEGATIVE (NEGATIVE); PHENCYCLIDINE, URINE NEGATIVE (NEGATIVE)
[2023-09-06] MEDS ORDERED: LACTATED RINGER'S 1,000 ML IV ONE (18:15)
[2023-09-06 19:34] LABS: ANION GAP 21.2 (7-21); CALCIUM 7.8 mg/dL (8.5-10.1); CREATININE, SERUM 5.38 mg/dL (0.70-1.30); POTASSIUM 5.2 mmol/L (3.5-5.1)
[2023-09-06 19:36] LABS: BUN/CREATININE RATIO 34.2 (6.0-28.6)
[2023-09-06] MEDS ORDERED: SODIUM CHLORIDE 0.9% 1,000 ML IV SCH (20:45)
[2023-09-06 22:25] LABS: PH, VENOUS 7.297 (7.31-7.41)
[2023-09-06 22:40] LABS: INR 1.21 (0.80-1.30); PROTIME 14.9 Sec (11.2-14.2)
[2023-09-06 22:42] LABS: PARTIAL THROMBOPLASTIN TIME 30.2 Sec (22.9-41.3)
[2023-09-06 22:50] LABS: LACTIC ACID, BLOOD 0.8 mmol/L (0.4-2.0)
[2023-09-06 22:53] LABS: ANION GAP 20.3 (7-21); BUN/CREATININE RATIO 37.3 (6.0-28.6); CALCIUM 7.8 mg/dL (8.5-10.1); CREATININE, SERUM 5.12 mg/dL (0.70-1.30); POTASSIUM 5.3 mmol/L (3.5-5.1)
[2023-09-06] MEDS ORDERED: SODIUM CHLORIDE 0.45% 1,000 ML IV SCH (23:15)
[2023-09-06] MEDS ORDERED: HYDROCORTISONE SOD SUCCINATE 100 MG/2 ML VIAL IV ONE (23:15)
[2023-09-07 00:10] VITALS: BP 103/78
--- NOTE | 2023-09-07 00:53 | EKG ---
[facility] [address] [facility] [place] [address] Signed Atrial fibrillation Prolonged QT Abnormal ECG When compared with ECG of 25-JUL-2023 14:15, Previous ECG has undetermined rhythm, needs review Incomplete right bundle branch block is no longer present Borderline criteria for Anterior infarct are no longer present Borderline criteria for Anterolateral infarct are no longer present Confirmed by MAGALI WONG MD ([id number]) on 09/07/2023 12:53:45 AM Electronically Signed By: MAGALI WONG 09/07/23 0053 PATIENT NAME: MAUDEDAVID Electrocardiogram DATE OF : 65 PHYSICIAN: MAGALI WONG REPORT #: [id number] REPORT IS CONFIDENTIAL AND NOT TO BE RELEASED WITHOUT AUTHORIZATION
[2023-09-08 02:06] LABS: PROCALCITONIN 0.29 ng/mL (())
[2023-09-14] MEDS ORDERED: ATORVASTATIN CA20 MG PO (11:51)
== END 2023-09-07 00:12 | disposition short-term general hospital (02) ==
LOC: ED 15:29
PROVIDERS: Emergency Medicine; Internal Medicine
DX: N17.9 Acute kidney failure, unspecified (principal); F17.200 Nicotine dependence, unspecified, uncomplicated; Z88.0 Allergy status to penicillin; Z88.8 Allergy status to other drugs, medicaments and biological substances; Z91.02 Food additives allergy status
CPT/HCPCS: 36415; 51702; 71045; 74176; 80048; 80053; 80307; 81001; 82553; 82803; 83605; 84484; 85025; 85610; 85730; 99285-25; G0480; J1720; J7030; J7121

== ENCOUNTER 2023-10-14 12:47 | Inpatient (IN) | payer OTHER ==
[~2023-10-14] VITALS: Ht 165.1 cm; Wt 68.0 kg
[2023-10-14] MEDS ORDERED: KETOROLAC TROMETHAMINE 15 MG/ML VIAL IV ONE (17:15)
[2023-10-14] MEDS ORDERED: HYDROmorphone HCL 1 MG/ML SYR IV PRN (17:15)
[2023-10-14] MEDS ORDERED: methylPREDNISolone SOD SUCC 125 MG/2 ML VIAL IV ONE (17:15)
[2023-10-14] MEDS ORDERED: SODIUM CHLORIDE 0.9% 1,000 ML IV ONE (17:15)
[2023-10-14 17:26] LABS: HEMATOCRIT 38.7 % (35.0-50.0); HEMOGLOBIN 13.7 g/dL (12.0-18.0); MCH 30.7 (27-36); MCHC 35.3 g/dl (30-36); MCV 86.9 fl (81-99); PLATELET COUNT 267 K/uL (140-440); RBC 4.45 M/ul (4.3-5.7); RDW 15.7 (10.5-15.0)
[2023-10-14 17:38] LABS: ALBUMIN 3.3 g/dL (3.4-5.0); ALBUMIN/GLOBULIN RATIO 0.58 (1.1-2.4); ANION GAP 12.6 (7-21); BILIRUBIN, TOTAL 5.7 ng/dL (0.2-1.0); BUN/CREATININE RATIO 22.48 (6.0-28.6); CALCIUM 8.9 mg/dL (8.5-10.1); CREATININE, SERUM 2.09 mg/dL (0.70-1.30); POTASSIUM 2.6 mmol/L (3.5-5.1)
[2023-10-14 17:42] LABS: MONOCYTES, MANUAL DIFF 12; NEUTROPHILS, MANUAL DIFF 88
[2023-10-14] MEDS ORDERED: POTASSIUM CHLORIDE 10 MEQ TABCR PO ONE ×2 (19:00→23:00)
[2023-10-14] MEDS ORDERED: HYDROCODONE/ACETA 7.5/325 TAB PO ONE (19:00)
[2023-10-14] MEDS ORDERED: POTASSIUM CHLORIDE 10 MEQ/100 ML BAG IV ONE (19:00)
[2023-10-14] MEDS ORDERED: MAGNESIUM SULFATE 4 GM/100 ML BAG IV ONE (20:15)
[2023-10-14 20:26] LABS: BILIRUBIN, URINE NEGATIVE (negative); BLOOD/HGB, URINE TRACE-I (Negative); KETONE, URINE NEGATIVE (Negative); LEUK ESTERASE, URINE NEGATIVE (negative); NITRITE, URINE NEGATIVE (negative)
[2023-10-14 20:34] LABS: EPITHELIAL CELLS, URINE SQUAMOUS 1+ /lpf (0-1+)
[2023-10-14 20:35] LABS: BACTERIA, URINE RARE /hpf (negative); CASTS, URINE NONE SEEN \\lpf; CRYSTALS, URINE NONE SEEN (0-1+); RED BLOOD CELLS, URINE 0-1 /hpf (0-5); REFLEX CULTURE, URINE No (No); WHITE BLOOD CELLS, URINE 0-1 /HPF (0-5)
[2023-10-14] MEDS ORDERED: ondansetron HCL 4 MG/2 ML VIAL IV PRN (21:15)
[2023-10-14] MEDS ORDERED: PROCHLORPERAZINE EDISYLATE 10 MG/2 ML VIAL IV PRN (21:15)
[2023-10-14] MEDS ORDERED: KETOROLAC TROMETHAMINE 15 MG/ML VIAL IV PRN (22:00)
[2023-10-14 22:17] VITALS: BP 92/63
--- NOTE | 2023-10-14 22:20 | NUR ---
PATIENT TO FLOOR VIA STRETCHER BY THIS RN. REPORT RECIEVED FROM PROVIDER NETWORK MANAGER. PATIENT SLID FROM STRETCHER TO BED INDEPENDENTLY. VS OBTAINED AND RECORDED. TELE PLACED ON PATIENT. FRESH WATER AND WARM BLANKET PROVIDED. BED ALARM ON FOR SAFETY. ASSESSMENT COMPLETE. PATIENT EDUCATED TO ROOM AND CALL LIGHT. IV FLUSHED WNL. NO FURTHER NEEDS. CALL LIGHT IN REACH.
[2023-10-14 22:31] LABS: ANION GAP 13.9 (7-21); BUN/CREATININE RATIO 27.27 (6.0-28.6); CALCIUM 8.5 mg/dL (8.5-10.1); CREATININE, SERUM 1.87 mg/dL (0.70-1.30); POTASSIUM 2.9 mmol/L (3.5-5.1)
[2023-10-14] MEDS ORDERED: DEXTROSE 5% 1,000 ML IV SCH (22:45)
[2023-10-14] MEDS ORDERED: APIXABAN 5 MG TAB PO SCH (22:45)
--- NOTE | 2023-10-14 23:00 | NUR ---
THIS RN CALLED MD ABOUT PATIENT LOW BP, AND K+ LABS. MD PLACING ORDERS. INFORMED BY MD TO CALL ABOUT AN INCREASE IN NA+, IF THERE IS AN INCREASE AT 0200 LAB DRAW. MD ALSO INFORMED THIS RN TO CALL IF BP DOES NOT IMPROVE.
--- NOTE | 2023-10-14 23:45 | NUR ---
NEW BAG IV FLUID INFUSING PER ORDER. SCHEDULED MEDICATION ADMINSITERED PER ORDER. PATIENT HYUN WELL. PATIENT BELONGINGS IN SAH BAG. 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 PATIENT REQUESTING SANDWICH BOX. SANDWICH BOX PROVIDED. PATIENT HAS NO FURTHER NEEDS. BED ALARM AND FALL MATS PLACED FOR SAFETY. CALL LIGHT IN REACH.
[2023-10-15] VITALS (8 sets, daily range): BP systolic 92–104; BP diastolic 52–68
--- NOTE | 2023-10-15 01:13 | NUR ---
PATIENT RESTING IN BED ON BACK WITH EYES CLOSED. RESPIRATIONS EVEN AND UNLABORED. CALL LIGHT IN REACH,
--- NOTE | 2023-10-15 02:14 | NUR ---
PATIENT RESTNG IN BED. VS AND I&Os OBTAINED AND RECORDED. PATIENT REPORTS 5/10 PAIN IN R 5TH FINGER, R ELBOW, AND L KNEE. PRN PAIN MEDICATION ADMINISTERED. PATIENT DENIES FURTHER NEEDS AT THIS TIME. CALL LIGHT IN REACH. BED ALARM ON FOR SAFETY.
[2023-10-15 02:27] LABS: ANION GAP 12.8 (7-21); BUN/CREATININE RATIO 25.49 (6.0-28.6); CALCIUM 8.5 mg/dL (8.5-10.1); CREATININE, SERUM 2.04 mg/dL (0.70-1.30); POTASSIUM 2.8 mmol/L (3.5-5.1)
--- NOTE | 2023-10-15 03:15 | NUR ---
Went to check on patient as bed alarm goes off, he was sitting up in bed. He said he needed to go bathroom and I assisted him with the urinal. He had voided 400.
--- NOTE | 2023-10-15 04:13 | NUR ---
DR HOFFMAN MADE AWARE OF MOST RECENT POTASSIUM RESULT OF 2.8-PREVIOUSLY 2.9. TELEPHONE ORDER READ BACK FOR ONE TIME DOSE 40MEQ POTASSIUM CHLORIDE PO. THIS RN TO PUT IN ORDER, PRIMARY RN XIN AWARE AND TO ADMINISTER.
[2023-10-15] MEDS ORDERED: POTASSIUM CHLORIDE 10 MEQ TABCR PO ONE ×2 (04:15→17:45)
--- NOTE | 2023-10-15 04:30 | NUR ---
PATIENT RESTING IN BED. SCHEDULED MEDICATION ADMINISTERED. PATIENT REQUESTING FOOD. APPLESAUCE AND PUDDING PROVIDED. NO FURTHER NEEDS. CALL LIGHT IN REACH. BED ALARM ON FOR SAFETY.
--- NOTE | 2023-10-15 05:23 | NUR ---
PATIENT RESTING IN BED. VS AND I&Os OBTAINED AND RECORDED. BED ALARM ON FOR SAFETY. NO FURTHER NEEDS. CALL LIGHT IN REACH.
[2023-10-15 05:29] LABS: BASOPHILS 0.2 % (0-2); HEMATOCRIT 35.7 % (35.0-50.0); HEMOGLOBIN 12.5 g/dL (12.0-18.0); LYMPHOCYTES 3.7 % (24-44); MCH 30.6 (27-36); MCHC 35.1 g/dl (30-36); MCV 87.3 fl (81-99); MONOCYTES 6.3 % (0-12); NEUTROPHILS 89.8 % (39-80); PLATELET COUNT 278 K/uL (140-440); RBC 4.09 M/ul (4.3-5.7)
[2023-10-15 05:44] LABS: ALBUMIN 2.7 g/dL (3.4-5.0); ALBUMIN/GLOBULIN RATIO 0.52 (1.1-2.4); ANION GAP 13.8 (7-21); BILIRUBIN, TOTAL 3.6 ng/dL (0.2-1.0); BUN/CREATININE RATIO 31.25 (6.0-28.6); CALCIUM 8.7 mg/dL (8.5-10.1); CREATININE, SERUM 1.92 mg/dL (0.70-1.30); MAGNESIUM 2.8 mg/dL (1.8-2.4); PHOSPHORUS, INORGANIC 2.7 mg/dL (2.5-4.9); POTASSIUM 2.8 mmol/L (3.5-5.1); PROTEIN, TOTAL 7.9 g/dL (6.4-8.2)
--- NOTE | 2023-10-15 06:03 | NUR ---
DR HOFFMAN MADE AWARE pt'S TELE HAS BEEN IN AFIB, RATE WNL 60-80'S DURING THE NIGHT. pt REPORTS HX OF AFIB AND PREVIOUS DC SUMMARY/EKG SHOWS AFIB. MD ALSO MADE AWARE OF MOST RECENT BP RESULT OF 92/53. NO NEW ORDERS RECEIVED AT THIS TIME.
--- NOTE | 2023-10-15 06:15 | NUR ---
Patient called to ask about breakfast. Gave him the phone and food menu with cafeteria number to order breakfast. Also assisted with urinal. Nothing else needed at this time. Call light within reach.
[2023-10-15] MEDS ORDERED: POTASSIUM CHLORIDE 40 MEQ in DEXTROSE 5% 250 ML IV ONE ×2 (07:45→09:00)
[2023-10-15] MEDS ORDERED: NAPROXEN 500 MG TAB PO PRN (08:00)
--- NOTE | 2023-10-15 08:51 | NUR ---
PATIENT IN BED AT THIS TIME. CALL LIGHT WITHIN REACH, NO FURTHER NEEDS AT THIS TIME.
--- NOTE | 2023-10-15 09:15 | NUR ---
ASSESSMENT COMPLETE - PT ALERT AND ORIENTED, MOOD LABILE AND PAINFUL WITH MOVEMENT TO BEDSIDE COMMODE. BM PRODUCED. BED BATH COMPLETE, LINENS CHANGED. PRN NAPROXEN GIVEN FOR PAIN. CALL LIGHT IN REACH, BED ALARM ON.
[2023-10-15] MEDS ORDERED: METOLAZONE5 MG PO (09:57)
[2023-10-15] MEDS ORDERED: TAMSULOSIN HCL0.4 MG PO (09:58)
[2023-10-15] MEDS ORDERED: TORSEMIDE20 MG PO (10:00)
[2023-10-15] MEDS ORDERED: DEXTROSE 5% 1,000 ML IV SCH (10:15)
[2023-10-15 10:25] LABS: ANION GAP 15.2 (7-21); BUN/CREATININE RATIO 33.67 (6.0-28.6); CALCIUM 8.9 mg/dL (8.5-10.1); CREATININE, SERUM 1.96 mg/dL (0.70-1.30); POTASSIUM 3.2 mmol/L (3.5-5.1)
--- NOTE | 2023-10-15 10:25 | NUR ---
PT NOTED TO BE CRYING, NOT CONSOLABLE, R/T PAIN AT K+ INFUSION INTO IV SITE. MD CONSULTED, PHARMACY CONSULTED REGARDING NEW [facility] POLICY OF NOT USING LIDOCAINE IN BAG. NEW IVF ORDERS RECIEVED.
[2023-10-15] MEDS ORDERED: DOCUSATE SODIU100 MG PO (10:34)
--- NOTE | 2023-10-15 10:35 | NUR ---
MED REC COMPLETE
--- NOTE | 2023-10-15 10:58 | NUR ---
NEW IV STARTED IN RIGHT HAND DUE TO PT EXPERIENCING PAIN FROM K+ INFUSION IN OTHER IV SITE. RUNNING CONCURENTLY WITH IVF. PT TOLERATED INSERTION POORLY, CRYING AND UNABLE TO SIT STILL. NOW SLEEPING IN BED WITH BED ALARM ON AND CALL LIGHT IN REACH.
--- NOTE | 2023-10-15 11:20 | NUR ---
UR CLINICAL REVIEW: [facility]- [facility] FOR INPATIENT CRITERIA FOR ELECTROLYTE IMBALANCES [facility] INPT 10/14/23 AT 2109 ORDER MATCHES STATUS AUTH PENDING CLINICAL REVIEW, CLINICALS FAXED TO [facility]. PLAN TO DC TO HOME WHEN READY. 10/18/23
[2023-10-15] MEDS ORDERED: PHARMACY RENAL DOSE ADJUSTMENT 1 DOSE MISC PO SCH (12:00)
[2023-10-15] MEDS ORDERED: TAMSULOSIN HCL 0.4 MG CAP PO SCH (12:29)
--- NOTE | 2023-10-15 12:42 | NUR ---
PT SITTING UP IN BED EATING LUNCH. PT CALM AND WITHOUT SIGNS OF PAIN. CALL LIGHT IN REACH.
--- NOTE | 2023-10-15 14:30 | NUR ---
PT RESTING IN BED ON CELL PHONE WITHOUT S/S OF PAIN. ASSESMENT UNCHANGED FROM PREVIOUS.
--- NOTE | 2023-10-15 15:04 | NUR ---
SPOKE TO PATIENT ABOUT THE DISCHARGE PLAN. PATIENT CONSTANTLY MOVES AROUND IN BED. DENIES EHOH OR DRUGS AT THIS TIME. PATIENT GETS MONEY FROM THE STATE AND GETS FOOD STAMPS PATIENT USES A CANE MOST OF THE TIME.PATIENT HAS FILED FOR DISABILITY. PATIENT HAS FAMILY THAT HELPS NEEDED. PATIENT CAN DO HIS OWN ADLS. PATIENT DOES NOT HAVE ANY DISCHARGE NEEDS AT THIS.PATIENT WILL BE HERE 1-2 DAYS TO INCREASE SODIUW LEVEL AND TREAT PAIN FROM GROUTY ARTHRITIS.
[2023-10-15 16:19] LABS: ANION GAP 12.9 (7-21); BUN/CREATININE RATIO 38.01 (6.0-28.6); CREATININE, SERUM 1.71 mg/dL (0.70-1.30); POTASSIUM 2.9 mmol/L (3.5-5.1)
--- NOTE | 2023-10-15 16:30 | NUR ---
PATIENT IN BED AT THIS TIME. RN ASSISTED PATIENT TO RESTROOM AND THEN SPACE AND MISSILE OPERATIONS SPACELIFT ASSISTED PATIENT GETTING BACK TO BED FROM RESTROOM. PATIENT HAS BOWEL MOVEMENT. CALL LIGHT WITHIN REACH, NO FURTHER NEEDS AT THIS TIME.
--- NOTE | 2023-10-15 17:34 | NUR ---
PT NOTED TO HAVE 6 BEATS OF VTACH ON TELE - NO CHANGE IN ASSESSMENT, PT DENIES FEELING CHANGES, SITTING IN BED WATCHING TV. EKG REQUESTED BY MD - RT NOTIFIED.
[2023-10-15] MEDS ORDERED: SODIUM CHLORIDE 0.9% 1,000 ML IV SCH (17:45)
[2023-10-15] MEDS ORDERED: methylPREDNISolone SOD SUCC 125 MG/2 ML VIAL IV SCH (18:00)
--- NOTE | 2023-10-15 19:30 | NUR ---
pt assisted up to the toilet with SBA and IV POLE management, urinal emptied, pt back to bed
--- NOTE | 2023-10-15 19:45 | NUR ---
REPORT RECIEVED FROM DAY SHIFT RN. PATIENT RESTING IN BED WITH ICE HOUSE SUPERVISOR ROOM. PATINT DENIES CURRENT NEEDS. CALL LIGHT IN REACH.
--- NOTE | 2023-10-15 20:47 | NUR ---
CALL LIGHT ANSWERED. WARM BLANKET REQUESTED. WARM BLANKET PROVIDED. SCHDULED MEDICATIONS ADMINISTERED. VS AND I&Os OBTAINED AND RECORDED. FRESH ICE PROVIDED PER PATIENT REQUEST. IV FLUSHED WNL. ASSESSMENT COMPLETE. R PINKY JOINT, R ELBOW, AND L KNEE HAS MINIMAL SWELLING NOTED. PATIENT STATES "IT IS GETTING BETTER". PATIENT HAS NO FURTHER NEEDS. CALL LIGHT IN REACH.
--- NOTE | 2023-10-15 22:10 | NUR ---
IN TO EMPTY URINAL, ICE WATER FILLED, PUDDING PROVIDED, NO FURTHER NEEDS AT THIS TIME
[2023-10-15 22:11] LABS: ANION GAP 14.1 (7-21); BUN/CREATININE RATIO 42.76 (6.0-28.6); CREATININE, SERUM 1.52 mg/dL (0.70-1.30); POTASSIUM 3.1 mmol/L (3.5-5.1)
[2023-10-16] VITALS (9 sets, daily range): BP systolic 112–140; BP diastolic 61–78
--- NOTE | 2023-10-16 00:16 | NUR ---
PATIENT RESTING IN BED ON BACK. PATIENT DENIES NEEDS AT THIS TIME. CALL LIGHT IN REACH.
--- NOTE | 2023-10-16 01:55 | NUR ---
PT CALLING FROM THE TOILET WITH THE PULL STRING, PT FINISHED IN THE RR, BACK IN BED, VS CHECKED, PT ASKING FOR A LATE SNACK, PROVIDED A SANDWICH BOX, FRESH ICE CHIPS, NO FURTHER NEEDS AT THIS TIME
--- NOTE | 2023-10-16 03:30 | NUR ---
PT CALLED FOR RM TEMP TO BE AJUSTED, WARM BLANKET, IV ALARMING NOW, RN ALARTED TO PUMP
--- NOTE | 2023-10-16 03:38 | NUR ---
IV PUMP ALARMING. NEW BAG IV FLUID INFUSING PER ORDER. NO FURTHER NEEDS. CALL LIGHT IN REACH.
--- NOTE | 2023-10-16 05:11 | NUR ---
PATIENT RESTING IN BED REQUESTING PUDDING. PUDDING PROVIDED. ASSESSMENT COMPLETE. PATIENT HAS NO FURTHER NEEDS AT THIS TIME. CALL LIGHT IN REACH.
[2023-10-16 05:17] LABS: BASOPHILS 0.2 % (0-2); HEMATOCRIT 34.4 % (35.0-50.0); HEMOGLOBIN 11.8 g/dL (12.0-18.0); LYMPHOCYTES 1.9 % (24-44); MCH 29.9 (27-36); MCHC 34.2 g/dl (30-36); MCV 87.5 fl (81-99); MONOCYTES 3.5 % (0-12); NEUTROPHILS 94.4 % (39-80); PLATELET COUNT 320 K/uL (140-440); RBC 3.93 M/ul (4.3-5.7); RDW 15.7 (10.5-15.0)
[2023-10-16 05:30] LABS: ALBUMIN 2.5 g/dL (3.4-5.0); ALBUMIN/GLOBULIN RATIO 0.53 (1.1-2.4); BILIRUBIN, TOTAL 1.3 ng/dL (0.2-1.0); BUN/CREATININE RATIO 45.63 (6.0-28.6); CALCIUM 8.4 mg/dL (8.5-10.1); CREATININE, SERUM 1.49 mg/dL (0.70-1.30); MAGNESIUM 2.1 mg/dL (1.8-2.4); PROTEIN, TOTAL 7.2 g/dL (6.4-8.2)
--- NOTE | 2023-10-16 07:06 | NUR ---
Pt report received from IONA Esquivel. Pt is resting in bed on his left side, breathing regular, even, and non-labored. Side rails up x4, call light in reach.
[2023-10-16] MEDS ORDERED: POTASSIUM CHLORIDE 10 MEQ TABCR PO ONE (09:00)
--- NOTE | 2023-10-16 09:27 | NUR ---
PATIENT LYING IN BED VITALS AND I/O'S COMPLETED, ICE WATER GIVEN. PT HAS NO OTHER REQUESTS AT THIS TIME. CALL LIGHT WITHIN REACH.
--- NOTE | 2023-10-16 12:12 | NUR ---
PT IS UP IN THE CHAIR FOR LUNCH AFTER SHOWERING EARLIER. IV SITE IS PATENT, FLUSHES WELL, GOOD RETURN, DRESSING CHANGE PERFORMED HE GOT THE SITE WET AND THE DRESSING WAS LOOSE. IVF INFUSING PER EMAR. CALL LIGHT IN REACH, DENIES FURTHER NEEDS AT THIS TIME.
[2023-10-16] MEDS ORDERED: KETOROLAC TROMETHAMINE 10 MG TAB PO PRN (14:00)
[2023-10-16] MEDS ORDERED: predniSONE 20 MG TAB PO SCH (16:00)
[2023-10-16] MEDS ORDERED: methylPREDNISolone SOD SUCC 125 MG/2 ML VIAL IV SCH (16:00)
--- NOTE | 2023-10-16 19:51 | NUR ---
RECEIVED REPORT FROM DAY SHIFT RN. PATIENT IS RESTING IN BED TALKING ON THE CELLPHONE. NO NEEDS NOTED. CALL LIGHT IN REACH.
--- NOTE | 2023-10-16 20:20 | NUR ---
CALL LIGHT ON, IN TO RECORD VOID IN PTs URINAL, PT ICE CHIPS FILLED, VS CHECKED
--- NOTE | 2023-10-16 21:45 | NUR ---
CALL LIGHT ON, PT REQUESTING A SNACK, PUDDING AND CHEESE BROUHGT IN FOR PT, ICE CHIPS FILLED
--- NOTE | 2023-10-16 22:37 | NUR ---
PATIENT IS RESTING IN BED WATCHING TV. PATIENTS PM MEDS GIVEN PER ORDER. PATIENT REPORTS 4/10 PAIN, PRN PAIN MEDICATION GIVEN PER ORDER. PATIENTS IV INFUSING PER ORDER. ASSESMENT COMPLETED. PATIENT PROVIDED WARM BLANKET AND FRESH ICE WATER. PATIENT DENIES ANY FURTHER NEEDS. CALL LIGHT IN REACH.
--- NOTE | 2023-10-16 23:26 | EKG ---
[facility] [address] [facility] [place] [address] Signed Atrial fibrillation Cannot rule out Inferior infarct , age undetermined Abnormal ECG When compared with ECG of 06-SEP-2023 16:25, Minimal criteria for Inferior infarct are now present Nonspecific T wave abnormality now evident in Anterolateral leads Confirmed by Mona Hoffman MD () on 10/16/2023 11:25:59 PM Electronically Signed By: MONA HOFFMAN MD 10/16/23 2326 PATIENT NAME: MAUDEDAVID ALICIA Electrocardiogram DATE OF : 65 PHYSICIAN: MONA HOFFMAN MD REPORT #: [id number] REPORT IS CONFIDENTIAL AND NOT TO BE RELEASED WITHOUT AUTHORIZATION
[2023-10-17] VITALS (8 sets, daily range): BP systolic 112–132; BP diastolic 63–97
--- NOTE | 2023-10-17 00:09 | NUR ---
PATIENT IS RESTING IN BED ON HIS LEFT SIDE WITH EYES CLSOED, RR 19 CALL LIGHT IN REACH.
--- NOTE | 2023-10-17 02:19 | NUR ---
PATIENT IS RESTING IN BED ON BACK. VITALS TAKEN AND RECORDED. INTAKE AND OUTPUT RECORDED. IV INFUSING PER ORDER. PATIENT DENIES ANY NEEDS. FRESH ICE WATER PROVIDED. CALL LIGHT IN REACH.
--- NOTE | 2023-10-17 04:12 | NUR ---
PATIENT IS RESTING IN BED WATCHING TV. PATIENT PROVIDED FRESH ICE WATER. NO FURTHER NEEDS NOTED. CALL LIGHT IN REACH.
--- NOTE | 2023-10-17 05:24 | NUR ---
PATIENT PROVIDED FRESH ICE WATER AND WARM BLANKET. PATIENTS VITALS TAKEN AND RECORDED. PATIENTS INTAKE AND OUTPUT RECORDED. PATIENTS IV INFUSING PER ORDER. PATIENT DENIES ANY FURTHER NEEDS. CALL LIGHT IN REACH.
[2023-10-17 05:31] LABS: BASOPHILS 0.1 % (0-2); HEMATOCRIT 35.6 % (35.0-50.0); HEMOGLOBIN 11.7 g/dL (12.0-18.0); LYMPHOCYTES 2.9 % (24-44); MCH 29.6 (27-36); MCV 89.5 fl (81-99); MONOCYTES 4.4 % (0-12); NEUTROPHILS 92.6 % (39-80); PLATELET COUNT 336 K/uL (140-440); RBC 3.97 M/ul (4.3-5.7); RDW 15.7 (10.5-15.0)
[2023-10-17 05:42] LABS: ALBUMIN 2.3 g/dL (3.4-5.0); ALBUMIN/GLOBULIN RATIO 0.55 (1.1-2.4); ANION GAP 12.6 (7-21); BILIRUBIN, TOTAL 0.8 ng/dL (0.2-1.0); BUN/CREATININE RATIO 40.56 (6.0-28.6); CALCIUM 8.4 mg/dL (8.5-10.1); CREATININE, SERUM 1.06 mg/dL (0.70-1.30); POTASSIUM 3.6 mmol/L (3.5-5.1); PROTEIN, TOTAL 6.5 g/dL (6.4-8.2)
--- NOTE | 2023-10-17 07:30 | NUR ---
RECEIVED REPORT FROM IONA VEGA. PT RESTING IN BED WITH EYES CLOSED, RR EVEN AND UNLABORED. CALL LIGHT WITHIN REACH.
[2023-10-17] MEDS ORDERED: KETOROLAC TROME10 MG PO (10:17)
--- NOTE | 2023-10-17 10:19 | NUR ---
PT SITTING UP IN BED, REQUESTS LEMON ICEE, GIVEN. PT STATES PAIN IS 4/10 IN HIS JOINTS AT THIS TIME, REQUESTS PRN PAIN MEDICATION, GIVEN. PT TAKES PO MEDICATION W/O DIFFICULTY. TELE REMAINS IN PLACE. PT CONTINUES TO HAVE MINIMAL SWELLING TO SCROTAL AREA. PT STATES NO NEEDS AT THIS TIME, CALL LIGHT WITHIN REACH.
[2023-10-17] MEDS ORDERED: PREDNISONE20 MG PO (10:29)
[2023-10-17] MEDS ORDERED: predniSONE 20 MG TAB PO ONE (10:30)
[2023-10-17] MEDS ORDERED: OMEPRAZOLE40 MG PO (10:31)
[2023-10-17] MEDS ORDERED: PANTOPRAZOLE SODIUM 40 MG TABEC PO ONE (10:45)
--- NOTE | 2023-10-17 11:40 | NUR ---
TELE DC'D D/T DC ORDER.
--- NOTE | 2023-10-17 12:30 | NUR ---
PT DRESSES SELF IN OWN CLOTHES, IV DC'D WNL, VSS, PERSONAL BELONGINGS LEAVING WITH PT. TE CALLED FOR PT, PT AMBULATES TO WHEELCHAIR, DC PACKET AND EDUCATION GIVEN, PT VERBALIZES UNDERSTANDING. PT WHEELED TO FRONT OF BUILDING BY NURSING PERSONEL.
== END 2023-10-17 12:30 | disposition home or self-care (01) | DRG 554 ==
LOC: ED 12:47 → MS 21:20
PROVIDERS: Emergency Medicine; ADMIT Family Medicine; ATTEND Family Medicine
DX: M10.9 Gout, unspecified (principal); E87.1 Hypo-osmolality and hyponatremia; N17.9 Acute kidney failure, unspecified; E87.6 Hypokalemia; E80.6 Other disorders of bilirubin metabolism; I50.9 Heart failure, unspecified; E83.42 Hypomagnesemia; D72.829 Elevated white blood cell count, unspecified; I48.91 Unspecified atrial fibrillation; F15.10 Other stimulant abuse, uncomplicated; F11.10 Opioid abuse, uncomplicated; F31.9 Bipolar disorder, unspecified; E86.0 Dehydration; F20.9 Schizophrenia, unspecified; F17.210 Nicotine dependence, cigarettes, uncomplicated; Z98.890 Other specified postprocedural states; Z88.0 Allergy status to penicillin; Z88.8 Allergy status to other drugs, medicaments and biological substances; Z79.01 Long term (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; Z79.899 Other long term (current) drug therapy
CPT/HCPCS: 36415; 80048; 80053; 81001; 82248; 83735; 84100; 84550; 85025; 85060; 93005; 93010; 96361; 96365; 96366; 96367; 96375; 99284-25; A9270; J1170; J1885; J2919; J3475; J3480; J7030; J7060; J7070; J7512

== ENCOUNTER 2023-11-12 14:37 | Emergency (ER) | payer OTHER ==
[~2023-11-12] VITALS: Ht 165.1 cm; Wt 71.4 kg
[~2023-11-12 14:37] MED LIST changes: +DOCUSATE SODIU100 MG PO; +ENTRESTO 24 MG1 EACH PO; +KETOROLAC TROME10 MG PO; +METOLAZONE5 MG PO; +OMEPRAZOLE40 MG PO; +PREDNISONE20 MG PO; +TAMSULOSIN HCL0.4 MG PO; +TORSEMIDE20 MG PO
--- OUTSIDE RECORDS SUMMARY | 2023-11-12 16:13 | XMS ---
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 Security Endoscopy Rn Events No recent Security Events currently on file CRITERIA MET - 6 ED Visits in 6 Months - [facility] - 2 Visits in 30 Days - [facility] - Has Care Guidelines CARE PROVIDERS -, [facility] Dentist: Materials Intern [facility] PHONE: [phone] -[place]- Dentist: Materials Intern Current [facility] PHONE: [phone] CUCA DURAN/[place]: [facility] PHONE: Unknown CECI URIOSTEGUI Nurse Practitioner: Family Current PHONE: [phone] DAVID BEVERLY [facility] Current PHONE: [phone] Bella has no Care Guidelines for this patient. Care History Medical/Surgical 08/03/2022 [facility] This patient has no showed/cancelled all 5 appointments with PCP this , 2022. [place] [facility] (12 MO[address] [facility] NOTE: Visits indicate total known visits. ED/UCC VISIT TRACKING (12 MO.) 11/12/2023 14:37 [facility] [place] TYPE: Emergency COMPLAINT: - HYPERTENSION 11/08/2023 09:22 [facility] [place] TYPE: Emergency COMPLAINT: - HANDS SWELLING 10/14/2023 12:48 [facility] [place] TYPE: Emergency COMPLAINT: - GOUT SYMPTOMS 09/14/2023 11:41 [facility] [place] TYPE: Emergency COMPLAINT: - VOMITING DIAGNOSES: - Allergy status to other drugs, medicaments and biological substances - Allergy status to penicillin - Heart failure, unspecified - CHCF (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 - Nausea with vomiting, unspecified - Nicotine dependence, unspecified, uncomplicated - Other mcc (current) drug therapy - Unilateral inguinal hernia, without obstruction or gangrene, not specified as recurrent 09/06/2023 15:29 [facility] [place] TYPE: Emergency COMPLAINT: - POSS HERNIA DIAGNOSES: - Acute kidney failure, unspecified - Allergy status to other drugs, medicaments and biological substances - Allergy status to penicillin - Food additives allergy status - Nicotine dependence, unspecified, uncomplicated - Unspecified abdominal pain 08/13/2023 23:58 [facility] [place] TYPE: Emergency COMPLAINT: - POSS OD DIAGNOSES: - Allergy status to analgesic agent - Allergy status to penicillin - Bipolar disorder, unspecified - Heart failure, unspecified - moth exterminator (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 - Nicotine dependence, unspecified, uncomplicated - Other mcc (current) drug therapy - Other nonmedicinal substance [...] Heart failure, unspecified - Hypotension, unspecified - moth exterminator (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 - Nicotine dependence, unspecified, uncomplicated - Other mcc (current) drug therapy - Other nonmedicinal substance [...] to drugs and biological substances - Other moth exterminator (current) drug therapy - Pneumonia, unspecified organism - Unspecified atrial fibrillation 12/12/2022 07:11 [facility] [place] TYPE: Emergency COMPLAINT: - WOUND CHECK DIAGNOSES: - Allergy status to analgesic agent - Allergy status to penicillin - Cutaneous abscess of perineum - Encounter for change or removal of nonsurgical wound dressing - Nicotine dependence, unspecified, uncomplicated - Other mcc (current) drug therapy - Other nonmedicinal substance allergy status 12/10/2022 13:26 [facility] [place] TYPE: Emergency COMPLAINT: - SKIN PROBLEM, LOW B/P, HIGH HEART RATE DIAGNOSES: - Allergy status to analgesic agent - Allergy status to penicillin - Cutaneous abscess of perineum - Local infection of the skin and subcutaneous tissue, unspecified - Nicotine dependence, unspecified, uncomplicated - Radiographic dye allergy status INPATIENT VISIT TRACKING (12 MO.) 11/08/2023 09:23 [facility] [place] TYPE: Observation COMPLAINT: - HYPOTENSION DIAGNOSES: - Allergy status to analgesic agent - Allergy status to penicillin - Heart failure, unspecified - Hyperuricemia without signs of inflammatory arthritis and tophaceous disease - Hypo-osmolality and hyponatremia - Hypokalemia - Hypomagnesemia - Hypotension, unspecified - CHCF (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 - Nicotine dependence, unspecified, uncomplicated - Other mcc (current) drug therapy - Radiographic dye allergy status 10/14/2023 21:20 [facility] [place] TYPE: Medical Surgical COMPLAINT: - GOUTY ARTHRITIS DIAGNOSES: - Acute kidney failure, unspecified - Allergy status to other drugs, medicaments and biological substances - Allergy status to penicillin - Bipolar disorder, unspecified - Dehydration - Elevated white blood cell count, unspecified - Gout, unspecified - Heart failure, unspecified - Hypo-osmolality and hyponatremia - Hypokalemia - Hypomagnesemia - moth exterminator (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 - Nicotine dependence, cigarettes, uncomplicated - Opioid abuse, uncomplicated - Other disorders of bilirubin metabolism - Other mcc (current) drug therapy - Other specified postprocedural states - Other stimulant abuse, uncomplicated - Schizophrenia, unspecified - Unspecified atrial fibrillation [facility]23 [facility] COMPLAINT: - LENO vs undiagnosed ckd DIAGNOSES: 0. Acute kidney failure, unspecified 1. Acute kidney failure, unspecified 2. Hypo-osmolality and hyponatremia 3. Chronic systolic (congestive) heart failure 4. Chronic kidney disease, unspecified 5. Other disorders of phosphorus metabolism 6. Hyperkalemia 7. Atrophy of kidney (terminal) 8. Hypotension, unspecified 9. Hypovolemia 10. Syncope and collapse 11. Elevation of levels of liver transaminase levels 12. Other disorders of bilirubin metabolism 13. Diarrhea, unspecified 14. Unspecified atrial fibrillation 15. Bilateral inguinal hernia, without obstruction or gangrene, not specified as recurrent 16. Alcohol abuse, uncomplicated 17. Other stimulant abuse, uncomplicated 18. Personal history of nicotine dependence 19. Patient's noncompliance with other medical treatment and regimen due to unspecified reason 20. Allergy status to analgesic agent 21. moth exterminator (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 22. Other nonmedicinal substance allergy status 23. Presence of alcohol in blood, level not specified 07/25/2023 20:31 [facility] ([facility]na U[facility]) TYPE: Medical Surgical DIAGNOSES: [...] physiological condition - Respiratory Distress, PNA, CHF [email or web address]
[2023-11-12 17:26] LABS: EOSINOPHILS 4.1 % (0-6); HEMATOCRIT 30.3 % (35.0-50.0); HEMOGLOBIN 10.4 g/dL (12.0-18.0); LYMPHOCYTES 21.6 % (24-44); MCH 31.8 (27-36); MCHC 34.2 g/dl (30-36); MCV 92.8 fl (81-99); MONOCYTES 17.7 % (0-12); NEUTROPHILS 55.6 % (39-80); PLATELET COUNT 418 K/uL (140-440); RBC 3.26 M/ul (4.3-5.7); RDW 15.6 (10.5-15.0)
[2023-11-12 17:42] LABS: ALBUMIN 2.8 g/dL (3.4-5.0); ALBUMIN/GLOBULIN RATIO 0.76 (1.1-2.4); ANION GAP 12.6 (7-21); BILIRUBIN, TOTAL 0.8 ng/dL (0.2-1.0); BUN/CREATININE RATIO 15.43 (6.0-28.6); CALCIUM 8.2 mg/dL (8.5-10.1); CREATININE, SERUM 2.98 mg/dL (0.70-1.30); POTASSIUM 3.6 mmol/L (3.5-5.1); PROTEIN, TOTAL 6.5 g/dL (6.4-8.2)
[2023-11-12] MEDS ORDERED: SODIUM CHLORIDE 0.9% 500 ML IV PRN (18:30)
[2023-11-12 19:57] LABS: BILIRUBIN, URINE NEGATIVE (negative); BLOOD/HGB, URINE NEGATIVE (Negative); KETONE, URINE NEGATIVE (Negative); LEUK ESTERASE, URINE NEGATIVE (negative); NITRITE, URINE NEGATIVE (negative); PH, URINE 5.5 (5-7)
[2023-11-12] MEDS ORDERED: Dobutamine HCl/D5w 250 ML IV SCH (20:00)
[2023-11-12] MEDS ORDERED: ETOMIDATE 40 MG/20 ML VIAL IV ONE (20:30)
[2023-11-12 20:35] LABS: AMPHETAMINES, URINE POSITIVE (NEGATIVE); BARBITURATES, URINE NEGATIVE (NEGATIVE); BENZODIAZEPINE, URINE NEGATIVE (NEGATIVE); BUPRENORPHINE, URINE NEGATIVE (NEGATIVE); CANNABINOID, URINE NEGATIVE (NEGATIVE); COCAINE, URINE NEGATIVE (NEGATIVE); ECSTASY, URINE NEGATIVE (NEGATIVE); FENTANYL, URINE POSITIVE (NEGATIVE); METHADONE, URINE NEGATIVE (NEGATIVE); OPIATES, URINE NEGATIVE (NEGATIVE); OXYCODONE, URINE NEGATIVE (NEGATIVE); PHENCYCLIDINE, URINE NEGATIVE (NEGATIVE)
[2023-11-12] MEDS ORDERED: LORazepam 2 MG/ML VIAL ONE (21:02)
[2023-11-12] MEDS ORDERED: ETOMIDATE 40 MG/20 ML VIAL IV PRN (21:15)
[2023-11-12] MEDS ORDERED: LORazepam 2 MG/ML VIAL IV ONE (21:15)
[2023-11-12] MEDS ORDERED: HYDROmorphone HCL 1 MG/ML SYR IV ONE (21:45)
[2023-11-12] MEDS ORDERED: NOREPINEPHRINE BITARTRATE 250 ML IV ONE (21:47)
[2023-11-12] MEDS ORDERED: NOREPINEPHRINE BITARTRATE 250 ML IV SCH (22:00)
[2023-11-12 22:10] VITALS: BP 100/67
--- NOTE | 2023-11-13 22:07 | EKG ---
[facility] [address] [facility] [place] [address] Signed Atrial fibrillation Nonspecific T wave abnormality Prolonged QT Abnormal ECG When compared with ECG of 15-OCT-2023 17:39, Minimal criteria for Inferior infarct are no longer present Nonspecific T wave abnormality, improved in Inferior leads Nonspecific T wave abnormality no longer evident in Anterior leads QT has lengthened Confirmed by Mona Hoffman MD () on 11/13/2023 10:07:15 PM Electronically Signed By: MONA HOFFMAN MD 11/13/232206 PATIENT NAME: DAVID SANTORO Electrocardiogram DATE OF : 65 PHYSICIAN: MONA HOFFMAN MD REPORT #: [id number] REPORT IS CONFIDENTIAL AND NOT TO BE RELEASED WITHOUT AUTHORIZATION
== END 2023-11-12 22:10 | disposition home or self-care (01) ==
LOC: ED 14:37
PROVIDERS: Emergency Medicine
DX: I50.9 Heart failure, unspecified (principal); N17.9 Acute kidney failure, unspecified; I95.9 Hypotension, unspecified; F31.9 Bipolar disorder, unspecified; F17.200 Nicotine dependence, unspecified, uncomplicated; Z88.0 Allergy status to penicillin; Z88.6 Allergy status to analgesic agent; Z91.048 Other nonmedicinal substance allergy status; Z79.01 Long term (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; Z79.899 Other long term (current) drug therapy
CPT/HCPCS: 36415; 71045; 80053; 80307; 81003; 83605; 83880; 84484; 85025; 93005; 93010; J1170; J1250; J2060; J7040

== ENCOUNTER 2024-06-29 00:44 | Emergency (ER) | payer OTHER ==
[~2024-06-29] VITALS: Ht 165.1 cm; Wt 78.2 kg
[2024-06-29] MEDS ORDERED: HALOPERIDOL LACTATE 5 MG/ML VIAL IM ONE (01:00)
[2024-06-29] MEDS ORDERED: LORazepam 2 MG/ML VIAL IM ONE (01:00)
[2024-06-29] MEDS ORDERED: diphenhydrAMINE HCL 50 MG/ML VIAL IM ONE (01:00)
[2024-06-29] MEDS ORDERED: KETAMINE in NS 50 MG/5 ML SYR IV ONE (01:30)
[2024-06-29 01:33] LABS: EOSINOPHILS 0.9 % (0-6); HEMATOCRIT 34.9 % (35.0-50.0); HEMOGLOBIN 12.1 g/dL (12.0-18.0); LYMPHOCYTES 28.4 % (24-44); MCH 30.8 (27-36); MCHC 34.7 g/dl (30-36); MCV 88.7 fl (81-99); MONOCYTES 13.7 % (0-12); PLATELET COUNT 284 K/uL (140-440); RBC 3.94 M/ul (4.3-5.7); RDW 14.1 (10.5-15.0)
[2024-06-29 01:56] LABS: ACETAMINOPHEN 0 ug/mL (10-30); ALBUMIN 3.8 g/dL (3.4-5.0); ALCOHOL, MEDICAL <3 ng/dL (<3); ALKALINE PHOSPHATASE 137 U/L (46-116); ALT (SGPT) 18 U/L (14-59); ANION GAP 11.9 (7-21); AST (SGOT) 19 U/L (15-37); BILIRUBIN, TOTAL 0.8 mg/dL (0.2-1.0); BUN/CREATININE RATIO 18.49 (6.0-28.6); CALCIUM 9.3 mg/dL (8.5-10.1); CARBON DIOXIDE 31 mmol/L (21-32); CHLORIDE 102 mmol/L (98-107); CREATININE, SERUM 1.46 mg/dL (0.70-1.30); GLOMERULAR FILTRATION RATE,EST 55 mL/min (>60); POTASSIUM 3.9 mmol/L (3.5-5.1); PROTEIN, TOTAL 7.6 g/dL (6.4-8.2); TSH, 3RD GENERATION 0.927 uIU/mL (0.358-3.740); UREA NITROGEN 27 mg/dL (7-18)
[2024-06-29 02:00] LABS: SALICYLATE <0.2 mg/dL (2.8-20.0)
[2024-06-29] MEDS ORDERED: ETOMIDATE 40 MG/20 ML VIAL IV ONE (02:30)
[2024-06-29] MEDS ORDERED: LORazepam 2 MG/ML VIAL IV ONE (02:45)
[2024-06-29] MEDS ORDERED: HALOPERIDOL LACTATE 5 MG/ML VIAL IV ONE (02:45)
[2024-06-29 03:06] LABS: BILIRUBIN, URINE NEGATIVE (negative); BLOOD/HGB, URINE NEGATIVE (Negative); KETONE, URINE NEGATIVE (Negative); LEUK ESTERASE, URINE NEGATIVE (negative); NITRITE, URINE NEGATIVE (negative); PH, URINE 6.5 (5-7)
[2024-06-29 03:20] LABS: AMPHETAMINES, URINE POSITIVE (NEGATIVE); BARBITURATES, URINE NEGATIVE (NEGATIVE); BENZODIAZEPINE, URINE NEGATIVE (NEGATIVE); BUPRENORPHINE, URINE NEGATIVE (NEGATIVE); CANNABINOID, URINE POSITIVE (NEGATIVE); COCAINE, URINE NEGATIVE (NEGATIVE); ECSTASY, URINE NEGATIVE (NEGATIVE); FENTANYL, URINE POSITIVE (NEGATIVE); METHADONE, URINE NEGATIVE (NEGATIVE); OPIATES, URINE NEGATIVE (NEGATIVE); OXYCODONE, URINE NEGATIVE (NEGATIVE); PHENCYCLIDINE, URINE NEGATIVE (NEGATIVE)
[2024-06-29] MEDS ORDERED: HYDROCORTISONE SOD SUCCINATE 100 MG/2 ML VIAL IV ONE (06:30)
[2024-06-29 17:43] VITALS: BP 121/95
== END 2024-06-29 17:43 | disposition home or self-care (01) ==
LOC: ED 00:44
PROVIDERS: Family Medicine
DX: F12.929 Cannabis use, unspecified with intoxication, unspecified (principal); F15.929 Other stimulant use, unspecified with intoxication, unspecified; F11.929 Opioid use, unspecified with intoxication, unspecified; F20.9 Schizophrenia, unspecified; I50.9 Heart failure, unspecified; I48.91 Unspecified atrial fibrillation; M10.9 Gout, unspecified; F17.200 Nicotine dependence, unspecified, uncomplicated; Z88.0 Allergy status to penicillin; Z88.6 Allergy status to analgesic agent; Z91.041 Radiographic dye allergy status; Z79.01 Long term (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; Z79.899 Other long term (current) drug therapy
CPT/HCPCS: 36415; 51701; 70450; 74177; 80053; 80307; 81003; 84443; 85025; 99284-25; G0480; J1200; J1630; J1720; J2060; J3490; Q9967

== ENCOUNTER 2024-07-09 21:57 | Emergency (ER) | payer OTHER ==
[~2024-07-09] VITALS: Ht 165.1 cm; Wt 70.0 kg
--- OUTSIDE RECORDS SUMMARY | 2024-07-09 22:06 | XMS ---
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 Security Scientist/Engineer Events No recent Security Events currently on file CRITERIA MET - [facility] - 2 Visits in 30 Days CARE PROVIDERS CUCA DURAN [facility]: [facility] PHONE: Unknown CECI URIOSTEGUI Nurse Practitioner: Family Current PHONE: [phone] DAVID BEVERLY [facility] Current PHONE: [phone] Bella has no Care Guidelines for this patient. Care History Medical/Surgical 08/03/2022 [facility] This patient has no showed/cancelled all 5 appointments with PCP this year, 2022. E.D. VISIT COUNT (12 MO.) [address] [facility] TOTAL 12 NOTE: Visits indicate total known visits. ED/UCC VISIT TRACKING (12 MO.) 07/09/2024 21:59 [facility] [place] TYPE: Emergency COMPLAINT: - HERNIA 07/06/2024 13:09 [facility] [place] TYPE: Emergency COMPLAINT: - GROIN PAIN 06/29/2024 00:48 [facility] [place] TYPE: Emergency COMPLAINT: - MENTAL HEALTH DIAGNOSES: - Allergy status to analgesic agent - Allergy status to penicillin - Cannabis use, unspecified with intoxication, unspecified - Gout, unspecified - Heart failure, unspecified - rn long term care (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 - Nicotine dependence, unspecified, uncomplicated - Opioid use, unspecified with intoxication, unspecified - Other mcc (current) drug therapy - Other stimulant use, unspecified with intoxication, unspecified - Other symptoms and signs involving appearance and behavior - Radiographic dye allergy status - Schizophrenia, unspecified - Unspecified atrial fibrillation 11/12/2023 14:37 [facility] [place] TYPE: Emergency COMPLAINT: - HYPERTENSION DIAGNOSES: - Acute kidney failure, unspecified - Allergy status to analgesic agent - Allergy status to penicillin - Bipolar disorder, unspecified - Heart failure, unspecified - Hypotension, unspecified - rn long term care (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 - Nicotine dependence, unspecified, uncomplicated - Other mcc (current) drug therapy - Other nonmedicinal substance allergy status 11/08/2023 09:[address] [facility] [place] TYPE: Emergency COMPLAINT: - HANDS SWELLING 10/14/2023 12:48 [facility] [place] [facility] [place] TYPE: Emergency COMPLAINT: - GOUT SYMPTOMS 09/14/2023 11:41 [facility] [place] [facility] [place] TYPE: Emergency COMPLAINT: - VOMITING DIAGNOSES: - Allergy status to other drugs, medicaments and biological substances - Allergy status to penicillin - Heart failure, unspecified - rn long term care (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 - Nausea with vomiting, unspecified - Nicotine dependence, unspecified, uncomplicated - Other intermediate accountant (current) drug therapy - Unilateral inguinal hernia, without obstruction or gangrene, not specified as recurrent 09/06/2023 15:29 [facility] [place] TYPE: Emergency COMPLAINT: - POSS HERNIA [...] disorder, unspecified - Heart failure, unspecified - longterm (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 - Nicotine dependence, [...] Heart failure, unspecified - Hypotension, unspecified - rn long term care (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 - Nicotine dependence, unspecified, uncomplicated - Other intermediate accountant (current) drug therapy - Other nonmedicinal substance [...] to drugs and biological substances - Other intermediate accountant (current) drug therapy - Pneumonia, unspecified organism - Unspecified atrial fibrillation INPATIENT VISIT TRACKING (12 MO.) 11/13/2023 01:36 [facility] TYPE: General Medicine COMPLAINT: - I50.23 DIAGNOSES: - Acute on chronic systolic (congestive) heart failure - Disorientation, unspecified - Heart failure, unspecified - Longstanding persistent atrial fibrillation - Cardiogenic shock, methamphetamine abuse 11/08/2023 09:23 [facility] [place] TYPE: Observation COMPLAINT: - HYPOTENSION DIAGNOSES: - Allergy status to analgesic agent - Allergy status to penicillin - Heart failure, unspecified - Hyperuricemia without signs of inflammatory arthritis and tophaceous disease - Hypo-osmolality and hyponatremia - Hypokalemia - Hypomagnesemia - Hypotension, unspecified - rn long term care (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 - Nicotine dependence, unspecified, uncomplicated - Other mcc (current) drug therapy - Radiographic dye allergy status 10/14/2023 21:20 [facility] [place] TYPE: Medical Surgical COMPLAINT: - GOUTY ARTHRITIS DIAGNOSES: - Acute kidney failure, unspecified - Allergy status to other drugs, medicaments and biological substances - Allergy status to penicillin - Bipolar disorder, unspecified - Dehydration - Elevated white blood cell count, unspecified - Gout, unspecified - Heart failure, unspecified - Hypo-osmolality and hyponatremia - Hypokalemia - Hypomagnesemia - longterm (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 - Nicotine dependence, cigarettes, uncomplicated - Opioid abuse, uncomplicated - Other disorders of bilirubin metabolism - Other mcc (current) drug therapy - Other specified postprocedural states - Other stimulant abuse, uncomplicated - Schizophrenia, unspecified - Unspecified atrial fibrillation 09/07/2023 01:21 [facility] TYPE: Medical Surgical COMPLAINT: - LENO vs [...] 20. Allergy status to analgesic agent 21. rn long term care (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 22. Other nonmedicinal substance allergy status 23. Presence of alcohol in blood, level not specified 07/25/2023 20:31 [facility] PR[facility]HAK[facility] (Erna Umanzor) TYPE: Medical Surgical [...] physiological condition - Respiratory Distress, PNA, CHF [id number]
[2024-07-10 00:42] VITALS: BP 106/67
[2024-07-11] MEDS ORDERED: ALLOPURINOL100 MG PO (07:57)
[2024-07-11] MEDS ORDERED: OMEPRAZOLE40 MG PO (07:57)
== END 2024-07-10 00:44 | disposition home or self-care (01) ==
LOC: ED 21:57
DX: K40.90 Unilateral inguinal hernia, without obstruction or gangrene, not specified as recurrent (principal); T43.655A Adverse effect of methamphetamines, initial encounter; T40.415A Adverse effect of fentanyl or fentanyl analogs, initial encounter; I48.91 Unspecified atrial fibrillation; I50.9 Heart failure, unspecified; F17.200 Nicotine dependence, unspecified, uncomplicated; Z88.0 Allergy status to penicillin; Z88.6 Allergy status to analgesic agent; Z91.048 Other nonmedicinal substance allergy status; Z79.01 Long term (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
CPT/HCPCS: 99283

== ENCOUNTER 2024-07-11 07:49 | Emergency (ER) | payer OTHER ==
[~2024-07-11] VITALS: Ht 165.1 cm; Wt 74.7 kg
--- OUTSIDE RECORDS SUMMARY | 2024-07-11 07:55 | XMS ---
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/Center: [facility] PHONE: Unknown CECI URIOSTEGUI Nurse Practitioner: Family Current PHONE: [phone] DAVID BEVERLY [facility] Current PHONE: [phone] Bella has no Care Guidelines for this patient. Care History Medical/Surgical 08/03/2022 [facility] This patient has no showed/cancelled all 5 appointments with PCP this year, 2022. E.D. VISIT COUNT (12 MO.) [address] [facility] TOTAL 13 NOTE: Visits indicate total known visits. ED/UCC VISIT TRACKING (12 MO.) 07/11/2024 07:49 [facility] [place] TYPE: Emergency COMPLAINT: - ALTERED MENTAL STATUS 07/09/2024 21:59 [facility] [place] TYPE: Emergency COMPLAINT: - HERNIA 07/06/2024 13:09 [facility] [place] TYPE: Emergency COMPLAINT: - GROIN PAIN 06/29/2024 00:48 [facility] [place] TYPE: Emergency COMPLAINT: - MENTAL HEALTH DIAGNOSES: - Allergy status to analgesic agent - Allergy status to penicillin - Cannabis use, unspecified with intoxication, unspecified - Gout, unspecified - Heart failure, unspecified - technician terminal and repeater (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 - Nicotine dependence, unspecified, uncomplicated - Opioid use, unspecified with intoxication, unspecified - Other terminal superintendent (current) drug therapy - Other stimulant use, [...] Heart failure, unspecified - Hypotension, unspecified - technician terminal and repeater (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 - Nicotine dependence, unspecified, uncomplicated - Other terminal superintendent (current) drug therapy - Other nonmedicinal substance allergy status 11/08/2023 09:22 [facility] [place] TYPE: Emergency COMPLAINT: - HANDS SWELLING 10/14/2023 12:48 [facility] [place] TYPE: Emergency COMPLAINT: - GOUT SYMPTOMS 09/14/2023 11:41 [facility] [place] TYPE: Emergency COMPLAINT: - VOMITING DIAGNOSES: - Allergy status to other drugs, medicaments and biological substances - Allergy status to penicillin - Heart failure, unspecified - technician terminal and repeater (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 - Nausea with vomiting, unspecified - Nicotine dependence, unspecified, uncomplicated - Other terminal superintendent (current) drug therapy - Unilateral inguinal hernia, [...] disorder, unspecified - Heart failure, unspecified - snf (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 - Nicotine dependence, unspecified, uncomplicated - Other terminal superintendent (current) drug therapy - Other nonmedicinal substance [...] Heart failure, unspecified - Hypotension, unspecified - snf (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 - Nicotine dependence, unspecified, uncomplicated - Other detention (current) drug therapy - Other nonmedicinal substance [...] to drugs and biological substances - Other detention (current) drug therapy - Pneumonia, unspecified organism - Unspecified atrial fibrillation INPATIENT VISIT TRACKING (12 MO.) 11/13/2023 01:36 [facility] TYPE: General Medicine COMPLAINT: - I50.23 DIAGNOSES: - Acute on chronic systolic (congestive) heart failure - Disorientation, unspecified - Heart failure, unspecified - Longstanding persistent atrial fibrillation - Cardiogenic shock, methamphetamine abuse 11/08/2023 09:23 [facility] [place] TYPE: Observation COMPLAINT: - HYPOTENSION DIAGNOSES: - Allergy status to analgesic agent - Allergy status to penicillin - Heart failure, unspecified - Hyperuricemia without signs of inflammatory arthritis and tophaceous disease - Hypo-osmolality and hyponatremia - Hypokalemia - Hypomagnesemia - Hypotension, unspecified - snf (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 - Nicotine dependence, unspecified, uncomplicated - Other detention (current) drug therapy - Radiographic dye allergy status 10/14/2023 21:20 [facility] [place] TYPE: Medical Surgical COMPLAINT: - GOUTY ARTHRITIS DIAGNOSES: - Acute kidney failure, unspecified - Allergy status to other drugs, medicaments and biological substances - Allergy status to penicillin - Bipolar disorder, unspecified - Dehydration - Elevated white blood cell count, unspecified - Gout, unspecified - Heart failure, unspecified - Hypo-osmolality and hyponatremia - Hypokalemia - Hypomagnesemia - snf (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 - Nicotine dependence, cigarettes, uncomplicated - Opioid abuse, uncomplicated - Other disorders of bilirubin metabolism - Other terminal superintendent (current) drug therapy - Other specified postprocedural states - Other stimulant abuse, uncomplicated - Schizophrenia, unspecified - Unspecified atrial fibrillation 09/07/2023 01:21 [facility] TYPE: Medical Surgical COMPLAINT: - LENO [...] 20. Allergy status to analgesic agent 21. technician terminal and repeater (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 22. Other nonmedicinal substance allergy status 23. Presence of alcohol in blood, level not specified 07/25/2023 20:31 [facility] TYPE: Medical Surgical DIAGNOSES: [...] physiological condition - Respiratory Distress, PNA, CHF [id number]
[2024-07-11] MEDS ORDERED: OMEPRAZOLE40 MG PO (07:57)
[2024-07-11] MEDS ORDERED: ALLOPURINOL100 MG PO (07:57)
[2024-07-11 08:50] VITALS: BP 112/58
== END 2024-07-11 08:50 | disposition home or self-care (01) ==
LOC: ED 07:49
DX: F15.90 Other stimulant use, unspecified, uncomplicated (principal); F20.9 Schizophrenia, unspecified; I50.9 Heart failure, unspecified; I48.91 Unspecified atrial fibrillation; F17.200 Nicotine dependence, unspecified, uncomplicated; Z88.0 Allergy status to penicillin; Z88.8 Allergy status to other drugs, medicaments and biological substances
CPT/HCPCS: 99284

== ENCOUNTER 2025-01-12 05:27 | Emergency (ER) | payer OTHER ==
[~2025-01-12] VITALS: Ht 165.1 cm; Wt 74.7 kg
[~2025-01-12 05:27] MED LIST changes: +ALLOPURINOL100 MG PO
[2025-01-12 05:55] LABS: BASOPHILS 0.5 % (0.2-1.2); EOSINOPHILS 0.2 % (0.8-7.0); LYMPHOCYTES 18.5 % (21.8-53.1); MCH 30.4 PG (25.7-32.2); MCHC 32.4 g/dL (32.3-36.5); MCV 93.9 fL (79.0-92.2); MONOCYTES 9.8 % (5.3-12.2); NEUTROPHILS 70.6 % (34.0-67.9); RBC 3.75 M/uL (4.63-6.08)
[2025-01-12 06:18] LABS: ALT (SGPT) 373.0 U/L (14-59); AST (SGOT) 82.0 U/L (15-37); GLOMERULAR FILTRATION RATE,EST 40.0 mL/min (>60); PROTEIN, TOTAL 7.3 g/dL (6.4-8.2); UREA NITROGEN 43.0 mg/dL (7-18)
[2025-01-12] MEDS ORDERED: FUROSEMIDE 40 MG/4 ML VIAL IV ONE (06:30)
[2025-01-12] MEDS ORDERED: TORSEMIDE20 MG PO (06:31)
[2025-01-12] MEDS ORDERED: METOPROLOL SUCC25 MG PO (06:31)
[2025-01-12] MEDS ORDERED: ENTRESTO 24 MG1 EACH PO (06:31)
[2025-01-12 06:56] VITALS: BP 124/99
[2025-01-12 06:57] LABS: AMPHETAMINES, URINE POSITIVE (NEGATIVE); BARBITURATES, URINE NEGATIVE (NEGATIVE); BENZODIAZEPINE, URINE NEGATIVE (NEGATIVE); CANNABINOID, URINE NEGATIVE (NEGATIVE); COCAINE, URINE NEGATIVE (NEGATIVE); ECSTASY, URINE NEGATIVE (NEGATIVE); FENTANYL, URINE POSITIVE (NEGATIVE); METHADONE, URINE NEGATIVE (NEGATIVE); OPIATES, URINE NEGATIVE (NEGATIVE); OXYCODONE, URINE NEGATIVE (NEGATIVE); PHENCYCLIDINE, URINE NEGATIVE (NEGATIVE)
--- NOTE | 2025-01-14 10:41 | EKG ---
[facility] [address] [facility] [facility] [place] [address] Signed Atrial fibrillation Left axis deviation Low voltage QRS Possible Anterolateral infarct , age undetermined Abnormal ECG When compared with ECG of 12-NOV-2023 20:07, Borderline criteria for Anterior infarct are now present Borderline criteria for Anterolateral infarct are now present Nonspecific T wave abnormality, worse in Inferior leads QT has shortened Confirmed by Unique Sequeira DO ([id number]) on 01/14/2025 10:41:42 AM Electronically Signed By: UNIQUE SEQUEIRA DO 01/14/25 1041 PATIENT NAME: DAVID SANTORO Electrocardiogram DATE OF : 65 PHYSICIAN: UNIQUE SEQUEIRA DO REPORT #: [id number] REPORT IS CONFIDENTIAL AND NOT TO BE RELEASED WITHOUT AUTHORIZATION
== END 2025-01-12 06:58 | disposition home or self-care (01) ==
LOC: ED 05:27
PROVIDERS: Emergency Medicine
DX: I50.9 Heart failure, unspecified (principal); T50.916A Underdosing of multiple unspecified drugs, medicaments and biological substances, initial encounter; F15.10 Other stimulant abuse, uncomplicated; F11.10 Opioid abuse, uncomplicated; K43.9 Ventral hernia without obstruction or gangrene; I48.91 Unspecified atrial fibrillation; M10.9 Gout, unspecified; F17.200 Nicotine dependence, unspecified, uncomplicated; Z91.148 Patient's other noncompliance with medication regimen for other reason; Z88.0 Allergy status to penicillin; Z88.6 Allergy status to analgesic agent; Z91.041 Radiographic dye allergy status; Z79.899 Other long term (current) drug therapy
CPT/HCPCS: 36415; 71045; 80053; 80307; 83880; 84484; 85025; 93005; 93010; 96374; 99284-25; J1938

== ENCOUNTER 2025-02-03 05:57 | Emergency (ER) | payer OTHER ==
[~2025-02-03] VITALS: Ht 165.1 cm; Wt 75.7 kg
--- OUTSIDE RECORDS SUMMARY | 2025-02-03 06:04 | XMS ---
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 FAMILY PHONE: [phone] CUCA DURAN [facility]: [facility] PHONE: Unknown CCEI URIOSTEGUI Nurse Practitioner: Family Current PHONE: [phone] Bella has no Care Guidelines for this patient. Care History Medical/Surgical 08/03/2022 [facility] This patient has no showed/cancelled all 5 appointments with PCP this year, 2022. [facility] VISIT COUNT (12 MO[address] [facility] NOTE: Visits indicate total known visits. ED/UCC VISIT TRACKING (12 MO.) 02/03[facility]2025 05[facility] [place] [facility] COMPLAINT: - CHEST PAIN 01/12/2025 05:27 [facility] [place] TYPE: Emergency COMPLAINT: - NECK PAIN DIAGNOSES: - Allergy status to analgesic agent - Allergy status to penicillin - Cervicalgia - Gout, unspecified - Heart failure, unspecified - Nicotine dependence, unspecified, uncomplicated - Opioid abuse, uncomplicated - Other intermediate (current) drug therapy - Other stimulant abuse, uncomplicated - Patient's other noncompliance with medication regimen for other reason - Radiographic dye allergy status - Underdosing of multiple unspecified drugs, medicaments and biological substances, initial encounter - Unspecified atrial fibrillation - Ventral hernia without obstruction or gangrene 07/11/2024 07:49 [facility] [place] TYPE: Emergency COMPLAINT: - ALTERED MENTAL STATUS DIAGNOSES: - Allergy status to other drugs, medicaments and biological substances - Allergy status to penicillin - Heart failure, unspecified - Nicotine dependence, unspecified, uncomplicated - Other stimulant use, unspecified, uncomplicated - Schizophrenia, unspecified - Transient alteration of awareness - Unspecified atrial fibrillation 07/09/2024 21:59 [facility] [place] TYPE: Emergency COMPLAINT: - HERNIA DIAGNOSES: - Adverse effect of fentanyl or fentanyl analogs, initial encounter - Adverse effect of methamphetamines, initial encounter - Allergy status to analgesic agent - Allergy status to penicillin - Heart failure, unspecified - ad terminal makeup operator (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 - Lower abdominal pain, unspecified - Nicotine dependence, unspecified, uncomplicated - Other nonmedicinal substance allergy status - Unilateral inguinal hernia, without obstruction or gangrene, not specified as recurrent - Unspecified atrial fibrillation 07/06/2024 13:09 [facility] [place] TYPE: Emergency COMPLAINT: - GROIN PAIN 06/29/2024 00:48 [facility] [place] TYPE: Emergency COMPLAINT: - MENTAL HEALTH DIAGNOSES: - Allergy status to analgesic agent - Allergy status to penicillin - Cannabis use, unspecified with intoxication, unspecified - Gout, unspecified - Heart failure, unspecified - penitentiary (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 - Nicotine dependence, unspecified, uncomplicated - Opioid use, unspecified with intoxication, unspecified - Other intermediate (current) drug therapy - Other stimulant use, unspecified with intoxication, unspecified - Other symptoms and signs involving appearance and behavior - Radiographic dye allergy status - Schizophrenia, unspecified - Unspecified atrial fibrillation INPATIENT VISIT TRACKING (12 MO.) No inpatient visits to display in this time frame [email or web address]
[2025-02-03] MEDS ORDERED: LORazepam 2 MG/ML VIAL IV ONE (06:15)
[2025-02-03 06:45] LABS: INR 1.41 (0.80-1.30); PROTIME 16.8 Sec (11.2-14.2)
[2025-02-03 06:57] LABS: ALT (SGPT) 43.0 U/L (14-59); AST (SGOT) 59.0 U/L (15-37); GLOMERULAR FILTRATION RATE,EST 33.0 mL/min (>60); PROTEIN, TOTAL 7.0 g/dL (6.4-8.2); UREA NITROGEN 53.0 mg/dL (7-18)
[2025-02-03 07:12] LABS: BASOPHILS 1.0 % (0.2-1.2); EOSINOPHILS 0.2 % (0.8-7.0); LYMPHOCYTES 18.7 % (21.8-53.1); MCH 29.6 PG (25.7-32.2); MCHC 32.4 g/dL (32.3-36.5); MCV 91.1 fL (79.0-92.2); MONOCYTES 13.4 % (5.3-12.2); NEUTROPHILS 65.9 % (34.0-67.9); RBC 3.72 M/uL (4.63-6.08)
[2025-02-03] MEDS ORDERED: ALBUMIN HUMAN 25% 100 ML BTL IV ONE (07:45)
[2025-02-03] MEDS ORDERED: FUROSEMIDE 40 MG/4 ML VIAL IV ONE (07:45)
[2025-02-03] MEDS ORDERED: TORSEMIDE20 MG PO (08:47)
[2025-02-03] MEDS ORDERED: METOPROLOL SUCC25 MG PO (08:47)
[2025-02-03] MEDS ORDERED: ENTRESTO 24 MG1 EACH PO (08:47)
[2025-02-03] MEDS ORDERED: OMEPRAZOLE40 MG PO (08:47)
[2025-02-03] MEDS ORDERED: ALLOPURINOL100 MG PO (08:47)
[2025-02-03 09:20] VITALS: BP 96/75
--- NOTE | 2025-02-03 14:36 | EKG ---
[facility] [address] [facility] [place] [address] Signed Atrial fibrillation with rapid ventricular response Right superior axis deviation Possible Anterior infarct , age undetermined Abnormal ECG No previous ECGs available Confirmed by MAGALI WONG MD ([id number]) on 02/03/2025 2:35:56 PM Electronically Signed By: MAGALI WONG 02/03/25 1436 PATIENT NAME: DAVID SANTORO Electrocardiogram DATE OF : 65 PHYSICIAN: MAGALI WONG REPORT #: [id number] REPORT IS CONFIDENTIAL AND NOT TO BE RELEASED WITHOUT AUTHORIZATION
== END 2025-02-03 09:20 | disposition home or self-care (01) ==
LOC: ED 05:57 → EDBD 05:58 → ED 05:58
PROVIDERS: Family Medicine
DX: I50.9 Heart failure, unspecified (principal); F19.10 Other psychoactive substance abuse, uncomplicated; I48.91 Unspecified atrial fibrillation; F17.200 Nicotine dependence, unspecified, uncomplicated; Z88.0 Allergy status to penicillin; Z88.6 Allergy status to analgesic agent; Z59.00 Homelessness unspecified; Z91.148 Patient's other noncompliance with medication regimen for other reason; Z91.048 Other nonmedicinal substance allergy status
CPT/HCPCS: 36415; 71045; 80053; 83735; 83880; 84484; 85025; 85610; 93005; 93010; 96365; 96375; 99285-25; J1938; J2060; P9047

== ENCOUNTER 2025-02-07 07:35 | Emergency (ER) | payer OTHER ==
[~2025-02-07] VITALS: Ht 165.1 cm; Wt 74.9 kg
--- OUTSIDE RECORDS SUMMARY | 2025-02-07 07:37 | XMS ---
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/[place]: [facility] PHONE: Unknown CECI URIOSTEGUI Nurse Practitioner: Family Current PHONE: [phone] Bella has no Care Guidelines for this patient. Care History Medical/Surgical 08/03/2022 [facility] This patient has no showed/cancelled all 5 appointments with PCP this year, 2022. EKatelynn V[facility] (12 MO.) [facility] NOTE: Visits indicate total known visits. ED/UCC VISIT TRACKING (12 MO.) 02/07/2025 07:[facility] [place] [facility] Emergency COMPLAINT: - FACIAL SWELLING 02/03/2025 05:58 [facility] [place] TYPE: Emergency COMPLAINT: - CHEST PAIN DIAGNOSES: - Allergy status to analgesic agent - Allergy status to penicillin - Chest pain, unspecified - Heart failure, unspecified - Homelessness unspecified - Nicotine dependence, unspecified, uncomplicated - Other nonmedicinal substance allergy status - Other psychoactive substance abuse, uncomplicated - Patient's other noncompliance with medication regimen for other reason - Unspecified atrial fibrillation 01/12/2025 05:27 [facility] [place] TYPE: Emergency COMPLAINT: - NECK PAIN DIAGNOSES: - Allergy status to analgesic agent - Allergy status to penicillin - Cervicalgia - Gout, unspecified - Heart failure, unspecified - Nicotine dependence, unspecified, uncomplicated - Opioid abuse, uncomplicated - Other terminal system operator (current) drug therapy - Other stimulant abuse, [...] to penicillin - Heart failure, unspecified - rodent exterminator (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 - Lower abdominal [...] Gout, unspecified - Heart failure, unspecified - rodent exterminator (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 - Nicotine dependence, unspecified, uncomplicated - Opioid use, unspecified with intoxication, unspecified - Other shelter (current) drug therapy - Other stimulant use, unspecified with intoxication, unspecified - Other symptoms and signs involving appearance and behavior - Radiographic dye allergy status - Schizophrenia, unspecified - Unspecified atrial fibrillation INPATIENT VISIT TRACKING (12 MO.) No inpatient visits to display in this time frame [email or web address]
[2025-02-07] MEDS ORDERED: LORazepam 2 MG/ML VIAL IM ONE (07:45)
[2025-02-07] MEDS ORDERED: LORazepam 2 MG/ML VIAL IV ONE ×4 (08:00→19:30)
[2025-02-07 08:10] LABS: BASOPHILS 0.6 % (0.2-1.2); EOSINOPHILS 0.4 % (0.8-7.0); LYMPHOCYTES 18.9 % (21.8-53.1); MCH 30.3 PG (25.7-32.2); MCHC 32.5 g/dL (32.3-36.5); MCV 93.3 fL (79.0-92.2); MONOCYTES 9.5 % (5.3-12.2); NEUTROPHILS 70.2 % (34.0-67.9); RBC 3.43 M/uL (4.63-6.08)
[2025-02-07] MEDS ORDERED: HALOPERIDOL LACTATE 5 MG/ML VIAL IV ONE (08:15)
[2025-02-07 08:27] LABS: ALT (SGPT) 45.0 U/L (14-59); AST (SGOT) 47.0 U/L (15-37); GLOMERULAR FILTRATION RATE,EST 49.0 mL/min (>60); PROTEIN, TOTAL 6.9 g/dL (6.4-8.2); UREA NITROGEN 37.0 mg/dL (7-18)
[2025-02-07] MEDS ORDERED: LORazepam 2 MG/ML VIAL IV SCH (08:45)
[2025-02-07] MEDS ORDERED: HALOPERIDOL LACTATE 5 MG/ML VIAL IM ONE (09:15)
[2025-02-07] MEDS ORDERED: FUROSEMIDE 40 MG/4 ML VIAL IV ONE (12:15)
[2025-02-07 14:31] LABS: BLOOD/HGB, URINE NEGATIVE (Negative); KETONE, URINE NEGATIVE (Negative); LEUK ESTERASE, URINE NEGATIVE (negative); NITRITE, URINE NEGATIVE (negative)
[2025-02-07 14:37] LABS: BACTERIA, URINE NONE SEEN /hpf (negative); CASTS, URINE NONE SEEN \\lpf; CRYSTALS, URINE NONE SEEN (0-1+); EPITHELIAL CELLS, URINE 0 /lpf (0-1+)
[2025-02-07 14:38] LABS: REFLEX CULTURE, URINE Yes (No)
[2025-02-07 14:52] LABS: AMPHETAMINES, URINE POSITIVE (NEGATIVE); BARBITURATES, URINE NEGATIVE (NEGATIVE); BENZODIAZEPINE, URINE NEGATIVE (NEGATIVE); CANNABINOID, URINE NEGATIVE (NEGATIVE); COCAINE, URINE NEGATIVE (NEGATIVE); ECSTASY, URINE NEGATIVE (NEGATIVE); FENTANYL, URINE POSITIVE (NEGATIVE); METHADONE, URINE NEGATIVE (NEGATIVE); OPIATES, URINE NEGATIVE (NEGATIVE); OXYCODONE, URINE NEGATIVE (NEGATIVE); PHENCYCLIDINE, URINE NEGATIVE (NEGATIVE)
[2025-02-07 19:38] VITALS: BP 103/82
--- NOTE | 2025-02-07 21:49 | EKG ---
[facility] [address] [place] [address] Signed Atrial fibrillation with rapid ventricular response Right superior axis deviation Anterior infarct (cited on or before 10-NOV-2022) Abnormal ECG When compared with ECG of 03-FEB-2025 05:57, Vent. rate has increased BY 62 BPM Confirmed by Mona Hoffman MD () on 02/07/2025 9:49:25 PM Electronically Signed By: MONA HOFFMAN MD 02/07/25 2149 PATIENT NAME: DAVID SANTORO Electrocardiogram DATE OF : 65 PHYSICIAN: MONA HOFFMAN MD REPORT #: [id number] REPORT IS CONFIDENTIAL AND NOT TO BE RELEASED WITHOUT AUTHORIZATION
== END 2025-02-07 19:30 | disposition short-term general hospital (02) ==
LOC: ED 07:35 → EDBD 07:35 → ED 19:30
PROVIDERS: Emergency Medicine
DX: I48.91 Unspecified atrial fibrillation (principal); F15.90 Other stimulant use, unspecified, uncomplicated; F25.9 Schizoaffective disorder, unspecified; F17.200 Nicotine dependence, unspecified, uncomplicated; Z88.0 Allergy status to penicillin; Z79.899 Other long term (current) drug therapy
CPT/HCPCS: 36415; 51701; 71045; 80053; 80307; 81001; 84484; 85025; 87088; 93005; 93010; 96372; 96374; 96375; 96376; 99285-25; G0480; J1200; J1630; J2060

== ENCOUNTER 2025-02-22 19:03 | Emergency (ER) | payer OTHER ==
[~2025-02-22] VITALS: Ht 165.1 cm; Wt 74.9 kg
--- OUTSIDE RECORDS SUMMARY | 2025-02-22 19:10 | XMS ---
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 Care History Medical/Surgical 08/03/2022 [facility] This patient has no showed/cancelled all 5 appointments with PCP this year, 2022. [place] [facility] MO[facility] NOTE: Visits indicate total known visits. ED/UCC VISIT TRACKING (12 MO.) 02[facility]25 19[facility] [place] [facility] COMPLAINT: - EXTREMITY PAIN 02/07/2025 07:35 [facility] [place] TYPE: Emergency COMPLAINT: - FACIAL SWELLING DIAGNOSES: - Allergy status to penicillin - Localized swelling, mass and lump, head - Nicotine dependence, unspecified, uncomplicated - Other [facility] (current) drug therapy - Other stimulant use, unspecified, uncomplicated - Schizoaffective disorder, unspecified - Unspecified atrial fibrillation 02/03/2025 05:58 [facility] [place] TYPE: Emergency [...] uncomplicated - Opioid abuse, uncomplicated - Other [facility] (current) drug therapy - Other stimulant abuse, [...] to penicillin - Heart failure, unspecified - 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 (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 - Lower abdominal pain, unspecified - Nicotine dependence, unspecified, uncomplicated - Other nonmedicinal substance allergy status - Unilateral inguinal hernia, without obstruction or gangrene, not specified as recurrent - Unspecified atrial fibrillation 07/06/2024 13:09 [facility] [place] TYPE: Emergency COMPLAINT: - GROIN PAIN 06/29/2024 00:48 [facility] [place] TYPE: Emergency COMPLAINT: - MENTAL HEALTH DIAGNOSES: - Allergy status to analgesic agent - Allergy status to penicillin - Cannabis use, unspecified with intoxication, unspecified - Gout, unspecified - Heart failure, unspecified - correction (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 - Nicotine dependence, unspecified, uncomplicated - Opioid use, unspecified with intoxication, unspecified - Other [facility] (current) drug therapy - Other stimulant use, unspecified with intoxication, unspecified - Other symptoms and signs involving appearance and behavior - Radiographic dye allergy status - Schizophrenia, unspecified - Unspecified atrial fibrillation INPATIENT VISIT TRACKING (12 MO.) 02/07/2025 20:41 [facility] TYPE: Intensive Care DIAGNOSES: - Acute on chronic combined systolic (congestive) and diastolic (congestive) heart failure - Bilateral inguinal hernia, without obstruction or gangrene, not specified as recurrent - Chronic combined systolic (congestive) and diastolic (congestive) heart failure - Hyperlipidemia, unspecified - Intracardiac thrombosis, not elsewhere classified - Other psychoactive substance use, unspecified, uncomplicated - Other specified persistent mood disorders - Unspecified atrial fibrillation - A fib c RVR - cardiomyopathy - CHF - facial swelling - substance abuse [email or web address]
[2025-02-22 20:15] LABS: BASOPHILS 1.4 % (0.2-1.2); EOSINOPHILS 0.4 % (0.8-7.0); LYMPHOCYTES 13.3 % (21.8-53.1); MCH 29.9 PG (25.7-32.2); MCHC 33.1 g/dL (32.3-36.5); MCV 90.2 fL (79.0-92.2); MONOCYTES 14.3 % (5.3-12.2); NEUTROPHILS 70.4 % (34.0-67.9); RBC 3.48 M/uL (4.63-6.08)
[2025-02-22 20:38] LABS: ALT (SGPT) 32 U/L (14-59); AST (SGOT) 47 U/L (15-37); GLOMERULAR FILTRATION RATE,EST 39 mL/min (>60); PROTEIN, TOTAL 6.8 g/dL (6.4-8.2); UREA NITROGEN 40 mg/dL (7-18)
[2025-02-22] MEDS ORDERED: SODIUM CHLORIDE 0.9% 500 ML IV PRN (21:00)
[2025-02-22] MEDS ORDERED: Rifaximin 550 MG TAB PO ONE (21:30)
[2025-02-22] MEDS ORDERED: XIFAXAN550 MG PO (23:14)
[2025-02-22 23:29] VITALS: BP 103/78
== END 2025-02-22 23:34 | disposition home or self-care (01) ==
LOC: ED 19:03
PROVIDERS: Family Medicine
DX: I50.9 Heart failure, unspecified (principal); K70.30 Alcoholic cirrhosis of liver without ascites; F17.200 Nicotine dependence, unspecified, uncomplicated; Z79.899 Other long term (current) drug therapy; Z88.0 Allergy status to penicillin; Z88.6 Allergy status to analgesic agent; Z91.048 Other nonmedicinal substance allergy status
CPT/HCPCS: 36415; 80053; 82140; 83690; 83880; 84484; 85025; 99283; J7040

== ENCOUNTER 2025-03-04 01:29 | Emergency (ER) | payer OTHER ==
[~2025-03-04] VITALS: Ht 165.1 cm; Wt 74.9 kg
[~2025-03-04 01:29] MED LIST changes: +XIFAXAN550 MG PO
--- OUTSIDE RECORDS SUMMARY | 2025-03-04 01:34 | XMS ---
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 Care History Medical/Surgical 08/03/2022 [facility] This patient has no showed/cancelled all 5 appointments with PCP this year, 2022. EKatelynn VISIT COUNT (12 MO.) [address] Jazmín Jaimes (Erna Umanzor) TOTAL 10 NOTE: Visits indicate total known visits. ED/UCC VISIT TRACKING (12 MO.) 03/04/2025 01:30 [facility] [place] TYPE: Emergency COMPLAINT: - FLU SYMPTOMS 02/24/2025 11:10 [facility] Erna PRABHAKAR ([place]) TYPE: Emergency DIAGNOSES: - Chronic combined systolic (congestive) and diastolic (congestive) heart failure - Chronic kidney disease, stage 3 unspecified - Localized edema - Patient's noncompliance with other medical treatment and regimen due to unspecified reason - Unspecified atrial fibrillation - leg swelling - Shortness of Breath 02/22/2025 19:04 [facility] [place] TYPE: Emergency COMPLAINT: - EXTREMITY PAIN DIAGNOSES: - Alcoholic cirrhosis of liver without ascites - Allergy status to analgesic agent - Allergy status to penicillin - Heart failure, unspecified - Nicotine dependence, unspecified, uncomplicated - Other alf (current) drug therapy - Other malaise - Other nonmedicinal substance allergy status 02/07/2025 07:35 [facility] [place] TYPE: Emergency COMPLAINT: - FACIAL SWELLING DIAGNOSES: - Allergy status to penicillin - Localized swelling, mass and lump, head - Nicotine dependence, unspecified, uncomplicated - Other alf (current) drug therapy - Other stimulant use, [...] uncomplicated - Opioid abuse, uncomplicated - Other alf (current) drug therapy - Other stimulant abuse, [...] to penicillin - Heart failure, unspecified - group home (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 - Lower abdominal [...] Gout, unspecified - Heart failure, unspecified - group home (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 - Nicotine dependence, unspecified, uncomplicated - Opioid use, unspecified with intoxication, unspecified - Other alf (current) drug therapy - Other stimulant use, unspecified with intoxication, unspecified - Other symptoms and signs involving appearance and behavior - Radiographic dye allergy status - Schizophrenia, unspecified - Unspecified atrial fibrillation INPATIENT VISIT TRACKING (12 MO.) 02/07/2025 20:41 [facility] Umanz[place] TYPE: Intensive Care DIAGNOSES: - Acute on [...] CHF - facial swelling - substance abuse [email or web address]
[2025-03-04 02:08] LABS: BASOPHILS 0.7 % (0.2-1.2); EOSINOPHILS 0.7 % (0.8-7.0); LYMPHOCYTES 17.3 % (21.8-53.1); MCH 29.7 PG (25.7-32.2); MCHC 32.4 g/dL (32.3-36.5); MCV 91.6 fL (79.0-92.2); MONOCYTES 14.5 % (5.3-12.2); NEUTROPHILS 66.4 % (34.0-67.9); RBC 3.81 M/uL (4.63-6.08)
[2025-03-04 02:28] LABS: ALCOHOL, MEDICAL <3 ng/dL (<3); ALT (SGPT) 62 U/L (14-59); AST (SGOT) 107 U/L (15-37); GLOMERULAR FILTRATION RATE,EST 53 mL/min (>60); PROTEIN, TOTAL 7.2 g/dL (6.4-8.2); UREA NITROGEN 30 mg/dL (7-18)
[2025-03-04] MEDS ORDERED: FUROSEMIDE 100 MG/10 ML VIAL IV ONE (02:45)
[2025-03-04] MEDS ORDERED: APIXABAN 5 MG TAB PO ONE (03:00)
[2025-03-04] MEDS ORDERED: PANTOPRAZOLE SODIUM 40 MG TABEC PO ONE (03:00)
[2025-03-04] MEDS ORDERED: METOPROLOL TARTRATE 50 MG TAB PO ONE (03:00)
[2025-03-04] MEDS ORDERED: Rifaximin 550 MG TAB PO ONE (03:00)
[2025-03-04 03:04] LABS: LACTIC ACID, BLOOD 2.2 mmol/L (0.4-2.0)
[2025-03-04 03:43] LABS: BLOOD/HGB, URINE NEGATIVE (Negative); KETONE, URINE NEGATIVE (Negative); LEUK ESTERASE, URINE NEGATIVE (negative); NITRITE, URINE NEGATIVE (negative)
[2025-03-04 03:58] LABS: AMPHETAMINES, URINE POSITIVE (NEGATIVE); BARBITURATES, URINE NEGATIVE (NEGATIVE); BENZODIAZEPINE, URINE NEGATIVE (NEGATIVE); CANNABINOID, URINE NEGATIVE (NEGATIVE); COCAINE, URINE NEGATIVE (NEGATIVE); ECSTASY, URINE NEGATIVE (NEGATIVE); FENTANYL, URINE POSITIVE (NEGATIVE); METHADONE, URINE NEGATIVE (NEGATIVE); OPIATES, URINE NEGATIVE (NEGATIVE); OXYCODONE, URINE NEGATIVE (NEGATIVE); PHENCYCLIDINE, URINE NEGATIVE (NEGATIVE)
[2025-03-04] MEDS ORDERED: COLCHICINE 0.6 MG TAB PO ONE ×2 (04:15→05:30)
[2025-03-04] MEDS ORDERED: DEXAMETHASONE SOD PHOS 10 MG/ML VIAL IV ONE (04:15)
[2025-03-04 06:50] VITALS: BP 102/66
--- NOTE | 2025-03-06 18:13 | EKG ---
[facility] [address] [place] [address] Signed Atrial fibrillation with rapid ventricular response Left anterior fascicular block Possible Anterior infarct (cited on or before 10-NOV-2022) T wave abnormality, consider lateral ischemia Abnormal ECG When compared with ECG of 07-FEB-2025 10:12, Vent. rate has decreased BY 73 BPM Left anterior fascicular block is now present Confirmed by Mona Hoffman MD () on 03/06/2025 6:13:30 PM Electronically Signed By: MONA HOFFMAN MD 03/06/251812 PATIENT NAME: DAVID SANTORO Electrocardiogram DATE OF : 65 PHYSICIAN: MONA HOFFMAN MD REPORT #: [id number] REPORT IS CONFIDENTIAL AND NOT TO BE RELEASED WITHOUT AUTHORIZATION
== END 2025-03-04 06:50 | disposition home or self-care (01) ==
LOC: ED 01:29
PROVIDERS: Internal Medicine
DX: I50.9 Heart failure, unspecified (principal); M10.9 Gout, unspecified; K40.90 Unilateral inguinal hernia, without obstruction or gangrene, not specified as recurrent; F19.10 Other psychoactive substance abuse, uncomplicated; F17.200 Nicotine dependence, unspecified, uncomplicated; Z79.899 Other long term (current) drug therapy; Z88.0 Allergy status to penicillin; Z88.6 Allergy status to analgesic agent; Z91.048 Other nonmedicinal substance allergy status
CPT/HCPCS: 36415; 71045; 80053; 80307; 81003; 82140; 83605; 83880; 84484; 84550; 85025; 87040; 93005; 93010; 96374; 96375; 99284-25; A9270; G0480; J1100; J1938

== ENCOUNTER 2025-03-11 08:11 | Emergency (ER) | payer OTHER ==
[~2025-03-11] VITALS: Ht 167.6 cm; Wt 61.6 kg
[2025-03-11 08:24] LABS: BLOOD/HGB, URINE TRACE-I (Negative); KETONE, URINE NEGATIVE (Negative); LEUK ESTERASE, URINE NEGATIVE (negative); NITRITE, URINE NEGATIVE (negative)
[2025-03-11 08:24] LABS: BASOPHILS 0.1 % (0.2-1.2); EOSINOPHILS 0 % (0.8-7.0); LYMPHOCYTES 6.0 % (21.8-53.1); MCH 29.3 PG (25.7-32.2); MCHC 34.1 g/dL (32.3-36.5); MCV 85.9 fL (79.0-92.2); MONOCYTES 9.7 % (5.3-12.2); NEUTROPHILS 83.5 % (34.0-67.9); RBC 4.54 M/uL (4.63-6.08)
[2025-03-11] MEDS ORDERED: MORPHINE SULFATE 10 MG/ML VIAL IV ONE (08:30)
[2025-03-11] MEDS ORDERED: LACTATED RINGER'S 1,000 ML IV SCH (08:30)
[2025-03-11 08:49] LABS: ALT (SGPT) 54.0 U/L (14-59); AST (SGOT) 51.0 U/L (15-37); GLOMERULAR FILTRATION RATE,EST 70.0 mL/min (>60); PROTEIN, TOTAL 6.3 g/dL (6.4-8.2); UREA NITROGEN 30.0 mg/dL (7-18)
--- OUTSIDE RECORDS SUMMARY | 2025-03-11 08:56 | XMS ---
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 Care History Medical/Surgical 08/03/2022 [facility] This patient has no showed/cancelled all 5 appointments with PCP this year, 2022. EKatelynn VISIT COUNT (12 MO.) [address] Jazmín Jaimes (Erna Umanzor) TOTAL 11 NOTE: Visits indicate total known visits. ED/UCC VISIT TRACKING (12 MO.) 03/11/2025 08:13 [facility] [place] TYPE: Emergency COMPLAINT: - TESTICLE PAIN 03/04/2025 01:[address] [facility] [address] [facility] [place] TYPE: Emergency COMPLAINT: - FLU SYMPTOMS DIAGNOSES: - Allergy status to analgesic agent - Allergy status to penicillin - Gout, unspecified - Heart failure, unspecified - Nicotine dependence, unspecified, uncomplicated - Other long-term (current) drug therapy - Other nonmedicinal substance allergy status - Other psychoactive substance abuse, uncomplicated - Other specified soft tissue disorders - Unilateral inguinal hernia, without obstruction or gangrene, not specified as recurrent 02/24/2025 11:10 [facility] Fiona PRABHAKAR ([place] Umanzor) TYPE: Emergency DIAGNOSES: - Chronic combined systolic (congestive) and diastolic (congestive) heart failure - Chronic kidney disease, stage 3 unspecified - Localized edema - Patient's noncompliance with other medical treatment and regimen due to unspecified reason - Unspecified atrial fibrillation - leg swelling - Shortness of Breath 02/22/2025 19:[address] [facility] [address] [facility] [place] TYPE: Emergency COMPLAINT: - EXTREMITY PAIN DIAGNOSES: - Alcoholic cirrhosis of liver without ascites - Allergy status to analgesic agent - Allergy status to penicillin - Heart failure, unspecified - Nicotine dependence, unspecified, uncomplicated - Other long-term (current) drug therapy - Other malaise - Other nonmedicinal substance allergy status 02/07/2025 07:35 [facility] [place] TYPE: Emergency COMPLAINT: - FACIAL SWELLING DIAGNOSES: - Allergy status to penicillin - Localized swelling, mass and lump, head - Nicotine dependence, unspecified, uncomplicated - Other continuous churn buttermaker (current) drug therapy - Other stimulant use, [...] uncomplicated - Opioid abuse, uncomplicated - Other continuous churn buttermaker (current) drug therapy - Other stimulant abuse, [...] to penicillin - Heart failure, unspecified - skilled nursing (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 - Lower abdominal [...] Gout, unspecified - Heart failure, unspecified - 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 or 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 - Nicotine dependence, unspecified, uncomplicated - Opioid use, unspecified with intoxication, unspecified - Other continuous churn buttermaker (current) drug therapy - Other stimulant use, unspecified with intoxication, unspecified - Other symptoms and signs involving appearance and behavior - Radiographic dye allergy status - Schizophrenia, unspecified - Unspecified atrial fibrillation INPATIENT VISIT TRACKING (12 MO.) 02[facility]07[facility]2025 20:41 [facility] [facility] TYPE: Intensive Care DIAGNOSES: [...] CHF - facial swelling - substance abuse [email or web address]
[2025-03-11 09:00] LABS: BACTERIA, URINE NONE SEEN /hpf (negative); CASTS, URINE NONE SEEN \\lpf; CRYSTALS, URINE NONE SEEN (0-1+); EPITHELIAL CELLS, URINE 0 /lpf (0-1+); REFLEX CULTURE, URINE No (No)
[2025-03-11] MEDS ORDERED: POTASSIUM CHLORIDE 10 MEQ/100 ML BAG IV SCH (09:15)
[2025-03-11 13:05] VITALS: BP 93/69
--- NOTE | 2025-03-11 13:59 | EKG ---
[facility] [address] [facility] [place] [address] Signed Atrial fibrillation Left anterior fascicular block Minimal voltage criteria for LVH, may be normal variant ( [place] product ) Possible Anterior infarct , age undetermined Abnormal ECG No previous ECGs available Confirmed by Mona Hoffman MD () on 03/11/2025 1:59:03 PM Electronically Signed By: MONA HOFFMAN MD 03/11/25 1359 PATIENT NAME: SANTORODAVID ALICIA Electrocardiogram DATE OF : 65 PHYSICIAN: MONA HOFFMAN MD REPORT #: [id number] REPORT IS CONFIDENTIAL AND NOT TO BE RELEASED WITHOUT AUTHORIZATION
== END 2025-03-11 13:05 | disposition short-term general hospital (02) ==
LOC: ED 08:11 → EDBD 08:13 → ED 13:05
PROVIDERS: Emergency Medicine
DX: I51.3 Intracardiac thrombosis, not elsewhere classified (principal); K40.20 Bilateral inguinal hernia, without obstruction or gangrene, not specified as recurrent; E87.6 Hypokalemia; Z88.0 Allergy status to penicillin
CPT/HCPCS: 36415; 74177; 80053; 81001; 83605; 85025; 93005; 93010; 96365; 96366; 96375; 99285-25; J2270; J2405; J3480; J7121; Q9967